=== PATIENT | male | born 1955 | race Caucasian/White ===

== ENCOUNTER 2021-02-27 12:42 | Outpatient (CLI) | payer BC, SELFPAY | END 2021-02-27 12:43 | disposition home or self-care (01) | LOC: ONCMED 12:47 | PROVIDERS: PCP Family Medicine; Visit Provider Internal Medicine Hematology & Oncology | DX: C34.32 Malignant neoplasm of lower lobe, left bronchus or lung (principal); C79.51 Secondary malignant neoplasm of bone; F17.210 Nicotine dependence, cigarettes, uncomplicated; Z79.899 Other long term (current) drug therapy | CPT/HCPCS: 99205 ==

== ENCOUNTER 2021-02-27 15:09 | Emergency (ER) | payer BC, SELFPAY ==
[2021-02-27 15:22] VITALS: BP 157/74; PULSE 71; RESP 22; TEMP 36.4; O2SAT 95; BMI 27.6
--- NOTE | 2021-02-27 16:36 | CTR_ITS ---
PROCEDURE INFORMATION: Exam: CT Cervical Spine Without Contrast Exam date and time: 02/27/2021 4:47 PM Age: 65 years old Clinical indication: Numbness; Neck pain; Patient HX: Left arm numbness; Additional info: Neck pain with R arm radiculopathy TECHNIQUE: Imaging protocol: Computed tomography images of the cervical spine without contrast. Radiation optimization: All CT scans at this facility use at least one of these dose optimization techniques: automated exposure control; mA and/or kV adjustment per patient size (includes targeted exams where dose is matched to clinical indication); or iterative reconstruction. COMPARISON: No relevant prior studies available. RADIATION DOSE METRICS: Total DLP (mGy-cm): 563.63 FINDINGS: Vertebrae: Moderate to severe multilevel spine degenerative changes including degenerative disc disease, spondylosis and facet degenerative changes. Mild cervicothoracic dextroscoliosis. C2-C3: No significant disc protrusion. No severe spinal canal stenosis. No significant neural foraminal narrowing. C3-C4: Mild degenerative disc disease and spondylosis. Mild posterior central disc protrusion. Mild left foraminal stenosis. C4-C5: Mild to moderate degenerative disc disease and spondylosis. C5-C6: Severe degenerative disc disease and spondylosis. Severe left foraminal stenosis with moderate right foraminal stenosis. C6-C7: Severe degenerative disc disease and spondylosis. Severe left foraminal stenosis with moderate right foraminal stenosis. C7-T1: Mild degenerative disc disease and spondylosis. Moderate to severe left facet degenerative changes. Soft tissues: Unremarkable. Lungs: Lung apices are normal. CT/CT cervical spin wo con* [id number] IMPRESSION: 1. Severe left C5-C6 and C6-C7 foraminal stenosis. 2. Moderate right C5-C6 and C6-C7 foraminal stenosis. 3. Multilevel degenerative changes including degenerative disc disease, spondylosis and facet degenerative changes with associated multilevel foraminal stenosis as discussed above. Radiation Dose CTDIVOL = (mGy): DLP = 563.63 (mGy-cm)
--- NOTE | 2021-02-27 16:46 | ED_ITS ---
Documented by User: Dustin Wilson DO 03/03/21 16:28 HPI - Neck Pain/Injury General: Chief Complaint: Neck Pain/Injury Stated Complaint: pain in neck/dr called over for MRI Time Seen by Provider: 02/27/21 16:27 History of Present Illness: HPI Narrative: 65-year-old male presents to the emergency room from his oncologist office. He was recently diagnosed with nonsmall cell lung CA. He has severe pain in the left side of the neck radiating to his left arm that is been ongoing for the last couple of weeks he has weakness in that arm as well. MD complaint: neck pain Onset (ago): week(s) Place: home Radiation: right upper extremity Severity: mild Quality: aching Duration: constant Relieving factors: none Exacerbating factors: none Context: other (Recent diagnosis of non-small cell lung CA) Associated symptoms: Reports tingling and weakness; Denies dysphagia, difficulty walking, dizziness, fevers/chills, headache(s), nausea or swollen glands Treatments prior to arrival: none Review of Systems Const: Denies: fever(s), chills, body aches, change in appetite, fatigue or malaise ENMT: Denies: throat pain, ear or mastoid pain, nasal discharge or nasal congestion Card: Denies: chest pain, edema, dyspnea on exertion or orthopnea Resp: Denies: dyspnea, productive cough or non-productive cough GI: Denies: nausea or dysphagia : Denies: flank pain, dysuria, urinary frequency or urinary urgency Skin/Breast: Denies: rash or pruritus Neuro: Denies: headache(s), difficulty walking or dizziness PFS ED PFSH: Medical History Cervical radiculopathy Small cell lung cancer Physical Exam Const: COMMON NORMALS: no acute distress GENERAL APPEARANCE: cooperative and comfortable ORIENTATION/CONSCIOUSNESS: Yes awake, Yes oriented to person, Yes oriented to place and Yes oriented to time HENMT: COMMON NORMALS: normocephalic, atraumatic, hearing grossly normal bilaterally, external ears normal, EAC's normal, TM's normal bilaterally, Normal nasal mucous membranes and turbinates present, moist oral mucous membranes and oropharynx normal HEAD & SCALP: normocephalic and atraumatic NOSE: Normal nasal mucous membranes and turbinates present EXTERNAL EAR: Yes external ears normal EXTERNAL AUDITORY CANAL: EAC's normal TYMPANIC MEMBRANE: TM's normal bilaterally Eye: COMMON NORMALS: Equal, round and reactive pupils present, EOMs intact bilaterally, conjunctivae normal and no scleral icterus CONJUNCTIVA: Yes conjunctivae normal PUPIL: Yes Equal, round and reactive pupils present Neck/C-Spine: COMMON NORMALS: full ROM, no lymphadenopathy, supple and no JVD Lymph: LYMPHATIC: no lymphadenopathy noted and no lymphedema noted Resp: COMMON NORMALS: normal respiratory effort, No retractions, No use of accessory muscles and clear to auscultation bilaterally AUSCULTATION: clear to auscultation bilaterally Cardio: COMMON NORMALS: no JVD, regular rate, regular rhythm and No murmurs present (Cardio) RATE: regular rate RHYTHM: regular rhythm GI: COMMON NORMALS: Soft to palpation and No hepatosplenomegaly present AUSCULTATION: Yes normoactive bowel sounds PALPATION: Yes Soft to palpation, No Tenderness to palpation present (GI), No Guarding due to palpation present (GI) and Yes No hepatosplenomegaly present Extremity: COMMON NORMALS: normal to inspection, capillary refill normal, no clubbing, cyanosis or edema, no calf tenderness and no pedal edema Neuro: SENSORIUM/ORIENTATION: Yes oriented to person, Yes oriented to place and Yes oriented to time Skin: COMMON NORMALS: no rashes or lesions noted GENERAL SKIN EXAM: no rashes or lesions noted Course Vital Signs: Vital signs: Vital Signs Temperature 97.6 F 02/27/21 15:22 Pulse Rate 78 02/27/21 19:20 Respiratory Rate 16 02/27/21 19:20 Blood Pressure 157/99 02/27/21 19:20 Pulse Oximetry 95 02/27/21 19:20 MDM - Neck Pain/Injury MDM Narrative: Medical decision making narrative: CT head and neck. Patient does seem to have some right arm radicular symptoms may require more advanced imaging at a later date. CT of the head is pending care turned to Dr. De Los Santos at change of shift Discharge Plan Discharge Patient Disposition: Home Clinical Impression: Cervical radiculopathy Condition: Stable Prescriptions: No Action losartan 50 mg tablet 50 mg PO QAM RF: 0 DILT-XR 240 mg capsule,ext.rel 24h degradable 480 mg PO QAM RF: 0 hydrocodone-acetaminophen 5-325 mg tablet 1 tab PO BID PRN (Reason: Pain) RF: 0 alendronate 70 mg tablet 70 mg PO Q7D RF: 0 gabapentin 400 mg capsule 800 mg PO TID RF: 0 Tylenol Extra Strength 500 mg Tablet 1,000 mg PO PRN RF: 0 diclofenac sodium 75 mg tablet,delayed release (DR/EC) 75 mg PO QAM RF: 0 finasteride 5 mg tablet 5 mg PO QPM RF: 0 Discharge Orders: Discharge ED (Routine); Ordered 02/27/21 Ordered By: Tiki De Los Santos Referrals: Arabella Montero MD [Primary Care Provider] - 1-3 days Discharge Diet: Advance as tolerated Discharge Activity: Resume usual activity Patient Instructions: Cervical Radiculopathy (ED) Coding Level of Care Code ED Contracts Law Professor for Chg Fwd Documented by User: Tiki De Los Santos MD 02/27/21 19:29 HPI - Neck Pain/Injury General: Chief Complaint: Neck Pain/Injury Stated Complaint: pain in neck/dr called over for MRI Time Seen by Provider: 02/27/21 16:27 [facility] ED PFSH: Medical History Cervical radiculopathy Small cell lung cancer Course Vital Signs: Vital signs: Vital Signs Temperature 97.6 F 02/27/21 15:22 Pulse Rate 78 02/27/21 19:20 Respiratory Rate 16 02/27/21 19:20 Blood Pressure 157/99 02/27/21 19:20 Pulse Oximetry 95 02/27/21 19:20 MDM - Neck Pain/Injury MDM Narrative: Medical decision making narrative: Patient presents here with some neck pain with cervical radiculopathy. He has no signs of cord compression. CT scan shows spinal stenosis no signs of fracture. Patient is neuro exam here is normal. Head CT was normal as well. Patient's stable for discharge is to follow-up his PCP in 2 to 4 days return to ER if worsening. He understands agrees to plan. Imaging Data^: CT Head: Radiologist's impression: [employer] [address] [place] [address]. [place] [address] CT Scan Report Signed Patient: Tramaine Galaviz Unit #: [id number] : 1955 Age/Sex: 65 / M ADM Date: 02/27/21 Loc: ER Room/Bed: Attending Dr: Ordering Provider/Ordering MD: Dustin Wilson DO Date of Service: 02/27/21 Procedure(s): CT head wo con* [id number] Accession Number(s): [id number] Report Number: [id number] PROCEDURE INFORMATION: Exam: CT Head Without Contrast Exam date and time: 02/27/2021 6:07 PM Age: 65 years old Clinical indication: Numbness / parasthesia; Left; Additional info: Arm weakness, HX isabella CA TECHNIQUE: Imaging protocol: Computed tomography of the head without contrast. Total images: 207 Radiation optimization: All CT scans at this facility use at least one of these dose optimization techniques: automated exposure control; mA and/or kV adjustment per patient size (includes targeted exams where dose is matched to clinical indication); or iterative reconstruction. COMPARISON: No relevant prior studies available. RADIATION DOSE METRICS: Total DLP (mGy-cm): 870.75 FINDINGS: Brain: No evidence of active or acute intracranial pathologic process, hemorrhage, or trauma. No visible evidence of diffuse cerebral edema or generalized demyelination. No visible hyperdense MCA or insular ribbon sign. No mass effect. No midline shift. Cerebral ventricles: No ventriculomegaly. Bones/joints: Unremarkable. No acute fracture. Paranasal sinuses: Visualized sinuses are unremarkable. No fluid levels. Mastoid air cells: Visualized mastoid air cells are well aerated. Soft tissues: Unremarkable. CT/CT head wo con* [id number] IMPRESSION: No evidence of active or acute intracranial pathologic process, hemorrhage, or trauma. Other CT: Radiologist's impression: [employer] [address] [place] [address]. [place] [address] CT Scan Report Signed Patient: Tramaine Galaviz Unit #: [id number] : 1955 000 Age/Sex: 65 / M ADM Date: 02/27/21 Loc: ER Room/Bed: Attending Dr: Ordering Provider/Ordering MD: Dustin Wilson DO Date of Service: 02/27/21 Procedure(s): CT cervical spin wo con* [id number] Accession Number(s): [id number] Report Number: [id number] PROCEDURE INFORMATION: Exam: CT Cervical Spine Without Contrast Exam date and time: 02/27/2021 4:47 PM Age: 65 years old Clinical indication: Numbness; Neck pain; Patient HX: Left arm numbness; Additional info: Neck pain with R arm radiculopathy TECHNIQUE: Imaging protocol: Computed tomography images of the cervical spine without contrast. Radiation optimization: All CT scans at this facility use at least one of these dose optimization techniques: automated exposure control; mA and/or kV adjustment per patient size (includes targeted exams where dose is matched to clinical indication); or iterative reconstruction. COMPARISON: No relevant prior studies available. RADIATION DOSE METRICS: Total DLP (mGy-cm): 563.63 FINDINGS: Vertebrae: Moderate to severe multilevel spine degenerative changes including degenerative disc disease, spondylosis and facet degenerative changes. Mild cervicothoracic dextroscoliosis. C2-C3: No significant disc protrusion. No severe spinal canal stenosis. No significant neural foraminal narrowing. C3-C4: Mild degenerative disc disease and spondylosis. Mild posterior central disc protrusion. Mild left foraminal stenosis. C4-C5: Mild to moderate degenerative disc disease and spondylosis. C5-C6: Severe degenerative disc disease and spondylosis. Severe left foraminal stenosis with moderate right foraminal stenosis. C6-C7: Severe degenerative disc disease and spondylosis. Severe left foraminal stenosis with moderate right foraminal stenosis. C7-T1: Mild degenerative disc disease and spondylosis. Moderate to severe left facet degenerative changes. Soft tissues: Unremarkable. Lungs: Lung apices are normal. CT/CT cervical spin wo con* [id number] IMPRESSION: 1. Severe left C5-C6 and C6-C7 foraminal stenosis. 2. Moderate right C5-C6 and C6-C7 foraminal stenosis. 3. Multilevel degenerative changes including degenerative disc disease, spondylosis and facet degenerative changes with associated multilevel foraminal stenosis as discussed above. Discharge Plan Discharge Patient Disposition: Home Clinical Impression: Cervical radiculopathy Condition: Stable Prescriptions: No Action losartan 50 mg tablet 50 mg PO QAM RF: 0 DILT-XR 240 mg capsule,ext.rel 24h degradable 480 mg PO QAM RF: 0 hydrocodone-acetaminophen 5-325 mg tablet 1 tab PO BID PRN (Reason: Pain) RF: 0 alendronate 70 mg tablet 70 mg PO Q7D RF: 0 gabapentin 400 mg capsule 800 mg PO TID RF: 0 Tylenol Extra Strength 500 mg Tablet 1,000 mg PO PRN RF: 0 diclofenac sodium 75 mg tablet,delayed release (DR/EC) 75 mg PO QAM RF: 0 finasteride 5 mg tablet 5 mg PO QPM RF: 0 Discharge Orders: Discharge ED (Routine); Ordered 02/27/21 Ordered By: Tiki De Los Santos Referrals: Arabella Montero MD [Primary Care Provider] - 1-3 days Discharge Diet: Advance as tolerated Discharge Activity: Resume usual activity Patient Instructions: Cervical Radiculopathy (ED) Coding Level of Care Code ED Contracts Law Professor for Desmond Aldridge
[2021-02-27 17:25] VITALS: RESP 18
[2021-02-27] MEDS: morphine 4 mg/mL SDV 1 mL 6 MG IVP (17:25)
[2021-02-27] MEDS: dexamethasone 10 mg/mL INJ IVP (17:26)
[2021-02-27 17:33] VITALS: BP 163/99; PULSE 72; RESP 18; O2SAT 96
[2021-02-27 18:00] VITALS: BP 151/95
--- NOTE | 2021-02-27 18:02 | CTR_ITS ---
PROCEDURE INFORMATION: Exam: CT Head Without Contrast Exam date and time: 02/27/2021 6:07 PM Age: 65 years old Clinical indication: Numbness / parasthesia; Left; Additional info: Arm weakness, HX isabella CA TECHNIQUE: Imaging protocol: Computed tomography of the head without contrast. Total images: 207 Radiation optimization: All CT scans at this facility use at least one of these dose optimization techniques: automated exposure control; mA and/or kV adjustment per patient size (includes targeted exams where dose is matched to clinical indication); or iterative reconstruction. COMPARISON: No relevant prior studies available. RADIATION DOSE METRICS: Total DLP (mGy-cm): 870.75 FINDINGS: Brain: No evidence of active or acute intracranial pathologic process, hemorrhage, or trauma. No visible evidence of diffuse cerebral edema or generalized demyelination. No visible hyperdense MCA or insular ribbon sign. No mass effect. No midline shift. Cerebral ventricles: No ventriculomegaly. Bones/joints: Unremarkable. No acute fracture. Paranasal sinuses: Visualized sinuses are unremarkable. No fluid levels. Mastoid air cells: Visualized mastoid air cells are well aerated. Soft tissues: Unremarkable. CT/CT head wo con* [id number] IMPRESSION: No evidence of active or acute intracranial pathologic process, hemorrhage, or trauma. Radiation Dose CTDIVOL = (mGy): DLP = 870.75 (mGy-cm)
[2021-02-27 19:00] VITALS: BP 157/99; PULSE 69; RESP 18; O2SAT 97
[2021-02-27 19:20] VITALS: BP 157/99; PULSE 78; RESP 16; O2SAT 95
== END 2021-02-27 19:21 | disposition home or self-care (01) ==
PROVIDERS: Emergency Provider Emergency Medicine; PCP Family Medicine
DX: M54.12 Radiculopathy, cervical region (principal); C34.90 Malignant neoplasm of unspecified part of unspecified bronchus or lung
CPT/HCPCS: 70450; 72125; 96374; 96375; 99283; J1100; J2270

== ENCOUNTER → 2021-03-06 10:09 | Outpatient (BNVA) | payer BC, SELFPAY | PROVIDERS: PCP Family Medicine; Referring Provider Internal Medicine Hematology & Oncology; Visit Provider Orthopaedic Surgery | DX: M47.22 Other spondylosis with radiculopathy, cervical region (principal); M54.9 Dorsalgia, unspecified | CPT/HCPCS: 72040 ==

== ENCOUNTER 2021-03-20 07:53 | Outpatient (CLI) | payer BC, SELFPAY | END 2021-03-20 07:54 | disposition home or self-care (01) | PROVIDERS: PCP Family Medicine; Visit Provider Internal Medicine Hematology & Oncology | DX: C34.32 Malignant neoplasm of lower lobe, left bronchus or lung (principal); C79.51 Secondary malignant neoplasm of bone; R20.2 Paresthesia of skin; R53.1 Weakness; Z87.891 Personal history of nicotine dependence; Z79.899 Other long term (current) drug therapy | CPT/HCPCS: 99214 ==

== ENCOUNTER 2021-03-24 10:46 | Outpatient (CLI) | payer BC, SELFPAY ==
--- NOTE | 2021-03-24 11:07 | MR_ITS ---
WS: [id number] MRI CERVICAL SPINE NONCONTRAST HISTORY: RADICULOPATHY, CERVICAL REGION COMPARISON: Cervical spine CT 02/27/2021 Technique: Multiplanar, multisequence noncontrast imaging of the cervical spine. Very slight straightening of the normal cervical lordosis. Mild anterior wedging of T1 is stable. Abn ormal signal involving the posterior T2 vertebral body with extension into the LEFT lamina, pedicle a nd superior/inferior articular processes. There is edema within the bone and adjacent soft tissue. Signal within the cervical cord is normal. Visualized posterior fossa is unremarkable. Craniocervical junction, C1 and C2 relationship, odontoid process and soft tissues are normal. C2-C3: Normal. C3-C4: Mild annular disc bulging with a shallow central disc protrusion. No significant stenosis. C4-C5: Mild annular disc bulging with a central small disc protrusion and mild facet arthritis. Very mild narrowing of the central canal. C5-C6: Mild annular disc bulging and osteophytic ridging. Effacement of ventral CSF resulting in mild central and bilateral foraminal stenosis. C6-C7: Mild annular disc bulging and osteophytic ridging. Effacement of ventral CSF resulting in mild central and RIGHT foraminal stenosis. Moderate stenosis on the LEFT due to disc osteophyte disease. C7-T1: Normal. Paraspinal soft tissue are normal. MR/MR cervical spin wo con* [id number] IMPRESSION: 1. No high-grade central or foraminal stenosis. 2. Moderate LEFT foraminal stenosis at C6-7 with mild central and RIGHT forami nal stenosis due to disc osteophyte disease. 3. Mild central and bilateral foraminal stenosis at C5-6. 4. Small central disc protrusions at C3-4 and C4-5. 5. Abnormal signal within the posterior T2 vertebral body with extension into the LEFT posterior elements. Highly suspicious for metastatic involvement with no cord compression at this time. Mild bony expansion of the superior articular process on the LEFT at T2 is causing mild encroachment into the LEFT T1-2 fora men.
== END 2021-03-24 10:47 | disposition home or self-care (01) ==
LOC: RADWPI 11:31 → ONCMED 11:59 → RADWPI 12:01
PROVIDERS: PCP Family Medicine; Visit Provider Orthopaedic Surgery
DX: M54.12 Radiculopathy, cervical region (principal); M50.21 Other cervical disc displacement, high cervical region; M48.02 Spinal stenosis, cervical region
CPT/HCPCS: 72141

== ENCOUNTER 2021-03-27 05:56 | Outpatient (RCR) | payer BC, SELFPAY ==
--- NOTE | 2021-03-27 | CT_ITS ---
Radiation Therapy Planning CT images; total exam DLP: 518.65 mGy-cm MTDD
== END 2021-03-28 23:59 | disposition home or self-care (01) ==
LOC: ONCMED 05:56
PROVIDERS: PCP Family Medicine; Visit Provider Radiology Radiation Oncology
DX: Z51.0 Encounter for antineoplastic radiation therapy (principal); C34.32 Malignant neoplasm of lower lobe, left bronchus or lung; C79.51 Secondary malignant neoplasm of bone
CPT/HCPCS: 77290; 77334; 99205

== ENCOUNTER 2021-03-31 05:16 | Inpatient (IN) | payer BC, MEDICARE, SELFPAY ==
[2021-03-31] VITALS (14 sets, daily range): BP systolic 134–167; BP diastolic 86–102; PULSE 54–77; RESP 16–20; TEMP 36.6–37.1; O2SAT 95–99; BMI 28.3
--- NOTE | 2021-03-31 05:28 | CTR_ITS ---
PROCEDURE INFORMATION: Exam: CT Head Without Contrast Exam date and time: 03/31/2021 5:29 AM Age: 65 years old Clinical indication: Numbness / parasthesia and weakness, facial; Left; Patient HX: L sided facial droop w L sided paralysis; Additional info: Left side facial droop/left sided paralysis new onset TECHNIQUE: Imaging protocol: Computed tomography of the head without contrast. Radiation optimization: All CT scans at this facility use at least one of these dose optimization techniques: automated exposure control; mA and/or kV adjustment per patient size (includes targeted exams where dose is matched to clinical indication); or iterative reconstruction. Other technique: STROKE PROTOCOL was implemented. COMPARISON: CT head wo con* [id number] 02/27/2021 6:32 PM RADIATION DOSE METRICS: Total DLP (mGy-cm): 908.44 FINDINGS: Brain: Normal. No hemorrhage. Unremarkable white matter. No mass effect. Cerebral ventricles: No ventriculomegaly. Bones/joints: Unremarkable. No acute fracture. Paranasal sinuses: Visualized sinuses are unremarkable. No fluid levels. Mastoid air cells: Visualized mastoid air cells are well aerated. Soft tissues: Unremarkable. CT/CT head wo con* [id number] IMPRESSION: No acute intracranial abnormality. ASSESSMENT: ASPECTS ([place] Stroke Program Early CT Score) is 10. Radiation Dose CTDIVOL = (mGy): DLP = 908.44 (mGy-cm)
--- NOTE | 2021-03-31 05:34 | CTR_ITS ---
PROCEDURE INFORMATION: Exam: CT Angiography Head Without And With Contrast, Arteriography Exam date and time: 03/31/2021 5:47 AM Age: 65 years old Clinical indication: Speech disturbance and paralysis, transient of limb; Patient HX: L sided facial droop and slurred speech - resolving; Additional info: Weakness TECHNIQUE: Imaging protocol: Computed tomographic angiography of the head without and with contrast. Exam focused on the arteries. 3D rendering (Not supervised by radiologist): MIP and/or 3D reconstructed images were created by the technologist. Radiation optimization: All CT scans at this facility use at least one of these dose optimization techniques: automated exposure control; mA and/or kV adjustment per patient size (includes targeted exams where dose is matched to clinical indication); or iterative reconstruction. Contrast material: VISI 320; Contrast volume: 95 ml; Contrast route: INTRAVENOUS (IV); Other technique: STROKE PROTOCOL was implemented. COMPARISON: CT head wo con* [id number] 03/31/2021 5:31 AM RADIATION DOSE METRICS: Total DLP (mGy-cm): 2071.44 FINDINGS: ANTERIOR CIRCULATION: Right internal carotid artery: Intracranial segment is patent with no significant stenosis or occlusion. No aneurysm. Right middle cerebral artery: No occlusion or significant stenosis. No aneurysm. Right anterior cerebral artery: No occlusion or significant stenosis. No aneurysm. Left internal carotid artery: Intracranial segment is patent with no significant stenosis. No aneurysm. Left middle cerebral artery: No occlusion or significant stenosis. No aneurysm. Left anterior cerebral artery: No occlusion or significant stenosis. No aneurysm. POSTERIOR CIRCULATION: Right vertebral artery: No occlusion or significant stenosis. No aneurysm. Left vertebral artery: No occlusion or significant stenosis. No aneurysm. Basilar artery: No occlusion or significant stenosis. No aneurysm. Right posterior cerebral artery: No occlusion or significant stenosis. No aneurysm. Left posterior cerebral artery: No occlusion or significant stenosis. No aneurysm. HEAD: Brain: Unremarkable. No acute intracranial hemorrhage. No significant white matter disease. No edema. Cerebral ventricles: Normal. No ventriculomegaly. Bones/joints: Unremarkable. No acute fracture. Paranasal sinuses: Visualized sinuses are normal. No fluid levels. Mastoid air cells: Visualized mastoids are normal. No mastoid effusion. Soft tissues: Unremarkable. IMPRESSION: No large vessel occlusion. Unremarkable CT head. ASSESSMENT: ASPECTS ([place] Stroke Program Early CT Score) is 10. PROCEDURE INFORMATION: Exam: CT Angiography Neck Without And With Contrast Exam date and time: 03/31/2021 5:47 AM Age: 65 years old Clinical indication: Speech disturbance and paralysis, transient of limb; Patient HX: L sided facial droop and slurred speech - resolving; Additional info: Weakness TECHNIQUE: Imaging protocol: Computed tomographic angiography of the neck without and with contrast. 3D rendering (Not supervised by radiologist): MIP and/or 3D reconstructed images were created by the technologist. Radiation optimization: All CT scans at this facility use at least one of these dose optimization techniques: automated exposure control; mA and/or kV adjustment per patient size (includes targeted exams where dose is matched to clinical indication); or iterative reconstruction. Contrast material: VISI 320; Contrast volume: 95 ml; Contrast route: INTRAVENOUS (IV); COMPARISON: CT head wo con* [id number] 03/31/2021 5:31 AM RADIATION DOSE METRICS: Total DLP (mGy-cm): 2071.44 FINDINGS: Right common carotid artery: No stenosis. No dissection or occlusion. Right internal carotid artery: Mild calcific plaque formation seen at the origin. No significant stenosis of the extracranial segment. No dissection or occlusion. Right external carotid artery: No occlusion or stenosis of the origin. Right vertebral artery: No stenosis. No dissection or occlusion. Left common carotid artery: No stenosis. No dissection or occlusion. Left internal carotid artery: Mild calcific plaque formation is seen at the origin. No significant stenosis of the extracranial segment. No dissection or occlusion. Left external carotid artery: No occlusion or stenosis of the origin. Left vertebral artery: No stenosis. No dissection or occlusion. Bones/joints: No acute fracture. Soft tissues: Normal. No significant soft tissue swelling. CT/CT angio headneck* [id number] IMPRESSION: No stenosis or occlusion. REFERENCES: NASCET CRITERIA. The degree of internal carotid artery stenosis is based on NASCET criteria. Normal is no stenosis. Mild is less than 50% stenosis. Moderate is 50-69% stenosis. Severe is 70% to 99% stenosis. Total occlusion is no detectable patent lumen. Radiation Dose CTDIVOL = (mGy): DLP = 2.44~2.44 (mGy-cm)
--- NOTE | 2021-03-31 05:34 | ECG_ITS ---
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 Measurements Intervals [place] Rate: 62 P: -14 [place]: 151 QRS: 61 QRSD: 110 T: 40 QT: 396 QTc: 404 Interpretive Statements SINUS RHYTHM INTERPRETATION BASED ON A DEFAULT AGE OF 40 YEARS No previous ECG available for comparison Electronically Signed On 04-02-2021 7:58:24 CDT by Mario Watts M.D. [id number]
--- NOTE | 2021-03-31 05:37 | ED_ITS ---
HPI - Neuro Symptoms/Deficit General: Chief Complaint: Neuro Symptoms/Deficit Stated Complaint: Left facial droop/Left paralysis Time Seen by Provider: 03/31/21 05:41 History of Present Illness: HPI Narrative: 65-year-old gentleman with recent diagnosis of cancer. He went to bed around 1015 last night. He awoke at 3:45 in the morning to use the restroom. In trying to get out of bed, he fell. He had significant left-sided weakness of the upper and lower extremity. He was also having trouble speaking and that his speech was slurred. He could not lift his arm. He made another attempt to get up, and made it to the bathroom before falling again. EMS was called. They noted improvement in his exam and the 45- minute ride in here. He presents here with some continued dysarthria and weakness, although he is much improved. Onset (ago): unknown Timing confirmed by: spouse Location: speech, left face, dysarthria, left arm and left leg History of same: No Severity: moderate Quality: weak Associated symptoms: Reports weakness; Deny chest pain, cough, fevers/chills, headache(s), short of breath, syncope, tingling or vomiting Treatments Prior to Arrival: none Review of Systems Const: Denies: fever(s) or chills Eyes: Reports: change in vision (resolved now) Card: Denies: chest pain or syncope Resp: Denies: dyspnea, productive cough or non-productive cough GI: Denies: vomiting : Denies: difficulty urinating Neuro: Reports: weakness in extremities; Denies: headache(s), numbness in extremities or sensory changes [facility] ED PFSH: Medical History (Updated 03/31/21 @ 07:40 by Jordy Hernandez DO) Cervical radiculopathy Small cell lung cancer NIH stroke score NIHSS: Level Of Consciousness - 1a: 0 Level Of Consciousness Questions - 1b: Both Correct Level Of Consciousness Commands - 1c: Both Correct Best Gaze - 2: Normal Visual Lawrence - 3: No Visual Loss Facial Palsy - 4: Minor Paralysis Motor Arm Right - 5: No Drift Motor Arm Left - 5: No Drift Motor Leg Right - 6: No Drift Motor Leg Left - 6: No Drift Limb Ataxia - 7: Present In One Limb Sensory - 8: Normal Best Language - 9: No Aphasia Dysarthia - 10: Mild/Moderate Dysarthia Extinction And Inattention - 11: 0 Score: Total Score: 3 Physical Exam Const: COMMON NORMALS: no acute distress, patient oriented x3 and alert GENERAL APPEARANCE: cooperative HENMT: COMMON NORMALS: normocephalic and Normal external nose present HEAD & SCALP: normocephalic FACE & SINUS: no Flattened naso-labial fold present NOSE: Normal external nose present TEETH & GINGIVA: Yes edentulous Eye: COMMON NORMALS: Equal, round and reactive pupils present, EOMs intact bilaterally and conjunctivae normal VISUAL LA[place]: No peripheral vision loss ALIGNMENT: Yes alignment normal EYELID: eyelids normal CONJUNCTIVA: Yes conjunctivae normal PUPIL: Yes Equal, round and reactive pupils present Chest: COMMONS NORMALS: normal inspection of the chest Resp: COMMON NORMALS: normal respiratory effort, No use of accessory muscles and clear to auscultation bilaterally AUSCULTATION: clear to auscultation bilaterally Cardio: COMMON NORMALS: regular rate and regular rhythm RATE: regular rate RHYTHM: regular rhythm GI: COMMON NORMALS: Normal to inspection, nondistended, normoactive bowel sounds present and Soft to palpation PALPATION: Yes Soft to palpation Neuro: COMMON NORMALS: patient oriented x3 SENSORIUM/ORIENTATION: Yes alert COORDINATION/BALANCE: [id number] test normal and No ozsv-dp-milv test normal SPEECH: abnormal speech Details: slurred, no expressive aphasia and no receptive aphasia SENSORY EXAM: Yes extremities (intact) and Trunk sensory exam abnormal (intact) MOTOR EXAM: Pronator motor function not present COORDINATION: owngwd-ib-gsor test normal and xkdn-vf-kknf test abnormal Course Consultations: Consultation #1: momo Time: 05:27 Consultation #2: geo Time: 07:20 Vital Signs: Vital signs: Vital Signs Temperature 98.7 F 03/31/21 05:17 Pulse Rate 77 03/31/21 07:00 Respiratory Rate 19 H 03/31/21 07:00 Blood Pressure 134/89 03/31/21 07:00 Pulse Oximetry 97 03/31/21 07:00 MDM - Neuro Symptoms/Deficit MDM Narrative: Medical decision making narrative: Significant improvement in symptoms since awaking. He is left with some slurred speech, and lower limb ataxia. As it is true last known well was around 1015 last p.m., he is not a TPA candidate. CTA is clear, so no candidate for thrombectomy. Spoke with neurology shortly after the patient arrived, and again after CTA results were in. Spoke with hospitalist for observation admission Lab Data: Labs: Lab Results 03/31/21 03/31/21 03/31/21 Range/Units 04:28 04:28 04:28 WBC 20.2 H (4.0-10.0) 10^3/ uL RBC 4.38 (4.1-5.3) 10^6/u L Hgb 12.9 (11.7-16.6) g/dL Hct 39.3 L (42.0-52.0) % MCV 89.7 (80-94) fL MCH 29.5 (28.0-34.0) pg MCHC 32.8 (30.0-36.0) g/dL RDW 16.1 H (12.1-15.1) % Plt Count 415 H (130-400) 10^3/c mm MPV 10.2 (7.4-10.4) fL Neut % (Auto) 79.0 % Lymph % (Auto) 4.8 % Shelby % (Auto) 9.7 % Eos % (Auto) 0.0 % Baso % (Auto) 0.4 % Neut # (Auto) 15.98 H (1.8-7.7) 10^3/u L Lymph # (Auto) 1.0 (0.8-4.8) 10^3/u L Shelby # (Auto) 2.0 H (0.2-0.9) 10^3/u L Eos # (Auto) 0.0 (0.0-0.8) 10^3/u L Baso # (Auto) 0.1 (0.0-0.1) 10^3/u L Nucleated RBC % (a uto) 0 % Nucleated RBCs # 0.0 /100WBC PT 13.00 (12.1-14.9) SECO NDS INR 0.96 (0.8-1.2) APTT 24.6 (23.9-36.7) SECO NDS Sodium 139 (136-145) mmol/L Potassium 4.5 (3.5-5.1) mmol/L Chloride 106 (98-107) mmol/L Carbon Dioxide 26 (22-29) mmol/L Anion Gap 11.5 (5-19) BUN 39 H (8-23) mg/dL Creatinine 1.0 (0.7-1.2) mg/dL GFR Calculation 75.2 L (90-130) mL/min Glucose 112 (65-115) mg/dL POC Glucose (70-110) mg/dL Calculated Osmolal ity 298 H (285-295) mOsm/k g Calcium 8.2 L (8.5-10.5) mg/dL Total Bilirubin 0.3 (0.15-1.2) mg/dL AST 11 (0-40) U/L ALT 23 (0-41) U/L Alkaline Phosphata se 100 (40-130) IU/L Total Protein 5.7 L (6.6-8.7) g/dL Albumin 3.6 (3.5-5.2) g/dL Globulin 2.1 (1.3-4.6) g/dL 03/31/21 Range/Units 05:41 WBC (4.0-10.0) 10^3/ uL RBC (4.1-5.3) 10^6/u L Hgb (11.7-16.6) g/dL Hct (42.0-52.0) % MCV (80-94) fL MCH (28.0-34.0) pg MCHC (30.0-36.0) g/dL RDW (12.1-15.1) % Plt Count (130-400) 10^3/c mm MPV (7.4-10.4) fL Neut % (Auto) % Lymph % (Auto) % Shelby % (Auto) % Eos % (Auto) % Baso % (Auto) % Neut # (Auto) (1.8-7.7) 10^3/u L Lymph # (Auto) (0.8-4.8) 10^3/u L Shelby # (Auto) (0.2-0.9) 10^3/u L Eos # (Auto) (0.0-0.8) 10^3/u L Baso # (Auto) (0.0-0.1) 10^3/u L Nucleated RBC % (a uto) % Nucleated RBCs # /100WBC PT (12.1-14.9) SECO NDS INR (0.8-1.2) APTT (23.9-36.7) SECO NDS Sodium (136-145) mmol/L Potassium (3.5-5.1) mmol/L Chloride (98-107) mmol/L Carbon Dioxide (22-29) mmol/L Anion Gap (5-19) BUN (8-23) mg/dL Creatinine (0.7-1.2) mg/dL GFR Calculation (90-130) mL/min Glucose (65-115) mg/dL POC Glucose 107 (70-110) mg/dL Calculated Osmolal ity (285-295) mOsm/k g Calcium (8.5-10.5) mg/dL Total Bilirubin (0.15-1.2) mg/dL AST (0-40) U/L ALT (0-41) U/L Alkaline Phosphata se (40-130) IU/L Total Protein (6.6-8.7) g/dL Albumin (3.5-5.2) g/dL Globulin (1.3-4.6) g/dL Discharge Plan Discharge Patient Disposition: Placed in Observation Clinical Impression: Cerebrovascular accident Condition: Stable Prescriptions: No Action prednisone 20 mg tablet 20 mg PO DAILY Qty: 15 RF: 0 losartan 50 mg tablet 50 mg PO QAM RF: 0 DILT-XR 240 mg capsule,ext.rel 24h degradable 480 mg PO QAM RF: 0 hydrocodone-acetaminophen 5-325 mg tablet 1 tab PO BID PRN (Reason: Pain) RF: 0 alendronate 70 mg tablet 70 mg PO Q7D RF: 0 gabapentin 400 mg capsule 800 mg PO TID RF: 0 Tylenol Extra Strength 500 mg Tablet 1,000 mg PO PRN RF: 0 diclofenac sodium 75 mg tablet,delayed release (DR/EC) 75 mg PO QAM RF: 0 finasteride 5 mg tablet 5 mg PO QPM RF: 0 Referrals: Arabella Montero MD [Primary Care Provider] - Coding Level of Care Code ED Certified Peer Specialist for [facility]
[2021-03-31 05:45] LABS: Basophils # 0.1 10^3/uL (0.0-0.1); Basophils % 0.4 %; Hematocrit 39.3 % (42.0-52.0); Hemoglobin 12.9 g/dL (11.7-16.6); Lymphocytes % 4.8 %; Mean Corpuscular HGB Conc 32.8 g/dL (30.0-36.0); Mean Corpuscular Hemoglobin 29.5 pg (28.0-34.0); Mean Corpuscular Volume 89.7 fL (80-94); Mean Platelet Volume 10.2 fL (7.4-10.4); Monocytes % 9.7 %; Neutrophils # 15.98 10^3/uL (1.8-7.7); Nucleated Red Blood Cells % 0 %; Platelet Count 415 10^3/cmm (130-400); Red Blood Count 4.38 10^6/uL (4.1-5.3); Red Cell Distribution Width 16.1 % (12.1-15.1); White Blood Count 20.2 10^3/uL (4.0-10.0)
[2021-03-31 05:50] LABS: Glucose Point of Care 107 mg/dL (70-110)
[2021-03-31 06:00] LABS: Alanine Aminotransferase 23 U/L (0-41); Albumin Level 3.6 g/dL (3.5-5.2); Alkaline Phosphatase 100 IU/L (40-130); Anion Gap 11.5 (5-19); Aspartate Amino Transferase 11 U/L (0-40); Blood Urea Nitrogen 39 mg/dL (8-23); Calcium 8.2 mg/dL (8.5-10.5); Carbon Dioxide 26 mmol/L (22-29); Chloride 106 mmol/L (98-107); Globulin 2.1 g/dL (1.3-4.6); Glomerular Filtration Rate 75.2 mL/min (90-130); Glucose 112 mg/dL (65-115); Osmolality Calculated 298 mOsm/kg (285-295); Potassium 4.5 mmol/L (3.5-5.1); Sodium 139 mmol/L (136-145); Total Bilirubin 0.3 mg/dL (0.15-1.2); Total Protein 5.7 g/dL (6.6-8.7)
[2021-03-31 06:05] LABS: Slide Review Slide Review Perform
[2021-03-31] MEDS: iodixanol 320 mg/mL 100mL Btl IV (06:05)
[2021-03-31 06:32] LABS: INR 0.96 (0.8-1.2)
[2021-03-31 06:41] LABS: Partial Thromboplastin Time 24.6 SECONDS (23.9-36.7)
[2021-03-31] MEDS: sodium chloride 0.9% 500 ML 999 ML IV (06:58)
[2021-03-31] MEDS: aspirin 325 mg Tablet PO (06:59)
[2021-03-31] MEDS: clopidogrel 75 mg Tablet PO (06:59)
--- NOTE | 2021-03-31 07:04 | PC.NURSE ---
Received report assumed care. No changes noted from report. at bedside. Notable weakness on left side. Gave po meds and fluids per written order. Slow to swallow with small amount of drooling on left side.
[2021-03-31] MEDS: atorvastatin 40 mg Tablet 80 MG PO (07:16)
--- NOTE | 2021-03-31 07:56 | PM.HP ---
Providers/Chief Complaint Admitting Physician: Henrique Ren MD Primary Care Provider: Arabella Montero MD Chief Complaint: Left facial droop/Left paralysis History of Present Illness Tramaine Galaviz is a 65 year old male who woke up with a neurologic deficit around 3:45 AM. He reports he could not move his left arm and left leg very well, had trouble and difficulty getting words out and had slurred speech. He has had some throat clearing with trying to take his pills this morning. He reports he is currently undergoing investigation and is to start treatment for lung cancer soon. First thing to initiate was radiation treatment as he has a lesion at T2 causing neuropathic pain. He was diagnosed with non-small cell carcinoma in mid January. He denies any previous history of CVA. While in the emergency department the ER physician contacted neurology and they did not believe TPA was an option as he woke up with his deficits. CTA demonstrated no thrombus. He has not had any cough, fever, exposure to Covid. Review of Systems General: Reports: 10 or more systems reviewed and unremarkable except in HPI and below Const: Denies: fever(s) Eyes: Denies: change in vision ENMT: Denies: throat pain Card: Denies: chest pain Resp: Denies: dyspnea GI: Reports: heartburn; Denies: abdominal pain, nausea or vomiting : Denies: flank pain Musc: Denies: neck pain Skin/Breast: Denies: rash Neuro: Reports: weakness in extremities, lack of coordination and Slurred speech present; Denies: seizure-like activity Psych: Denies: anxiety Endo: Denies: polyuria Gregorio/Lymph: Denies: easy bruising All/Imm: Denies: urticaria Medications/Allergies Home Medications Medication Instructions Recorded Confirmed Last Taken Type acetaminophen [Tylenol Extra 1,000 mg PO Q6H PRN 02/27/21 03/31/21 Unknown History Strength] alendronate 70 mg PO Q7D 02/27/21 03/31/21 03/29/21 History diclofenac sodium 75 mg PO DAILY@0500 02/27/21 03/31/21 03/30/21 History diltiazem HCl [DILT-XR] 480 mg PO DAILY@0500 02/27/21 03/31/21 03/30/21 History finasteride 5 mg PO DAILY 0403/31/21 02/26/21 History gabapentin 800 mg PO TID 02/27/21 03/31/21 03/30/21 History losartan 50 mg PO DAILY@0500 02/27/21 03/31/21 03/30/21 History dexamethasone 4 mg PO BID 03/31/21 03/31/21 03/30/21 History oxycodone-acetaminophen 1 tab PO Q6H PRN 03/31/21 03/31/21 03/30/21 History Allergies Allergy/AdvReac Type Severity Reaction Status Date / Time No Known Allergies Allergy Verified 03/06/21 09:43 PFSH Acute PFSH: Medical History (Updated 03/31/21 @ 09:36 by Henrique Ren MD) Cervical radiculopathy Hypertension 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 Peripheral neuropathy Surgical History (Updated 03/31/21 @ 09:31 by Henrique Ren MD) History of ankle surgery History of bronchoscopy History of lumbar laminectomy for spinal cord decompression History of shoulder surgery S/P right rotator cuff repair Family History (Updated 03/31/21 @ 09:32 by Henrique Ren MD) Other Cancer Dementia Social History (Updated 03/31/21 @ 09:32 by Henrique Ren MD) Smoking and tobacco status: former smoker Alcohol intake: former Substance/Drug Use: never Vitals/I&O/Wt Last Vital Signs Temp 98.7 F 03/31/21 05:17 Pulse 77 03/31/21 07:00 Resp 19 H 03/31/21 07:00 BP 134/89 03/31/21 07:00 Pulse Ox 97 03/31/21 07:00 Weight last 48 hrs Weight 89.403 kg Physical Exam Narrative: EXAM NARRATIVE: General exam is a white male with some difficulty in communicating Neurologic: Left hemiparesis, slurred speech, left facial droop. Strength reduction is moderate, 3/4/5 upper and lower extremity. HEENT: Pupils equally round. Oropharynx clear. Neck is supple no lymphadenopathy or thyromegaly Cardiovascular regular rate and rhythm without murmur, no S3 or S4 Lungs clear no wheezing or crackles Abdomen is soft positive bowel sounds. No obvious organomegaly was deferred Extremities no cyanosis clubbing or edema, cap refill brisk. Note strength reduction in neurologic exam Skin no rash Data : 03/31/21 04:28 05 04:28 Other data: EKG demonstrates a sinus rhythm, normal axis, no acute changes INR is normal Calcium 8.2 LFTs normal TSH ordered and normal Head and neck CTA demonstrated no large vessel occlusion, no flow-limiting stenosis, no visible thrombus Head CT negative Chest x-ray no infiltrate A&P Assessment and plan (1) Cerebrovascular accident: Full admission needed. Significant impairment with inability to ambulate currently With resultant left hemiparesis, some swallowing difficulty, some aphasia Plavix, aspirin High-dose statin PT/OT/ST Diet after evaluated by speech therapy Check echocardiogram No flow-limiting stenosis or thrombus on CTA head neck Telemetry TSH checked and normal Permissive hypertension Fluids for hydration Status: Acute Qualifiers: CVA mechanism: thrombosis Laterality of affected vessel: right Precerebral and cerebral artery: middle cerebral artery Qualified Code(s): I63.311 - Cerebral infarction due to thrombosis of right middle cerebral artery (2) Non-small cell cancer of left lung: Currently undergoing evaluation for treatment. To have radiation treatment start soon on metastatic lesion at T2 causing some neuropathy I called oncology clinic to notify them regarding the patient's admission Continue dexamethasone he is on currently secondary to his neuropathy. Note that his white blood cell count is elevated which I suspect is secondary to steroids. Will check urinalysis. No evidence of sepsis. 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
--- NOTE | 2021-03-31 07:57 | XRR_ITS ---
PROCEDURE INFORMATION: Exam: XR Chest Exam date and time: 03/31/2021 7:59 AM Age: 65 years old Clinical indication: Other: Stroke like sypmtoms; Patient HX: Stroke like symptoms, cannot move left arm; Additional info: History of lung CA TECHNIQUE: Imaging protocol: XR of the chest. Views: 1 view. COMPARISON: CR XR chest 1V [id number] 02/19/2021 12:56 PM FINDINGS: Lungs: Unremarkable. No consolidation. Pleural spaces: Unremarkable. No pleural effusion. No pneumothorax. Heart/Mediastinum: Unremarkable. No cardiomegaly. Bones/joints: Unremarkable. XR/XR chest 1V portable [id number] IMPRESSION: No acute findings.
[2021-03-31 08:26] LABS: Thyroid Stimulating Hormone 0.79 uIU/mL (0.27-4.20)
[2021-03-31] MEDS: enoxaparin 40 mg/0.4 mL Syringe SUBCUT (11:04)
[2021-03-31] MEDS: sodium chloride 0.9% 1,000 ML 75 ML IV ×2 (11:05→23:27)
--- NOTE | 2021-03-31 11:29 | PC.NUTR ---
Nutritional consult received for stroke dx. Education completed on nutrition therapy for stroke as well as heart-healthy cooking tips. Pt verbalized understanding. RD contact info provided for follow-up.
[2021-03-31 15:17] LABS: Amphetamines Screen Urine Negative (Negative); Barbiturates Screen Urine Negative (Negative); Benzodiazepines Screen Urine Negative (Negative); Cocaine Screen Urine Negative (Negative); Opiate Screen Urine Negative (Negative); PCP Screen Urine Negative (Negative); THC Screen Urine Negative (Negative)
[2021-03-31 15:18] LABS: Add Urine Microscopic? YES; Bilirubin Urine Neg (Negative); Blood Urine Neg (Negative); Glucose Urine UA Norm (Normal); Ketones Urine Negative (Negative); Leukocyte Esterase Urine 2+ (Negative); Nitrate Urine Positive (Negative); Protein Urine Neg (Negative); Specific Gravity, Urine 1.005 (1.005-1.030); Urine Appearance Hazy (CLEAR); Urine Color Yellow (Yellow); Urobilinogen Urine Norm (Negative); pH Urine 7 (5-7)
[2021-03-31 15:29] LABS: Add Urine Culture? Yes; Bacteria Urine 4+ /hpf; RBC Urine 0-4 /hpf (0-2); Squamous Epithelial Cell Urine 0-4 /hpf (0-5); WBC Urine 25-40 /hpf (0-5)
[2021-03-31] MEDS: oxyCODONE-APAP 5-325 mg Tablet 1 TAB PO (15:46)
[2021-03-31] MEDS: gabapentin 400 mg Capsule 800 MG PO ×2 (15:47→22:07)
--- NOTE | 2021-03-31 16:33 | PC.NURSE ---
verbal ok from Dr. Ren to give medication with applesauce.
[2021-03-31] MEDS: dexamethasone 4 mg Tablet PO (18:14)
[2021-03-31] MEDS: atorvastatin 40 mg Tablet PO (22:07)
[2021-04-01] VITALS (15 sets, daily range): BP systolic 130–160; BP diastolic 77–103; PULSE 58–94; RESP 16–20; TEMP 36.7–37.1; O2SAT 94–96
[2021-04-01 04:50] LABS: Basophils % 0.2 %; Hematocrit 36.6 % (42.0-52.0); Hemoglobin 12.1 g/dL (11.7-16.6); Lymphocytes # 0.7 10^3/uL (0.8-4.8); Mean Corpuscular HGB Conc 33.1 g/dL (30.0-36.0); Mean Corpuscular Hemoglobin 29.5 pg (28.0-34.0); Mean Corpuscular Volume 89.3 fL (80-94); Monocytes # 1.1 10^3/uL (0.2-0.9); Monocytes % 6.8 %; Neutrophils # 13.99 10^3/uL (1.8-7.7); Neutrophils % 86.3 %; Nucleated Red Blood Cells % 0 %; Platelet Count 355 10^3/cmm (130-400); Red Cell Distribution Width 16.4 % (12.1-15.1); White Blood Count 16.2 10^3/uL (4.0-10.0)
[2021-04-01 05:02] LABS: Anion Gap 10.5 (5-19); Blood Urea Nitrogen 24 mg/dL (8-23); Calcium 7.5 mg/dL (8.5-10.5); Carbon Dioxide 26 mmol/L (22-29); Chloride 105 mmol/L (98-107); Glucose 115 mg/dL (65-115); Osmolality Calculated 289 mOsm/kg (285-295); Potassium 4.5 mmol/L (3.5-5.1); Sodium 137 mmol/L (136-145)
[2021-04-01 05:03] LABS: Chol HDL Ratio 3.25 mg/dL (1.0-5.00); Cholesterol 156 mg/dL (0-200); HDL Cholesterol 48 mg/dL (60-100); LDL Cholesterol Calculated 69 mg/dL (50-129); LDL HDL Ratio 1.44 RATIO (0.00-3.22); Triglycerides 195 mg/dL (0-150)
--- NOTE | 2021-04-01 06:00 | USCV_ITS ---
Tramaine Galaviz Age: 65 Gender: M : 1955 Exam Date: 04/01/2021 12:01 Ordering Phys: Jordy Hernandez DO Technologist: Tania Trujillo [place] [facility] [place]: [place] BP: / HR: 62 Rhythm: Sinus Technical Quality: Adequate MEASUREMENTS (Male / Female) Normal Values 2D ECHO LV Diastolic Diameter PLAX 4.9 cm 4.2 - 5.9 / 3.9 - 5.3 cm LV Systolic Diameter PLAX 2.8 cm IVS Diastolic Thickness 1.0 cm 0.6 - 1.0 / 0.6 - 0.9 cm IVS Systolic Thickness 1.3 cm LVPW Diastolic Thickness 1.1 cm 0.6 - 1.0 / 0.6 - 0.9 cm LVPW Systolic Thickness 1.7 cm LVOT Diameter 2.0 cm LV Ejection Fraction 2D Teich 72.8 % LV Ejection Fraction MOD 2C 66.1 % LV Ejection Fraction 2C AL 64.5 % LA Diameter 3.0 cm LA Width 3.0 cm LA Height 4.1 cm RA Width 2.8 cm RA Height 4.2 cm Aorta at Sinotubular Diameter 3.4 cm M-MODE LV Diastolic Diameter MM 5.7 cm 4.2 - 5.9 / 3.9 - 5.3 cm LV Systolic Diameter MM 3.7 cm LV Ejection Fraction MM Teich 62.5 % IVS Diastolic Thickness MM 0.9 cm 0.6 - 1.0 / 0.6 - 0.9 cm IVS Systolic Thickness MM 1.5 cm LVPW Diastolic Thickness MM 1.1 cm 0.6 - 1.0 / 0.6 - 0.9 cm LVPW Systolic Thickness MM 1.3 cm Aortic Annulus Diameter 3.2 cm LA Ao Ratio MM 0.9 MV E Point Septal Separation 0.4 cm DOPPLER AV Peak Velocity 183.0 cm/s LVOT Peak Velocity 128.0 cm/s AV Area Cont Eq vti 2.2 cm squared AV Area Cont Eq pk 2.3 cm squared MV Peak Velocity 106.0 cm/s MV Area PHT 4.4 cm squared Mitral E to A Ratio 0.8 MV E' Velocity 54.5 cm/s Mitral E to MV E' Ratio 12.7 Mitral E to LV E' Lateral Ratio 10.5 Mitral E to LV E' Septal Ratio 16.3 TR Peak Velocity 123.3 cm/s TR Peak Gradient 6.1 mmHg Right Atrial Pressure 3.0 mmHg Pulmonary Artery Systolic Pressu 9.1 mmHg PV Peak Velocity 106.0 cm/s RV Acceleration Time 0.1 s RV Ejection Time 0.3 s RV AcT/ET 0.4 FINDINGS Left Ventricle Normal left ventricular size. LV systolic function is normal with EF of 60-65%. No regional wall motion abnormalities. Grade 1 diastolic dysfunction Right Ventricle The right ventricle is normal in size and function. Right Atrium The right atrium is normal in size. Left Atrium The left atrium is normal in size. Mitral Valve Structurally normal mitral valve without significant stenosis or prolapse. There is mild mitral regurgitation. Aortic Valve Aortic valve is thickened without significant sclerosis. There is trace aortic regurgitation. Tricuspid Valve Structurally normal tricuspid valve without significant stenosis or regurgitation. Insufficient TR jet to calculate RVSP Pulmonic Valve Structurally normal pulmonic valve without significant stenosis. There is no pulmonic regurgitation. Pericardium Normal pericardium without effusion. Aorta Normal ascending aorta dimension. CONCLUSIONS LV systolic function is normal with EF of 60-65% Grade 1 diastolic dysfunction Mild mitral regurgitation Trace aortic regurgitation No comparison studies are available Mario Watts MD (Electronically Signed) Final Date: 01 Apr 2021 19:33 S
[2021-04-01 07:02] LABS: Estmated Average Glucose 134; Hemoglobin A1C 6.3 % (4.0-6.0)
--- NOTE | 2021-04-01 08:22 | PM.PN ---
Subjective Subjective: Interval history: Tramaine reports he is doing better this morning. Speech is improved. He can move his left upper extremity much better. Left lower extremity was moving better yesterday. No significant headache. He is not sure about his swallowing yet. Medications: Reviewed: Yes Vitals/I&O/Wt Last Vital Signs Temp 98.4 F 04/01/21 08:15 Pulse 64 04/01/21 08:15 Resp 16 04/01/21 08:15 BP 160/103 04/01/21 08:15 Pulse Ox 95 04/01/21 08:15 03/31/21 04/01/21 04/01/21 22:59 06:59 14:59 Intake Total 927.5 / 1547.5 Output Total 800 / 1600 800 / 2400 Balance -800 / -980 127.5 / -852.5 Weight last 48 hrs Weight 89.403 kg Physical Exam Narrative: EXAM NARRATIVE: General exam is a white male with significant improvement in his aphasia, as well as left facial droop Neurologic: Left hemiparesis noted now only 4/5 upper and lower extremity. HEENT: Pupils equally round. Oropharynx clear. Neck is supple no lymphadenopathy or thyromegaly Cardiovascular regular rate and rhythm without murmur, no S3 or S4 Lungs clear no wheezing or crackles Abdomen is soft positive bowel sounds. No obvious organomegaly Extremities no cyanosis clubbing or edema, cap refill brisk. Note strength reduction in neurologic exam Data : 04/01/21 04:26 04/01/21 04:26 A&P Assessment and plan (1) Cerebrovascular accident: Continue Plavix, aspirin Continue high-dose statin Continue PT/OT/ST. Hopefully will be able to start a diet today. Await echocardiogram No flow-limiting stenosis or thrombus on CTA head neck Telemetry currently in place has not showed any atrial fibrillation TSH checked and normal Continue permissive hypertension through today, consider adding back antihypertensives tomorrow Continue fluids Status: Acute Qualifiers: CVA mechanism: thrombosis Laterality of affected vessel: right Precerebral and cerebral artery: middle cerebral artery Qualified Code(s): I63.311 - Cerebral infarction due to thrombosis of right middle cerebral artery (2) Non-small cell cancer of left lung: Currently undergoing evaluation for treatment. To have radiation treatment start soon on metastatic lesion at T2 causing some neuropathy I called oncology clinic to notify them regarding the patient's admission Continue dexamethasone he is on currently secondary to his neuropathy. Note that his white blood cell count is elevated which I suspect is secondary to steroids although UTI could have played a role. White blood cell count slightly better today. Status: Acute (3) Hypertension: Hold diltiazem for permissive hypertension Status: Acute (4) Peripheral neuropathy: Continue gabapentin Status: Acute Additional A&P Information Probable UTI. Rocephin initiated. Await culture. Had some difficulty with urinating as well so Flomax was added. Full code Lovenox for DVT prophylaxis May need rehabilitation for his CVA, however his stroke symptoms have improved significantly overnight. Attestations Medical Necessity Statement*: Needs continued hospitalization for close monitoring secondary to CVA causing left hemiparesis. 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
[2021-04-01] MEDS: enoxaparin 40 mg/0.4 mL Syringe SUBCUT (09:37)
[2021-04-01] MEDS: clopidogrel 75 mg Tablet PO (09:37)
[2021-04-01] MEDS: cefTRIAXone 1,000 MG in sodium chloride 0.9% (plus) 50 ML 100 MG IV (09:37)
[2021-04-01] MEDS: tamsulosin 0.4 mg Capsule PO (09:37)
[2021-04-01] MEDS: aspirin 81 mg EC Tablet 162 MG PO (09:37)
[2021-04-01] MEDS: gabapentin 400 mg Capsule 800 MG PO ×3 (09:37→21:22)
[2021-04-01] MEDS: dexamethasone 4 mg Tablet PO ×2 (09:37→17:49)
[2021-04-01] MEDS: pantoprazole DR 40 mg Tablet PO (09:38)
[2021-04-01] MEDS: oxyCODONE-APAP 5-325 mg Tablet 1 TAB PO ×2 (10:50→23:25)
[2021-04-01] MEDS: sodium chloride 0.9% 1,000 ML 75 ML IV (12:35)
[2021-04-01] MEDS: atorvastatin 40 mg Tablet PO (21:22)
[2021-04-02] MEDS: sodium chloride 0.9% 1,000 ML 75 ML IV (02:32)
[2021-04-02 03:46] VITALS: BP 135/83; PULSE 62; RESP 17; TEMP 36.7; O2SAT 96
[2021-04-02 06:00] VITALS: PULSE 62
[2021-04-02 06:13] LABS: Basophils % 0.1 %; Hematocrit 35.3 % (42.0-52.0); Hemoglobin 11.6 g/dL (11.7-16.6); Lymphocytes # 0.6 10^3/uL (0.8-4.8); Lymphocytes % 4.3 %; Mean Corpuscular HGB Conc 32.9 g/dL (30.0-36.0); Mean Corpuscular Hemoglobin 29.6 pg (28.0-34.0); Mean Corpuscular Volume 90.1 fL (80-94); Mean Platelet Volume 10.1 fL (7.4-10.4); Monocytes # 1.2 10^3/uL (0.2-0.9); Monocytes % 8.1 %; Neutrophils # 12.18 10^3/uL (1.8-7.7); Neutrophils % 85.5 %; Nucleated Red Blood Cells % 0 %; Platelet Count 309 10^3/cmm (130-400); Red Blood Count 3.92 10^6/uL (4.1-5.3); Red Cell Distribution Width 16.3 % (12.1-15.1); White Blood Count 14.3 10^3/uL (4.0-10.0)
[2021-04-02 06:37] LABS: Anion Gap 9.3 (5-19); Blood Urea Nitrogen 26 mg/dL (8-23); Calcium 7.2 mg/dL (8.5-10.5); Carbon Dioxide 24 mmol/L (22-29); Chloride 107 mmol/L (98-107); Glomerular Filtration Rate 75.2 mL/min (90-130); Glucose 125 mg/dL (65-115); Osmolality Calculated 288 mOsm/kg (285-295); Potassium 4.3 mmol/L (3.5-5.1); Sodium 136 mmol/L (136-145)
[2021-04-02 08:00] VITALS: BP 136/82; PULSE 69; RESP 18; TEMP 36.4; O2SAT 95
[2021-04-02] MEDS: aspirin 81 mg EC Tablet 162 MG PO (09:15)
[2021-04-02] MEDS: clopidogrel 75 mg Tablet PO (09:15)
[2021-04-02] MEDS: dexamethasone 4 mg Tablet PO (09:15)
[2021-04-02] MEDS: gabapentin 400 mg Capsule 800 MG PO (09:15)
[2021-04-02] MEDS: tamsulosin 0.4 mg Capsule PO (09:15)
[2021-04-02] MEDS: enoxaparin 40 mg/0.4 mL Syringe SUBCUT (09:15)
[2021-04-02] MEDS: pantoprazole DR 40 mg Tablet PO (09:15)
[2021-04-02] MEDS: cefTRIAXone 1,000 MG in sodium chloride 0.9% (plus) 50 ML 100 MG IV (09:15)
[2021-04-02 10:00] VITALS: BP 136/82; PULSE 63; RESP 16
--- NOTE | 2021-04-02 10:20 | P.DS_ITS ---
Discharge Providers Date of Admission: 03/31/21 09:08 Date of Discharge: April 02, 2021 Attending Provider at Admission: Henrique Ren MD Attending Provider at Discharge: eHnrique Ren MD Primary Care Provider: Arabella Montero MD Diagnoses at Discharge Discharge Diagnosis (1) Cerebrovascular accident: Status: Acute Qualifiers: CVA mechanism: thrombosis Laterality of affected vessel: right Precerebral and cerebral artery: middle cerebral artery Qualified Code(s): I63.311 - Cerebral infarction due to thrombosis of right middle cerebral artery (2) Non-small cell cancer of left lung: Status: Acute Permanent problem details: involving glands (3) Hypertension: Status: Acute (4) Peripheral neuropathy: Status: Acute Reason for Visit Reason for Visit: Left facial droop/Left paralysis Hospital Course Hospital Course Tramaine is a 65-year-old white male with history of lung cancer undergoing evaluation who presented to the hospital with left upper and lower extremity paresis, and aphasia. He woke up with symptoms and was not a candidate for TPA. CTA demonstrated no thrombus. CT head noncontrast was negative. He was placed in the hospital on aspirin, Plavix, statin and monitored closely. He had some urinary symptoms and a urine was checked consistent with infection. With the following day he was neurologically improving, but still was somewhat unsteady on his feet. IV antibiotics were continued for UTI. By April 02 he was doing much better and able to ambulate some without a walker. At that time it was thought appropriate for discharge. Urine had grown E. coli, and he will be sent home on cefuroxime. He will have follow-up with oncology and radiation oncology per his usual arrangement. He will see neurology in 2 weeks for follow-up stroke, an MRI could be considered at that time. He will continue Plavix and aspirin for the time being as well as statin. He will follow-up with his primary care provider in 3 to 5 days. For any blood in stool, black or tarry stool he is to notify his primary immediately. EKG and telemetry did not delineate any atrial fibrillation. Physical Exam Narrative: EXAM NARRATIVE: General exam no apparent distress Cardiovascular regular rate and rhythm without murmur Lungs clear Abdomen is soft with positive bowel sounds Extremities no cyanosis clubbing or edema Neuro left upper extremity and left lower extremity weakness, minor is noted. Discharge Data Data Completed and Pending: Completed Studies During Hospitalization Category Date Time Status CT angio headneck * 13796/98235 Urge nt Cat Scan 03/31/21 05:[address] head wo con* 7 0450 Urgent Cat Scan 03/31/21 05:28 Completed XR chest 1V yvon ble [id number] Routine Exams 03/31/21 07:57 Completed CV echo complete* [id number] Routine Ultrasound 04/01/21 06:00 Completed Labs from last 24 hours 04/02/21 04/02/21 04:50 04:50 WBC 14.3 H RBC 3.92 L Hgb 11.6 L Hct 35.3 L MCV 90.1 MCH 29.6 MCHC 32.9 RDW 16.3 H Plt Count 309 MPV 10.1 Neut % (Auto) 85.5 Lymph % (Auto) 4.3 [place] % (Auto) 8.1 Eos % (Auto) 0.0 Baso % (Auto) 0.1 Neut # (Auto) 12.18 H Lymph # (Auto) 0.6 L [place] # (Auto) 1.2 H Eos # (Auto) 0.0 Baso # (Auto) 0.0 Nucleated RBC % (a uto) 0 Nucleated RBCs # 0.0 Sodium 136 Potassium 4.3 Chloride 107 Carbon Dioxide 24 Anion Gap 9.3 BUN 26 H Creatinine 1.0 GFR Calculation 75.2 L Glucose 125 H Calculated Osmolal ity 288 Calcium 7.2 L Vitals: Last Vital Signs Temp 97.5 F L 04/02/21 08:00 Pulse 69 04/02/21 08:00 Resp 18 04/02/21 08:00 BP 136/82 04/02/21 08:00 Pulse Ox 95 04/02/21 08:00 Discharge Plan Discharge Patient Disposition: Home Condition: Stable Prescriptions: New aspirin 81 mg Tablet,Delayed Release (Dr/Ec) 162 mg PO DAILY Qty: 60 RF: 0 clopidogrel 75 mg Tablet 75 mg PO DAILY Qty: 30 RF: 0 tamsulosin 0.4 mg Capsule 0.4 mg PO DAILY Qty: 30 RF: 0 cefuroxime axetil 500 mg tablet 500 mg PO BID 7 Days Qty: 14 RF: 0 atorvastatin 40 mg Tablet 40 mg PO BEDTIME Qty: 30 RF: 0 pantoprazole 40 mg Tablet,Delayed Release (Dr/Ec) 40 mg PO DAILY Qty: 30 RF: 0 Continued oxycodone-acetaminophen 10-325 mg tablet 1 tab PO Q6H PRN (Reason: Pain) RF: 0 dexamethasone 4 mg Tablet 4 mg PO BID RF: 0 losartan 50 mg tablet 50 mg PO DAILY@0500 RF: 0 diltiazem HCl [DILT-XR] 240 mg capsule,ext.rel 24h degradable 480 mg PO DAILY@0500 RF: 0 alendronate 70 mg tablet 70 mg PO Q7D RF: 0 gabapentin 400 mg capsule 800 mg PO TID RF: 0 acetaminophen [Tylenol Extra Strength] 500 mg Tablet 1,000 mg PO Q6H PRN (Reason: Pain) RF: 0 diclofenac sodium 75 mg tablet,delayed release (DR/EC) 75 mg PO DAILY@0500 RF: 0 finasteride 5 mg tablet 5 mg PO DAILY RF: 0 Discharge Orders: Discharge Order (Routine); Ordered 04/02/21 Ordered By: Henrique eRn Other Ambulatory Orders: Physical Therapy Eval and Treat Outpatient (Order) Timeframe: 4 Weeks Facility: [facility] - Location: Physical Therapy Ordered By: Henrique Ren Physical Therapy Eval and Treat Outpatient (Order) Timeframe: [id number] Facility: [facility] - Location: Physical Therapy Ordered By: Henrique Ren Referrals: Candi Gautam MD [Physician] - 2 weeks (follow up CVA) Arabella Montero MD [Primary Care Provider] - 4-7 days Discharge Diet: Cardiac Discharge Activity: Increase activity as tolerated Patient Instructions: Self Care Measures After a Stroke (DC), Opioid Safety Activity Restrictions/Additional Instructions: Follow-up as directed Monitor stool for any blood, if this occurs notify your primary care provider Follow-up with radiation oncology Discharge Attestations Time Spent in Discharge Care*: greater than 30 min Quality Metrics Clinical Quality Measures During this hospital stay, did patient experience: Stroke Contraindication to Antithrombotic: Antithrombotic prescribed Contraindication to Anticoagulation: Overlap treatment not indicated Contraindication to Statin: Statin prescribed Coding Level of Care Code Acute Chg FW DC note Diagnoses Cerebrovascular accident I63.311 CVA mechanism: thrombosis Laterality of affected vessel: right Precerebral and cerebral artery: middle cerebral artery Non-small cell cancer of left lung C34.92 Hypertension I10 Peripheral neuropathy G62.9
[2021-04-02 11:10] VITALS: BP 136/82; PULSE 63; RESP 16; O2SAT 98
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
--- NOTE | 2021-04-02 13:12 | PC.NURSE ---
PT HAS DONE WELL FOR ME THIS MORNING. PT HAS BEEN UP AMBULATING IN THE KIRK WITH THE WALKER AND TO THE BATHROOM. PT IS DOING WELL AMBULATING. PT HAS SOME VERY MILD WEAKNESS TO THE LEFT SIDE BUT HAS GREAT IMPROVEMENT FROM MY SHIFT YESTERDAY. PT WILL D/C TODAY PER MD. DISCHARGE PAPERWORK DISCUSSED WITH PT. ALL QUESTIONS ANSWERED. MEDICATIONS SENT TO PHARMACY PER PT REQUEST. IV WAS REMOVED. CATHETER TIP INTACT. PT TOLERATED WELL. PT WAS WHEELED OUT MY THIS NURSE. PT SAFELY DISCHARGED FROM HOSPITAL AT 12:53.
[2021-04-02 13:16] VITALS: BP 136/82; PULSE 63; RESP 16; O2SAT 98
== END 2021-04-02 13:20 | disposition home or self-care (01) | DRG 65 ==
LOC: ER 07:40 → MEDSURG 08:31
PROVIDERS: Admitting Provider Internal Medicine; Emergency Provider Emergency Medicine; PCP Family Medicine; Visit Provider Internal Medicine
DX: I63.311 Cerebral infarction due to thrombosis of right middle cerebral artery (principal); G81.94 Hemiplegia, unspecified affecting left nondominant side; C34.92 Malignant neoplasm of unspecified part of left bronchus or lung; C79.51 Secondary malignant neoplasm of bone; N39.0 Urinary tract infection, site not specified; R47.81 Slurred speech; R13.10 Dysphagia, unspecified; R29.703 NIHSS score 3; G89.3 Neoplasm related pain (acute) (chronic); M54.12 Radiculopathy, cervical region; I10 Essential (primary) hypertension; Z87.891 Personal history of nicotine dependence; Z98.1 Arthrodesis status; Z79.52 Long term (current) use of systemic steroids; B96.20 Unspecified Escherichia coli [E. coli] as the cause of diseases classified elsewhere; Z79.891 Long term (current) use of opiate analgesic
CPT/HCPCS: 36415; 36416; 70450; 70496; 70498; 71045; 80048; 80053; 80061; 80306; 81001; 82962; 83036; 84443; 85025; 85610; 85730; 87077; 87086; 87186; 92507; 92523; 92526; 92610; 93005; 93306; 96372; 97110; 97116; 97162; 97167; 99285; J0696; J1650; J7030; J7040; J8540; Q9967

== ENCOUNTER 2021-04-03 07:07 | Outpatient (RCR) | payer BC, MEDICARE, SELFPAY | END 2021-04-28 23:59 | disposition home or self-care (01) | LOC: SPT 07:07 | PROVIDERS: PCP Family Medicine; Referring Provider Internal Medicine; Visit Provider Internal Medicine | DX: I69.90 Unspecified sequelae of unspecified cerebrovascular disease (principal) | CPT/HCPCS: 97110; 97161 ==

== ENCOUNTER 2021-04-18 05:32 | Outpatient (RCR) | payer BC, SELFPAY | END 2021-04-28 23:59 | disposition home or self-care (01) | LOC: ONCMED 05:32 | PROVIDERS: PCP Family Medicine; Visit Provider Internal Medicine Hematology & Oncology | DX: Z51.0 Encounter for antineoplastic radiation therapy (principal); C34.32 Malignant neoplasm of lower lobe, left bronchus or lung; C79.51 Secondary malignant neoplasm of bone; Z79.899 Other long term (current) drug therapy | CPT/HCPCS: 77014; 77295; 77300; 77334; 77336; 77387; 77412; 77427; 99204; 99214; G6002 ==

== ENCOUNTER 2021-04-26 04:19 | Inpatient (IN) | payer BC, MEDICARE, SELFPAY ==
[2021-04-26] VITALS (16 sets, daily range): BP systolic 121–163; BP diastolic 76–97; PULSE 77–121; RESP 15–27; TEMP 36.6–38.4; O2SAT 93–98; BMI 29.4
--- NOTE | 2021-04-26 04:24 | XRR_ITS ---
PROCEDURE INFORMATION: Exam: XR Chest Exam date and time: 04/26/2021 4:26 AM Age: 66 years old Clinical indication: Shortness of breath; Patient HX: SOB. History of lung cancer. ; Additional info: Dyspnea/cough TECHNIQUE: Imaging protocol: XR of the chest. Views: 1 view. COMPARISON: CR XR chest 1V portable [id number] 03/31/2021 7:58 AM FINDINGS: Lungs: In there are increased interstitial markings present within the lower hemithoraces bilaterally, findings that may represent pulmonary fibrosis. However, a bilateral basilar interstitial pneumonitis cannot be entirely excluded. Pleural spaces: Unremarkable. No pleural effusion. No pneumothorax. Heart/Mediastinum: Unremarkable. No cardiomegaly. Bones/joints: Unremarkable. XR/XR chest 1V portable [id number] IMPRESSION: Increased interstitial markings in the lower hemithoraces may represent pulmonary fibrosis although interstitial pneumonitis cannot be entirely excluded.
--- NOTE | 2021-04-26 04:24 | ECG_ITS ---
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 Measurements Intervals [place] Rate: 112 P: 67 MT: 148 QRS: 29 QRSD: 96 T: 32 QT: 297 QTc: 406 Interpretive Statements SINUS TACHYCARDIA POSSIBLE LEFT ATRIAL ENLARGEMENT [-0.1mV P WAVE IN V1/V2] Compared to ECG 03/31/2021 05:25:16 Sinus rhythm no longer present Electronically Signed On 04-27-2021 16:03:19 CDT by Mario Watts M.D. [id number]
[2021-04-26 04:41] LABS: Basophils % 0.4 %; Eosinophils % 0.4 %; Hematocrit 38.5 % (42.0-52.0); Hemoglobin 12.4 g/dL (11.7-16.6); Lymphocytes # 0.6 10^3/uL (0.8-4.8); Lymphocytes % 8.9 %; Mean Corpuscular HGB Conc 32.2 g/dL (30.0-36.0); Mean Corpuscular Hemoglobin 29.4 pg (28.0-34.0); Mean Corpuscular Volume 91.2 fL (80-94); Mean Platelet Volume 9.5 fL (7.4-10.4); Monocytes # 0.3 10^3/uL (0.2-0.9); Monocytes % 4.3 %; Neutrophils # 5.83 10^3/uL (1.8-7.7); Neutrophils % 84.3 %; Nucleated Red Blood Cells % 0.3 %; Platelet Count 152 10^3/cmm (130-400); Red Blood Count 4.22 10^6/uL (4.1-5.3); Red Cell Distribution Width 18.6 % (12.1-15.1); White Blood Count 6.9 10^3/uL (4.0-10.0)
[2021-04-26 05:01] LABS: Troponin(5th) Baseline 26 ng/L (0-15)
--- NOTE | 2021-04-26 05:07 | W.ED.SOB ---
HPI - SOB/Dyspnea General: Chief Complaint: Shortness of Breath/Dyspnea Stated Complaint: sob Time Seen by Provider: 04/26/21 04:23 History of Present Illness: HPI Narrative: 66-year-old male presents emergency room complaining of shortness of breath. Began overnight. Patient has a history of lung cancer he also recently had a CVA with left-sided deficits of the course of the work-up he has Holter monitor several reports in the chart are showing intermittent episodes of atrial fibrillation some with RVR. He is denying any chest pain he does have significant edema of his lower extremities. Minimally productive cough no hemoptysis he was diagnosed with non-small cell lung CA in January of this year he has undergone radiation but has not yet begun chemotherapy due to actually the process of being scheduled to have a port placed. Had an echocardiogram done earlier this month that showed an ejection fraction of 60 to 65% with some grade 1 diastolic dysfunction he does relate that swelling in his legs is relatively now extends into his mid thighs. MD elicited complaint: shortness of breath and cough Pertinent past history: COPD Onset (ago): hour(s) Context: recent illness Timing: constant Severity: moderate Known history of: COPD and other (Lung CA) Associated symptoms: Reports chest congestion and cough; Deny abdominal pain, chest pain, diaphoresis, dizziness, extremity pain, fever(s), hemoptysis, lightheadedness, myalgias, nausea, orthopnea, palpitations, paresthesias, polydipsia, polyuria, rash, sense of impending doom, syncope or vomiting Treatment prior to arrival: oxygen Review of Systems Const: Denies: fever(s) or diaphoresis ENMT: Denies: throat pain, ear or mastoid pain, nasal discharge or nasal congestion Card: Denies: chest pain, palpitations, lightheadedness, syncope or orthopnea Resp: Reports: chest congestion; Denies: hemoptysis GI: Denies: abdominal pain, nausea or vomiting : Denies: flank pain, dysuria, urinary frequency or urinary urgency Musc: Denies: extremity pain Skin/Breast: Denies: rash or pruritus Neuro: Denies: dizziness Endo: Denies: polyuria or polydipsia PFSH ED PFSH: Medical History Cervical radiculopathy Hypertension 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 Peripheral neuropathy Surgical History History of ankle surgery History of bronchoscopy History of lumbar laminectomy for spinal cord decompression History of shoulder surgery S/P right rotator cuff repair Family History Other Cancer Dementia Social History Smoking and tobacco status: former smoker Alcohol intake: former Physical Exam Const: COMMON NORMALS: no acute distress GENERAL APPEARANCE: cooperative and comfortable ORIENTATION/CONSCIOUSNESS: Yes awake, Yes oriented to person, Yes oriented to place and Yes oriented to time HENMT: COMMON NORMALS: normocephalic, atraumatic and hearing grossly normal bilaterally HEAD & SCALP: normocephalic and atraumatic Neck/C-Spine: COMMON NORMALS: no JVD Resp: AUSCULTATION: rhonchi, wheezes and diminished lung sounds Cardio: COMMON NORMALS: no JVD, regular rhythm and No murmurs present (Cardio) RATE: tachycardic RHYTHM: regular rhythm GI: COMMON NORMALS: Soft to palpation and No hepatosplenomegaly present AUSCULTATION: Yes normoactive bowel sounds PALPATION: Yes Soft to palpation, No Tenderness to palpation present (GI), No Guarding due to palpation present (GI) and Yes No hepatosplenomegaly present Extremity: COMMON NORMALS: normal to inspection, capillary refill normal and no calf tenderness Neuro: SENSORIUM/ORIENTATION: Yes oriented to person, Yes oriented to place and Yes oriented to time Skin: COMMON NORMALS: no rashes or lesions noted GENERAL SKIN EXAM: no rashes or lesions noted Course Vital Signs: Vital signs: Vital Signs Temperature 98.3 F 04/26/21 08:00 Pulse Rate 115 H 04/26/21 08:00 Respiratory Rate 18 04/26/21 08:00 Blood Pressure 149/81 04/26/21 08:00 Pulse Oximetry 94 04/26/21 08:00 MDM - SOB/Dyspnea MDM Narrative: Medical decision making narrative: Tachycardic and developed a fever while here. Appears to have a pneumonia on imaging. We will go ahead and admit him started on Levaquin and Zosyn. discussed with hospitalist orders written. Lab Data: Labs: Lab Results 04/26/21 04/26/21 04/26/21 Range/Units 04:35 04:35 04:35 WBC 6.9 (4.0-10.0) 10^3/ uL RBC 4.22 (4.1-5.3) 10^6/u L Hgb 12.4 (11.7-16.6) g/dL Hct 38.5 L (42.0-52.0) % MCV 91.2 (80-94) fL MCH 29.4 (28.0-34.0) pg MCHC 32.2 (30.0-36.0) g/dL RDW 18.6 H (12.1-15.1) % Plt Count 152 (130-400) 10^3/c mm MPV 9.5 (7.4-10.4) fL Neut % (Auto) 84.3 % Lymph % (Auto) 8.9 % [place] % (Auto) 4.3 % Eos % (Auto) 0.4 % Baso % (Auto) 0.4 % Neut # (Auto) 5.83 (1.8-7.7) 10^3/u L Lymph # (Auto) 0.6 L (0.8-4.8) 10^3/u L [place] # (Auto) 0.3 (0.2-0.9) 10^3/u L Eos # (Auto) 0.0 (0.0-0.8) 10^3/u L Baso # (Auto) 0.0 (0.0-0.1) 10^3/u L Nucleated RBC % (a uto) 0.3 % Nucleated RBCs # 0.0 /100WBC Specimen Type Sample Site ABG pH (7.35-7.45) ABG pCO2 (35-45) mmHg ABG pO2 (80.0-100.0) mmH g ABG HCO3 (22-26) mmol/L ABG O2 Saturation ABG Base Excess (-2.0-2.0) mmol/ L Melo Test A-a O2 Gradient (5-10) mmHg Hematocrit (42-52) % Hgb O2 Saturation (95-100) % Carboxyhemoglobin (0.4-20.1) %THgb Methemoglobin (0.4-1.5) % Total Hemoglobin (14-18) g/dL Ionized Calcium (1.1-1.4) mmol/L O2 Delivery Device O2 Liters/Min % Eyeglass Fitter ID Sodium 141 (136-145) mmol/L Potassium 4.0 (3.5-5.1) mmol/L Chloride 101 (98-107) mmol/L Carbon Dioxide 28 (22-29) mmol/L Anion Gap 16.0 (5-19) BUN 26 H (8-23) mg/dL Creatinine 1.1 (0.7-1.2) mg/dL GFR Calculation 67.2 L (90-130) mL/min Glucose 113 (65-115) mg/dL Calculated Osmolal ity 298 H (285-295) mOsm/k g Lactic Acid (0.5-2.2) mmol/L Calcium 8.2 L (8.5-10.5) mg/dL Total Bilirubin 0.5 (0.15-1.2) mg/dL AST 13 (0-40) U/L ALT 28 (0-41) U/L Alkaline Phosphata se 96 (40-130) IU/L Troponin T Baselin e 26 H (0-15) ng/L NT-Pro-B Natriuret Pep 304 H (0-125) pg/mL Total Protein 5.6 L (6.6-8.7) g/dL Albumin 3.6 (3.5-5.2) g/dL Globulin 2.0 (1.3-4.6) g/dL 04/26/21 04/26/21 Range/Units 04:39 05:07 WBC (4.0-10.0) 10^3/ uL RBC (4.1-5.3) 10^6/u L Hgb (11.7-16.6) g/dL Hct (42.0-52.0) % MCV (80-94) fL MCH (28.0-34.0) pg MCHC (30.0-36.0) g/dL RDW (12.1-15.1) % Plt Count (130-400) 10^3/c mm MPV (7.4-10.4) fL Neut % (Auto) % Lymph % (Auto) % [place] % (Auto) % Eos % (Auto) % Baso % (Auto) % Neut # (Auto) (1.8-7.7) 10^3/u L Lymph # (Auto) (0.8-4.8) 10^3/u L [place] # (Auto) (0.2-0.9) 10^3/u L Eos # (Auto) (0.0-0.8) 10^3/u L Baso # (Auto) (0.0-0.1) 10^3/u L Nucleated RBC % (a uto) % Nucleated RBCs # /100WBC Specimen Type Arterial Sample Site Brachial, right ABG pH 7.49 H (7.35-7.45) ABG pCO2 41.0 (35-45) mmHg ABG pO2 75.1 L (80.0-100.0) mmH g ABG HCO3 31.1 H (22-26) mmol/L ABG O2 Saturation 95.1 ABG Base Excess 7.1 H (-2.0-2.0) mmol/ L Melo Test N/a A-a O2 Gradient 3.1 L (5-10) mmHg Hematocrit 36.2 L (42-52) % Hgb O2 Saturation 93.9 L (95-100) % Carboxyhemoglobin 0.5 (0.4-20.1) %THgb Methemoglobin 0.7 (0.4-1.5) % Total Hemoglobin 11.8 L (14-18) g/dL Ionized Calcium 1.1 (1.1-1.4) mmol/L O2 Delivery Device Nc O2 Liters/Min 2.0 % Eyeglass Fitter ID Harkr Sodium 137.0 (136-145) mmol/L Potassium 3.7 (3.5-5.1) mmol/L Chloride (98-107) mmol/L Carbon Dioxide (22-29) mmol/L Anion Gap (5-19) BUN (8-23) mg/dL Creatinine (0.7-1.2) mg/dL GFR Calculation (90-130) mL/min Glucose 114.0 (65-115) mg/dL Calculated Osmolal ity (285-295) mOsm/k g Lactic Acid 1.2 (0.5-2.2) mmol/L Calcium (8.5-10.5) mg/dL Total Bilirubin (0.15-1.2) mg/dL AST (0-40) U/L ALT (0-41) U/L Alkaline Phosphata se (40-130) IU/L Troponin T Baselin e (0-15) ng/L NT-Pro-B Natriuret Pep (0-125) pg/mL Total Protein (6.6-8.7) g/dL Albumin (3.5-5.2) g/dL Globulin (1.3-4.6) g/dL Discharge Plan Discharge Patient Disposition: Admitted As Inpatient Admit Provider: Yany Sales Clinical Impression: Community acquired pneumonia, Non-small cell cancer of left lung, Intermittent atrial fibrillation Condition: Stable Coding Level of Care Code ED Weigher And Crusher for Chg Fwd Exam Comprehensive
[2021-04-26 05:08] LABS: Alanine Aminotransferase 28 U/L (0-41); Albumin Level 3.6 g/dL (3.5-5.2); Alkaline Phosphatase 96 IU/L (40-130); Aspartate Amino Transferase 13 U/L (0-40); Blood Urea Nitrogen 26 mg/dL (8-23); Calcium 8.2 mg/dL (8.5-10.5); Carbon Dioxide 28 mmol/L (22-29); Chloride 101 mmol/L (98-107); Glomerular Filtration Rate 67.2 mL/min (90-130); Glucose 113 mg/dL (65-115); NT Pro B Type Natriuretic Pept 304 pg/mL (0-125); Osmolality Calculated 298 mOsm/kg (285-295); Sodium 141 mmol/L (136-145); Total Bilirubin 0.5 mg/dL (0.15-1.2); Total Protein 5.6 g/dL (6.6-8.7)
--- NOTE | 2021-04-26 05:16 | CTR_ITS ---
PROCEDURE INFORMATION: Exam: CTA Chest With Contrast Exam date and time: 04/26/2021 5:18 AM Age: 66 years old Clinical indication: Shortness of breath; Patient HX: SOB. History of lung cancer. 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 ; Additional info: Dyspnea/ lung CA TECHNIQUE: Imaging protocol: Computed tomographic angiography of the chest with contrast. 3D rendering (Not supervised by radiologist): MIP and/or 3D reconstructed images were created by the technologist. Radiation optimization: All CT scans at this facility use at least one of these dose optimization techniques: automated exposure control; mA and/or kV adjustment per patient size (includes targeted exams where dose is matched to clinical indication); or iterative reconstruction. Contrast material: OMNI 350; Contrast volume: 60 ml; Contrast route: INTRAVENOUS (IV); COMPARISON: CT chest w con* [id number] 02/11/2021 9:50 AM RADIATION DOSE METRICS: Total DLP (mGy-cm): 532.68 FINDINGS: Pulmonary arteries: Normal. No pulmonary emboli. Aorta: Unremarkable. No aortic aneurysm. No aortic dissection. Lungs: There is a background of centrilobular emphysema and mild pulmonary fibrosis. An irregular mildly spiculated pulmonary nodularity is again seen in the infrahilar region in the left lower lobe previously measuring approximately 1.3 cm in diameter, today measuring approximately 1.3 x 1.8 cm. There are strandy opacities that are seen in the left lower lobe extending from the infrahilar region to the periphery likely representing atelectasis. A postobstructive atelectasis or pneumonia is a consideration. Some hazy opacities are seen in the right upper lobe adjacent to the major fissure and within the right posterior costophrenic recess likely representing atelectasis. There is soft tissue attenuation present in the left pulmonary that surrounds and attenuates the left lower lobe bronchi. This finding is similar to that present on 02/11/2021. Prominent subcarinal lymph node is again seen today measuring approximately 14.3 mm transverse dimension. Pleural spaces: Unremarkable. No pneumothorax. No pleural effusion. Heart: Unremarkable. No cardiomegaly. No pericardial effusion. Lymph nodes: Scattered mildly prominent mediastinal lymph nodes are again seen, today appearing similar in size compared to 02/11/2021. Bones/joints: Unremarkable. No acute fracture. Soft tissues: Unremarkable. CT/CT angio chest PE protcl [id number] IMPRESSION: 1. There is a left hilar soft tissue attenuation mass with extension into the infrahilar region of the left lower lobe worrisome for a pulmonary malignancy. There may be a slight increase in size in the lower lobe pulmonary nodularity. The left hilar soft tissue attenuation mass is similar in size compared to 02/11/2021. 2. There is probable developing left lower lobe postobstructive atelectasis versus pneumonia. 3. The mediastinal and left hilar lymphadenopathy is similar compared to 02/11/2021. Radiation Dose CTDIVOL = (mGy): DLP = 532.68 (mGy-cm)
[2021-04-26 05:17] LABS: ABG PH Result 7.49 (7.35-7.45); Alveolar-Arterial Oxygen Gradi 3.1 mmHg (5-10); Arterial Blood Gas Hematocrit 36.2 % (42-52); Base Excess ABG 7.1 mmol/L (-2.0-2.0); Blood Gas Operator Identificat HARKR; Blood Gas Sample Site Brachial, right; Blood Gas Sample Type Arterial; Carboxyhemoglobin 0.5 %THgb (0.4-20.1); HCO3 ABG 31.1 mmol/L (22-26); HGB O2 Sat 93.9 % (95-100); Ionized Calcium Level - ABG 1.1 mmol/L (1.1-1.4); Methemoglobin 0.7 % (0.4-1.5); Oxygen Device NC; Oxygen Saturation ABG 95.1; PO2 ABG 75.1 mmHg (80.0-100.0); Potassium Level - ABG 3.7 mmol/L (3.5-5.0); Total Hemoglobin 11.8 g/dL (14-18)
[2021-04-26 05:20] LABS: Lactic Sepsis W/Reflex 1.2 mmol/L (0.5-2.2)
[2021-04-26] MEDS: iohexol 350 mg/mL 100 mL Btl IV (05:32)
[2021-04-26] MEDS: piperacillin-tazobactam 3.375 GM in sodium chloride 0.9% (plus) 50 ML IV ×3 (06:04→23:33)
--- NOTE | 2021-04-26 06:24 | ECG_ITS ---
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 Measurements Intervals [place] Rate: 105 P: 58 MI: 154 QRS: 39 QRSD: 106 T: 29 QT: 324 QTc: 428 Interpretive Statements SINUS TACHYCARDIA Compared to ECG 04/26/2021 08:29:03 No significant changes Electronically Signed On 05-07-2021 16:36:39 CDT by Bryanna Schafer M.D. [id number]
[2021-04-26] MEDS: levofloxacin-dextrose 5 % 750 MG/150 ML PREMIX 100 MG IV (06:36)
--- NOTE | 2021-04-26 10:24 | ECG_ITS ---
[facility] ED Test Date: 2021-04-26 Pat Name: Tramaine Galaviz Department: Room: 272 Gender: Male Hall Coordinator: : 1955 Requested By: Dustin Jalloh Order Number: [id number] Dixon MD: Bryanna Schafer M.D. Measurements Intervals [place] Rate: 111 P: 51 IN: 156 QRS: 53 QRSD: 101 T: 29 QT: 311 QTc: 424 Interpretive Statements SINUS TACHYCARDIA Compared to ECG 04/26/2021 04:26:37 No significant changes Electronically Signed On 05-07-2021 16:36:49 CDT by Bryanna Schafer M.D. [email or web address] [email or web address] [email or web address].[employer]/[id number]
[2021-04-26 11:08] LABS: Troponin 5 6HR 22.27 ng/L (0-15)
[2021-04-26 11:23] LABS: Troponin 5 6HR Delta -3.73 ng/L (0-12)
[2021-04-26 11:41] LABS: C Reactive Protein 159.5 mg/L (0.0-4.9)
[2021-04-26 11:47] LABS: Procalcitonin 0.26 ng/mL (0-0.5)
[2021-04-26 12:25] LABS: Erythrocyte Sedimentation Rate 17 mm/hr (0-10)
--- NOTE | 2021-04-26 12:51 | PM.HP ---
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 Who presents to [facility] due to complaints of shortness of breath, cough, fatigue, malaise. Patient tells me that since his hospital discharge his weakness on the left side has significantly improved, quite minimal, his aphasia is significantly better, no slurring of his speech, no visual deficits, his unsteadiness has significantly improved, he is actually undergoing port evaluation for chemotherapy. He tells me that this morning he he woke up early and started to develop cough, fatigue, malaise, shortness of breath, no fevers, no known exposure to COVID-19 so he decided to come to the emergency room. He does not use oxygen at home, quit smoking more than 10 years ago. He denies chest pain denies palpitations, but does report bilateral extremity edema. Review of Systems Const: Reports: fatigue and malaise; Denies: fever(s) or chills Eyes: Denies: change in vision or blurry vision ENMT: Denies: nasal congestion Card: Denies: chest pain Resp: Reports: dyspnea and non-productive cough; Denies: productive cough or wheezing GI: Denies: abdominal pain, nausea, vomiting, hematemesis, diarrhea, constipation, hematochezia or melena : Denies: flank pain, difficulty urinating, dysuria or urinary frequency Musc: Denies: neck pain or back pain Skin/Breast: Denies: rash Neuro: Denies: headache(s), dizziness or vertigo Psych: Denies: anxiety or depression Endo: Denies: polyuria or polydipsia Medications/Allergies Home Medications Medication Instructions Recorded Confirmed Last Taken Type acetaminophen [Tylenol Extra 1,000 mg PO Q6H PRN 02/27/21 04/26/21 Unknown History Strength] alendronate 70 mg PO Q7D 02/27/21 04/26/21 04/19/21 History diclofenac sodium 75 mg PO DAILY@0500 02/27/21 04/26/21 03/30/21 History diltiazem HCl [DILT-XR] 480 mg PO DAILY@0500 02/27/21 04/26/21 03/30/21 History finasteride 5 mg PO DAILY 02/27/21 04/26/21 02/26/21 History gabapentin 800 mg PO TID 02/27/21 04/26/21 03/30/21 History losartan 50 mg PO DAILY@0500 02/27/21 04/26/21 03/30/21 History dexamethasone 4 mg PO DAILY 03/31/21 04/26/21 03/30/21 History oxycodone-acetaminophen 1 tab PO Q6H PRN 03/31/21 04/26/21 03/30/21 History atorvastatin 40 mg PO BEDTIME #30 tab 04/02/21 04/26/21 Unknown Rx clopidogrel 75 mg PO DAILY #30 tab 04/02/21 04/26/21 Unknown Rx pantoprazole 40 mg PO DAILY #30 tab 04/02/21 04/26/21 Unknown Rx tamsulosin 0.4 mg PO DAILY #30 cap 04/02/21 04/26/21 Unknown Rx furosemide 20 mg PO QAM 04/25/21 04/26/21 Unknown History aspirin 162 mg PO DAILY@04/26/21 04/26/21 Unknown History Allergies Allergy/AdvReac Type Severity Reaction Status Date / Time No Known Allergies Allergy Verified 04/26/21 10:24 PFSH Acute PFSH: Medical History Cervical radiculopathy Hypertension 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 Peripheral neuropathy Surgical History History of ankle surgery History of bronchoscopy History of lumbar laminectomy for spinal cord decompression History of shoulder surgery S/P right rotator cuff repair Family History Other Cancer Dementia Social History Smoking and tobacco status: former smoker Alcohol intake: former Vitals/I&O/Wt Last Vital Signs Temp 98.1 F 04/26/21 12:00 Pulse 115 H 04/26/21 12:00 Resp 19 H 04/26/21 12:00 BP 138/80 04/26/21 12:00 Pulse Ox 93 04/26/21 12:00 04/25/21 04/26/21 04/26/21 22:59 06:59 14:59 Intake Total 50 / 50 270 / 270 Balance 50 / 50 270 / 270 Weight last 48 hrs Weight 92.986 kg Physical Exam Const: COMMON NORMALS: no acute distress and patient oriented x3 Eye: COMMON NORMALS: Equal, round and reactive pupils present and no papilledema Neck/C-Spine: COMMON NORMALS: full ROM and no lymphadenopathy THYROID: Thyroid normal Resp: COMMON NORMALS: normal respiratory effort, No retractions and No use of accessory muscles AUSCULTATION: wheezes Cardio: COMMON NORMALS: regular rate, regular rhythm, S1 normal heart sound present, S2 normal heart sound present, No gallops present (Cardio), No clicks present (Cardio) and No murmurs present (Cardio) RATE: regular rate RHYTHM: regular rhythm HEART SOUNDS: S1 normal heart sound present and S2 normal heart sound present GI: COMMON NORMALS: Normal to inspection, nondistended, normoactive bowel sounds present, Soft to palpation, non-tender and No hepatosplenomegaly present PALPATION: Yes Soft to palpation and Yes No hepatosplenomegaly present Extremity: COMMON NORMALS: no pedal edema Neuro: COMMON NORMALS: patient oriented x3, CN's II-XII intact bilaterally and moves all extremities Psych: COMMON NORMALS: mental status grossly normal, Normal thought process present and cooperative THOUGHT PROCESS: Normal thought process present Data : 04/26/21 04:35 04/26/21 04:35 Micro: Microbiology 04/26/21 06:05 Blood Culture - Preliminary Blood SPECIMEN COLLECTED 04/26/21 05:45 Blood Culture - Preliminary Blood SPECIMEN COLLECTED A&P Assessment and plan (1) Acute respiratory failure with hypoxia: -Postobstructive pneumonia, diastolic CHF exacerbation, paroxysmal atrial fibrillation -ct angio: 1. There is a left hilar soft tissue attenuation mass with extension into the infrahilar region of the left lower lobe worrisome for a pulmonary malignancy. There may be a slight increase in size in the lower lobe pulmonary nodularity. The left hilar soft tissue attenuation mass is similar in size compared to 02/11/2021. 2. There is probable developing left lower lobe postobstructive atelectasis versus pneumonia. 3. The mediastinal and left hilar lymphadenopathy is similar compared to 02/11/2021. -cardiac echo: LV systolic function is normal with EF of 60-65% Grade 1 diastolic dysfunction Mild mitral regurgitation Trace aortic regurgitation -procal 0.26, crp 159.5 Plan: -Admit to general medical floors -Start on broad-spectrum antibiotic therapy vancomycin and Zosyn -Follow blood cultures, sputum cultures -Aggressive pulmonary toilet, incentive spirometer, flutter valve -Based on clinical progress will discuss with pulmonary team when available -Telemetry monitoring -Lasix 40 IV milligrams daily, monitor for fluid overload -Telemetry monitoring, Lovenox 1 mg per kilogram twice daily -Full code -Lovenox for DVT prophylaxis Status: Acute (2) Postobstructive pneumonia: Status: Acute (3) Non-small cell cancer of left lung: Status: Acute (4) Cerebrovascular accident: -Reviewed patient's Holter monitor, had episodes of A. fib, a flutter, heart rates as high as 180 -Likely left-sided CVA from a embolic stroke -Start metoprolol 25 mg twice daily, with Lovenox 1 mg/kg twice daily -Monitor for symptomatology -For now stop aspirin, continue Plavix, statin, therapeutic Lovenox as above, due to concerns for bleed risk Status: Acute Qualifiers: CVA mechanism: thrombosis Laterality of affected vessel: right Precerebral and cerebral artery: middle cerebral artery Qualified Code(s): I63.311 - Cerebral infarction due to thrombosis of right middle cerebral artery (5) Small cell lung cancer: Status: Acute (6) Paroxysmal atrial fibrillation: Currently not in afib but holter does show afib Status: Acute (7) Diastolic CHF: Status: Acute (8) Peripheral neuropathy: Status: Acute (9) Hypertension: Status: Acute (10) NSTEMI (non-ST elevated myocardial infarction): -Continue to monitor troponin, monitor for chest pain, continue telemetry monitoring, stop aspirin, on Plavix, statin, Lovenox as above due to concerns for bleed risk Status: Acute Attestations Medical Necessity Statement*: Patient requires hospitalization, inpatient, greater than 2 midnights secondary to postobstructive pneumonia, diastolic CHF, paroxysmal A. fib Coding Level of Care Code Acute Microbiology Instructor for [facility] Fwd Diagnoses Acute respiratory failure with hypoxia J96.01 Postobstructive pneumonia J18.9 Non-small cell cancer of left lung C34.92 Cerebrovascular accident I63.311 CVA mechanism: thrombosis Laterality of affected vessel: right Precerebral and cerebral artery: middle cerebral artery Small cell lung cancer C34.90 Paroxysmal atrial fibrillation I48.0 Diastolic CHF I50.30 Peripheral neuropathy G62.9 Hypertension I10 NSTEMI (non-ST elevated myocardial infarction) I21.4
--- NOTE | 2021-04-26 13:03 | USR_ITS ---
PROCEDURE INFORMATION: Exam: US Duplex Lower Extremity Veins, Bilateral Exam date and time: 04/26/2021 3:08 PM Age: 66 years old Clinical indication: Bilateral lower extremity edema. Rule out DVT. TECHNIQUE: Imaging protocol: Real-time duplex ultrasound of the extremities with 2-D rodrigues scale, color Doppler flow and spectral waveform analysis with image documentation. Complete exam focused on the bilateral lower extremity veins. COMPARISON: No relevant prior studies available. FINDINGS: The common femoral, femoral, popliteal and posterior tibial veins are patent. There is appropriate compression and augmentation. Doppler interogation reveals venous blood flow. There is subcutaneous edema involving the calf, bilaterally. US/[place] [id number] IMPRESSION: 1. No evidence of deep venous thrombosis. 2. There is subcutaneous edema involving the calf, bilaterally.
[2021-04-26] MEDS: oxyCODONE-APAP 10-325 mg Tablet 1 TAB PO (14:46)
[2021-04-26] MEDS: pantoprazole 40 mg SDV IVP (15:29)
[2021-04-26] MEDS: enoxaparin 100 mg/mL Syringe 90 MG SUBCUT ×2 (15:29→23:33)
[2021-04-26] MEDS: gabapentin 400 mg Capsule 800 MG PO ×2 (15:30→21:09)
[2021-04-26] MEDS: metoprolol tartrate 25 mg Tablet PO ×2 (15:30→23:33)
[2021-04-26] MEDS: FUROsemide 10 mg/mL SDV 4mL 40 MG IVP (15:30)
[2021-04-26] MEDS: guaiFENesin 600 mg Tablet PO ×2 (15:31→19:14)
[2021-04-26] MEDS: vancomycin 1,500 MG/300 ML PIGGYBACK 200 MG IV (15:34)
[2021-04-26] MEDS: lidocaine 5% Patch 1 PATCH TOPICAL (19:14)
[2021-04-26] MEDS: atorvastatin 40 mg Tablet PO (21:09)
[2021-04-26] MEDS: acetaminophen 325 mg Tablet 650 MG PO (23:33)
[2021-04-27] VITALS (19 sets, daily range): BP systolic 111–135; BP diastolic 72–90; PULSE 72–124; RESP 16–18; TEMP 37–39.1; O2SAT 90–98
[2021-04-27] MEDS: pantoprazole 40 mg SDV IVP ×2 (00:33→13:58)
[2021-04-27] MEDS: vancomycin 1,500 MG/300 ML PIGGYBACK 200 MG IV ×3 (00:46→23:48)
[2021-04-27] MEDS: losartan 50 mg Tablet PO (05:05)
[2021-04-27] MEDS: piperacillin-tazobactam 3.375 GM in sodium chloride 0.9% (plus) 50 ML IV ×3 (07:00→23:06)
[2021-04-27 07:17] LABS: Basophils % 0.6 %; Eosinophils % 0.6 %; Hematocrit 35.8 % (42.0-52.0); Hemoglobin 11.2 g/dL (11.7-16.6); Lymphocytes # 0.8 10^3/uL (0.8-4.8); Lymphocytes % 15.1 %; Mean Corpuscular HGB Conc 31.3 g/dL (30.0-36.0); Mean Corpuscular Hemoglobin 29.4 pg (28.0-34.0); Mean Platelet Volume 9.9 fL (7.4-10.4); Monocytes # 0.3 10^3/uL (0.2-0.9); Neutrophils # 3.79 10^3/uL (1.8-7.7); Neutrophils % 76.5 %; Nucleated Red Blood Cells % 0 %; Platelet Count 143 10^3/cmm (130-400); Red Blood Count 3.81 10^6/uL (4.1-5.3); Red Cell Distribution Width 18.7 % (12.1-15.1)
[2021-04-27 07:47] LABS: Alanine Aminotransferase 21 U/L (0-41); Albumin Level 2.7 g/dL (3.5-5.2); Alkaline Phosphatase 83 IU/L (40-130); Anion Gap 16.1 (5-19); Aspartate Amino Transferase 13 U/L (0-40); Blood Urea Nitrogen 17 mg/dL (8-23); Calcium 7.9 mg/dL (8.5-10.5); Carbon Dioxide 26 mmol/L (22-29); Chloride 102 mmol/L (98-107); Globulin 2.7 g/dL (1.3-4.6); Glomerular Filtration Rate 67.2 mL/min (90-130); Glucose 154 mg/dL (65-115); NT Pro B Type Natriuretic Pept 321 pg/mL (0-125); Osmolality Calculated 297 mOsm/kg (285-295); Phosphorus 2.8 mg/dL (2.5-4.5); Potassium 3.1 mmol/L (3.5-5.1); Sodium 141 mmol/L (136-145); Total Bilirubin 0.4 mg/dL (0.15-1.2); Total Protein 5.4 g/dL (6.6-8.7)
[2021-04-27] MEDS: oxyCODONE-APAP 10-325 mg Tablet 1 TAB PO (09:32)
[2021-04-27] MEDS: guaiFENesin 600 mg Tablet PO (09:34)
[2021-04-27] MEDS: clopidogrel 75 mg Tablet PO (09:35)
[2021-04-27] MEDS: gabapentin 400 mg Capsule 800 MG PO ×3 (09:35→20:17)
[2021-04-27] MEDS: potassium chloride ER 20 mEq Tablet 40 MEQ PO (09:36)
[2021-04-27] MEDS: tamsulosin 0.4 mg Capsule PO (09:36)
[2021-04-27] MEDS: lidocaine 5% Patch 1 PATCH TOPICAL (10:59)
--- NOTE | 2021-04-27 13:02 | P.PN_ITS ---
Subjective Subjective: Interval history: Patient was seen this morning, currently down to 1 L, he does ambulate to the bathroom, some shortness of breath, no fevers, no chills, no nausea, no vomiting Vitals/I&O/Wt Last Vital Signs Temp 99.7 F H 04/27/21 11:06 Pulse 81 04/27/21 11:43 Resp 18 04/27/21 11:43 BP 111/72 04/27/21 11:06 Pulse Ox 93 04/27/21 11:43 04/26/21 04/27/21 04/27/21 22:59 06:59 14:59 Intake Total 470 / 980 350 / 1330 120 / 120 Output Total 0 / 0 0 / 0 300 / 300 Balance 470 / 980 350 / 1330 -180 / -180 Weight last 48 hrs Weight 92.986 kg Physical Exam Const: COMMON NORMALS: no acute distress and patient oriented x3 Neck/C-Spine: COMMON NORMALS: no JVD Resp: COMMON NORMALS: normal respiratory effort, No retractions, No use of accessory muscles and clear to auscultation bilaterally AUSCULTATION: clear to auscultation bilaterally Cardio: COMMON NORMALS: no JVD, regular rate, regular rhythm, S1 normal heart sound present and S2 normal heart sound present RATE: regular rate RHYTHM: regular rhythm HEART SOUNDS: S1 normal heart sound present and S2 normal heart sound present GI: COMMON NORMALS: Normal to inspection, nondistended, normoactive bowel sounds present, Soft to palpation, non-tender, No hepatosplenomegaly present, no masses and no bruits PALPATION: Yes Soft to palpation and Yes No hepatosplenomegaly present Extremity: COMMON NORMALS: capillary refill normal, no clubbing, cyanosis or edema, no calf tenderness and no pedal edema Neuro: COMMON NORMALS: patient oriented x3 Psych: COMMON NORMALS: mental status grossly normal Data : 04/27/21 06:07 04/27/21 06:07 Micro: Microbiology 04/27/21 00:38 Bacterial Antigens - Final Urine,Voided 04/26/21 06:05 Blood Culture - Preliminary Blood NEGATIVE TO DATE 04/26/21 05:45 Blood Culture - Preliminary Blood NEGATIVE TO DATE 04/26/21 14:50 Gram Stain - Final Sputum - Expectorated Sputum A&P Assessment and plan (1) Acute respiratory failure with hypoxia: -Postobstructive pneumonia, diastolic CHF exacerbation, paroxysmal atrial fibrillation -ct angio: 1. There is a left hilar soft tissue attenuation mass with extension into the infrahilar region of the left lower lobe worrisome for a pulmonary malignancy. There may be a slight increase in size in the lower lobe pulmonary nodularity. The left hilar soft tissue attenuation mass is similar in size compared to 02/11/2021. 2. There is probable developing left lower lobe postobstructive atelectasis versus pneumonia. 3. The mediastinal and left hilar lymphadenopathy is similar compared to 02/11/2021. -cardiac echo: LV systolic function is normal with EF of 60-65% Grade 1 diastolic dysfunction Mild mitral regurgitation Trace aortic regurgitation -procal 0.26, crp 159.5 -Sputum cultures is showing mixed janet, gram-negative, gram-positive's Plan: -Admit to general medical floors -Start on broad-spectrum antibiotic therapy vancomycin and Zosyn -Follow blood cultures, sputum cultures -Aggressive pulmonary toilet, incentive spirometer, flutter valve -Based on clinical progress will discuss with pulmonary team when available -Telemetry monitoring -Lasix 40 IV milligrams daily, monitor for fluid overload -Telemetry monitoring, Lovenox 1 mg per kilogram twice daily -Full code -Lovenox for DVT prophylaxis Plan for today, continue monitoring, monitor sputum cultures, monitor for fevers Status: Acute (2) Postobstructive pneumonia: Status: Acute (3) Non-small cell cancer of left lung: Status: Acute (4) Cerebrovascular accident: -Reviewed patient's Holter monitor, had episodes of A. fib, a flutter, hea rt rates as high as 180 -Likely left-sided CVA from a embolic stroke -Start metoprolol 25 mg twice daily, with Lovenox 1 mg/kg twice daily -Monitor for symptomatology -For now stop aspirin, continue Plavix, statin, therapeutic Lovenox as above, due to concerns for bleed risk Status: Acute Qualifiers: CVA mechanism: thrombosis Laterality of affected vessel: right Precerebral and cerebral artery: middle cerebral artery Qualified Code(s): I63.311 - Cerebral infarction due to thrombosis of right middle cerebral artery (5) Small cell lung cancer: Status: Acute (6) Paroxysmal atrial fibrillation: Currently not in afib but holter does show afib Status: Acute (7) Diastolic CHF: Status: Acute (8) Peripheral neuropathy: Status: Acute (9) Hypertension: Status: Acute (10) NSTEMI (non-ST elevated myocardial infarction): -Continue to monitor troponin, monitor for chest pain, continue telemetry monitoring, stop aspirin, on Plavix, statin, Lovenox as above due to concerns for bleed risk Status: Acute Attestations Medical Necessity Statement*: Patient requires hospitalization for acute respiratory failure secondary to postobstructive pneumonia, diastolic CHF Coding Level of Care Code Acute Timers Inspector for [facility] Fwd Diagnoses Acute respiratory failure with hypoxia J96.01 Postobstructive pneumonia J18.9 Non-small cell cancer of left lung C34.92 Cerebrovascular accident I63.311 CVA mechanism: thrombosis Laterality of affected vessel: right Precerebral and cerebral artery: middle cerebral artery Small cell lung cancer C34.90 Paroxysmal atrial fibrillation I48.0 Diastolic CHF I50.30 Peripheral neuropathy G62.9 Hypertension I10 NSTEMI (non-ST elevated myocardial infarction) I21.4
[2021-04-27] MEDS: enoxaparin 100 mg/mL Syringe 90 MG SUBCUT ×2 (13:50→23:48)
[2021-04-27] MEDS: metoprolol tartrate 25 mg Tablet PO ×2 (13:51→23:48)
[2021-04-27] MEDS: FUROsemide 10 mg/mL SDV 4mL 40 MG IVP (13:59)
--- NOTE | 2021-04-27 14:00 | PC.NURSE ---
Pt was given Zosyn previous shift at 7 by Abhishek.
--- NOTE | 2021-04-27 15:23 | PC.NURSE ---
nurse notified on pts temp.
[2021-04-27] MEDS: acetaminophen 325 mg Tablet 650 MG PO (15:25)
[2021-04-27] MEDS: morphine 4 mg/mL SDV 1 mL 1 MG IVP (16:03)
[2021-04-27] MEDS: atorvastatin 40 mg Tablet PO (20:17)
[2021-04-28] VITALS (21 sets, daily range): BP systolic 100–156; BP diastolic 66–89; PULSE 88–129; RESP 16–18; TEMP 36.5–39.6; O2SAT 90–97
[2021-04-28] MEDS: pantoprazole 40 mg SDV IVP ×2 (00:30→10:52)
[2021-04-28] MEDS: acetaminophen 325 mg Tablet 650 MG PO ×2 (04:54→15:28)
[2021-04-28] MEDS: losartan 50 mg Tablet PO (04:54)
[2021-04-28] MEDS: piperacillin-tazobactam 3.375 GM in sodium chloride 0.9% (plus) 50 ML IV ×3 (06:10→22:44)
--- NOTE | 2021-04-28 07:00 | XRR_ITS ---
PROCEDURE INFORMATION: Exam: XR Chest Exam date and time: 04/28/2021 7:00 AM Age: 66 years old Clinical indication: Shortness of breath; Patient HX: SOB. History of lung cancer. TECHNIQUE: Imaging protocol: XR of the chest. Views: 1 view. COMPARISON: CR (CHEST, ) 04/26/2021 4:24 AM FINDINGS: Lungs: Mild fibrotic changes are present in the lungs. There is no pneumonia or other acute infiltrate. Pleural spaces: Unremarkable. No pleural effusion. No pneumothorax. Heart/Mediastinum: Unremarkable. No cardiomegaly. Bones/joints: Unremarkable. XR/XR chest 1V portable [id number] IMPRESSION: No acute findings.
[2021-04-28 07:19] LABS: Basophils % 0.6 %; Eosinophils # 0.1 10^3/uL (0.0-0.8); Eosinophils % 1.2 %; Hematocrit 32.4 % (42.0-52.0); Hemoglobin 10.5 g/dL (11.7-16.6); Lymphocytes # 0.8 10^3/uL (0.8-4.8); Lymphocytes % 14.8 %; Mean Corpuscular HGB Conc 32.4 g/dL (30.0-36.0); Mean Corpuscular Hemoglobin 29.7 pg (28.0-34.0); Mean Corpuscular Volume 91.5 fL (80-94); Mean Platelet Volume 9.9 fL (7.4-10.4); Monocytes # 0.4 10^3/uL (0.2-0.9); Monocytes % 7.9 %; Neutrophils # 3.75 10^3/uL (1.8-7.7); Neutrophils % 73.7 %; Nucleated Red Blood Cells % 0 %; Platelet Count 154 10^3/cmm (130-400); Red Blood Count 3.54 10^6/uL (4.1-5.3); Red Cell Distribution Width 18.4 % (12.1-15.1); White Blood Count 5.1 10^3/uL (4.0-10.0)
[2021-04-28 07:43] LABS: Alanine Aminotransferase 20 U/L (0-41); Albumin Level 2.8 g/dL (3.5-5.2); Alkaline Phosphatase 71 IU/L (40-130); Anion Gap 13.9 (5-19); Aspartate Amino Transferase 14 U/L (0-40); Blood Urea Nitrogen 15 mg/dL (8-23); Carbon Dioxide 27 mmol/L (22-29); Chloride 101 mmol/L (98-107); Globulin 2.8 g/dL (1.3-4.6); Glomerular Filtration Rate 67.2 mL/min (90-130); Glucose 105 mg/dL (65-115); Osmolality Calculated 287 mOsm/kg (285-295); Phosphorus 2.7 mg/dL (2.5-4.5); Potassium 3.9 mmol/L (3.5-5.1); Sodium 138 mmol/L (136-145); Total Bilirubin 0.5 mg/dL (0.15-1.2); Total Protein 5.6 g/dL (6.6-8.7)
[2021-04-28 07:51] LABS: NT Pro B Type Natriuretic Pept 297 pg/mL (0-125)
[2021-04-28] MEDS: guaiFENesin 600 mg Tablet PO ×2 (08:11→17:37)
[2021-04-28] MEDS: lidocaine 5% Patch 1 PATCH TOPICAL (08:11)
[2021-04-28] MEDS: clopidogrel 75 mg Tablet PO (08:11)
[2021-04-28] MEDS: tamsulosin 0.4 mg Capsule PO (08:11)
[2021-04-28] MEDS: gabapentin 400 mg Capsule 800 MG PO ×3 (08:11→21:26)
[2021-04-28] MEDS: azithromycin 250 mg Tablet PO (09:57)
[2021-04-28] MEDS: metoprolol tartrate 25 mg Tablet PO (10:52)
[2021-04-28] MEDS: FUROsemide 10 mg/mL SDV 4mL 40 MG IVP (10:52)
[2021-04-28] MEDS: enoxaparin 100 mg/mL Syringe 90 MG SUBCUT (10:53)
--- NOTE | 2021-04-28 11:59 | P.PN_ITS ---
Subjective Subjective: Interval history: This morning patient was examined, sitting up to the side of the bed, he is on 1 to 2 L, he tells me that overall he is feeling better, he continues to have febrile episodes overnight, cough, no shortness of breath with exertion, Vitals/I&O/Wt Last Vital Signs Temp 97.7 F 04/28/21 11:34 Pulse 101 H 04/28/21 11:47 Resp 18 04/28/21 11:47 BP 116/77 04/28/21 11:34 Pulse Ox 95 04/28/21 11:47 04/27/21 04/28/21 04/28/21 22:59 06:59 14:59 Intake Total 590 / 760 590 / 1350 Output Total 600 / 900 200 / 200 Balance 590 / 460 -10 / 450 -200 / -200 Physical Exam Const: COMMON NORMALS: no acute distress and patient oriented x3 HENMT: COMMON NORMALS: normocephalic HEAD & SCALP: normocephalic Resp: COMMON NORMALS: normal respiratory effort, No retractions, No use of accessory muscles and clear to auscultation bilaterally AUSCULTATION: clear to auscultation bilaterally Cardio: COMMON NORMALS: regular rate, regular rhythm, S1 normal heart sound present and S2 normal heart sound present RATE: regular rate RHYTHM: regular rhythm HEART SOUNDS: S1 normal heart sound present and S2 normal heart sound present GI: COMMON NORMALS: Normal to inspection, nondistended, normoactive bowel sounds present, Soft to palpation, non-tender, No hepatosplenomegaly present, no masses and no bruits PALPATION: Yes Soft to palpation and Yes No hepatosplenomegaly present Extremity: COMMON NORMALS: no pedal edema Neuro: COMMON NORMALS: patient oriented x3 Psych: COMMON NORMALS: mental status grossly normal Data : 04/28/21 06:32 04/28/21 06:32 Micro: Microbiology 04/26/21 14:50 Gram Stain - Final Sputum - Expectorated Sputum Sputum Culture - Preliminary 04/27/21 00:38 Bacterial Antigens - Final Urine,Voided A&P Assessment and plan (1) Acute respiratory failure with hypoxia: -Postobstructive pneumonia, diastolic CHF exacerbation, paroxysmal atrial fibrillation -ct angio: 1. There is a left hilar soft tissue attenuation mass with extension into the infrahilar region of the left lower lobe worrisome for a pulmonary malignancy. There may be a slight increase in size in the lower lobe pulmonary nodularity. The left hilar soft tissue attenuation mass is similar in size compared to 02/11/2021. 2. There is probable developing left lower lobe postobstructive atelectasis versus pneumonia. 3. The mediastinal and left hilar lymphadenopathy is similar compared to 02/11/2021. -cardiac echo: LV systolic function is normal with EF of 60-65% Grade 1 diastolic dysfunction Mild mitral regurgitation Trace aortic regurgitation -procal 0.26, crp 159.5 -Sputum cultures is showing mixed janet, gram-negative, gram-positive's -Continues to have febrile episode, T-max 101.3 Plan: -Admit to general medical floors -Start on broad-spectrum antibiotic therapy vancomycin and Zosyn, will add azithromycin -Follow blood cultures, sputum cultures for possible bronchoscopy -Aggressive pulmonary toilet, incentive spirometer, flutter valve -Based on clinical progress will discuss with pulmonary team when available -Telemetry monitoring -Lasix 40 IV milligrams daily, monitor for fluid overload -Telemetry monitoring, Lovenox 1 mg per kilogram twice daily -Full code -Lovenox for DVT prophylaxis Plan for today, broaden antibiotic coverage, monitor sputum cultures, return for fevers Status: Acute (2) Postobstructive pneumonia: Status: Acute (3) Non-small cell cancer of left lung: Status: Acute (4) Cerebrovascular accident: -Reviewed patient's Holter monitor, had episodes of A. fib, a flutter, heart rates as high as 180 -Likely left-sided CVA from a embolic stroke -Start metoprolol 25 mg twice daily, with Lovenox 1 mg/kg twice daily -Monitor for symptomatology -For now stop aspirin, continue Plavix, statin, therapeutic Lovenox as above, due to concerns for bleed risk Status: Acute Qualifiers: CVA mechanism: thrombosis Laterality of affected vessel: right Precerebral and cerebral artery: middle cerebral artery Qualified Code(s): I63.311 - Cerebral infarction due to thrombosis of right middle cerebral artery (5) Small cell lung cancer: Status: Acute (6) Paroxysmal atrial fibrillation: Currently not in afib but holter does show afib Status: Acute (7) Diastolic CHF: Status: Acute (8) Peripheral neuropathy: Status: Acute (9) Hypertension: Status: Acute (10) NSTEMI (non-ST elevated myocardial infarction): -Continue to monitor troponin, monitor for chest pain, continue telemetry monitoring, stop aspirin, on Plavix, statin, Lovenox as above due to concerns for bleed risk Status: Acute Attestations Medical Necessity Statement*: Patient requires hospitalization for acute respiratory failure with hypoxia secondary to postobstructive pneumonia, d iastolic CHF, paroxysmal A. fib Coding Level of Care Code Acute New Vehicle Sales Consultant for [facility] Fw Diagnoses Acute respiratory failure with hypoxia J96.01 Postobstructive pneumonia J18.9 Non-small cell cancer of left lung C34.92 Cerebrovascular accident I63.311 CVA mechanism: thrombosis Laterality of affected vessel: right Precerebral and cerebral artery: middle cerebral artery Small cell lung cancer C34.90 Paroxysmal atrial fibrillation I48.0 Diastolic CHF I50.30 Peripheral neuropathy G62.9 Hypertension I10 NSTEMI (non-ST elevated myocardial infarction) I21.4
[2021-04-28] MEDS: vancomycin 1,500 MG/300 ML PIGGYBACK 200 MG IV (12:09)
--- NOTE | 2021-04-28 12:32 | PC.NURSE ---
PATIENT STATED HE HAS FAMILY THAT IS IN FOR A VERY SHORT AMOUNT OF TIME AND THEY DON'T SEE EACH OTHER OFTEN. I CONTACTED DR. RANGEL AND HE STATED FAMILY COULD COME VISIT TODAY BEFORE THEY GO HOME.
--- NOTE | 2021-04-28 15:34 | PC.NURSE ---
nurse notified of temp and heart rate
[2021-04-28] MEDS: oxyCODONE-APAP 10-325 mg Tablet 1 TAB PO (16:13)
[2021-04-28] MEDS: nystatin 100,000 unit/mL UDC 5 mL 500000 UNIT PO ×2 (17:37→21:26)
--- NOTE | 2021-04-28 17:54 | ECG_ITS ---
[facility] ED Test Date: 2021-04-28 Pat Name: Tramaine Galaviz Department: Room: 272 Gender: Male Curriculum And Assessment Director: : [id number] Requested By: Edwin Montoya Order Number: [id number] Dixon MD: Bryanna Schafer M.D. Measurements Intervals [place] Rate: 117 P: LA: QRS: 20 QRSD: 102 T: 10 QT: 321 QTc: 448 Interpretive Statements ATRIAL FIBRILLATION WITH RAPID VENTRICULAR RESPONSE ABNORMAL RHYTHM ECG Compared to ECG 04/26/2021 10:13:30 Sinus tachycardia no longer present Electronically Signed On 05-07-2021 22:06:09 CDT by Bryanna Schafer M.D. [id number]
[2021-04-28] MEDS: metoprolol tartrate 1 mg/1 mL SDV 5 mL 5 MG IV (17:57)
--- NOTE | 2021-04-28 18:22 | P.CONIM_ITS ---
Providers/Reason For Consult Consulting Physician/Specialty*: Mario Watts MD/Cardiology Reason for Consult*: Afib with RVR Requesting Physician: Dr Montoya Attending Physician: Edwin Montoya MD Primary Care Provider: Arabella Montero MD History of Present Illness History of Present Illness Tramaine Galaviz is a 66 year old male with a past medical history of non-small cell lung left lung, status post radiation therapy, currently undergoing evaluation for chemotherapy recently discharged from 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 Cardiology has been consulted as patient has afib with RVR and needs the port placement. Anesthesia wanted cardiology recommendation prior to the procedure. Patient has postobstructive pneumonia at this time. He is on event monitor which has shown episodes of atrial fibrillation and atrial flutter with heart rates going into 180s. Right now he is in normal sinus rhythm. Review of Systems Const: Reports: fatigue and malaise; Denies: fever(s) or chills Eyes: Denies: change in vision or blurry vision ENMT: Denies: nasal congestion Card: Denies: chest pain Resp: Reports: dyspnea and non-productive cough; Denies: productive cough or wheezing GI: Denies: abdominal pain, nausea, vomiting, hematemesis, diarrhea, constipation, hematochezia or melena : Denies: flank pain, difficulty urinating, dysuria or urinary frequency Musc: Denies: neck pain or back pain Skin/Breast: Denies: rash Neuro: Denies: headache(s), dizziness or vertigo Psych: Denies: anxiety or depression Endo: Denies: polyuria or polydipsia Meds/Allergies Home Medications and Allergies Home Medications Medication Instructions Recorded Confirmed Last Taken Type acetaminophen [Tylenol Extra 1,000 mg PO Q6H PRN 02/27/21 04/26/21 Unknown History Strength] alendronate 70 mg PO Q7D 02/27/21 04/26/21 04/19/21 History diclofenac sodium 75 mg PO DAILY@0500 02/27/21 04/26/21 03/30/21 History diltiazem HCl [DILT-XR] 480 mg PO DAILY@0500 02/27/21 04/26/21 03/30/21 History finasteride 5 mg PO DAILY 02/27/21 04/26/21 02/26/21 History gabapentin 800 mg PO TID 02/27/21 04/26/21 03/30/21 History losartan 50 mg PO DAILY@0500 02/27/21 04/26/21 03/30/21 History dexamethasone 4 mg PO DAILY 03/31/21 04/26/21 03/30/21 History oxycodone-acetaminophen 1 tab PO Q6H PRN 03/31/21 04/26/21 03/30/21 History atorvastatin 40 mg PO BEDTIME #30 tab 04/02/21 04/26/21 Unknown Rx clopidogrel 75 mg PO DAILY #30 tab 04/02/21 04/26/21 Unknown Rx pantoprazole 40 mg PO DAILY #30 tab 04/02/21 04/26/21 Unknown Rx tamsulosin 0.4 mg PO DAILY #30 cap 04/02/21 04/26/21 Unknown Rx furosemide 20 mg PO QAM 04/25/21 04/26/21 Unknown History aspirin 162 mg PO DAILY@04/26/21 04/26/21 Unknown History Allergies Allergy/AdvReac Type Severity Reaction Status Date / Time No Known Allergies Allergy Verified 04/26/21 10:24 Current Medications Current Medications Generic Name Dose Route Start Last Admin Trade Name Freq PRN Reason Stop Dose Admin Acetaminophen 650 mg 04/26/21 07:39 04/28/21 15:28 Acetaminophen 325 Mg Tablet PO 650 mg Q6H PRN Administration Mild/Mod Pain Or Temp >/= 101 Albuterol/Ipratropium 1 puff 04/26/21 16:00 04/28/21 15:54 Ipratropium-Albuterol 4 Gm Mdi INHALATION 1 puff QID.RESPIRATORY MAX Administration Atorvastatin Calcium 40 mg 04/26/21 21:00 04/27/21 20:17 Atorvastatin 40 Mg Tablet PO 40 mg BEDTIME MAX Administration Azithromycin 250 mg 04/28/21 10:00 04/28/21 09:57 Azithromycin 250 Mg Tablet PO 250 mg DAILY MAX Administration Protocol Clopidogrel Bisulfate 75 mg 04/27/21 09:00 04/28/21 08:11 Clopidogrel 75 Mg Tablet PO 75 mg DAILY MAX Administration Enoxaparin Sodium 90 mg 04/26/21 12:00 04/28/21 10:53 Enoxaparin 100 Mg/Ml Syringe 1 mg/kg (90 mg) 90 mg SUBCUT Administration Q12H MAX Furosemide 40 mg 04/26/21 12:00 04/28/21 10:52 Furosemide 10 Mg/Ml Sdv 4ml IVP 40 mg Q24H MAX Administration Gabapentin 800 mg 04/26/21 15:00 04/28/21 14:41 Gabapentin 400 Mg Capsule PO 800 mg TID MAX Administration Guaifenesin 600 mg 04/26/21 12:15 04/28/21 17:37 Guaifenesin 600 Mg Tablet PO 600 mg BID MAX Administration Vancomycin/PEG/NADA/Lysine/Water 1,500 mg in 300 mls @ 200 mls/hr 04/26/21 13:00 04/28/21 12:09 Vancocin IV 200 mls/hr Q12H MAX Administration Piperacillin Sod/Tazobactam 50 mls @ 12.5 mls/hr 04/26/21 15:00 04/28/21 14:41 Sod 3.375 gm/ Sodium Chloride IV 12.5 mls/hr Q8H MAX Administration Lidocaine 1 patch 04/27/21 09:00 04/28/21 08:11 Lidocaine 5% Patch TOPICAL 1 patch [id number] MAX Administration Losartan Potassium 50 mg 04/27/21 05:00 04/28/21 04:54 Losartan 50 Mg Tablet PO 50 mg DAILY@0500 MAX Administration Metoprolol Tartrate 25 mg 04/26/21 12:00 04/28/21 10:52 Metoprolol Tartrate 25 Mg Tablet PO 25 mg Q12H MXA Administration Nystatin 500,000 unit 04/28/21 17:00 04/28/21 17:37 Nystatin 100,000 Unit/Ml Udc 5 Ml PO 500,000 unit QID MAX Administration Oxycodone/Acetaminophen 1 tab 04/26/21 11:03 04/28/21 16:13 Oxycodone-Apap 10-325 Mg Tablet PO 1 tab Q6H PRN Administration Moderate Pain. 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 Peripheral neuropathy Surgical History History of ankle surgery History of bronchoscopy History of lumbar laminectomy for spinal cord decompression History of shoulder surgery S/P right rotator cuff repair Family History Other Cancer Dementia Social History Smoking and tobacco status: former smoker Alcohol intake: former Vitals/I&O/Wt Last Vital Signs Temp 99.2 F 04/28/21 16:11 Pulse 129 H 04/28/21 16:00 Resp 16 04/28/21 16:13 BP 156/83 04/28/21 15:32 Pulse Ox 90 04/28/21 16:00 04/28/21 04/28/21 04/28/21 06:59 14:59 22:59 Intake Total 590 / 1350 50 / 50 Output Total 600 / 900 800 / 800 400 / 1200 Balance -10 / 450 -750 / -750 -400 / -1150 Physical Exam Narrative: EXAM NARRATIVE: GENERAL: Patient is alert, awake and oriented x3. [] NECK: No jugular vein distension. [] HEENT: No cyanosis. No icterus. No pallor. [] HEART: Regular S1 and S2. No murmur, rub or gallop. [] LUNGS: Clear to auscultate bilaterally. [] ABDOMEN: Soft, nontender and nondistended. Positive bowel sounds. No guarding, rebound or tenderness. [] CENTRAL NERVOUS SYSTEM: Grossly nonfocal. [] EXTREMITIES: Lower extremities with 1+ edema bilaterally. Pulses palpable in the lower extremities, both dorsalis pedis and posterior tibial. [] Data Micro: Micro: Microbiology 04/26/21 14:50 Gram Stain - Final Sputum - Expector ated Sputum Sputum Culture - P reliminary A&P Assessment and plan (1) Acute respiratory failure with hypoxia: Status: Acute (2) Diastolic CHF: Status: Acute (3) Paroxysmal atrial fibrillation: Status: Acute (4) Postobstructive pneumonia: Status: Acute (5) Hypertension: Status: Acute Patient has recent onset atrial fibrillation/atrial flutter and had a recent stroke. We will recommend anticoagulation. Right now he is in normal sinus rhythm. Rate controlling strategy would be appropriate at this time. Continue metoprolol and Cardizem. If heart rate stay uncontrolled, can consider initiating digoxin. Telemetry monitoring. Patient is at acceptable cardiac risk to undergo anesthesia for the port jose cement. Thank you for involving us with care of this patient. We will continue to follow. Please call with questions. Coding Level of Care Code Acute Feather Trimmer for Desmond Aldridge Diagnoses Acute respiratory failure with hypoxia J96.01 Diastolic CHF I50.30 Paroxysmal atrial fibrillation I48.0 Postobstructive pneumonia J18.9 Hypertension I10
--- NOTE | 2021-04-28 18:42 | PC.NURSE ---
SHIFT SUMMARY PATIENT HAS BEEN SOMEWHAT WEAK TODAY. PATIENT WAS ON ROOM AIR THE MAJORITY OF THE MORNING, BUT REQUIRED 2L NC THIS AFTERNOON. PATIENT SPIKED A FEVER OF 103. THIS NURSE ADMINISTERED TYLENOL AND FEVER CAME DOWN TO 99.2. THIS NURSE ENCOURAGED PATIENT TO DEEP BREATHE, COUGH, USE INCENTIVE SPIROMETER AND FLUTTER VALVE. PATIENT HEART RATE HAS BEEN ELEVATED TWICE TODAY. FIRST WAS THIS MORNING AFTER HIS SHOWER, BUT IT CAME DOWN ON ITS OWN QUICKLY. THIS EVENING, PATIENT HEART RATE INCREASED TO A RATE OF 180'S AND SUSTAINED. THIS NURSE CONTACTED DR. RANGEL AND RECEIVED AN ORDER FOR 5MG IV METOPROLOL, 30MG OF PO CARDIZEM Q6H, AND A STAT EKG. THE EKG SHOWED PATIENT TO BE IN A-FIB. THIS NURSE PUSHED THE METOPROLOL AND PATIENT HEART RATE CAME DOWN TO 108-115. THIS NURSE CONTACTED DR. RANGEL TO ASK IF I SHOULD ADMINISTER CARDIZEM OR HOLD. DR. RANGEL ASKED TO PLACE CARDIZEM ON HOLD FOR NOW. PATIENT STATED HE FEELS BETTER NOW. HE SAID HE CAN TELL WHEN HIS HEART RATE BECOMES ELEVATED. PATIENT HAS CARDIOLOGY CONSULT. PATIENT ON TELEMETRY WELL EVENT MONITOR FROM HEART CARE. CURRENTLY SITTING ON THE EDGE OF THE BED VISITING WITH .
[2021-04-28] MEDS: atorvastatin 40 mg Tablet PO (21:26)
[2021-04-29] VITALS (19 sets, daily range): BP systolic 110–139; BP diastolic 74–89; PULSE 90–113; RESP 16–18; TEMP 36.8–37.7; O2SAT 84–97
[2021-04-29] MEDS: metoprolol tartrate 25 mg Tablet PO ×2 (00:27→11:41)
[2021-04-29] MEDS: pantoprazole 40 mg SDV IVP ×3 (00:27→23:31)
[2021-04-29] MEDS: enoxaparin 100 mg/mL Syringe 90 MG SUBCUT ×3 (00:27→23:22)
[2021-04-29] MEDS: vancomycin 1,500 MG/300 ML PIGGYBACK 200 MG IV (00:47)
[2021-04-29] MEDS: oxyCODONE-APAP 10-325 mg Tablet 1 TAB PO ×2 (03:10→09:29)
[2021-04-29] MEDS: losartan 50 mg Tablet PO (04:51)
[2021-04-29 05:47] LABS: Basophils % 0.5 %; Eosinophils # 0.1 10^3/uL (0.0-0.8); Eosinophils % 1.5 %; Hematocrit 32.3 % (42.0-52.0); Hemoglobin 10.5 g/dL (11.7-16.6); Lymphocytes # 0.7 10^3/uL (0.8-4.8); Lymphocytes % 12.4 %; Mean Corpuscular HGB Conc 32.5 g/dL (30.0-36.0); Mean Corpuscular Hemoglobin 29.6 pg (28.0-34.0); Mean Platelet Volume 9.9 fL (7.4-10.4); Monocytes # 0.4 10^3/uL (0.2-0.9); Monocytes % 7.7 %; Neutrophils # 4.16 10^3/uL (1.8-7.7); Neutrophils % 76.1 %; Nucleated Red Blood Cells % 0 %; Platelet Count 165 10^3/cmm (130-400); Red Blood Count 3.55 10^6/uL (4.1-5.3); Red Cell Distribution Width 17.8 % (12.1-15.1); White Blood Count 5.5 10^3/uL (4.0-10.0)
[2021-04-29] MEDS: piperacillin-tazobactam 3.375 GM in sodium chloride 0.9% (plus) 50 ML IV ×3 (06:20→23:22)
[2021-04-29 06:25] LABS: NT Pro B Type Natriuretic Pept 149 pg/mL (0-125)
[2021-04-29 06:36] LABS: Alanine Aminotransferase 18 U/L (0-41); Alkaline Phosphatase 66 IU/L (40-130); Anion Gap 15.3 (5-19); Aspartate Amino Transferase 12 U/L (0-40); Blood Urea Nitrogen 13 mg/dL (8-23); C Reactive Protein 126.8 mg/L (0.0-4.9); Carbon Dioxide 26 mmol/L (22-29); Chloride 101 mmol/L (98-107); Creatinine Clr Calc Pharmacy 84.3692; Globulin 2.4 g/dL (1.3-4.6); Glucose 109 mg/dL (65-115); Osmolality Calculated 289 mOsm/kg (285-295); Phosphorus 2.9 mg/dL (2.5-4.5); Potassium 3.3 mmol/L (3.5-5.1); Sodium 139 mmol/L (136-145); Total Bilirubin 0.5 mg/dL (0.15-1.2); Total Protein 5.4 g/dL (6.6-8.7)
--- NOTE | 2021-04-29 06:40 | PC.NURSE ---
shift summary Patient has had a good night, rested well with only complaining of pain one time and oxycodone was given. did have a fever of 100.0 at 4:00. Heart rate has stayed in the 90's during this shift.
--- NOTE | 2021-04-29 07:00 | XRR_ITS ---
PROCEDURE INFORMATION: Exam: XR Chest Exam date and time: 04/29/2021 6:39 AM Age: 66 years old Clinical indication: Cough and shortness of breath; Additional info: SOB TECHNIQUE: Imaging protocol: XR of the chest. Views: 1 view. COMPARISON: CR (CHEST, ) 04/28/2021 7:22 AM FINDINGS: Lungs: Mild fibrosis is present in the lungs. No acute infiltrates or pneumonia are seen. Pleural spaces: Unremarkable. No pleural effusion. No pneumothorax. Heart/Mediastinum: Unremarkable. No cardiomegaly. Bones/joints: Unremarkable. XR/XR chest 1V portable [id number] IMPRESSION: No acute abnormality is seen in the chest.
[2021-04-29] MEDS: clopidogrel 75 mg Tablet PO (08:12)
[2021-04-29] MEDS: nystatin 100,000 unit/mL UDC 5 mL 500000 UNIT PO ×4 (08:12→20:48)
[2021-04-29] MEDS: guaiFENesin 600 mg Tablet PO ×2 (08:12→17:34)
[2021-04-29] MEDS: azithromycin 250 mg Tablet PO (08:12)
[2021-04-29] MEDS: gabapentin 400 mg Capsule 800 MG PO ×3 (08:12→20:48)
[2021-04-29] MEDS: tamsulosin 0.4 mg Capsule PO (08:12)
[2021-04-29] MEDS: lidocaine 5% Patch 1 PATCH TOPICAL (08:13)
[2021-04-29 10:11] LABS: SARS Covid-2 Antigen Negative (Negative)
--- NOTE | 2021-04-29 10:28 | P.PN_ITS ---
Subjective Subjective: Interval history: Patient is overall doing well. No complaints of chest pain. Still is short of breath. Has paroyxsmal afib. Is in sinus tachycardia at this time. Vitals/I&O/Wt Last Vital Signs Temp 99.9 F H 04/29/21 07:33 Pulse 101 H 04/29/21 08:29 Resp 18 04/29/21 09:29 BP 118/78 04/29/21 07:33 Pulse Ox 97 04/29/21 08:26 04/28/21 04/29/21 04/29/21 22:59 06:59 14:59 Intake Total 350 / 400 350 / 750 120 / 120 Output Total 400 / 1200 675 / 1875 Balance -50 / -800 -325 / -1125 120 / 120 Physical Exam Narrative: EXAM NARRATIVE: GENERAL: Patient is alert, awake and oriented x3. [] NECK: No jugular vein distension. [] HEENT: No cyanosis. No icterus. No pallor. [] HEART: Regular S1 and S2. No murmur, rub or gallop. [] LUNGS: Clear to auscultate bilaterally. [] ABDOMEN: Soft, nontender and nondistended. Positive bowel sounds. No guarding, rebound or tenderness. [] CENTRAL NERVOUS SYSTEM: Grossly nonfocal. [] EXTREMITIES: Lower extremities with 1+ edema bilaterally. Pulses palpable in the lower extremities, both dorsalis pedis and posterior tibial. [] Data : 04/30/21 05:20 04/30/21 05:20 Micro: Microbiology 04/26/21 14:50 Gram Stain - Final Sputum - Expectorated Sputum Sputum Culture - Final A&P Assessment and plan (1) Acute respiratory failure with hypoxia: Status: Acute (2) Diastolic CHF: Status: Acute (3) Paroxysmal atrial fibrillation: Status: Acute (4) Postobstructive pneumonia: Status: Acute (5) Hypertension: Status: Acute Patient has recent onset atrial fibrillation/atrial flutter and had a recent stroke. Continue anticoagulation. Patient has paroxysmal afib with RVR. Today at time of my evaluation patient was in sinus tachycardia. Continue metoprolol and cardizem Telemetry monitoring. Patient is at acceptable cardiac risk to undergo anesthesia for the port placement. Thank you for involving us with care of this patient. We will continue to follow. Please call with questions. Attestations Medical Necessity Statement*: Care expected to cross 2 midnights. Coding Level of Care Code Acute Material Control Specialist for [facility] Fwd Diagnoses Acute respiratory failure with hypoxia J96.01 Diastolic CHF I50.30 Paroxysmal atrial fibrillation I48.0 Postobstructive pneumonia J18.9 Hypertension I10
[2021-04-29 10:37] LABS: Influenza A by IFA Negative (Negative); Influenza B by IFA Negative (Negative)
--- NOTE | 2021-04-29 10:46 | PC.SOCIAL ---
Pg 2 IMM Explained to pt Pg 2 IMM. No questions voiced. Provided pt a copy. Signed, dated, & timed a copy & placed in chart.
--- NOTE | 2021-04-29 10:51 | PC.CHAP ---
Pastoral Care Encounter/Spiritual Assessment Type of Contact [] Declined window and door installer visit [] Patient/Family/Request visit [] Outpatient visit [] Follow-up visit [] Physician referral [] Code/Alert [x] Routine visit [] Staff referral [] Actively dying [] Patient sleeping [] Family support [] [] Out of room [] Palliative care [] [] Receiving care in room [] Pre-surgical visit [] Trauma [] Long length of stay [] ICU visit [] Other: Relational/Emotional Strength [] Patient feels connected with others/family/visitors/staff [] Distress [] Loneliness/isolation [] Abandonment Spirituality of Patient [x] Person of Ammy [x] Attends Alevism of their Ammy [x] Believes in Prayer []x Reads Bible or Voodoo materials [] There are Spiritual issues to be addressed Assembler Interventions [x] Prayer [x] Active listening [x] Non-anxious presence [x] Spiritual/emotional support [] Crisis/trauma care [] Spiritual counseling [] Bereavement support [] Provided bereavement packet [] Provided Bible/devotional materials [] Provided toy/stuffed animal, coloring book to patient or family member [] Provided Communion [] Anointing/[place] [] Salvation [] Completed spiritual assessment [] Other: Impact on Illness or Injury [] Angry [] Fearful [] Anxious [] Often cries [] Exhaustion [] Unable to work [] Unable to attend jehovah's witness [] Unable to walk/stand [] Unable to read [] Unable to drive [] Unable to eat/drink [] Unable to sleep [] Unable to be with family [] Patient intubated [] Other: Summary Time spent with patient 15 min
[2021-04-29] MEDS: FUROsemide 10 mg/mL SDV 4mL 40 MG IVP (11:40)
[2021-04-29 12:48] LABS: Vancomycin Trough 21.3 ug/mL (10-15)
[2021-04-29] MEDS: potassium chloride ER 20 mEq Tablet 40 MEQ PO (13:14)
--- NOTE | 2021-04-29 15:15 | PM.PN ---
Subjective Subjective: Interval history: Yesterday evening patient had episodes of A. fib with RVR, heart rates as high as 170s, improved with metoprolol 5 mg IV, currently his heart rates are between 100 still 112, overall patient has no code plaints this morning, currently on 2 L, overnight he was febrile up to 100, and T-max yesterday afternoon was 103.3, mild cough, no lightheadedness, dizziness, no diarrhea no headache, no blurry vision, neck pain, neck stiffness, no known exposure to COVID-19, did not receive Covid vaccines Vitals/I&O/Wt Last Vital Signs Temp 98.3 F 04/29/21 11:05 Pulse 107 H 04/29/21 14:00 Resp 18 04/29/21 12:06 BP 110/74 04/29/21 11:05 Pulse Ox 96 04/29/21 12:06 04/29/21 04/29/21 04/29/21 06:59 14:59 22:59 Intake Total 350 / 750 170 / 170 Output Total 675 / 1875 500 / 500 Balance -325 / -1125 -330 / -330 Physical Exam Const: COMMON NORMALS: no acute distress and patient oriented x3 Resp: COMMON NORMALS: normal respiratory effort, No retractions, No use of accessory muscles and clear to auscultation bilaterally AUSCULTATION: clear to auscultation bilaterally Cardio: COMMON NORMALS: regular rate, regular rhythm, S1 normal heart sound present and S2 normal heart sound present RATE: regular rate RHYTHM: regular rhythm HEART SOUNDS: S1 normal heart sound present and S2 normal heart sound present GI: COMMON NORMALS: Normal to inspection, nondistended, normoactive bowel sounds present, Soft to palpation and non-tender PALPATION: Yes Soft to palpation Extremity: COMMON NORMALS: no pedal edema Neuro: COMMON NORMALS: patient oriented x3 Psych: COMMON NORMALS: mental status grossly normal Data : 04/29/21 05:20 04/29/21 05:20 Micro: Microbiology 04/29/21 09:47 Gram Stain - Final Sputum - Expectorated Sputum 04/29/21 11:50 Blood Culture - Preliminary Blood SPECIMEN COLLECTED 04/29/21 11:45 Blood Culture - Preliminary Blood SPECIMEN COLLECTED 04/26/21 14:50 Gram Stain - Final Sputum - Expectorated Sputum Sputum Culture - Final A&P Assessment and plan (1) Acute respiratory failure with hypoxia: -Postobstructive pneumonia, diastolic CHF exacerbation, paroxysmal atrial fibrillation -ct angio: 1. There is a left hilar soft tissue attenuation mass with extension into the infrahilar region of the left lower lobe worrisome for a pulmonary malignancy. There may be a slight increase in size in the lower lobe pulmonary nodularity. The left hilar soft tissue attenuation mass is similar in size compared to 02/11/2021. 2. There is probable developing left lower lobe postobstructive atelectasis versus pneumonia. 3. The mediastinal and left hilar lymphadenopathy is similar compared to 02/11/2021. -cardiac echo: LV systolic function is normal with EF of 60-65% Grade 1 diastolic dysfunction Mild mitral regurgitation Trace aortic regurgitation -Sputum cultures is showing mixed janet, gram-negative, gram-positive's -Continues to have febrile episodes, 103.3 Plan: -Admit to general medical floors -Start on broad-spectrum antibiotic therapy vancomycin and Zosyn, azithromycin -Follow blood cultures, sputum cultures -Redraw blood cultures, sputum cultures, Covid PCR, Covid antigen, influenza, viral panel - -Aggressive pulmonary toilet, incentive spirometer, flutter valve -Discussed with pulmonary team, possible bronchoscopy in 24-48 hrs. based on Covid testing -Telemetry monitoring -Decrease Lasix to 20 mg daily -Telemetry monitoring, Lovenox 1 mg per kilogram twice daily -Full code -Lovenox for DVT prophylaxis Plan for today, speak to pulmonary, monitor cultures, monitor for fevers, had viral studies, and fungal studies Status: Acute (2) Postobstructive pneumonia: Status: Acute (3) Non-small cell cancer of left lung: Status: Acute (4) Cerebrovascular accident: -Reviewed patient's Holter monitor, had episodes of A. fib, a flutter, heart rates as high as 180 -Likely left-sided CVA from a embolic stroke -Start metoprolol 25 mg twice daily, with Lovenox 1 mg/kg twice daily -Monitor for symptomatology -For now stop aspirin, continue Plavix, statin, therapeutic Lovenox as above, due to concerns for bleed risk Status: Acute Qualifiers: CVA mechanism: thrombosis Laterality of affected vessel: right Precerebral and cerebral artery: middle cerebral artery Qualified Code(s): I63.311 - Cerebral infarction due to thrombosis of right middle cerebral artery (5) Small cell lung cancer: Status: Acute (6) Paroxysmal atrial fibrillation: Currently not in afib but holter does show afib Status: Acute (7) Diastolic CHF: Status: Acute (8) Peripheral neuropathy: Status: Acute (9) Hypertension: Status: Acute (10) NSTEMI (non-ST elevated myocardial infarction): -Continue to monitor troponin, monitor for chest pain, continue telemetry monitoring, stop aspirin, on Plavix, statin, Lovenox as above due to concerns for bleed risk Status: Acute Attestations Medical Necessity Statement*: Patient requires hospitalization for acute respiratory failure, persistent fevers, pneumonia, fluid overload, A. fib Coding Level of Care Code Acute Balance And Hairspring Assembler for viviana Aldridge Diagnoses Acute respiratory failure with hypoxia J96.01 Postobstructive pneumonia J18.9 Non-small cell cancer of left lung C34.92 Cerebrovascular accident I63.311 CVA mechanism: thrombosis Laterality of affected vessel: right Precerebral and cerebral artery: middle cerebral artery Small cell lung cancer C34.90 Paroxysmal atrial fibrillation I48.0 Diastolic CHF I50.30 Peripheral neuropathy G62.9 Hypertension I10 NSTEMI (non-ST elevated myocardial infarction) I21.4
[2021-04-29 16:35] LABS: Hepatitis A Antibody IgM Non-Reactive (Nonreactive); Hepatitis B Core IgM Non-Reactive (Nonreactive); Hepatitis B Surface Antigen Non-Reactive (Nonreactive); Hepatitis C Virus Antibody Non-Reactive (Nonreactive)
[2021-04-29 16:36] LABS: HIV 1 & 2 Antibody Non-Reactive (Non-Reactiv); HIV 1 & 2 Antigen Non-Reactive (Non-Reactiv)
[2021-04-29] MEDS: vancomycin 1,250 MG/250 ML PIGGYBACK 200 MG IV (17:35)
[2021-04-29] MEDS: atorvastatin 40 mg Tablet PO (20:48)
[2021-04-29] MEDS: metoprolol tartrate 25 mg Tablet 37.5 MG PO (20:49)
[2021-04-30] VITALS (24 sets, daily range): BP systolic 105–143; BP diastolic 71–96; PULSE 71–149; RESP 14–18; TEMP 36.6–37.8; O2SAT 90–96
[2021-04-30] MEDS: oxyCODONE-APAP 10-325 mg Tablet 1 TAB PO ×2 (03:31→23:55)
[2021-04-30] MEDS: losartan 50 mg Tablet PO (05:18)
[2021-04-30] MEDS: vancomycin 1,250 MG/250 ML PIGGYBACK 200 MG IV ×2 (05:19→18:47)
[2021-04-30 06:01] LABS: Basophils % 0.6 %; Eosinophils # 0.1 10^3/uL (0.0-0.8); Eosinophils % 1.3 %; Hematocrit 32.5 % (42.0-52.0); Hemoglobin 10.6 g/dL (11.7-16.6); Lymphocytes # 0.9 10^3/uL (0.8-4.8); Lymphocytes % 13.7 %; Mean Corpuscular HGB Conc 32.6 g/dL (30.0-36.0); Mean Corpuscular Hemoglobin 29.3 pg (28.0-34.0); Mean Corpuscular Volume 89.8 fL (80-94); Monocytes # 0.5 10^3/uL (0.2-0.9); Monocytes % 8.5 %; Nucleated Red Blood Cells % 0 %; Platelet Count 189 10^3/cmm (130-400); Red Blood Count 3.62 10^6/uL (4.1-5.3); Red Cell Distribution Width 17.6 % (12.1-15.1); White Blood Count 6.4 10^3/uL (4.0-10.0)
[2021-04-30] MEDS: metoprolol tartrate 25 mg Tablet 37.5 MG PO ×2 (06:02→21:58)
[2021-04-30] MEDS: piperacillin-tazobactam 3.375 GM in sodium chloride 0.9% (plus) 50 ML IV ×3 (06:03→23:51)
[2021-04-30 06:31] LABS: Alanine Aminotransferase 21 U/L (0-41); Alkaline Phosphatase 70 IU/L (40-130); Anion Gap 13.4 (5-19); Aspartate Amino Transferase 15 U/L (0-40); Blood Urea Nitrogen 13 mg/dL (8-23); C Reactive Protein 128.8 mg/L (0.0-4.9); Calcium 8.1 mg/dL (8.5-10.5); Carbon Dioxide 26 mmol/L (22-29); Chloride 99 mmol/L (98-107); Creatinine Clr Calc Pharmacy 70.3076; Globulin 3.1 g/dL (1.3-4.6); Glomerular Filtration Rate 60.8 mL/min (90-130); Glucose 107 mg/dL (65-115); Magnesium 2.1 mg/dL (1.7-2.3); Osmolality Calculated 281 mOsm/kg (285-295); Phosphorus 2.9 mg/dL (2.5-4.5); Potassium 3.4 mmol/L (3.5-5.1); Sodium 135 mmol/L (136-145); Total Bilirubin 0.5 mg/dL (0.15-1.2); Total Protein 6.1 g/dL (6.6-8.7)
[2021-04-30] MEDS: labetalol 5 mg/mL SDV 20mL 10 MG IVP (06:48)
[2021-04-30 06:52] LABS: NT Pro B Type Natriuretic Pept 105 pg/mL (0-125); Procalcitonin 0.17 ng/mL (0-0.5)
[2021-04-30] MEDS: tamsulosin 0.4 mg Capsule PO (08:33)
[2021-04-30] MEDS: FUROsemide 20 mg Tablet PO (08:33)
[2021-04-30] MEDS: gabapentin 400 mg Capsule 800 MG PO ×3 (08:33→22:00)
[2021-04-30] MEDS: lidocaine 5% Patch 1 PATCH TOPICAL (08:33)
[2021-04-30] MEDS: clopidogrel 75 mg Tablet PO (08:33)
[2021-04-30] MEDS: guaiFENesin 600 mg Tablet PO ×2 (08:33→18:47)
[2021-04-30] MEDS: nystatin 100,000 unit/mL UDC 5 mL 500000 UNIT PO ×4 (08:33→22:00)
[2021-04-30] MEDS: azithromycin 250 mg Tablet PO (08:38)
[2021-04-30] MEDS: dilTIAZem 60 mg Tablet PO ×3 (08:49→22:00)
[2021-04-30] MEDS: metoprolol tartrate 1 mg/1 mL SDV 5 mL 5 MG IV (08:59)
--- NOTE | 2021-04-30 09:03 | PC.NURSE ---
patients heart rate noted to be 150s-180s on telemetry monitoring, Dr. Montoya notified telephone orders received for 5mg IV metoprolol IV x1 dose, check heart rate and call Dr. Montoya in 5 minutes. Blood pressure before administration at 0858 was 105/76, during administration blood pressure was as follows: 0902- 96/68, 0907 91/65, heart rate remained 120's-150's throughout administration. After administration at 0913 bp 89/61 heart rate 115. Will notify Dr. Montoya at 0915.
--- NOTE | 2021-04-30 09:33 | P.PN_ITS ---
Subjective Subjective: Interval history: Patient is doing well. No complaints of chest pain. He is in sinus rhythm and doing well. Vitals/I&O/Wt Last Vital Signs Temp 98.7 F 04/30/21 06:10 Pulse 80 04/30/21 08:09 Resp 18 04/30/21 08:03 BP 105/71 04/30/21 07:33 Pulse Ox 96 04/30/21 08:03 04/29/21 04/30/21 04/30/21 22:59 06:59 14:59 Intake Total 300 / 470 570 / 1040 250 / 250 Output Total 475 / 975 0 / 975 Balance -175 / -505 570 / 65 250 / 250 Physical Exam Narrative: EXAM NARRATIVE: GENERAL: Patient is alert, awake and oriented x3. [] NECK: No jugular vein distension. [] HEENT: No cyanosis. No icterus. No pallor. [] HEART: Regular S1 and S2. No murmur, rub or gallop. [] LUNGS: Clear to auscultate bilaterally. [] ABDOMEN: Soft, nontender and nondistended. Positive bowel sounds. No guarding, rebound or tenderness. [] CENTRAL NERVOUS SYSTEM: Grossly nonfocal. [] EXTREMITIES: Lower extremities with 1+ edema bilaterally. Pulses palpable in the lower extremities, both dorsalis pedis and posterior tibial. [] Data : 05/01/21 04:58 05/01/21 04:58 Micro: Microbiology 04/29/21 09:47 Gram Stain - Final Sputum - Expectorated Sputum 04/29/21 11:50 Blood Culture - Preliminary Blood SPECIMEN COLLECTED 04/29/21 11:45 Blood Culture - Preliminary Blood SPECIMEN COLLECTED 04/26/21 14:50 Gram Stain - Final Sputum - Expectorated Sputum Sputum Culture - Final A&P Assessment and plan (1) Acute respiratory failure with hypoxia: Status: Acute (2) Diastolic CHF: Status: Acute (3) Paroxysmal atrial fibrillation: Status: Acute (4) Postobstructive pneumonia: Status: Acute (5) Hypertension: Status: Acute Patient has recent onset atrial fibrillation/atrial flutter and had a recent stroke. Continue anticoagulation. Patient has paroxysmal afib with RVR. Patient is in normal sinus rhythm. Continue metoprolol and cardizem Telemetry monitoring. Patient is at acceptable cardiac risk to undergo anesthesia for the port placement. Thank you for involving us with care of this patient. We will continue to follow. Please call with questions. Attestations Medical Necessity Statement*: Care expected to cross 2 midnights. Coding Level of Care Code Acute Carpet Jack for Desmond Aldridge Diagnoses Acute respiratory failure with hypoxia J96.01 Diastolic CHF I50.30 Paroxysmal atrial fibrillation I48.0 Postobstructive pneumonia J18.9 Hypertension I10
[2021-04-30 10:09] LABS: Troponin(5th) Baseline 25 ng/L (0-15)
--- NOTE | 2021-04-30 10:52 | ECG_ITS ---
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 Measurements Intervals [place] Rate: 98 P: 58 FL: 149 QRS: 13 QRSD: 106 T: 48 QT: 318 QTc: 406 Interpretive Statements SINUS RHYTHM LEFT ATRIAL ENLARGEMENT [-0.15mV P WAVE IN V1/V2] Compared to ECG 04/28/2021 18:05:20 Atrial abnormality now present Atrial fibrillation no longer present Electronically Signed On 05-07-2021 16:35:43 CDT by Bryanna Schafer M.D. [email or web address]
[2021-04-30 11:59] LABS: Troponin 5 2HR 28.82 ng/L (0-15); Troponin 5 2HR Delta 3.82 ABS# (0-10)
[2021-04-30] MEDS: pantoprazole 40 mg SDV IVP (12:31)
[2021-04-30] MEDS: enoxaparin 100 mg/mL Syringe 90 MG SUBCUT (12:31)
[2021-04-30 14:39] LABS: Coronavirus Test Green County Not Detected
--- NOTE | 2021-04-30 14:52 | ECG_ITS ---
[facility] ED Test Date: 2021-04-30 Pat Name: Tramaine Galaviz Department: Room: 272 Gender: Male Facility Specialist: : [id number] Requested By: Edwin Montoya Order Number: [id number] Dixon MD: Bryanna Schafer M.D. Measurements Intervals [place] Rate: 102 P: 61 OK: 141 QRS: 26 QRSD: 109 T: 45 QT: 331 QTc: 431 Interpretive Statements SINUS TACHYCARDIA LEFT ATRIAL ENLARGEMENT [-0.15mV P WAVE IN V1/V2] INCOMPLETE RIGHT BUNDLE BRANCH BLOCK Compared to ECG 04/30/2021 10:44:12 Incomplete right bundle-branch block now present Sinus rhythm no longer present Electronically Signed On 05-07-2021 16:35:08 CDT by Bryanna Schafer M.D. [id number]
[2021-04-30] MEDS: acetaminophen 325 mg Tablet 650 MG PO (15:43)
[2021-04-30 16:24] LABS: Troponin 5 6HR 26.98 ng/L (0-15); Troponin 5 6HR Delta 1.98 ng/L (0-12)
--- NOTE | 2021-04-30 17:04 | PM.PN ---
Vitals/I&O/Wt Last Vital Signs Temp 98.9 F 04/30/21 15:51 Pulse 98 04/30/21 15:57 Resp 16 04/30/21 15:51 BP 112/73 04/30/21 15:51 Pulse Ox 93 04/30/21 15:51 04/30/21 04/30/21 04/30/21 06:59 14:59 22:59 Intake Total 570 / 1040 300 / 300 Output Total 0 / 975 Balance 570 / 65 300 / 300 Physical Exam Const: COMMON NORMALS: no acute distress and patient oriented x3 Resp: COMMON NORMALS: normal respiratory effort, No use of accessory muscles and clear to auscultation bilaterally AUSCULTATION: clear to auscultation bilaterally Cardio: COMMON NORMALS: regular rate, regular rhythm, S1 normal heart sound present, S2 normal heart sound present and No murmurs present (Cardio) RATE: regular rate RHYTHM: regular rhythm HEART SOUNDS: S1 normal heart sound present and S2 normal heart sound present GI: COMMON NORMALS: Normal to inspection, nondistended, normoactive bowel sounds present, Soft to palpation, non-tender, No hepatosplenomegaly present, no masses and no bruits PALPATION: Yes Soft to palpation and Yes No hepatosplenomegaly present Extremity: COMMON NORMALS: no pedal edema Neuro: COMMON NORMALS: patient oriented x3, CN's II-XII intact bilaterally and moves all extremities Psych: COMMON NORMALS: mental status grossly normal, Normal thought process present and cooperative THOUGHT PROCESS: Normal thought process present Data : 04/30/21 05:20 04/30/21 05:20 Micro: Microbiology 04/29/21 11:45 Blood Culture - Preliminary Blood NEGATIVE TO DATE 04/29/21 11:50 Blood Culture - Preliminary Blood NEGATIVE TO DATE 04/29/21 09:47 Gram Stain - Final Sputum - Expectorated Sputum Sputum Culture - Preliminary A&P Assessment and plan (1) Acute respiratory failure with hypoxia: -Postobstructive pneumonia, diastolic CHF exacerbation, paroxysmal atrial fibrillation -ct angio: 1. There is a left hilar soft tissue attenuation mass with extension into the infrahilar region of the left lower lobe worrisome for a pulmonary malignancy. There may be a slight increase in size in the lower lobe pulmonary nodularity. The left hilar soft tissue attenuation mass is similar in size compared to 02/11/2021. 2. There is probable developing left lower lobe postobstructive atelectasis versus pneumonia. 3. The mediastinal and left hilar lymphadenopathy is similar compared to 02/11/2021. -cardiac echo: LV systolic function is normal with EF of 60-65% Grade 1 diastolic dysfunction Mild mitral regurgitation Trace aortic regurgitation -Sputum cultures is showing mixed janet, gram-negative, gram-positive's -Continues to have febrile episodes 100 Plan: -Admit to general medical floors -coutinue on broad-spectrum antibiotic therapy vancomycin and Zosyn, azithromycin -Follow blood cultures, sputum cultures so far negative, repeat cultures negative - Covid PCR, Covid antigen, influenza, viral panel negative -Aggressive pulmonary toilet, incentive spirometer, flutter valve -Discussed with pulmonary team, possible bronchoscopy in 24-48 hrs. -Telemetry monitoring -Decrease Lasix to 20 mg daily -Telemetry monitoring, Lovenox 1 mg per kilogram twice daily -Full code -Lovenox for DVT prophylaxis Plan for today, monitor for fevers, fungal studies, viral studies, plan on bronchoscopy in the next 24 to 48 hours Status: Acute (2) Postobstructive pneumonia: Status: Acute (3) Non-small cell cancer of left lung: Status: Acute (4) Cerebrovascular accident: -Reviewed patient's Holter monitor, had episodes of A. fib, a flutter, heart rates as high as 180 -Likely left-sided CVA from a embolic stroke -with Lovenox 1 mg/kg twice daily -Monitor for symptomatology -For now stop aspirin, continue Plavix, statin, therapeutic Lovenox as above, due to concerns for bleed risk Status: Acute Qualifiers: CVA mechanism: thrombosis Laterality of affected vessel: right Precerebral and cerebral artery: middle cerebral artery Qualified Code(s): I63.311 - Cerebral infarction due to thrombosis of right middle cerebral artery (5) Small cell lung cancer: Status: Acute (6) Paroxysmal atrial fibrillation: -Has episodes of A. fib with RVR, heart rates in the high 170s, treated with metoprolol 5 mg IV push -Increase metoprolol 50 twice daily, continue Cardizem -consult cardiology Status: Acute (7) Diastolic CHF: Status: Acute (8) Peripheral neuropathy: Status: Acute (9) Hypertension: Status: Acute (10) NSTEMI (non-ST elevated myocardial infarction): -Continue to monitor troponin, monitor for chest pain, continue telemetry monitoring, stop aspirin, on Plavix, statin, Lovenox as above due to concerns for bleed risk Status: Acute Attestations Medical Necessity Statement*: Patient requires hospitalization for pneumonia, recurrent fevers, requirement of bronchoscopy, lung cancer 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
[2021-04-30 17:38] LABS: Glucose Point of Care 120 mg/dL (70-110)
[2021-04-30 18:37] LABS: Vancomycin Trough 18.5 ug/mL (10-15)
[2021-04-30] MEDS: atorvastatin 40 mg Tablet PO (22:00)
[2021-05-01] VITALS (19 sets, daily range): BP systolic 99–122; BP diastolic 67–80; PULSE 80–108; RESP 16–20; TEMP 36.8–37.5; O2SAT 88–93
[2021-05-01] MEDS: enoxaparin 100 mg/mL Syringe 90 MG SUBCUT ×2 (01:39→13:16)
[2021-05-01] MEDS: dilTIAZem 60 mg Tablet PO ×4 (02:08→21:04)
[2021-05-01] MEDS: pantoprazole 40 mg SDV IVP ×2 (02:09→13:16)
[2021-05-01] MEDS: losartan 50 mg Tablet PO (04:33)
[2021-05-01] MEDS: vancomycin 1,250 MG/250 ML PIGGYBACK 200 MG IV (05:17)
[2021-05-01 05:47] LABS: Basophils % 0.5 %; Eosinophils # 0.1 10^3/uL (0.0-0.8); Eosinophils % 2.2 %; Hematocrit 34.9 % (42.0-52.0); Hemoglobin 11.4 g/dL (11.7-16.6); Lymphocytes # 0.9 10^3/uL (0.8-4.8); Lymphocytes % 15.7 %; Mean Corpuscular HGB Conc 32.7 g/dL (30.0-36.0); Mean Corpuscular Hemoglobin 29.8 pg (28.0-34.0); Mean Corpuscular Volume 91.1 fL (80-94); Monocytes # 0.3 10^3/uL (0.2-0.9); Monocytes % 5.5 %; Neutrophils # 4.42 10^3/uL (1.8-7.7); Neutrophils % 73.6 %; Nucleated Red Blood Cells % 0 %; Platelet Count 227 10^3/cmm (130-400); Red Blood Count 3.83 10^6/uL (4.1-5.3); Red Cell Distribution Width 17.5 % (12.1-15.1)
[2021-05-01 06:08] LABS: Alanine Aminotransferase 23 U/L (0-41); Alkaline Phosphatase 66 IU/L (40-130); Anion Gap 15.6 (5-19); Aspartate Amino Transferase 19 U/L (0-40); Blood Urea Nitrogen 13 mg/dL (8-23); Calcium 8.3 mg/dL (8.5-10.5); Carbon Dioxide 26 mmol/L (22-29); Chloride 100 mmol/L (98-107); Creatinine Clr Calc Pharmacy 84.3692; Globulin 3.2 g/dL (1.3-4.6); Glucose 105 mg/dL (65-115); Magnesium 2.1 mg/dL (1.7-2.3); Osmolality Calculated 286 mOsm/kg (285-295); Potassium 3.6 mmol/L (3.5-5.1); Sodium 138 mmol/L (136-145); Total Bilirubin 0.5 mg/dL (0.15-1.2); Total Protein 6.2 g/dL (6.6-8.7)
[2021-05-01] MEDS: piperacillin-tazobactam 3.375 GM in sodium chloride 0.9% (plus) 50 ML IV ×2 (06:41→16:20)
[2021-05-01] MEDS: guaiFENesin 600 mg Tablet PO ×2 (10:16→18:22)
[2021-05-01] MEDS: gabapentin 400 mg Capsule 800 MG PO ×3 (10:16→21:04)
[2021-05-01] MEDS: nystatin 100,000 unit/mL UDC 5 mL 500000 UNIT PO ×4 (10:16→21:04)
[2021-05-01] MEDS: tamsulosin 0.4 mg Capsule PO (10:17)
[2021-05-01] MEDS: azithromycin 250 mg Tablet PO (10:17)
[2021-05-01] MEDS: clopidogrel 75 mg Tablet PO (10:17)
[2021-05-01] MEDS: FUROsemide 20 mg Tablet PO (10:17)
[2021-05-01] MEDS: metoprolol tartrate 25 mg Tablet 37.5 MG PO ×2 (10:17→21:04)
[2021-05-01] MEDS: lidocaine 5% Patch 1 PATCH TOPICAL (10:18)
--- NOTE | 2021-05-01 10:56 | PC.SOCIAL ---
*IMM UPDATE* Gave patient IMM update, provided copy of page 2. 05/01/21 @ 9084 Initialed, dated, timed and placed in chart.
--- NOTE | 2021-05-01 10:59 | PC.CHAP ---
Pastoral Care Encounter/Spiritual Assessment Type of Contact [x] Declined assistant grocery visit [] Patient/Family/Request visit [] Outpatient visit [] Follow-up visit [] Physician referral [] Code/Alert [] Routine visit [] Staff referral [] Actively dying [] Patient sleeping [] Family support [] [] Out of room [] Palliative care [] [] Receiving care in room [] Pre-surgical visit [] Trauma [] Long length of stay [] ICU visit [] Other: Relational/Emotional Strength [] Patient feels connected with others/family/visitors/staff [] Distress [] Loneliness/isolation [] Abandonment Spirituality of Patient [] Person of Ammy [] Attends Advent of their Ammy [] Believes in Prayer [] Reads Bible or Restorationism materials [] There are Spiritual issues to be addressed Shop Teacher Interventions [] Prayer [] Active listening [] Non-anxious presence [] Spiritual/emotional support [] Crisis/trauma care [] Spiritual counseling [] Bereavement support [] Provided bereavement packet [] Provided Bible/devotional materials [] Provided toy/stuffed animal, coloring book to patient or family member [] Provided Communion [] Anointing/[place] [] Salvation [] Completed spiritual assessment [] Other: Impact on Illness or Injury [] Angry [] Fearful [] Anxious [] Often cries [] Exhaustion [] Unable to work [] Unable to attend judaism [] Unable to walk/stand [] Unable to read [] Unable to drive [] Unable to eat/drink [] Unable to sleep [] Unable to be with family [] Patient intubated [] Other: Summary +1 Time spent with patient 5 mins
--- NOTE | 2021-05-01 12:20 | PC.OT ---
Patient discharging from occupational therapy. He has met goals and is able to complete HEP independently.
[2021-05-01] MEDS: doxycycline 100 MG in sodium chloride 0.9% (plus) 100 ML IV (13:14)
[2021-05-01] MEDS: diphenhydrAMINE 50 mg/mL SDV 1mL 25 MG IVP (16:20)
[2021-05-01] MEDS: ondansetron 2 mg/ML SDV 2 mL 4 MG IVP (16:30)
--- NOTE | 2021-05-01 17:38 | P.PN_ITS ---
Subjective Subjective: Interval history: Patient was seen this morning he is feeling well, low-grade temperatures overnight, no fevers, on 2 L, no shortness of breath, he tells me that he has a rash on his back, on his bilateral lower extremity, hip that he thinks is from the sweating, but he has had it even before he came in on his lower extremities, Vitals/I&O/Wt Last Vital Signs Temp 98.5 F 05/01/21 16:00 Pulse 108 H 05/01/21 16:00 Resp 16 05/01/21 16:00 BP 106/74 05/01/21 16:00 Pulse Ox 93 05/01/21 16:00 05/01/21 05/01/21 05/01/21 06:59 14:59 22:59 Intake Total 800 / 1640 270 / 270 Balance 800 / 1640 270 / 270 Physical Exam Const: COMMON NORMALS: no acute distress ORIENTATION/CONSCIOUSNESS: Yes awake, Yes oriented to person, Yes oriented to place and Yes oriented to time Chest: COMMONS NORMALS: normal inspection of the chest Resp: COMMON NORMALS: normal respiratory effort, No retractions, No use of accessory muscles and clear to auscultation bilaterally AUSCULTATION: clear to auscultation bilaterally Cardio: COMMON NORMALS: regular rate, regular rhythm, S1 normal heart sound present and S2 normal heart sound present RATE: regular rate RHYTHM: regular rhythm HEART SOUNDS: S1 normal heart sound present and S2 normal heart sound present GI: COMMON NORMALS: Normal to inspection, nondistended, normoactive bowel sounds present, Soft to palpation and non-tender PALPATION: Yes Soft to palpation Extremity: COMMON NORMALS: no pedal edema Neuro: SENSORIUM/ORIENTATION: Yes oriented to person, Yes oriented to place and Yes oriented to time Skin: NARRATIVE SKIN EXAM: Confluent macular rash, nonpitting, nonblanching, quite dense bilateral lower extremities, starting at the level of the ankles, up to the mid calf. Been stopped, and it starts again at the mid thigh less confluent, more macular papular, spares the groin, some episodes on his abdomen, spares the chest, throughout the back, Data : 05/01/21 04:58 05/01/21 04:58 Micro: Microbiology 04/29/21 09:47 Gram Stain - Final Sputum - Expectorated Sputum Sputum Culture - Final 04/26/21 06:05 Blood Culture - Final Blood NO GROWTH AFTER 5 DAYS 04/26/21 05:45 Blood Culture - Final Blood NO GROWTH AFTER 5 DAYS 04/30/21 16:59 Cryptococcal Antigen - Final Blood A&P Assessment and plan (1) Acute respiratory failure with hypoxia: -Postobstructive pneumonia, diastolic CHF exacerbation, paroxysmal atrial fibrillation -ct angio: 1. There is a left hilar soft tissue attenuation mass with extension into the infrahilar region of the left lower lobe worrisome for a pulmonary malignancy. There may be a slight increase in size in the lower lobe pulmonary nodularity. The left hilar soft tissue attenuation mass is similar in size compared to 02/11/2021. 2. There is probable developing left lower lobe postobstructive atelectasis versus pneumonia. 3. The mediastinal and left hilar lymphadenopathy is similar compared to 02/11/2021. -cardiac echo: LV systolic function is normal with EF of 60-65% Grade 1 diastolic dysfunction Mild mitral regurgitation Trace aortic regurgitation -Sputum cultures is showing mixed janet, gram-negative, gram-positive's -Continues to have febrile episodes 100 Plan: -Admit to general medical floors -Given his rash stop antibiotic therapy switch to Levaquin -Stop doxycycline given attached tick, and concerns for [place] spotted fever -Follow blood cultures, sputum cultures so far negative, repeat cultures negative - Covid PCR, Covid antigen, influenza, negative -Aggressive pulmonary toilet, incentive spirometer, flutter valve -Discussed with pulmonary team, there were plans on bronchoscopy, however patient has already had a bronchoscopy, and has had radiation therapy, there is concern for significant bleeding given his anticoagulant therapy, and as he is clinically getting better remains afebrile, chest x-rays look better, pulmonary team does not feel that postobstructive pneumonia is playing a significant role at this point, and the procedure the risks outweigh the benefit, I have been advised to continue antibiotics for at least 7 days, have patient follow-up as outpatient -Telemetry monitoring -Decrease Lasix to 20 mg daily -Telemetry monitoring, Lovenox 1 mg per kilogram twice daily -Full code -Lovenox for DVT prophylaxis Status: Acute (2) Postobstructive pneumonia: Status: Acute (3) Non-small cell cancer of left lung: Status: Acute (4) Cerebrovascular accident: -Reviewed patient's Holter monitor, had episodes of A. fib, a flutter, heart rates as high as 180 -Likely left-sided CVA from a embolic stroke -with Lovenox 1 mg/kg twice daily -Monitor for symptomatology -For now stop aspirin, continue Plavix, statin, therapeutic Lovenox as above, due to concerns for bleed risk Status: Acute Qualifiers: CVA mechanism: thrombosis Laterality of affected vessel: right Precerebral and cerebral artery: middle cerebral artery Qualified Code(s): I63.311 - Cerebral infarction due to thrombosis of right middle cerebral artery (5) Small cell lung cancer: Status: Acute (6) Paroxysmal atrial fibrillation: -Has episodes of A. fib with RVR, heart rates in the high 170s, treated with metoprolol 5 mg IV push -Increase metoprolol 50 twice daily, continue Cardizem -consult cardiology Status: Acute (7) Diastolic CHF: Status: Acute (8) Peripheral neuropathy: Status: Acute (9) Hypertension: Status: Acute (10) NSTEMI (non-ST elevated myocardial infarction): -Continue to monitor troponin, monitor for chest pain, continue telemetry monitoring, stop aspirin, on Plavix, statin, Lovenox as above due to concerns for bleed risk Status: Acute (11) Rash: -Rash is certainly interesting, bilateral ankles, then skips to the thighs, some on the abdomen, all over the back -With fevers -It could be a penicillin allergy, as it is pruritic, no lip or tongue swelling, I will stop Primaxin -I do not think it is red man syndrome but will stop vancomycin -It certainly could be a heat rash because it is in areas that are typically covered, and areas such as where the SCDs are in place -However as we were doing a physical exam his found a tick attached to where the rash was found -Certainly could be [place] spotted fever, I started him on doxycycline, ordered tick panel, [place] spotted fever panel, tick analysis -Nurses did a full skin exam no other ticks attached -I will think his dress syndrome as there is no systemic symptoms, no eosinophilia -No evidence of pemphigus vulgaris or diffuse antibiotic associated rashes -We will continue to monitor -Hopefully can discharge the next 4 hours Status: Acute Attestations Medical Necessity Statement*: Patient requires hospitalization for pneumonia, rash, concerning for [place] spotted fever 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
--- NOTE | 2021-05-01 20:08 | PM.PN ---
Subjective Subjective: Interval history: Patient is doing well. Heart rate is controlled. Vitals/I&O/Wt Last Vital Signs Temp 98.8 F 05/01/21 19:31 Pulse 84 05/01/21 19:50 Resp 18 05/01/21 19:45 BP 104/69 05/01/21 19:31 Pulse Ox 93 05/01/21 19:45 05/01/21 05/01/21 05/01/21 06:59 14:59 22:59 Intake Total 800 / 1640 270 / 270 0 / 270 Balance 800 / 1640 270 / 270 0 / 270 Physical Exam Narrative: EXAM NARRATIVE: GENERAL: Patient is alert, awake and oriented x3. [] NECK: No jugular vein distension. [] HEENT: No cyanosis. No icterus. No pallor. [] HEART: Regular S1 and S2. No murmur, rub or gallop. [] LUNGS: Clear to auscultate bilaterally. [] ABDOMEN: Soft, nontender and nondistended. Positive bowel sounds. No guarding, rebound or tenderness. [] CENTRAL NERVOUS SYSTEM: Grossly nonfocal. [] EXTREMITIES: Lower extremities with 1+ edema bilaterally. Pulses palpable in the lower extremities, both dorsalis pedis and posterior tibial. [] Data : 05/02/21 06:22 05/02/21 06:22 Micro: Microbiology 04/29/21 09:47 Gram Stain - Final Sputum - Expectorated Sputum Sputum Culture - Final 04/26/21 06:05 Blood Culture - Final Blood NO GROWTH AFTER 5 DAYS 04/26/21 05:45 Blood Culture - Final Blood NO GROWTH AFTER 5 DAYS 04/30/21 16:59 Cryptococcal Antigen - Final Blood A&P Assessment and plan (1) Acute respiratory failure with hypoxia: Status: Acute (2) Diastolic CHF: Status: Acute (3) Paroxysmal atrial fibrillation: Status: Acute (4) Postobstructive pneumonia: Status: Resolved (5) Hypertension: Status: Acute Patient has recent onset atrial fibrillation/atrial flutter and had a recent stroke. Continue anticoagulation. Patient has paroxysmal afib with RVR. Patient is in normal sinus rhythm. Continue metoprolol and cardizem at current doses Port placement will be as outpatient. Patient is stable to be discharged from cardiology standpoint with outpatient follow up. Thank you for involving us with care of this patient. Please call with questions. Attestations Medical Necessity Statement*: Care expected to cross 2 midnights. 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
[2021-05-01] MEDS: atorvastatin 40 mg Tablet PO (21:04)
[2021-05-02] VITALS (13 sets, daily range): BP systolic 96–114; BP diastolic 57–74; PULSE 76–98; RESP 15–18; TEMP 36.6–36.8; O2SAT 88–96
[2021-05-02] MEDS: pantoprazole 40 mg SDV IVP ×2 (00:03→13:17)
[2021-05-02] MEDS: enoxaparin 100 mg/mL Syringe 90 MG SUBCUT ×2 (00:08→13:17)
[2021-05-02] MEDS: doxycycline 100 MG in sodium chloride 0.9% (plus) 100 ML IV ×2 (00:09→13:17)
[2021-05-02] MEDS: dilTIAZem 60 mg Tablet PO ×2 (04:30→15:07)
[2021-05-02] MEDS: levoFLOXacin 750 mg Tablet PO (04:30)
[2021-05-02] MEDS: losartan 50 mg Tablet PO (04:30)
[2021-05-02] MEDS: acetaminophen 325 mg Tablet 650 MG PO (06:15)
[2021-05-02 06:35] LABS: Basophils % 0.4 %; Eosinophils % 0.2 %; Hematocrit 35.6 % (42.0-52.0); Hemoglobin 11.8 g/dL (11.7-16.6); Lymphocytes # 0.7 10^3/uL (0.8-4.8); Lymphocytes % 13.2 %; Mean Corpuscular HGB Conc 33.1 g/dL (30.0-36.0); Mean Corpuscular Hemoglobin 29.5 pg (28.0-34.0); Mean Platelet Volume 10.3 fL (7.4-10.4); Monocytes # 0.1 10^3/uL (0.2-0.9); Neutrophils # 4.34 10^3/uL (1.8-7.7); Neutrophils % 80.7 %; Nucleated Red Blood Cells % 0 %; Platelet Count 351 10^3/cmm (130-400); Red Cell Distribution Width 16.5 % (12.1-15.1); White Blood Count 5.4 10^3/uL (4.0-10.0)
[2021-05-02 06:54] LABS: Alanine Aminotransferase 26 U/L (0-41); Albumin Level 3.3 g/dL (3.5-5.2); Alkaline Phosphatase 73 IU/L (40-130); Anion Gap 17.5 (5-19); Aspartate Amino Transferase 18 U/L (0-40); Blood Urea Nitrogen 17 mg/dL (8-23); Calcium 8.5 mg/dL (8.5-10.5); Carbon Dioxide 23 mmol/L (22-29); Chloride 103 mmol/L (98-107); Globulin 3.4 g/dL (1.3-4.6); Glomerular Filtration Rate 67.2 mL/min (90-130); Glucose 177 mg/dL (65-115); Magnesium 2.2 mg/dL (1.7-2.3); Osmolality Calculated 296 mOsm/kg (285-295); Phosphorus 2.7 mg/dL (2.5-4.5); Potassium 3.5 mmol/L (3.5-5.1); Sodium 140 mmol/L (136-145); Total Bilirubin 0.2 mg/dL (0.15-1.2); Total Protein 6.7 g/dL (6.6-8.7)
[2021-05-02 13:03] LABS: Lyme AB Screen <0.90 index
[2021-05-02] MEDS: clopidogrel 75 mg Tablet PO (13:16)
[2021-05-02] MEDS: metoprolol tartrate 25 mg Tablet 37.5 MG PO (13:16)
[2021-05-02] MEDS: FUROsemide 20 mg Tablet PO (13:16)
[2021-05-02] MEDS: nystatin 100,000 unit/mL UDC 5 mL 500000 UNIT PO (13:17)
[2021-05-02] MEDS: tamsulosin 0.4 mg Capsule PO (13:17)
[2021-05-02] MEDS: guaiFENesin 600 mg Tablet PO (13:17)
[2021-05-02] MEDS: lidocaine 5% Patch 1 PATCH TOPICAL (13:17)
--- NOTE | 2021-05-02 14:30 | P.DS_ITS ---
Discharge Providers Date of Admission: 04/26/21 06:33 Date of Discharge: May 02, 2021 Attending Provider at Admission: aYny Sales MD Attending Provider at Discharge: Edwin Montoya MD Primary Care Provider: Arabella Montero MD Diagnoses at Discharge Discharge Diagnosis (1) Acute respiratory failure with hypoxia: Status: Acute (2) Postobstructive pneumonia: Status: Acute (3) Non-small cell cancer of left lung: Status: Acute Permanent problem details: involving glands (4) Cerebrovascular accident: Status: Acute Qualifiers: CVA mechanism: thrombosis Laterality of affected vessel: right Precerebral and cerebral artery: middle cerebral artery Qualified Code(s): I63.311 - Cerebral infarction due to thrombosis of right middle cerebral artery (5) Small cell lung cancer: Status: Acute Permanent problem details: ? Non-small cell lung cancer. Records currently not available. (6) Paroxysmal atrial fibrillation: Status: Acute (7) Diastolic CHF: Status: Acute (8) Peripheral neuropathy: Status: Acute (9) Hypertension: Status: Acute (10) NSTEMI (non-ST elevated myocardial infarction): Status: Acute (11) Rash: Status: Acute Reason for Visit Reason for Visit: sob Hospital Course Hospital Course Tramaine Galaviz is a 66 year old male with a past medical history of non-small cell lung left lung, status post radiation therapy, currently undergoing dom luation for chemotherapy, will have port placed next week, recently discharged from [facility] for left-sided CVA with some residual left sided weakness, no aphasia remaining, is on aspirin and Plavix. Who presents to [facility] due to complaints of shortness of breath, cough, fatigue, malaise. Patient was admitted to [facility] for acute respiratory failure with hypoxia secondary to postobstructive pneumonia, diastolic CHF, fluid overload, paroxysmal atrial fibrillation Acute respiratory failure with hypoxia: -Postobstructive pneumonia, diastolic CHF exacerbation, paroxysmal atrial fibrillation -ct angio: 1. There is a left hilar soft tissue attenuation mass with extension into the infrahilar region of the left lower lobe worrisome for a pulmonary malignancy. There may be a slight increase in size in the lower lobe pulmonary nodularity. The left hilar soft tissue attenuation mass is similar in size compared to 02/11/2021. 2. There is probable developing left lower lobe postobstructive atelectasis versus pneumonia. 3. The mediastinal and left hilar lymphadenopathy is similar compared to 02/11/2021. -cardiac echo: LV systolic function is normal with EF of 60-65% Grade 1 diastolic dysfunction Mild mitral regurgitation Trace aortic regurgitation -Sputum cultures is showing mixed janet, gram-negative, gram-positive's -Patient was managed inpatient with broad-spectrum metabolic therapy, diuretic therapy, his A. fib was managed with Cardizem metoprolol, therapeutic Lovenox, cardiology was consulted. Patient was clinically monitored, patient clinically improved, respiratory status improved, down to 2 L, but he continued to have episodic high-grade fevers as high as 103. Repeat blood cultures, urine cultures, sputum cultures have been unremarkable. Covid antigen and PCR and flu are negative. Discussed with pulmonary team, there were plans on bronchoscopy, however patient has already had a bronchoscopy, and has had radiation therapy, there is concern for significant bleeding given his anticoagulant therapy, and as he is clinically getting better, chest x-rays look better, pulmonary team does not feel that postobstructive pneumonia is playing a significant role at this point, and the procedure the risks outweigh the benefit, I have been advised to continue antibiotics for at least 7 days, have patient follow-up as outpatient. On 05/01/2021, patient was found to have a tick attached on his left leg, in the area of his rash, thus I feel the patient likely had Navarre spotted fever in addition to postobstructive pneumonia as above. He was started on doxycycline, he remained afebrile, rash improved, he clinically improved. Discharged on Levaquin for 7 remaining days, doxycycline for 12 remaining days, with close follow-up with primary care provider as outpatient. His tick panel and fungal titers are still pending on discharge which should be followed up. For his A. fib, diagnosed on Holter monitoring, discharged on metoprolol and Cardizem and Eliquis therapy. Follow-up with cardiology as outpatient. For his recent history of CVA, likely embolic from atrial fibrillation, patient was advised he can stop the Holter monitor, stop Plavix, continue aspirin 81 mg along with Eliquis therapy. Monitor for bloody or black stools or lightheadedness or dizziness, recheck CBC in 1 week Patient will follow up with Dr. Calderon in 1 week for port placement for consideration of chemotherapy for his non-small left lung lung cancer I have also ordered an MRI of his brain for his recent history of CVA as he was inpatient and could not be performed given his Covid suspicion Rash: - bilateral ankles, then skips to the thighs, some on the abdomen, all over the back -With fevers -It could be a penicillin allergy, as it is pruritic, no lip or tongue swelling, Primaxin was stopped, but I do not believe that this is a true penicillin allergy -I do not think it is red man syndrome, vancomycin was stopped -It certainly could be a heat rash because it is in areas that are typically covered, and areas such as where the SCDs are in place -However as we were doing a physical exam his found a tick attached to where the rash was found -Certainly could be Navarre spotted fever, I started him on doxycycline, ordered tick panel, Navarre spotted fever panel, tick analysis. Rash improved, remained afebrile, continue doxycycline -I did not think it was dress syndrome as there is no systemic symptoms, no eosinophilia -Unlikely to be Tierney-Jh syndrome, as there was no lip or tongue involvement -No evidence of pemphigus vulgaris or diffuse antibiotic associated rashes -Received a steroid burst -If rash persists can follow-up with dermatology as outpatient Physical Exam Const: COMMON NORMALS: no acute distress and patient oriented x3 Resp: COMMON NORMALS: normal respiratory effort, No retractions, No use of accessory muscles and clear to auscultation bilaterally AUSCULTATION: clear to auscultation bilaterally Cardio: COMMON NORMALS: regular rate, regular rhythm, S1 normal heart sound present, S2 normal heart sound present, No gallops present (Cardio), No clicks present (Cardio) and No murmurs present (Cardio) RATE: regular rate RHYTHM: regular rhythm HEART SOUNDS: S1 normal heart sound present and S2 normal heart sound present GI: COMMON NORMALS: Normal to inspection, nondistended, normoactive bowel s ounds present, Soft to palpation, non-tender and No hepatosplenomegaly present PALPATION: Yes Soft to palpation and Yes No hepatosplenomegaly present Extremity: COMMON NORMALS: no pedal edema Neuro: COMMON NORMALS: patient oriented x3 Skin: NARRATIVE SKIN EXAM: Confluent macular rash, nonpitting, nonblanching, quite dense bilateral lower extremities, starting at the level of the ankles, up to the mid calf. Been stopped, and it starts again at the mid thigh less confluent, more macular papular, spares the groin, some episodes on his abdomen, spares the chest, throughout the back, Discharge Data Data Completed and Pending: Completed Studies During Hospitalization Category Date Time Status CT angio chest PE protcl [id number] Stat Cat Scan 04/26/21 05:16 Completed XR chest 1V yvon ble [id number] Routine Exams 04/28/21 07:00 Completed XR chest 1V yvon ble [id number] Routine Exams 04/29/21 07:00 Completed XR chest 1V yvon ble [id number] Stat Exams 04/26/21 04:24 [place] [id number] Routin e Ultrasound 04/26/21 13:03 Completed Pending at discharge Category Date Time Status Aspergillus AG,EI A,Serum Stat Lab 04/29/21 05:20 Received Blood Culture Sta t Lab 04/29/21 11:50 Results Complete Blood Co unt w/Auto AM LABS Lab 05/03/21 04:00 Ordered Comprehensive Met abolic Panel AM LA BS Lab 05/03/21 04:00 Ordered Magnesium AM LABS Lab 05/03/21 04:00 Ordered Miscellaneous Svitlana t Routine Lab 05/01/21 12:55 Received Phosphorus AM LAB S Lab 05/03/21 04:00 Ordered Respiratory Viral Panel PCR Stat Lab 04/29/21 15:17 Ordered Tick Panel Stat Lab 05/01/21 04:58 Results Labs from last 24 hours 05/02/21 05/02/21 05/01/21 06:22 06:22 04:58 WBC 5.4 RBC 4.00 L Hgb 11.8 Hct 35.6 L MCV 89.0 MCH 29.5 MCHC 33.1 RDW 16.5 H Plt Count 351 MPV 10.3 Neut % (Auto) 80.7 Lymph % (Auto) 13.2 Taney % (Auto) 2.0 Eos % (Auto) 0.2 Baso % (Auto) 0.4 Neut # (Auto) 4.34 Lymph # (Auto) 0.7 L Taney # (Auto) 0.1 L Eos # (Auto) 0.0 Baso # (Auto) 0.0 Nucleated RBC % (a uto) 0 Nucleated RBCs # 0.0 Sodium 140 Potassium 3.5 Chloride 103 Carbon Dioxide 23 Anion Gap 17.5 BUN 17 Creatinine 1.1 GFR Calculation 67.2 L Glucose 177 H Calculated Osmolal ity 296 H Calcium 8.5 Phosphorus 2.7 Magnesium 2.2 Total Bilirubin 0.2 AST 18 ALT 26 Alkaline Phosphata se 73 Total Protein 6.7 Albumin 3.3 L Globulin 3.4 Lyme Ab (Western B lot) <0.90 Vitals: Last Vital Signs Temp 98.2 F 05/02/21 12:00 Pulse 91 05/02/21 12:00 Resp 18 05/02/21 12:00 BP 112/69 05/02/21 12:00 Pulse Ox 92 05/02/21 12:00 Discharge Plan Discharge Patient Disposition: Home Condition: Stable Prescriptions: New metoprolol tartrate 25 mg Tablet 37.5 mg PO Q12H 30 Days Qty: 90 RF: 0 Eliquis 5 mg tablet 5 mg PO BID 30 Days Qty: 60 RF: 0 doxycycline hyclate 100 mg tablet 100 mg PO Q12H 12 Days Qty: 24 RF: 0 guaifenesin [Mucinex] 600 mg Tablet Extended Release 12hr 600 mg PO BID 30 Days Qty: 60 RF: 0 levofloxacin 750 mg Tablet 750 mg PO DAILY@0600 7 Days Qty: 7 RF: 0 Cardizem LA 120 mg tablet extended release 24 hr 120 mg PO Q12H 30 Days Qty: 60 RF: 0 nystatin 100,000 unit/mL suspension 1 ml buccal QID 7 Days Qty: 28 RF: 0 prednisone 20 mg tablet 20 mg PO BID 4 Days Qty: 8 RF: 0 Continued oxycodone-acetaminophen 10-325 mg tablet 1 tab PO Q6H PRN (Reason: Pain) RF: 0 atorvastatin 40 mg Tablet 40 mg PO BEDTIME Qty: 30 RF: 0 tamsulosin 0.4 mg Capsule 0.4 mg PO DAILY Qty: 30 RF: 0 pantoprazole 40 mg Tablet,Delayed Release (Dr/Ec) 40 mg PO DAILY Qty: 30 RF: 0 losartan 50 mg tablet 50 mg PO DAILY@0500 RF: 0 alendronate 70 mg tablet 70 mg PO Q7D RF: 0 gabapentin 400 mg capsule 800 mg PO TID RF: 0 acetaminophen [Tylenol Extra Strength] 500 mg Tablet 1,000 mg PO Q6H PRN (Reason: Pain) RF: 0 diclofenac sodium 75 mg tablet,delayed release (DR/EC) 75 mg PO DAILY@0500 RF: 0 finasteride 5 mg tablet 5 mg PO DAILY RF: 0 furosemide 20 mg tablet 20 mg PO QAM 30 Days Qty: 30 RF: 0 Changed aspirin 81 mg tablet,delayed release (DR/EC) 81 mg PO DAILY@05 Qty: 0 RF: 0 Discontinued dexamethasone 4 mg Tablet 4 mg PO DAILY RF: 0 clopidogrel 75 mg Tablet 75 mg PO DAILY Qty: 30 RF: 0 diltiazem HCl [DILT-XR] 240 mg capsule,ext.rel 24h degradable 480 mg PO DAILY@0500 RF: 0 Discharge Orders: Discharge Order (Routine); Ordered 05/02/21 Ordered By: Edwin Montoya Other Ambulatory Orders: DME: Oxygen (Order) Location: None Selected Ordered By: Edwin Montoya Referrals: Nehemias Calderon MD [Physician] - 4-7 days (port placement) Mario Watts M.D [Physician] - 1 month (new onset afib) Yoli Murray DO [Physician] - 2 weeks (rash) Janeth Harrison MD [Physician] - 7-10 days (postobstructive pna) Martin Schroeder MD [Staff Physician] - 1 week Discharge Diet: Cardiac Discharge Activity: Resume usual activity Patient Instructions: Opioid Safety Activity Restrictions/Additional Instructions: If you have worsening shortness of breath, fevers please go to the emergency room You have been discharged on 2 L oxygen for pneumonia, on Levaquin for 7 re maining days For your Navarre spotted fever, continue doxycycline Follow-up with Dr. Harrison in 7 to 10 days Continue aspirin 81 mg Stop Plavix I have discharged on Eliquis, monitor for bloody or black stools, have primary care provider recheck CBC in 1 week, if bloody black stools or lightheadedness dizziness go to the emergency room Follow-up with primary care provider for tick panel Discharge Attestations Time Spent in Discharge Care*: greater than 30 min Quality Metrics Clinical Quality Measures During this hospital stay, did patient experience: None Coding Level of Care Code Acute Chg FW DC note Diagnoses Acute respiratory failure with hypoxia J96.01 Postobstructive pneumonia J18.9 Non-small cell cancer of left lung C34.92 Cerebrovascular accident I63.311 CVA mechanism: thrombosis Laterality of affected vessel: right Precerebral and cerebral artery: middle cerebral artery Small cell lung cancer C34.90 Paroxysmal atrial fibrillation I48.0 Diastolic CHF I50.30 Peripheral neuropathy G62.9 Hypertension I10 NSTEMI (non-ST elevated myocardial infarction) I21.4 Rash R21
--- NOTE | 2021-05-02 14:58 | PC.SOCIAL ---
clarified dose on Nystatin suspension should be 5ml QID for [address] Montoya. Updated pharmacy.
[2021-05-02] MEDS: gabapentin 400 mg Capsule 800 MG PO (15:07)
[2021-05-02] MEDS: predniSONE 20 mg Tablet 40 MG PO (15:07)
[2021-05-06 17:38] LABS: E. Chaffeensis AB IGG <1:64; E. Chaffeensis AB IGM <1:20
[2021-05-07 17:28] LABS: RMSF IGG NOT DETECTED; RMSF IGM NOT DETECTED
[2021-05-08 18:33] LABS: Aspergillus AG,EIA,Serum NOT DETECTED; Aspergillus Galactomannan Inde <0.50
== END 2021-05-02 16:40 | disposition home or self-care (01) | DRG 280 ==
LOC: ER 04:29 → MEDSURG 07:50
PROVIDERS: Admitting Provider Internal Medicine; Emergency Provider Family Medicine; PCP Family Medicine; Visit Provider Family Medicine
DX: I11.0 Hypertensive heart disease with heart failure (principal); J96.01 Acute respiratory failure with hypoxia; I21.4 Non-ST elevation (NSTEMI) myocardial infarction; J18.9 Pneumonia, unspecified organism; C34.92 Malignant neoplasm of unspecified part of left bronchus or lung; I69.954 Hemiplegia and hemiparesis following unspecified cerebrovascular disease affecting left non-dominant side; I48.92 Unspecified atrial flutter; A77.0 Spotted fever due to Rickettsia rickettsii; I50.33 Acute on chronic diastolic (congestive) heart failure; Z92.3 Personal history of irradiation; Z87.891 Personal history of nicotine dependence; M54.12 Radiculopathy, cervical region; G62.9 Polyneuropathy, unspecified; I48.0 Paroxysmal atrial fibrillation; I34.0 Nonrheumatic mitral (valve) insufficiency; Z79.891 Long term (current) use of opiate analgesic
CPT/HCPCS: 36415; 36416; 36600; 71045; 71275; 80051; 80053; 80074; 80202; 82330; 82805; 82962; 83605; 83735; 83880; 84100; 84145; 84443; 84484; 85025; 85651; 86140; 86403; 86618; 86666; 86757; 87040; 87070; 87205; 87305; 87327; 87426; 87635; 87804; 87806; 93005; 93970; 94640; 94664; 96365; 96367; 96372; 97110; 97161; 97165; 97530; 99291; C9113; J1200; J1650; J1940; J1956; J2270; J2405; J2543; J2930; J3370; J3490; J3535; J7512; Q0144; Q9967

== ENCOUNTER 2021-04-29 06:00 | Outpatient (RCR) | payer BC, MEDICARE, SELFPAY | END 2021-05-28 23:59 | disposition home or self-care (01) | LOC: SPT 06:00 | PROVIDERS: PCP Family Medicine; Referring Provider Internal Medicine; Visit Provider Internal Medicine | DX: I69.90 Unspecified sequelae of unspecified cerebrovascular disease (principal) | CPT/HCPCS: 97110 ==

== ENCOUNTER 2021-05-05 11:43 | Outpatient (CLI) | payer BC, MEDICARE, SELFPAY ==
--- NOTE | 2021-05-05 11:55 | MR_ITS ---
WS: [id number] MRI HEAD WITHOUT CONTRAST TECHNIQUE: Sagittal T1, T2 axial, T2 axial FLAIR, axial and coronal T1 images, axial susceptibility w eighted imaging, axial diffusion weighted images, and coronal T2 images were obtained. CLINICAL INFORMATION: I63.311 - Cerebral infarction due to thrombosis of right ... COMPARISON: CT March 31, 2021 FINDINGS: Partially restricted diffusion within the right frontal parietal white matter and periventricular whi te matter consistent with subacute ischemia extending into the right inferior frontal lobe and insula . Additional tiny smaller foci of restricted diffusion involving the right parietal lobe consistent w ith tiny acute to subacute foci of ischemia. Associated T2 signal abnormality in the right periventri cular, inferior frontal and insula, and frontoparietal white matter. No significant mass effect or mi dline shift. Tiny focus of hemosiderin in the right frontal lobe. Mild small vessel changes. Mild to moderate pare nchymal volume loss. Small vessel changes in the tigre. Normal posterior fossa. Normal vascular flow v oids at the skull base. Paranasal sinuses are well aerated. Partial opacification left mastoid air ce lls. Right mastoid air cells are well aerated. Normal optic chiasm and pituitary infundibulum. Normal cavernous sinuses and Meckel's cave. Mild symm etric atrophy temporal lobes and hippocampal formations. MR/MR head wo con* [id number] IMPRESSION: 1. Evidence of subacute ischemia involving the right periventricular white mat ter extending into the right inferior frontal lobe and insula. 2. Associated T2 signal abnormality. No significant mass effect or midline yuliana ft. 3. A few additional tiny acute/subacute foci of acute ischemia in the right fr ontoparietal white matter. 4. Mild small vessel changes. Mild to moderate parenchymal volume loss. Mild s mall vessel changes in the tigre. 5. Tiny focus of hemosiderin in the right inferior frontal lobe.
== END 2021-05-05 11:44 | disposition home or self-care (01) ==
PROVIDERS: PCP Family Medicine; Visit Provider Nurse Practitioner
DX: I63.311 Cerebral infarction due to thrombosis of right middle cerebral artery (principal); I67.82 Cerebral ischemia
CPT/HCPCS: 70551

== ENCOUNTER 2021-05-08 15:39 | Outpatient (CLI) | payer BC, MEDICARE, SELFPAY ==
--- NOTE | 2021-05-08 15:56 | USCV_ITS ---
Tramaine Galaviz Age: 66 Gender: M : 1955 Exam Date: 05/08/2021 16:15 Ordering Phys: Martin Schroeder MD Technologist: Marquita Frost Exam Location: [facility] [place] Indication: LOWER EXTREMITY EDEMA HISTORY: Lower extremity edema. PROCEDURES: Venous duplex imaging was performed in bilateral lower extremities. The following venous structures were evaluated: common femoral vein, profunda vein, proximal portion of the greater saphenous vein, superficial femoral vein, and the popliteal vein. In addition, the posterior tibial and peroneal trunk were evaluated. FINDINGS: Normal 2-D Doppler and augmentation and compressibility throughout the lower extremity venous structures. Additional imaging through the proximal calf veins also reveals no thrombus. Limited evaluation of the greater saphenous vein is patent with no thrombus. CONCLUSIONS No DVT bilateral lower extremities. Dr. Layne Dawn DO (Electronically Signed) Final Date: 09 May 2021 14:19 S
== END 2021-05-08 15:40 | disposition home or self-care (01) ==
LOC: RAD 15:45
PROVIDERS: PCP Family Medicine; Visit Provider Internal Medicine Hematology & Oncology
DX: R60.0 Localized edema (principal)
CPT/HCPCS: 93970

== ENCOUNTER → 2021-05-12 12:12 | Outpatient (BNVA) | payer BC, MEDICARE, SELFPAY | PROVIDERS: PCP Family Medicine; Visit Provider Surgery | DX: C34.90 Malignant neoplasm of unspecified part of unspecified bronchus or lung (principal); Z20.822 Contact with and (suspected) exposure to COVID-19 | CPT/HCPCS: 87635 ==

== ENCOUNTER 2021-05-15 10:05 | Day surgery (SDC) | payer BC, MEDICARE, SELFPAY ==
[2021-05-09 14:29] VITALS: BMI 27.2
--- NOTE | 2021-05-09 15:01 | PM.MISC ---
Miscellaneous Note Purpose of Documentation: Telephone conversation Note: Per phone conversation on 05/[address] Watts patient is safe to hold his plavix for a port placement. He should stop eliquis 48 hrs before procedure and do therapeutic lovenox bridge 1 mg/kg BID due to high CHADS2 score and risk of subsequent stroke.
--- NOTE | 2021-05-09 15:10 | PC.NURSE ---
SURGERY CANCELED FOR WEDNESDAY AND RESCHEDLED FOR WEDNESDAY BECAUSE PT STILL ON PLAVIX. NURSE FROM DR ZURITA'S OFFICE NOTIFIED PT OF THIS.
[2021-05-15] VITALS (7 sets, daily range): BP systolic 115–133; BP diastolic 77–86; PULSE 70–93; RESP 11–18; TEMP 36.3–36.5; O2SAT 95–98
--- NOTE | 2021-05-15 | SCC_ITS ---
Procedure Done: 1. Placement of right subclavian vein PowerPort 15.2 seconds of fluoroscopic guidance, for a cumulative dose of 4.49 mGy, was provided to Dr. Calderon by the radiology department. C-arm images of the chest were saved for the patient's permanent record. [facility]
--- NOTE | 2021-05-15 05:57 | SC_ITS ---
WS: [id number] Exam: C-arm FL for CVA [id number] Date/Time of Exam: 05/15/2021 5:57 AM Reason For Exam: Powerport Placement A single limited AP C-arm image of the upper right chest is submitted for evaluation. A right subclavian port has been placed and appears to end in the lower one third of the SVC. No obvi ous pneumothorax. No other significant finding on this limited study.
--- NOTE | 2021-05-15 07:10 | SUR.PREOP ---
Contacted patient by telephone after he was not here at scheduled check in time. Patient advised that he never received a call telling him when to show up. pt advised that he couldn't be here now until well after 0900. After checking with Dr Calderon it was determined that schedule tai the patient would need to be rescheduled for a later date. Dr Calderon's office will be contacted after it opens for business today 05/15/21.
[2021-05-15] MEDS: sodium chloride 0.9% 1,000 ML 30 ML IV (11:14)
--- NOTE | 2021-05-15 12:36 | W.PM.OPSUD ---
Surgery/Procedure H&P Update DATE OF PROCEDURE: May 15, 2021 DATE H&P PERFORMED: 04/23/21 H&P UPDATE INFORMATION: I have reviewed H&P completed within last 30 days, I have examined patient prior to procedure and No changes to prior documentation PREOP DIAGNOSIS: LUNG CANCER PRIMARY INDICATION FOR PROCEDURE: The same PLANNED PROCEDURE: Operation Date: 05/15/21 08:20 Proposed Procedures p Portacath Placement 20807 c34.92(Not Applicable) - Nehemias Calderon MD
[2021-05-15] MEDS: lidocaine 2% INJ 20 mL INJECTION (13:08)
[2021-05-15] MEDS: heparin, porcine 1,000 unit/mL INJ 10 mL 10000 UNIT IRRIGATION (13:09)
--- NOTE | 2021-05-15 13:20 | P.OP_ITS ---
Operative Report Date of procedure: May 15, 2021 Pre-op Diagnosis: LUNG CANCER Post-op diagnosis: same Procedure Done: 1. Placement of right subclavian vein PowerPort 2. Fluoroscopic guidance and interpretation for placement of catheter Implants: Right internal jugular vein PowerPort placement Surgeon: Nheemias Calderon Microfilming Document Preparer: premises technicianclemente Machado Anesthesia: MAC (Erika Flores) and General Estimated blood loss (mL): 5 Condition: stable Disposition: same day Brief History: History of lung cancer requiring PowerPort placement. Full H&P informed consent per chart. Procedure: Patient was identified in the holding area and taken to the operative room and placed in supine position IV propofol was given by the anesthesia provider ,both arms were tucked,Time-out was done verifying the patient's name/date of /planned procedure and destination after the procedure, all were in agreement. SCDs confirmed to be functioning, preoperative antibiotics administered per protocol, and beta mathew protocol was confirmed, appropriate positioning of the patient was done by me. Medications were reviewed to assess for anticoagulant usage. Risks and benefits and prevention of central line associated blood stream infection (CLABSI) were discussed with the patient/CPOA, and a consent was obtained. Monitors were in place and monitored throughout the procedure. All necessary supplies were available prior to start. Hand hygiene was completed prior to starting. Maximum barrier technique was utilized including a sterile gown, sterile gloves with a hat and mask. Site was was prepped with [chlorhexidine] and a full body drape was placed. 5 mL of 2% lidocaine was injected into the skin with a 25 gau ge needle. Prep& drape was done under the usual sterile technique, lidocaine 2% was injected at the site of the stick, started by right subclavian stick that retrieved venous blood was obtained from the second stick, a guidewire was then threaded and under the guidance of fluoroscopy position was confirmed to be in the IVC and my interpretation, there was no PVC changes, at that point the guidewire was secured to the drapes with a hemostat and the needle was taken out, attention was then deviated towards creation of a pocket for the port were lidocaine 2% was injected using an 15 blade knife skin incision was created dissection using the Bovie to create a pocket for the Port-A-Cath to be accommodated, hemostasis was secured, after the port being appropriately flushed it was inserted into the pocket and a tunneler was used to accommodate the catheter of the port cath to be delivered through the incision first created at the site of the stick, at that point under fluoroscopy an estimated length was measured for the catheter and was cut at the designed level, followed by that a dilator with the sheath introduced onto the guidewire the dilator and the wire were retrieved and the catheter of the port was introduced via the sheath where it was peeled off and the catheter maintained to be in the SVC that was confirmed with fluoroscopy, and the fluoroscopy interpretation was done by me throughout the entire procedure. The port was kept in its part,3-0 Vicryl deep subdermal interrupted sutures, skin was then closed by 4-0 Monocryl as subcuticular closure. The stick site was closed by 4-0 Monocryl and Dermabond was used followed by dressing. Patient tolerated the procedure well was taken to the recovery area. Count was correct at the end of the procedure I was present for the whole entire procedure Position of the catheter was checked with a postoperative chest x-ray and it was in good position without evidence of pneumothorax
--- NOTE | 2021-05-15 13:24 | XR_ITS ---
WS: [id number] Exam: XR chest 1V portable [id number] Date/Time of Exam: 05/15/2021 1:24 PM Reason For Exam: Status post right subclavian vein PowerPort placement Comparison 04/29/2021. Right subclavian port has been placed and ends in the lower one third of the SVC. The lungs remain cl ear and fully expanded. Cardiomediastinal structures are unremarkable for technique. No pleural effus ions. XR/XR chest 1V portable [id number] IMPRESSION: 1. Right subclavian port in satisfactory position. 2. No acute cardiopulmonary finding.
--- NOTE | 2021-05-15 13:29 | ANES.PREANE2 ---
Pre-Anesthetic Assessment Pre-Anesthetic Assessment: Height/Weight: Height 1.78 m Weight 86.183 kg Temp Pulse Resp BP Pulse Ox 97.4 F L 70 18 128/81 98 05/15/21 10:52 05/15/21 10:52 05/15/21 10:52 05/15/21 10:52 05/15/21 10:52 Preop Diagnosis: LUNG CANCER Proposed Procedure: Operation Date: 05/15/21 08:20 Proposed Procedures p Portacath Placement 58201 c34.92(Not Applicable) - Nehemias Calderon MD Was Beta Son taken within 24 hours: Yes Was Clonidine taken within 24 hours: N/A Last intake: Intake Last Liquid Date 05/15/21 Last Liquid Time 06:00 Last Solid Date 05/14/21 Last Solid Time 22:00 Social: Social History: Tobacco and No alcohol Exam: Pre-Anes Outpt Exam: alert, oriented x 3 and regular rate & rhythm Airway: Submandibular: WNL Cervical ROM: WNL MP: 2 Dentition: False Pulmonary: Pulmonary: COPD Comments: lung CA CV/HEM: CV/HEM: CHF and HTN GI: GI: GERD Musc/skel: Musc/skel: OA/DJD Neuropsych: Neuropsych: CVA Anesthetic Plan: ASA status: 3 Anesthesia: MAC Risk of > 500 ml blood loss (7ml/kg in children): No Meds/Allergies Current Medications: Current Medications Generic Name Dose Route Start Last Admin Trade Name Freq PRN Reason Stop Dose Admin Sodium Chloride 1,000 mls @ 30 ml s/hr 05/15/21 06:00 05/15/21 11:14 Sodium Chloride 0.9% IV 05/16/21 05:59 30 mls/hr .Q24H MAX Administration PFSH Anesthesia PFSH: Medical History Cervical radiculopathy Hypertension 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
== END 2021-05-15 14:35 | disposition home or self-care (01) ==
PROVIDERS: Surgery; PCP Family Medicine; Visit Provider Surgery
DX: C34.92 Malignant neoplasm of unspecified part of left bronchus or lung (principal); J44.9 Chronic obstructive pulmonary disease, unspecified; I11.0 Hypertensive heart disease with heart failure; I50.9 Heart failure, unspecified; M19.90 Unspecified osteoarthritis, unspecified site; Z86.73 Personal history of transient ischemic attack (TIA), and cerebral infarction without residual deficits; Z87.891 Personal history of nicotine dependence
CPT/HCPCS: 36561; 71045; 76000; 77001; C1788; J0690; J1644; J2250; J2405; J2704; J3010; J3490; J7030

== ENCOUNTER 2021-05-26 05:34 | Outpatient (RCR) | payer BC, MEDICARE, SELFPAY ==
[2021-05-19 08:57] LABS: Basophils % 0.2 %; Hemoglobin 10.6 g/dL (11.7-16.6); Lymphocytes # 1.2 10^3/uL (0.8-4.8); Lymphocytes % 13.7 %; Mean Corpuscular HGB Conc 32.1 g/dL (30.0-36.0); Mean Corpuscular Hemoglobin 29.2 pg (28.0-34.0); Mean Corpuscular Volume 90.9 fL (80-94); Mean Platelet Volume 10.1 fL (7.4-10.4); Monocytes # 0.1 10^3/uL (0.2-0.9); Neutrophils # 7.08 10^3/uL (1.8-7.7); Neutrophils % 82.1 %; Nucleated Red Blood Cells % 0.2 %; Platelet Count 249 10^3/cmm (130-400); Red Blood Count 3.63 10^6/uL (4.1-5.3); Red Cell Distribution Width 17.2 % (12.1-15.1); White Blood Count 8.6 10^3/uL (4.0-10.0)
[2021-05-19 09:15] LABS: Alanine Aminotransferase 29 U/L (0-41); Albumin Level 3.4 g/dL (3.5-5.2); Alkaline Phosphatase 92 IU/L (40-130); Anion Gap 16.7 (5-19); Aspartate Amino Transferase 15 U/L (0-40); Blood Urea Nitrogen 20 mg/dL (8-23); Calcium 8.7 mg/dL (8.5-10.5); Carbon Dioxide 25 mmol/L (22-29); Chloride 102 mmol/L (98-107); Globulin 2.9 g/dL (1.3-4.6); Glucose 178 mg/dL (65-115); Osmolality Calculated 295 mOsm/kg (285-295); Potassium 4.7 mmol/L (3.5-5.1); Sodium 139 mmol/L (136-145); Total Bilirubin 0.3 mg/dL (0.15-1.2); Total Protein 6.3 g/dL (6.6-8.7)
[2021-05-19] MEDS: ondansetron 2 mg/ML SDV 2 mL 8 MG IV (11:00)
[2021-05-19] MEDS: famotidine 20 mg/2 mL INJ IVP (11:03)
[2021-05-19] MEDS: sodium chloride 0.9% 250 ML 75 ML IV (11:03)
[2021-05-19] MEDS: diphenhydrAMINE 50 mg/mL SDV 1mL 25 MG IVP (11:05)
[2021-05-26 09:06] LABS: Basophils % 0.2 %; Hematocrit 29.8 % (42.0-52.0); Hemoglobin 9.5 g/dL (11.7-16.6); Lymphocytes # 0.7 10^3/uL (0.8-4.8); Lymphocytes % 13.7 %; Mean Corpuscular HGB Conc 31.9 g/dL (30.0-36.0); Mean Corpuscular Hemoglobin 29.3 pg (28.0-34.0); Mean Platelet Volume 10.4 fL (7.4-10.4); Monocytes # 0.1 10^3/uL (0.2-0.9); Monocytes % 1.3 %; Neutrophils # 4.45 10^3/uL (1.8-7.7); Neutrophils % 83.3 %; Nucleated Red Blood Cells % 0 %; Platelet Count 353 10^3/cmm (130-400); Red Blood Count 3.24 10^6/uL (4.1-5.3); Red Cell Distribution Width 17.2 % (12.1-15.1); White Blood Count 5.3 10^3/uL (4.0-10.0)
[2021-05-26 09:32] LABS: Alanine Aminotransferase 14 U/L (0-41); Albumin Level 3.3 g/dL (3.5-5.2); Alkaline Phosphatase 75 IU/L (40-130); Anion Gap 14.9 (5-19); Aspartate Amino Transferase 9 U/L (0-40); Blood Urea Nitrogen 36 mg/dL (8-23); Carbon Dioxide 24 mmol/L (22-29); Chloride 102 mmol/L (98-107); Globulin 2.8 g/dL (1.3-4.6); Glomerular Filtration Rate 55.4 mL/min (90-130); Glucose 161 mg/dL (65-115); Osmolality Calculated 294 mOsm/kg (285-295); Potassium 4.9 mmol/L (3.5-5.1); Sodium 136 mmol/L (136-145); Total Bilirubin 0.2 mg/dL (0.15-1.2); Total Protein 6.1 g/dL (6.6-8.7)
[2021-05-26] MEDS: famotidine 20 mg/2 mL INJ IVP (11:02)
[2021-05-26] MEDS: sodium chloride 0.9% 250 ML 75 ML IV (11:02)
[2021-05-26] MEDS: diphenhydrAMINE 50 mg/mL SDV 1mL 25 MG IVP (11:04)
[2021-05-26] MEDS: palonosetron 0.25 mg/5 mL SDV IVP (11:07)
[2021-05-26] MEDS: pegfilgrastim 6 mg/0.6 mL Kit (onpro) SUBCUT (14:00)
--- NOTE | 2021-06-04 02:13 | ONC FU_ITS ---
[facility] Patient Note Patient: Tramaine Galaviz Unit #: [id number]: 1955 Dictated By: Jazmyne GayDate of Visit: May 26, 2021 Onc MED Follow-Up/Prog Note Chief Complaint: Non-small cell lung cancer History of Present Illness: Mr. Galaviz is a 65-year-old gentleman with a history of hematuria. it was which confirmed to be due to an enlarged prostate. As a part of hematuria evaluation, he underwent CT urography on February 06, 2021, which showed an incidental finding of 11 mm lung nodule along with the left hilar lymphadenopathy. Mr Galaviz then underwent CT scan of chest on February 11, 2021 which showed enlarged lymph nodes within both sides of middle mediastinum and within subcarinal space. He also had a lymph node within the right paratracheal space measuring up to 15 mm; low-grade left hilar lymphadenopathy and A small masslike lesion grossly measuring 2.6 x 2.1 cm, centrally of left infrahilar region contiguous with peribronchovascular soft tissue thickening within the posterior basal segment of left lung and a small localized region of complex soft tissue thickening centrally within the left lower lobe and limited images of upper abdomen without apparent significant pathology. Subsequently Mr Galaviz was referred to pulmonology and underwent bronchoscopy on February 19, 2021. EBUS FNA biopsy was obtained from lymph node station 4R, 4L, station 7, station 11 L, and left lower lobe of lung mass #1 endobronchial biopsy, all of them confirmed involvement with squamous cell carcinoma whereas left lower lobe mass #2 posterior basal segment showed benign alveolated lung tissue, no tumor was seen. Patient quit smoking in 2009 but prior to that about 40-year history of smoking with 3 to 4 packs a day, Mr Galaviz had been complaining of left neck pain radiating to left shoulder and elbow, progressive for the last couple of weeks, A plain x-ray of C-spine done on February 10, 2021 shows no evidence of fracture or dislocation; mild disc space narrowing at C5-6 and C6-7 with mild degenerative retrolisthesis at these levels. Hydrocodone is not helping his pain much and not getting enough sleep because of it. Denies any history of trauma to neck or left shoulder. Denies any history of hemoptysis or hematemesis denies any history of jaundice denies any history of bony pains, off and on headaches but no blurred vision or double vision. No weight loss, no night sweats but some cough and dyspnea on exertion for the last few weeks. Mr Galaviz was diagnosed with osteoporosis based on a DEXA scan from October 30, 2020. The bone density from 10/30/2020 at [facility] reported the bone mineral density T-score for L1-L4 @ -2.5; the left femoral neck at -1.2; and left total hip T score -0.7. He was started on alendronate therapy by PMD. CT PET scan done on March 13, 2021 showed hypermetabolic spiculated nodule left lower lobe with SUV of 4.1, extensive hypermetabolic bilateral mediastinal and left hilar asya metastasis. No hypermetabolic right hilar lymph node. Hypermetabolic gastrohepatic ligament lymph node suspicious for asya metastasis. Solitary hypermetabolic expansile lytic lesion of left T2 transverse process and pedicle extensive hypermetabolic tumor into the left T2-3 neuroforamen and left lateral aspect of central canal. Mr. 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 He had radio therapy from April 03, 2021 through April 16, 2021 to total prescribed dose of 30 cGy delivered in 10 fractions. Mr. Galaviz has had followup with Dr Schroeder and has been offered treatment with carboplatin Taxol with plan Neulasta support. His current treatment plan will be day 1 and 8 every 21-day cycle. Mr. Galaviz had placement of a right subclavian PowerPort per Dr. Calderon on May 15, 2021. Mr. Galaviz is here today for follow-up. He is due for cycle 1 day 8 carboplatin Taxol. He does report that he did take the prescribed steroid premedication. He states he did have a wshed out feeling and :jitters sarting day after his chemo that lasted about 2-3 days. That has resolved completely now. He has no new concerns today. He denies any new shortness of breath or orthopnea. He states he has occasional cough which is clear sputum but has had no hemoptysis. He denies any nausea or vomiting. He has had no headaches or vision changes. He states his appetite kind of comes and goes. For the most part it is good he reports. He denies any new pain. He states his pain is well controlled. He does feel better after radiation. He denies any diarrhea or constipation. He denies any questions regarding treatment plan. His ECOG is 1. Mr. Galaviz did have an MRI of the head without contrast on 05/05/2021 ordered by Myron Frias NP. It reported evidence of subacute ischemia involving the right periventricular white matter extending to the right inferior frontal lobe and insula. Associated T2 signal abnormality. No significant mass-effect or midline shift. A few additional tiny acute/subacute foci of acute ischemia in the right frontoparietal white matter. Mild small vessel changes. Mild to moderate parenchymal volume loss. Mild small vessel changes in the tigre. Tiny focus of hemosiderin in the right inferior frontal lobe. This is being followed by neurology. Past Medical History: BPH Chronic joint pain Degenerative disease of the spine Hypertension Inflammatory arthritis Lumbar spinal stenosis Osteoporosis Past Surgical History: Bronchoscopy Shoulder arthroscopy Right subclavian PowerPort placement???Dr. Calderon???[facility] in 2020 Allergies: No Known Allergies. Medications: Adult Aspirin EC Low Strength 2 Tablet (of 81 mg) Tablet, enteric coated Oral daily Alendronate Sodium 1 Tablet (of 70 mg) Oral q 7 days Atorvastatin Calcium 1 Tablet (of 40 mg) Oral at bedtime Cardizem CD 1 Caplet (of 240 mg) Capsule SR 24 HR Oral daily Clopidogrel Bisulfate 1 Tablet (of 75 mg) Oral daily Cozaar 1 Tablet (of 50 mg) Oral daily Dexamethasone 1 Tablet (of 4 mg) Oral t.i.d. Diclofenac Sodium 1 Tablet (of 75 mg) Tablet, enteric coated Oral daily Finasteride 1 Tablet (of 5 mg) Oral daily Gabapentin 1 Caplet (of 400 mg) Capsule Oral t.i.d. oxyCODONE-Acetaminophen 1 (10-325 mg) Tablet Oral q 6 hours Pantoprazole Sodium 1 (40 mg) Pack Oral daily Tamsulosin HCl 1 (0.4 mg) Capsule Oral daily Family History: Mr. Galaviz's mother at age 91: Rectal Cancer. Mr. Galaviz's father at age 70. Mr. Galaviz has 1 brother who is : throat cancer. Social History: Mr. Galaviz is and he is an unknown. Mr. Galaviz quit smoking 10 years ago but had smoked 4.0 packs/day for 30 years. He quit drinking 10 years ago. 6-12 beers per day. Review Of Symptoms: <See Above> Vital Signs: Performed on May 26, 2021 14:00 Height - 70.00 in Temperature - 97.6 F (LOW) Pulse - 59 /min (LOW) Respiration - 18 /min BP - 96/60 mm(hg) O2 Sat - 95 % (LOW) Performed on May 26, 2021 10:21 Height - 70.00 in Weight - 183.8 lbs (LOW) BSA - 2.01 sq.m BMI - 26.37 Temperature - 97.4 F (LOW) Pulse - 75 /min Respiration - 18 /min BP - 90/60 mm(hg) O2 Sat - 93 % (LOW) Pain - 5 Fatigue - 0,1 - No physically strenuous activity, but ambulatory and able to carry out light or sedentary work (e.g. office work, light house work). (ECOG) Physical Examination: Constitutional Alert, oriented, no acute distress. Skin pink, warm and dry. Head Normocephalic; atraumatic. Eyes Conjunctivae and sclerae are clear and without icterus. Pupils are reactive and equal. Respiratory Lungs are clear to auscultation without rhonchi or wheezing. Cardiovascular Regular rate and rhythm of heart without murmurs,clicks, gallops or rubs. Chest Right chest wall PowerPort placement site is unremarkable. It has healed well. Back/Spine Non-tender to palpation. Extremities No visible deformities, no cyanosis, clubbing or edema. Musculoskeletal No tenderness or swelling, normal range of motion without obvious weakness. Integumentary No rashes or lesions. Neurologic No sensory or motor deficits, normal cerebellar function, normal gait. Psychiatric Alert and oriented times three. Coherent speech. Verbalizes understanding of our discussions today. Laboratory:Test performed on May 26, 2021 09:36 Glucose 161 mg/dL BUN 36 mg/dL Creatinine 1.3 mg/dL Cr Clearance (Est) 66.95 mL/min Sodium 136 mmol/L Potassium 4.9 mmol/L Chloride 102 mmol/L CO2 24 mmol/L Calcium 9.0 mg/dL Protein, Total 6.1 g/dL Albumin 3.3 g/dL Globulin 2.8 g/dL Bilirubin, Total 0.2 mg/dL Alkaline Phosphatase 75 IU/L AST (SGOT) 9 IU/L ALT (SGPT) 14 IU/L WBC 5.3 10^9/L RBC 3.24 10^12/L HGB 9.5 g/dL HCT 29.8 % MCV 92 fl MCH 29.3 pg MCHC 31.9 g/dL RDW 17.2 % Platelet Count 353 10^9/L Neutrophils (Gran) 4.45 10^9/L Lymphocytes 0.7 10^9/L Monocytes 0.1 10^9/L Eosinophils 0 10^9/L Basophils 0 10^9/L Test performed on May 19, 2021 08:25 MPV 10.1 fL Manual Lymphocytes 13.7 % Manual Monocytes 1.0 % Manual Eosinophils 0.0 % Manual Basophils 0.2 % Impression: Metastatic Squamous cell carcinoma involving bilateral mediastinal lymph nodes and left lower lobe of lung per bronchoscopy/EBUS FNA obtained from lymph node station 4R, station 4L, station 7, station 11 L and left lower lobe mass endobronchial biopsy all confirmed squamous cell carcinoma involvement, CT PET scan done on March 13, 2021 showed hypermetabolic spiculated nodule left lower lobe with maximal SUV of 4.1, extensive hypermetabolic bilateral mediastinal and left hilar lymph nodes, no hypermetabolic right hilar lymph node. Hypermetabolic gastrohepatic ligament lymph node suspicious for asya metastasis. Solitary hypermetabolic expansile lytic lesion of the left T2 transverse process and pedicle extensive hypermetabolic tumor into the left T2-3 neural foramen and left lateral aspect of central canal CT scan of the chest done on February 11, 2021 showed suspected neoplasm within left lower lobe and accompanying left hilar and mediastinal lymphadenopathy and limited image of upper abdomen without apparent significant pathology. Left neck pain radiating to left shoulder and arm, etiology unclear, metastatic disease versus osteoarthritis versus disc protrusion, Status post radiation therapy to T2 vertebral body completed on April 16, 2021, patient received 30 Gy in 10 fractions Longstanding history of heavy smoking quit in 2009 Plan/Problems Addressed at this Visit: 1. Metastatic squamous cell carcinoma involving T2 vertebra. He also has involvement in bilateral mediastinal lymph nodes and left lower lobe lung. Bronchoscopy/EBUS FNA obtained from lymph node station 4R, station 4L, station 7, station 11 L and left lower lobe mass. The biopsy confirmed squamous cell carcinoma involvement. His PET/CT on March 13, 2021 reported hypermetabolic spiculated nodule in the left inferior hilar region consistent with primary pulmonary neoplasm measuring 1.4 x 1.4 cm with a max SUV of 4.1. There was hypermetabolic right upper paratracheal, right lower paratracheal, subcarinal, AP window, periaortic and left hilar adenopathy. The field representative left hilar node measured 2.1 x 2.7 cm with a max SUV of 10. The field representative right lower paratracheal lymph node measured 1.9 x 3.0 cm with a max SUV of 11. There was no hypermetabolic axillary lymph nodes or contralateral right hilar adenopathy. There was a trace of pleural fluid collection with low-level FDG uptake. No overt pleural hypermetabolism. Soft tissue chest wall unremarkable. There was no hypermetabolic hepatic lesions. There was a prominent gastrohepatic ligament lymph node measuring 1.2 x 1.6 cm with a max SUV of 4.4, asya metastasis not excluded. No additional hypermetabolic lymph nodes of the abdomen or pelvis and no ascites. There was hypermetabolic expansile lytic metastasis involving the left T2 transverse process and pedicle with a max SUV of 7.3. Hypermetabolic tumor likely extends into the left T2-3 neuroforamina and left lateral aspect of the central canal. No additional hypermetabolic osseous lesions were identified. Mr. Galaviz completed palliative radiation therapy for metastatic non-small cell lung cancer (squamous cell) with thoracic spine metastasis (T2). He had radiation therapy from April 03, 2021 through April 16, 2021 to total prescribed dose of 30 Gy delivered in 10 fractions. His Guardiant 360 and PD-L1 status is pending. The current plan of care is to give him 3 cycles of systemic chemotherapy followed by follow-up PET CT. If it does show excellent response we may consider surgical evaluation or combined chemo radiation to the primary tumor. Mr. Galaviz had placement of a right subclavian PowerPort per Dr. Calderon on May 15, 2021. 2. NGS testing: His [employer] report from April 25, 2021 (collected April 18, 2021) reported no actionable mutations. TP53 P278A (0.8%) was detected but no associated FDA approved therapies. The tumor mutational burden was reported at 11.16 mut/MB. MSI high it was not detected. EGFR, ALK, ROS1, BRAF, MET, ERBB2(HER2), red and NTRK were reported as NOT DETECTED . PD-L1 status has not been reported. It was not reported on the [employer] 360 results and the addended pathology report from his initial biopsy on 02/19/2021 is not available in our chart. These results have been requested. With the current information available regarding his staging and next gene sequencing, Mr. Galaviz has been offered treatment with carboplatin AUC 2 and Taxol 50 mg per metered squared days 1 and 8 on a 21-day cycle. He may also require growth factor support with Neulasta depending on his counts. He is also been encouraged to pursue monthly denosumab for skeletal involvement to prevent further skeletal related complications. He began his first cycle of carboplatin paclitaxel on May 19, 2021. A. Proceed with cycle 1 day 8 carboplatin AUC of 2 Taxol 50 mg/m2. I have offered him a short steroid taper after chemotherapy to avoid his washed out/jittery feeling he will do dexamethasone 4 mg tablets 1 twice daily for 2 days then one tablet for 2 days then stop. B. Steroid compliance confirmed. C. Prochlorperazine and lorazepam as needed for antiemesis at home. D. Today's labs reviewed in detail discussed with Mr. Galaviz and a copy was given to him. WBC 5.0, delete that WBC 5.3, hemoglobin 9.5, platelets 353,000, ANC is 4450. Potassium 4.9 random glucose 161. Creatinine 1.3 LFTs are normal. His weight today is 183.4 pounds which is stable. E. Mr. Galaviz had echocardiogram obtained on April 01, 2021 and [facility] which reported normal left ventricular size his LV EF was reported at 60 to 65%. There were no regional wall motion abnormalities. Grade 1 diastolic dysfunction. He did have thickened aortic valve without significant sclerosis and only a trace aortic regurgitation. He did have mild mitral regurgitation. 3. Bone metastasis (T2) A. Mr. Galaviz completed palliative radiation therapy for metastatic non-small cell lung cancer (squamous cell) with thoracic spine metastasis (T2). He had radiation therapy from April 03, 2021 through April 16, 2021 to total prescribed dose of 30 Gy delivered in 10 fractions. B. He will need monthly Xgeva for his bone metastasis to prevent further skeletal related complications. I plan to implement this day 1. He may end up being treated with denosumab every 6 weeks due to his current treatment cycle. C. Other bone history-not metastatic disease: He does have moderate left foraminal stenosis at C6-7 with mild central and right foraminal stenosis due to disc osteophyte disease; mild central and bilateral foraminal stenosis at C5-6; small central disc protrusions at C3-4 and C4-5 per MRI without contrast obtained on March 24, 2021 at [facility]. D. His pain is currently being controlled with Percocet 08/31/2025. Last noted prescription per Dr. Schroeder's written prescriptions was dated on April 18, 2021 416 tablets of the 08/31/2025 oxycodone/APAP. 4. Follow-up plan A. Mr. Galaviz will return in 2 weeks with CBC CMP for consideration of cycle 2 day 1 carboplatin Taxol. B. He was reminded to take his steroid premed 6 and 12 hours prior to his chemotherapy. C. His current treatment plan is to do 3 cycles of systemic chemotherapy with the carboplatin and Taxol as indicated above and follow-up with PET CT imaging. If he has excellent response we may consider surgical evaluation or consider combined chemo radiation to the primary tumor. D. Mr. Galaviz does have a right subclavian PowerPort per Dr. Calderon and will require maintenance with port access for labs, treatment/hydration, etc. E. He may have EMLA cream for port numbing/comfort prior to access. Signed By: Jazmyne Gay-, [facility] Martin Schroeder MD <<Signature on File>>
== END 2021-05-28 23:59 | disposition home or self-care (01) ==
LOC: ONCMED 05:34
PROVIDERS: PCP Family Medicine; Visit Provider Nurse Practitioner
DX: Z51.11 Encounter for antineoplastic chemotherapy (principal); C34.32 Malignant neoplasm of lower lobe, left bronchus or lung; C79.51 Secondary malignant neoplasm of bone; C77.8 Secondary and unspecified malignant neoplasm of lymph nodes of multiple regions; N40.0 Benign prostatic hyperplasia without lower urinary tract symptoms; I10 Essential (primary) hypertension; M81.0 Age-related osteoporosis without current pathological fracture; M19.012 Primary osteoarthritis, left shoulder; Z87.891 Personal history of nicotine dependence; Z79.899 Other long term (current) drug therapy
CPT/HCPCS: 36415; 80053; 85025; 96367; 96372; 96375; 96377; 96413; 96417; 99215; J1100; J1200; J2405; J2469; J2505; J3490; J7030; J7040; J7050; J9045; J9267

== ENCOUNTER 2021-05-29 06:00 | Outpatient (RCR) | payer BC, MEDICARE, SELFPAY | END 2021-06-28 23:59 | disposition home or self-care (01) | LOC: SPT 06:00 | PROVIDERS: PCP Family Medicine; Referring Provider Internal Medicine; Visit Provider Internal Medicine | DX: I63.9 Cerebral infarction, unspecified (principal) | CPT/HCPCS: 97110 ==

== ENCOUNTER → 2021-06-10 14:53 | Outpatient (BNVA) | payer BC, MEDICARE, SELFPAY | PROVIDERS: PCP Family Medicine; Visit Provider Internal Medicine Hematology & Oncology | DX: C34.90 Malignant neoplasm of unspecified part of unspecified bronchus or lung (principal) | CPT/HCPCS: 36415; 80053; 85025 ==

== ENCOUNTER → 2021-06-16 08:47 | Outpatient (BNVA) | payer BC, MEDICARE, SELFPAY | PROVIDERS: PCP Family Medicine; Visit Provider Internal Medicine Hematology & Oncology | DX: C34.32 Malignant neoplasm of lower lobe, left bronchus or lung (principal); C79.51 Secondary malignant neoplasm of bone | CPT/HCPCS: 80053; 85025 ==

== ENCOUNTER 2021-06-17 05:40 | Outpatient (RCR) | payer BC, MEDICARE, SELFPAY ==
[2021-06-05 15:24] LABS: Alanine Aminotransferase 15 U/L (0-41); Albumin Level 3.1 g/dL (3.5-5.2); Alkaline Phosphatase 117 IU/L (40-130); Anion Gap 13.9 (5-19); Aspartate Amino Transferase 9 U/L (0-40); Basophils # 0.1 10^3/uL (0.0-0.1); Basophils % 0.5 %; Blood Urea Nitrogen 15 mg/dL (8-23); Calcium 8.9 mg/dL (8.5-10.5); Carbon Dioxide 29 mmol/L (22-29); Chloride 103 mmol/L (98-107); Eosinophils % 0.1 %; Globulin 2.7 g/dL (1.3-4.6); Glomerular Filtration Rate 67.2 mL/min (90-130); Glucose 125 mg/dL (65-115); Hematocrit 28.6 % (42.0-52.0); Hemoglobin 9.1 g/dL (11.7-16.6); Lymphocytes # 1.3 10^3/uL (0.8-4.8); Lymphocytes % 9.2 %; Mean Corpuscular HGB Conc 31.8 g/dL (30.0-36.0); Mean Corpuscular Hemoglobin 29.5 pg (28.0-34.0); Mean Corpuscular Volume 92.9 fL (80-94); Monocytes # 0.6 10^3/uL (0.2-0.9); Monocytes % 4.5 %; Neutrophils % 81.7 %; Nucleated Red Blood Cells % 0.1 %; Osmolality Calculated 296 mOsm/kg (285-295); Platelet Count 202 10^3/cmm (130-400); Positive M 1; Potassium 3.9 mmol/L (3.5-5.1); Red Blood Count 3.08 10^6/uL (4.1-5.3); Red Cell Distribution Width 18.5 % (12.1-15.1); Sodium 142 mmol/L (136-145); Total Bilirubin 0.3 mg/dL (0.15-1.2); Total Protein 5.8 g/dL (6.6-8.7); White Blood Count 14.1 10^3/uL (4.0-10.0)
[2021-06-05 15:52] LABS: Slide Review Slide Review Perform
[2021-06-09] MEDS: ondansetron 2 mg/ML SDV 2 mL 8 MG IVP (10:08)
[2021-06-09] MEDS: sodium chloride 0.9% 250 ML 75 ML IV (10:08)
[2021-06-09] MEDS: famotidine 20 mg/2 mL INJ IVP (10:10)
[2021-06-09] MEDS: diphenhydrAMINE 50 mg/mL SDV 1mL 25 MG IVP (10:12)
[2021-06-17] MEDS: sodium chloride 0.9% 250 ML 75 ML IV (10:04)
[2021-06-17] MEDS: famotidine 20 mg/2 mL INJ IVP (10:04)
[2021-06-17] MEDS: diphenhydrAMINE 50 mg/mL SDV 1mL 25 MG IVP (10:05)
[2021-06-17] MEDS: palonosetron 0.25 mg/5 mL SDV IVP (10:06)
[2021-06-17 11:08] LABS: Ferritin 757 ng/mL (30-400); Iron 40 ug/dL (59-158); Percent Saturation 18.8 % (20-50); Total Iron Binding Capacity 212 mcg/dl; Unsaturated Iron Binding 172 ug/dL (112-347)
[2021-06-17 12:32] LABS: Vitamin B12 2000 pg/mL (232-1245)
[2021-06-17] MEDS: pegfilgrastim 6 mg/0.6 mL Kit (onpro) SUBCUT (13:00)
[2021-06-17] MEDS: denosumab 120 mg SDV SUBCUT (13:05)
--- NOTE | 2021-06-17 13:19 | ONC FU_ITS ---
Dr. Schroeder follow up note Patient: Tramaine Galaviz Unit #: [id number]: 1955 Dicatated By: Martin Schroeder M.D.Date of Visit:Jun 17, 2021 Onc Med Follow-up/Prog Note History of Present Illness: Mr. Galaviz is a 65-year-old gentleman with a history of hematuria. it was which confirmed to be due to an enlarged prostate. As a part of hematuria evaluation, he underwent CT urography on February 06, 2021, which showed an incidental finding of 11 mm lung nodule along with the left hilar lymphadenopathy. Mr Galaviz then underwent CT scan of chest on February 11, 2021 which showed enlarged lymph nodes within both sides of middle mediastinum and within subcarinal space. He also had a lymph node within the right paratracheal space measuring up to 15 mm; low-grade left hilar lymphadenopathy and A small masslike lesion grossly measuring 2.6 x 2.1 cm, centrally of left infrahilar region contiguous with peribronchovascular soft tissue thickening within the posterior basal segment of left lung and a small localized region of complex soft tissue thickening centrally within the left lower lobe and limited images of upper abdomen without apparent significant pathology. Subsequently Mr Galaviz was referred to pulmonology and underwent bronchoscopy on February 19, 2021. EBUS FNA biopsy was obtained from lymph node station 4R, 4L, station 7, station 11 L, and left lower lobe of lung mass #1 endobronchial biopsy, all of them confirmed involvement with squamous cell carcinoma whereas left lower lobe mass #2 posterior basal segment showed benign alveolated lung tissue, no tumor was seen. Guardant 360 showed no targetable mutation but TMB was more than 10 e.g. 11.16 mutation thus candidate for pembrolizumab Patient quit smoking in 2009 but prior to that about 40-year history of smoking with 3 to 4 packs a day, Mr Galaviz had been complaining of left neck pain radiating to left shoulder and elbow, progressive for the last couple of weeks, A plain x-ray of C-spine done on February 10, 2021 shows no evidence of fracture or dislocation; mild disc space narrowing at C5-6 and C6-7 with mild degenerative retrolisthesis at these levels. Hydrocodone is not helping his pain much and not getting enough sleep because of it. Denies any history of trauma to neck or left shoulder. Denies any history of hemoptysis or hematemesis denies any history of jaundice denies any history of bony pains, off and on headaches but no blurred vision or double vision. No weight loss, no night sweats but some cough and dyspnea on exertion for the last few weeks. Mr Galaviz was diagnosed with osteoporosis based on a DEXA scan from October 30, 2020. The bone density from 10/30/2020 at [facility] reported the bone mineral density T-score for L1-L4 @ -2.5; the left femoral neck at -1.2; and left total hip T score -0.7. He was started on alendronate therapy by PMD. CT PET scan done on March 13, 2021 showed hypermetabolic spiculated nodule left lower lobe with SUV of 4.1, extensive hypermetabolic bilateral mediastinal and left hilar asya metastasis. No hypermetabolic right hilar lymph node. Hypermetabolic gastrohepatic ligament lymph node suspicious for asya metastasis. Solitary hypermetabolic expansile lytic lesion of left T2 transverse process and pedicle extensive hypermetabolic tumor into the left T2-3 neuroforamen and left lateral aspect of central canal. Mr. 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 He had radio therapy from April 03, 2021 through April 16, 2021 to total prescribed dose of 30 cGy delivered in 10 fractions. Mr. Galaviz has been offered treatment with carboplatin Taxol with plan Neulasta support. His current treatment plan will be day 1 and 8 every 21-day cycle. Started on May 19, 2021 Mr. Galaviz had placement of a right subclavian PowerPort per Dr. Calderon on May 15, 2021. Mr. Galaviz did have an MRI of the head without contrast on 05/05/2021 ordered by Myron Frias NP. It reported evidence of subacute ischemia involving the right periventricular white matter extending to the right inferior frontal lobe and insula. Associated T2 signal abnormality. No significant mass-effect or midline shift. A few additional tiny acute/subacute foci of acute ischemia in the right frontoparietal white matter. Mild small vessel changes. Mild to moderate parenchymal volume loss. Mild small vessel changes in the tigre. Tiny focus of hemosiderin in the right inferior frontal lobe. This is being followed by neurology. Came for follow-up, denies any specific complaint except generalized weakness and fatigue, no nausea or vomiting, no diarrhea constipation, no melena hematochezia, no chest pain or palpitation but off and on tingling sensation in the inner side of right arm especially when he got up in the morning, not sure about any changing neck position or shoulder aggravate or cause this discomfort but he has history of right shoulder surgery in the past denies any headaches blurry and double vision, denies any right hand weakness denies any paresthesia denies any peripheral numbness, no fever chills, tolerating systemic therapy with weekly carboplatin/Taxol well Medications: Adult Aspirin EC Low Strength 2 Tablet (of 81 mg) Tablet, enteric coated Oral daily, Alendronate Sodium 1 Tablet (of 70 mg) Oral q 7 days, Atorvastatin Calcium 1 Tablet (of 40 mg) Oral at bedtime, Cardizem CD 1 Caplet (of 240 mg) Capsule SR 24 HR Oral daily, Clopidogrel Bisulfate 1 Tablet (of 75 mg) Oral daily, Cozaar 1 Tablet (of 50 mg) Oral daily, Dexamethasone 1 Tablet (of 4 mg) Oral t.i.d., Diclofenac Sodium 1 Tablet (of 75 mg) Tablet, enteric coated Oral daily, Finasteride 1 Tablet (of 5 mg) Oral daily, Gabapentin 1 Caplet (of 400 mg) Capsule Oral t.i.d., oxyCODONE-Acetaminophen 1 (10-325 mg) Tablet Oral q 6 hours, Pantoprazole Sodium 1 (40 mg) Pack Oral daily, Tamsulosin HCl 1 (0.4 mg) Capsule Oral daily Allergies: No Known Allergies. Review of Systems: Review of Systems is not available for this patient. Vital Signs: Performed on Jun 17, 2021 08:45 Height - 70.00 in Weight - 186 lbs (HIGH) BSA - 2.02 sq.m BMI - 26.69 Temperature - 97.7 F (LOW) Pulse - 80 /min Respiration - 18 /min BP - 121/71 mm(hg) O2 Sat - 97 % Pain - 4 Fatigue - 0 Performance Status: 0 - Fully active, able to carry on all predisease activities without restrictions. (ECOG) Physical Examination: ENMT - No mouth sores, no thrush, no jaundice, Respiratory - Lungs are clear to auscultation, Cardiovascular - Regular rate and rhythm of heart, Abdomen - Soft, bowel sounds present, Extremities - No visible edema or rash. Lab/Imaging: Test performed on Jun 16, 2021 08:47 Sodium 141 mmol/L Potassium 4.2 mmol/L Chloride 102 mmol/L CO2 26 mmol/L Anion Gap 17.2 BUN 20 mg/dL Creatinine 0.9 mg/dL Cr Clearance (Est) 96.71 mL/min eGFR 84.7 mL/min Glucose 99 mg/dL Osmolality - Calculated 295 mOsm/kg Calcium 8.6 mg/dL Protein, Total 5.6 g/dL Albumin 3.6 g/dL Globulin 2.0 g/dL Bilirubin, Total 0.3 mg/dL ALT (SGPT) 11 Units/L AST (SGOT) 9 Units/L Alkaline Phosphatase 100 IU/L WBC 6.7 10^3/uL RBC 3.07 10^6/uL HGB 9.1 g/dL HCT 29.8 % MCV 97.1 fl MCH 29.6 pg MCHC 30.5 g/dL RDW 18.3 % Platelet Count 410 10^3/uL MPV 10.2 fl Neutrophils 4.77 10^3/uL Lymphocytes 1.2 10^3/uL Monocytes 0.5 10^3/uL Eosinophils 0.1 10^3/uL Basophils 0.0 10^3/uL Neutrophil % 71.1 % Lymphocyte % 18.0 % Monocyte % 7.3 % Eosinophil % 1.5 % Basophils % 0.3 % NRBC 0.0 /100 WBC NRBC % 0 % Test performed on May 19, 2021 08:25 Manual Lymphocytes 13.7 % Manual Monocytes 1.0 % Manual Eosinophils 0.0 % Manual Basophils 0.2 % Impression: Metastatic Squamous cell carcinoma involving bilateral mediastinal lymph nodes and left lower lobe of lung per bronchoscopy/EBUS FNA obtained from lymph node station 4R, station 4L, station 7, station 11 L and left lower lobe mass endobronchial biopsy all confirmed squamous cell carcinoma involvement, Guardant 360 showed no targetable mutation but TMB was more than 10. E.g. candidate for pembrolizumab CT PET scan done on March 13, 2021 showed hypermetabolic spiculated nodule left lower lobe with maximal SUV of 4.1, extensive hypermetabolic bilateral mediastinal and left hilar lymph nodes, no hypermetabolic right hilar lymph node. Hypermetabolic gastrohepatic ligament lymph node suspicious for asya metastasis. Solitary hypermetabolic expansile lytic lesion of the left T2 transverse process and pedicle extensive hypermetabolic tumor into the left T2-3 neural foramen and left lateral aspect of central canal CT scan of the chest done on February 11, 2021 showed suspected neoplasm within left lower lobe and accompanying left hilar and mediastinal lymphadenopathy and limited image of upper abdomen without apparent significant pathology. Left neck pain radiating to left shoulder and arm, etiology unclear, metastatic disease versus osteoarthritis versus disc protrusion, Status post radiation therapy to T2 vertebral body completed on April 16, 2021, patient received 30 Gy in 10 fractions Longstanding history of heavy smoking quit in 2009 Plan: Discussed with patient regarding his labs white blood count 6.7 hemoglobin 9.1 hematocrit 29.8 platelets 410,000 CMP within normal limits Clinically, patient is doing well with no new signs symptoms of active disease progression, tolerating weekly carboplatin/Taxol well, as his TMB score is more than 10, will consider adding pembrolizumab every 3 weeks along with a day 1 and 8 carboplatin/Taxol and will proceed with next weekly dose of carboplatin/Taxol today, starting next cycle in 2 weeks we will add pembrolizumab 200 mg every 3 weeks and patient will also receive his monthly Xgeva today. As for generalized weakness and fatigue is concerned probably multifactorial including persistent moderate anemia, will consider iron studies B12 folic acid if it is normal, may consider bone marrow to rule out underlying myelodysplasia. As far as right inner upper arm tingling sensation is concerned etiology is unclear could be due to neuropathy, as per patient it is not constant and most of them he feels in the morning, if there is a worsening, may consider further evaluation but will continue to monitor Signed By: Martin Schroeder M.D. <<Signature on File>>
== END 2021-06-28 23:59 | disposition home or self-care (01) ==
LOC: ONCMED 05:40
PROVIDERS: PCP Family Medicine; Visit Provider Internal Medicine Hematology & Oncology
DX: Z51.11 Encounter for antineoplastic chemotherapy (principal); C34.32 Malignant neoplasm of lower lobe, left bronchus or lung; C79.51 Secondary malignant neoplasm of bone; C77.8 Secondary and unspecified malignant neoplasm of lymph nodes of multiple regions; F17.211 Nicotine dependence, cigarettes, in remission; D50.9 Iron deficiency anemia, unspecified; D51.9 Vitamin B12 deficiency anemia, unspecified; R53.1 Weakness; R53.82 Chronic fatigue, unspecified; Z79.899 Other long term (current) drug therapy
CPT/HCPCS: 36415; 36591; 80053; 82607; 82728; 83540; 83550; 85025; 96367; 96372; 96375; 96377; 96413; 96417; 99215; J0897; J1100; J1200; J2405; J2469; J2505; J3490; J7030; J7040; J7050; J9045; J9267

== ENCOUNTER → 2021-06-30 08:58 | Outpatient (BNVA) | payer BC, MEDICARE, SELFPAY | PROVIDERS: PCP Family Medicine; Visit Provider Internal Medicine Hematology & Oncology | DX: C34.90 Malignant neoplasm of unspecified part of unspecified bronchus or lung (principal) | CPT/HCPCS: 80053; 85025 ==

== ENCOUNTER → 2021-07-07 11:53 | Outpatient (BNVA) | payer BC, MEDICARE, SELFPAY | PROVIDERS: PCP Family Medicine; Visit Provider Internal Medicine Hematology & Oncology | DX: C34.90 Malignant neoplasm of unspecified part of unspecified bronchus or lung (principal) | CPT/HCPCS: 80053; 85025 ==

== ENCOUNTER → 2021-07-21 10:22 | Outpatient (BNVA) | payer BC, MEDICARE, SELFPAY | PROVIDERS: PCP Family Medicine; Visit Provider Internal Medicine Hematology & Oncology | DX: D50.9 Iron deficiency anemia, unspecified (principal); C34.92 Malignant neoplasm of unspecified part of left bronchus or lung | CPT/HCPCS: 80053; 82728; 83550; 85025 ==

== ENCOUNTER → 2021-07-28 10:00 | Outpatient (BNVA) | payer BC, MEDICARE, SELFPAY | PROVIDERS: PCP Family Medicine; Visit Provider Internal Medicine Hematology & Oncology | DX: C34.90 Malignant neoplasm of unspecified part of unspecified bronchus or lung (principal) | CPT/HCPCS: 80053; 85025 ==

== ENCOUNTER 2021-07-29 05:42 | Outpatient (RCR) | payer BC, MEDICARE, SELFPAY ==
[2021-07-01] MEDS: sodium chloride 0.9% 250 ML 125 ML IV (10:25)
[2021-07-01] MEDS: diphenhydrAMINE 50 mg/mL SDV 1mL 25 MG IVP (10:25)
[2021-07-01] MEDS: famotidine 20 mg/2 mL INJ IVP (10:28)
[2021-07-01] MEDS: palonosetron 0.25 mg/5 mL SDV IVP (10:34)
[2021-07-01] MEDS: fosaprepitant 150 MG in sodium chloride 0.9% 150 ML 300 MG IV (11:30)
--- NOTE | 2021-07-01 14:55 | ONC FU_ITS ---
Dr. Schroeder follow up note Patient: Tramaine Galaviz Unit #: [id number]: 1955 Dicatated By: Martin Schroeder M.D.Date of Visit:Jul 01, 2021 Onc Med Follow-up/Prog Note History of Present Illness: Mr. Galaviz is a 66-year-old gentleman with a history of hematuria. it was which confirmed to be due to an enlarged prostate. As a part of hematuria evaluation, he underwent CT urography on February 06, 2021, which showed an incidental finding of 11 mm lung nodule along with the left hilar lymphadenopathy. Mr Galaviz then underwent CT scan of chest on February 11, 2021 which showed enlarged lymph nodes within both sides of middle mediastinum and within subcarinal space. He also had a lymph node within the right paratracheal space measuring up to 15 mm; low-grade left hilar lymphadenopathy and A small masslike lesion grossly measuring 2.6 x 2.1 cm, centrally of left infrahilar region contiguous with peribronchovascular soft tissue thickening within the posterior basal segment of left lung and a small localized region of complex soft tissue thickening centrally within the left lower lobe and limited images of upper abdomen without apparent significant pathology. Subsequently Mr Galaviz was referred to pulmonology and underwent bronchoscopy on February 19, 2021. EBUS FNA biopsy was obtained from lymph node station 4R, 4L, station 7, station 11 L, and left lower lobe of lung mass #1 endobronchial biopsy, all of them confirmed involvement with squamous cell carcinoma whereas left lower lobe mass #2 posterior basal segment showed benign alveolated lung tissue, no tumor was seen. Guardant 360 showed no targetable mutation but TMB was more than 10 e.g. 11.16 mutation thus candidate for pembrolizumab Patient quit smoking in 2009 but prior to that about 40-year history of smoking with 3 to 4 packs a day, Mr Galaviz had been complaining of left neck pain radiating to left shoulder and elbow, progressive for the last couple of weeks, A plain x-ray of C-spine done on February 10, 2021 shows no evidence of fracture or dislocation; mild disc space narrowing at C5-6 and C6-7 with mild degenerative retrolisthesis at these levels. Hydrocodone is not helping his pain much and not getting enough sleep because of it. Denies any history of trauma to neck or left shoulder. Denies any history of hemoptysis or hematemesis denies any history of jaundice denies any history of bony pains, off and on headaches but no blurred vision or double vision. No weight loss, no night sweats but some cough and dyspnea on exertion for the last few weeks. Mr Galaviz was diagnosed with osteoporosis based on a DEXA scan from October 30, 2020. The bone density from 10/30/2020 at [facility] reported the bone mineral density T-score for L1-L4 @ -2.5; the left femoral neck at -1.2; and left total hip T score -0.7. He was started on alendronate therapy by PMD. CT PET scan done on March 13, 2021 showed hypermetabolic spiculated nodule left lower lobe with SUV of 4.1, extensive hypermetabolic bilateral mediastinal and left hilar asya metastasis. No hypermetabolic right hilar lymph node. Hypermetabolic gastrohepatic ligament lymph node suspicious for asya metastasis. Solitary hypermetabolic expansile lytic lesion of left T2 transverse process and pedicle extensive hypermetabolic tumor into the left T2-3 neuroforamen and left lateral aspect of central canal. Mr. 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 He had radio therapy from April 03, 2021 through April 16, 2021 to total prescribed dose of 30 cGy delivered in 10 fractions. Mr. Galaviz has been offered treatment with carboplatin Taxol with plan Neulasta support. His current treatment plan will be day 1 and 8 every 21-day cycle., After obtaining approval from insurance, Keytruda was added on June 30, 2021 Started on May 19, 2021 Mr. Galaviz had placement of a right subclavian PowerPort per Dr. Calderon on May 15, 2021. Mr. Galaviz did have an MRI of the head without contrast on 05/05/2021 ordered by Myron Frias NP. It reported evidence of subacute ischemia involving the right periventricular white matter extending to the right inferior frontal lobe and insula. Associated T2 signal abnormality. No significant mass-effect or midline shift. A few additional tiny acute/subacute foci of acute ischemia in the right frontoparietal white matter. Mild small vessel changes. Mild to moderate parenchymal volume loss. Mild small vessel changes in the tigre. Tiny focus of hemosiderin in the right inferior frontal lobe. This is being followed by neurology. Came for follow-up, denies any specific complaint except transient tingling sensation in the right arm especially with turning head to the right, no weakness in the hand or arm, no numbness, no fever chills, no headaches no blurred vision double vision, no trauma to his neck, no nausea or vomiting no diarrhea constipation, tolerating carboplatin/Taxol well otherwise Medications: Adult Aspirin EC Low Strength 2 Tablet (of 81 mg) Tablet, enteric coated Oral daily, Alendronate Sodium 1 Tablet (of 70 mg) Oral q 7 days, Atorvastatin Calcium 1 Tablet (of 40 mg) Oral at bedtime, Cardizem CD 1 Caplet (of 240 mg) Capsule SR 24 HR Oral daily, Clopidogrel Bisulfate 1 Tablet (of 75 mg) Oral daily, Cozaar 1 Tablet (of 50 mg) Oral daily, Dexamethasone 1 Tablet (of 4 mg) Oral t.i.d., Diclofenac Sodium 1 Tablet (of 75 mg) Tablet, enteric coated Oral daily, Eliquis 1 Tablet (of 5 mg) Oral b.i.d., Finasteride 1 Tablet (of 5 mg) Oral daily, Gabapentin 1 Caplet (of 400 mg) Capsule Oral t.i.d., oxyCODONE-Acetaminophen 1 (10-325 mg) Tablet Oral q 6 hours, Pantoprazole Sodium 1 (40 mg) Pack Oral daily, Tamsulosin HCl 1 (0.4 mg) Capsule Oral daily Allergies: No Known Allergies. Review of Systems: Review of Systems is not available for this patient. Vital Signs: Vitals are not available for this patient. Performance Status: 0 - Fully active, able to carry on all predisease activities without restrictions. (ECOG) Physical Examination: ENMT - No mouth sores, no thrush, no jaundice, Respiratory - Lungs are clear to auscultation, Cardiovascular - Regular rate and rhythm of heart, Abdomen - Soft, bowel sounds present, Extremities - No visible edema. Lab/Imaging: Test performed on Jun 30, 2021 08:58 Sodium 140 mmol/L Potassium 3.7 mmol/L Chloride 103 mmol/L CO2 25 mmol/L Anion Gap 15.7 BUN 13 mg/dL Creatinine 1.0 mg/dL Cr Clearance (Est) 87.89 mL/min eGFR 75.0 mL/min Glucose 103 mg/dL Osmolality - Calculated 290 mOsm/kg Calcium 7.9 mg/dL Protein, Total 5.8 g/dL Albumin 3.8 g/dL Globulin 2.0 g/dL Bilirubin, Total 0.4 mg/dL ALT (SGPT) 8 Units/L AST (SGOT) 8 Units/L Alkaline Phosphatase 119 IU/L WBC 9.7 10^3/uL RBC 3.21 10^6/uL HGB 9.4 g/dL HCT 31.2 % MCV 97.2 fl MCH 29.3 pg MCHC 30.1 g/dL RDW 19.5 % Platelet Count 190 10^3/uL MPV 10.8 fl Neutrophils 8.09 10^3/uL Lymphocytes 0.7 10^3/uL Monocytes 0.7 10^3/uL Eosinophils 0.0 10^3/uL Basophils 0.1 10^3/uL Neutrophil % 83.2 % Lymphocyte % 7.6 % Monocyte % 7.1 % Eosinophil % 0.1 % Basophils % 0.6 % NRBC 0 /100 WBC NRBC % 0.0 % Test performed on May 19, 2021 08:25 Manual Lymphocytes 13.7 % Manual Monocytes 1.0 % Manual Eosinophils 0.0 % Manual Basophils 0.2 % Impression: Metastatic Squamous cell carcinoma involving bilateral mediastinal lymph nodes and left lower lobe of lung per bronchoscopy/EBUS FNA obtained from lymph node station 4R, station 4L, station 7, station 11 L and left lower lobe mass endobronchial biopsy all confirmed squamous cell carcinoma involvement, Guardant 360 showed no targetable mutation but TMB was more than 10. E.g. candidate for pembrolizumab CT PET scan done on March 13, 2021 showed hypermetabolic spiculated nodule left lower lobe with maximal SUV of 4.1, extensive hypermetabolic bilateral mediastinal and left hilar lymph nodes, no hypermetabolic right hilar lymph node. Hypermetabolic gastrohepatic ligament lymph node suspicious for asya metastasis. Solitary hypermetabolic expansile lytic lesion of the left T2 transverse process and pedicle extensive hypermetabolic tumor into the left T2-3 neural foramen and left lateral aspect of central canal CT scan of the chest done on February 11, 2021 showed suspected neoplasm within left lower lobe and accompanying left hilar and mediastinal lymphadenopathy and limited image of upper abdomen without apparent significant pathology. Left neck pain radiating to left shoulder and arm, etiology unclear, metastatic disease versus osteoarthritis versus disc protrusion, Status post radiation therapy to T2 vertebral body completed on April 16, 2021, patient received 30 Gy in 10 fractions Longstanding history of heavy smoking quit in 2009 Plan: Discussed with patient regarding his labs white blood count 9.7 hemoglobin 9.4 g medical 31.2 platelets 190,000 CMP within normal limits, his anemia work-up showed iron saturation 18.8% iron 40, ferritin 757 B12 2000 Clinically, patient is doing reasonably well with no new signs symptoms suggestive of disease progression, tolerating weekly carboplatin/Taxol well, at this point we will add 3 weekly Keytruda. As far as right arm tingling sensation concerned probably due to right cervical radiculopathy could be due to disc herniation or osteoarthritis or vertebral pathology, at this point will consider MRI scan of C-spine, patient was also advised to use cervical collar and not to turn head suddenly to the right and if there is a worsening of symptom he need to go to hospital for evaluation. As far as anemia is concerned his anemia work-up consistent with iron deficiency as his iron saturation and iron levels are low but ferritin is elevated which could be due to acute phase reactant. Patient was advised to take oral iron supplement 2 tablets daily and will follow his hemoglobin. Patient return to clinic in 1 week with CBC CMP and MRI scan of C-spine Signed By: Martin Schroeder M.D. <<Signature on File>>
[2021-07-08] MEDS: palonosetron 0.25 mg/5 mL SDV IVP (09:20)
[2021-07-08] MEDS: sodium chloride 0.9% 250 ML 75 ML IV (09:20)
[2021-07-08] MEDS: famotidine 20 mg/2 mL INJ IVP (09:22)
[2021-07-08] MEDS: diphenhydrAMINE 50 mg/mL SDV 1mL 25 MG IVP (09:25)
[2021-07-08] MEDS: fosaprepitant 150 MG in sodium chloride 0.9% 150 ML 300 MG IV (09:45)
[2021-07-08] MEDS: pegfilgrastim 6 mg/0.6 mL Kit (onpro) SUBCUT (12:30)
--- NOTE | 2021-07-08 17:54 | ONC FU_ITS ---
Dr. Schroeder follow up note Patient: Tramaine Galaivz Unit #: [id number]: 1955 Dicatated By: Martin Schroeder M.D.Date of Visit:Jul 08, 2021 Onc Med Follow-up/Prog Note History of Present Illness: Mr. Galaviz is a 66-year-old gentleman with a history of hematuria. it was which confirmed to be due to an enlarged prostate. As a part of hematuria evaluation, he underwent CT urography on February 06, 2021, which showed an incidental finding of 11 mm lung nodule along with the left hilar lymphadenopathy. Mr Galaviz then underwent CT scan of chest on February 11, 2021 which showed enlarged lymph nodes within both sides of middle mediastinum and within subcarinal space. He also had a lymph node within the right paratracheal space measuring up to 15 mm; low-grade left hilar lymphadenopathy and A small masslike lesion grossly measuring 2.6 x 2.1 cm, centrally of left infrahilar region contiguous with peribronchovascular soft tissue thickening within the posterior basal segment of left lung and a small localized region of complex soft tissue thickening centrally within the left lower lobe and limited images of upper abdomen without apparent significant pathology. Subsequently Mr Galaviz was referred to pulmonology and underwent bronchoscopy on February 19, 2021. EBUS FNA biopsy was obtained from lymph node station 4R, 4L, station 7, station 11 L, and left lower lobe of lung mass #1 endobronchial biopsy, all of them confirmed involvement with squamous cell carcinoma whereas left lower lobe mass #2 posterior basal segment showed benign alveolated lung tissue, no tumor was seen. Guardant 360 showed no targetable mutation but TMB was more than 10 e.g. 11.16 mutation thus candidate for pembrolizumab Patient quit smoking in 2009 but prior to that about 40-year history of smoking with 3 to 4 packs a day, Mr Galaviz had been complaining of left neck pain radiating to left shoulder and elbow, progressive for the last couple of weeks, A plain x-ray of C-spine done on February 10, 2021 shows no evidence of fracture or dislocation; mild disc space narrowing at C5-6 and C6-7 with mild degenerative retrolisthesis at these levels. Hydrocodone is not helping his pain much and not getting enough sleep because of it. Denies any history of trauma to neck or left shoulder. Denies any history of hemoptysis or hematemesis denies any history of jaundice denies any history of bony pains, off and on headaches but no blurred vision or double vision. No weight loss, no night sweats but some cough and dyspnea on exertion for the last few weeks. Mr Galaviz was diagnosed with osteoporosis based on a DEXA scan from October 30, 2020. The bone density from 10/30/2020 at [facility] reported the bone mineral density T-score for L1-L4 @ -2.5; the left femoral neck at -1.2; and left total hip T score -0.7. He was started on alendronate therapy by PMD. CT PET scan done on March 13, 2021 showed hypermetabolic spiculated nodule left lower lobe with SUV of 4.1, extensive hypermetabolic bilateral mediastinal and left hilar asya metastasis. No hypermetabolic right hilar lymph node. Hypermetabolic gastrohepatic ligament lymph node suspicious for asya metastasis. Solitary hypermetabolic expansile lytic lesion of left T2 transverse process and pedicle extensive hypermetabolic tumor into the left T2-3 neuroforamen and left lateral aspect of central canal. Mr. 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 He had radio therapy from April 03, 2021 through April 16, 2021 to total prescribed dose of 30 cGy delivered in 10 fractions. Mr. Galaviz has been offered treatment with carboplatin Taxol with plan Neulasta support. His current treatment plan will be day 1 and 8 every 21-day cycle. Started on May 19, 2021 Mr. Galaviz had placement of a right subclavian PowerPort per Dr. Calderon on May 15, 2021. Mr. Galaviz did have an MRI of the head without contrast on 05/05/2021 ordered by Myron Frias NP. It reported evidence of subacute ischemia involving the right periventricular white matter extending to the right inferior frontal lobe and insula. Associated T2 signal abnormality. No significant mass-effect or midline shift. A few additional tiny acute/subacute foci of acute ischemia in the right frontoparietal white matter. Mild small vessel changes. Mild to moderate parenchymal volume loss. Mild small vessel changes in the tigre. Tiny focus of hemosiderin in the right inferior frontal lobe. This is being followed by neurology. Came for follow-up, denies any specific complaint except off and on numbness in the right arm/shoulder, patient still awaiting MRI scan of C-spine but denies any weakness in the right hand, denies any fever chills denies any nausea or vomiting denies any diarrhea or constipation denies any hemoptysis or hematemesis, tolerating oral iron well, also tolerating systemic therapy with carboplatin/Keytruda/Taxol well Medications: Adult Aspirin EC Low Strength 2 Tablet (of 81 mg) Tablet, enteric coated Oral daily, Alendronate Sodium 1 Tablet (of 70 mg) Oral q 7 days, Atorvastatin Calcium 1 Tablet (of 40 mg) Oral at bedtime, Cardizem CD 1 Caplet (of 240 mg) Capsule SR 24 HR Oral daily, Clopidogrel Bisulfate 1 Tablet (of 75 mg) Oral daily, Cozaar 1 Tablet (of 50 mg) Oral daily, Dexamethasone 1 Tablet (of 4 mg) Oral t.i.d., Diclofenac Sodium 1 Tablet (of 75 mg) Tablet, enteric coated Oral daily, Eliquis 1 Tablet (of 5 mg) Oral b.i.d., Finasteride 1 Tablet (of 5 mg) Oral daily, Gabapentin 1 Caplet (of 400 mg) Capsule Oral t.i.d., oxyCODONE-Acetaminophen 1 (10-325 mg) Tablet Oral q 6 hours, Pantoprazole Sodium 1 (40 mg) Pack Oral daily, Tamsulosin HCl 1 (0.4 mg) Capsule Oral daily Allergies: No Known Allergies. Review of Systems: Review of Systems is not available for this patient. Vital Signs: Performed on Jul 08, 2021 09:37 Height - 70.00 in Weight - 183 lbs (LOW) BSA - 2.01 sq.m BMI - 26.26 Temperature - 97.4 F (LOW) Pulse - 75 /min Respiration - 18 /min BP - 122/72 mm(hg) O2 Sat - 99 % Pain - 0 Fatigue - 6 Performance Status: 0 - Fully active, able to carry on all predisease activities without restrictions. (ECOG) Physical Examination: ENMT - No mouth sores, no thrush, no jaundice, Respiratory - Lungs are clear to auscultation, Cardiovascular - Regular rate and rhythm of heart, Abdomen - Soft, bowel sounds present, Extremities - No visible edema. Lab/Imaging: Test performed on Jul 08, 2021 07:44 Creatinine 0.7 mg/dL Cr Clearance (Est) 125.55 mL/min Test performed on Jun 30, 2021 08:58 Sodium 140 mmol/L Potassium 3.7 mmol/L Chloride 103 mmol/L CO2 25 mmol/L Anion Gap 15.7 BUN 13 mg/dL eGFR 75.0 mL/min Glucose 103 mg/dL Osmolality - Calculated 290 mOsm/kg Calcium 7.9 mg/dL Protein, Total 5.8 g/dL Albumin 3.8 g/dL Globulin 2.0 g/dL Bilirubin, Total 0.4 mg/dL ALT (SGPT) 8 Units/L AST (SGOT) 8 Units/L Alkaline Phosphatase 119 IU/L WBC 9.7 10^3/uL RBC 3.21 10^6/uL HGB 9.4 g/dL HCT 31.2 % MCV 97.2 fl MCH 29.3 pg MCHC 30.1 g/dL RDW 19.5 % Platelet Count 190 10^3/uL MPV 10.8 fl Neutrophils 8.09 10^3/uL Lymphocytes 0.7 10^3/uL Monocytes 0.7 10^3/uL Eosinophils 0.0 10^3/uL Basophils 0.1 10^3/uL Neutrophil % 83.2 % Lymphocyte % 7.6 % Monocyte % 7.1 % Eosinophil % 0.1 % Basophils % 0.6 % NRBC 0 /100 WBC NRBC % 0.0 % Test performed on May 19, 2021 08:25 Manual Lymphocytes 13.7 % Manual Monocytes 1.0 % Manual Eosinophils 0.0 % Manual Basophils 0.2 % Impression: Metastatic Squamous cell carcinoma involving bilateral mediastinal lymph nodes and left lower lobe of lung per bronchoscopy/EBUS FNA obtained from lymph node station 4R, station 4L, station 7, station 11 L and left lower lobe mass endobronchial biopsy all confirmed squamous cell carcinoma involvement, Guardant 360 showed no targetable mutation but TMB was more than 10. E.g. candidate for pembrolizumab CT PET scan done on March 13, 2021 showed hypermetabolic spiculated nodule left lower lobe with maximal SUV of 4.1, extensive hypermetabolic bilateral mediastinal and left hilar lymph nodes, no hypermetabolic right hilar lymph node. Hypermetabolic gastrohepatic ligament lymph node suspicious for asya metastasis. Solitary hypermetabolic expansile lytic lesion of the left T2 transverse process and pedicle extensive hypermetabolic tumor into the left T2-3 neural foramen and left lateral aspect of central canal CT scan of the chest done on February 11, 2021 showed suspected neoplasm within left lower lobe and accompanying left hilar and mediastinal lymphadenopathy and limited image of upper abdomen without apparent significant pathology. Left neck pain radiating to left shoulder and arm, etiology unclear, metastatic disease versus osteoarthritis versus disc protrusion, Status post radiation therapy to T2 vertebral body completed on April 16, 2021, patient received 30 Gy in 10 fractions Longstanding history of heavy smoking quit in 2009 Plan: Discussed with patient regarding his labs white blood count 5.7 hemoglobin 9.5 g hematocrit 31 platelets 230,000 CMP within normal limits Clinically, patient is doing reasonably well, tolerating systemic therapy with Keytruda/carboplatin/Taxol well, will proceed with day 8 chemo with carboplatin/Taxol today and then he will return to clinic in 2 weeks with CBC CMP and iron studies and with follow-up CT PET scan to assess disease status. And also MRI scan of C-spine, patient was advised to use cervical collar and avoid sudden neck movements, if there is a worsening of symptom, he need to go to hospital for evaluation Signed By: Martin Schroeder M.D. <<Signature on File>>
--- NOTE | 2021-07-15 09:26 | MR_ITS ---
WS: [id number] MRI CERVICAL SPINE with and without contrast. HISTORY: LUNG Cancer; tingling NUMBNESS COMPARISON: 03/24/2021 Technique: Multiplanar, multisequence noncontrast imaging of the cervical spine. Sagittal and axial T 1 fat sat sequences post-MultiHance 17 cc IV. Normal cervical alignment. Osteophytes and disc space narrowing throughout. Abnormal signal within the T2 vertebral body with mild progression since 03/24/2021. There is extensio n into the LEFT posterior elements and superior and inferior articular facets, LEFT lamina with enhan cement involving greater than 50% of the LEFT vertebral body. There is soft tissue enhancement of the LEFT articular facet with encasement of the LEFT lateral thecal sac secondary to epidural extension. Tumor extends into the paraspinal soft tissue muscles on the LEFT posteriorly. There has been progre ssion since the prior study. Soft tissue enhancement extends into the LEFT T1-2 and T2-3 foramina. Craniocervical junction, C1 and C2 relationship, odontoid process and soft tissues are normal. C2-C3: Normal. C3-C4: Central and LEFT foraminal protrusions. C4-C5: Central disc protrusion and mild disc bulging. C5-C6: Diffuse annular disc bulging and facet arthritis. Mild central and foraminal narrowing. Larger osteophyte on the LEFT. C6-C7: Diffuse osteophytic ridging and annular disc bulging. Mild central and foraminal narrowing. C7-T1: Mild LEFT foraminal narrowing. Paraspinal soft tissue are normal. MR/MR cervical spine wo/w [id number] IMPRESSION: 1. Mild progression of the metastatic lesion within the T2 vertebral body with extension into the LEFT articular facets, LEFT lamina and adjacent paraspinal soft tissues. Enhancement along the posterior epidural region but at this time there is no cord compression. 2. Enhancement consistent with tumor extension into the foramina on the LEFT o f T1-2 and T2-3.
[2021-07-15 09:42] LABS: Basophils % 0.4 %; Eosinophils % 0.4 %; Lymphocytes % 11.4 %; Mean Corpuscular Hemoglobin 30.7 pg (28.0-34.0); Mean Platelet Volume 10.1 fL (7.4-10.4); Monocytes # 0.8 10^3/uL (0.2-0.9); Monocytes % 9.1 %; Neutrophils # 6.49 10^3/uL (1.8-7.7); Neutrophils % 76.3 %; Nucleated Red Blood Cells % 0 %; Platelet Count 203 10^3/cmm (130-400); Red Blood Count 2.93 10^6/uL (4.1-5.3); Red Cell Distribution Width 19.8 % (12.1-15.1); White Blood Count 8.5 10^3/uL (4.0-10.0)
[2021-07-15 10:12] LABS: Alanine Aminotransferase 7 U/L (0-41); Albumin Level 3.6 g/dL (3.5-5.2); Alkaline Phosphatase 125 IU/L (40-130); Aspartate Amino Transferase 8 U/L (0-40); Blood Urea Nitrogen 10 mg/dL (8-23); Calcium 8.5 mg/dL (8.5-10.5); Carbon Dioxide 27 mmol/L (22-29); Chloride 105 mmol/L (98-107); Ferritin 856 ng/mL (30-400); Globulin 2.2 g/dL (1.3-4.6); Glomerular Filtration Rate 113.2 mL/min (90-130); Glucose 102 mg/dL (65-115); Iron 68 ug/dL (59-158); Osmolality Calculated 289 mOsm/kg (285-295); Percent Saturation 34.6 % (20-50); Sodium 140 mmol/L (136-145); Total Bilirubin 0.3 mg/dL (0.15-1.2); Total Iron Binding Capacity 196 mcg/dl; Total Protein 5.8 g/dL (6.6-8.7); Unsaturated Iron Binding 128 ug/dL (112-347)
[2021-07-15] MEDS: gadobenate dimeglumine 20 mL vial IV (11:49)
[2021-07-15 12:07] LABS: Slide Review Slide Review Perform
[2021-07-22] MEDS: sodium chloride 0.9% 250 ML 75 ML IV (09:58)
[2021-07-22] MEDS: famotidine 20 mg/2 mL INJ IVP (09:58)
[2021-07-22] MEDS: diphenhydrAMINE 50 mg/mL SDV 1mL 25 MG IV (09:59)
[2021-07-22] MEDS: palonosetron 0.25 mg/5 mL SDV IV (10:00)
[2021-07-22] MEDS: fosaprepitant 150 MG in sodium chloride 0.9% 150 ML 300 MG IV (10:16)
--- NOTE | 2021-07-22 12:00 | ONC FU_ITS ---
Dr. Schroeder follow up note Patient: Tramaine Galaviz Unit #: [id number]: 1955 Dicatated By: Martin Schroeder M.D.Date of Visit:Jul 22, 2021 Onc Med Follow-up/Prog Note History of Present Illness: Mr. Galaviz is a 66-year-old gentleman with a history of hematuria. it was which confirmed to be due to an enlarged prostate. As a part of hematuria evaluation, he underwent CT urography on February 06, 2021, which showed an incidental finding of 11 mm lung nodule along with the left hilar lymphadenopathy. Mr Galaviz then underwent CT scan of chest on February 11, 2021 which showed enlarged lymph nodes within both sides of middle mediastinum and within subcarinal space. He also had a lymph node within the right paratracheal space measuring up to 15 mm; low-grade left hilar lymphadenopathy and A small masslike lesion grossly measuring 2.6 x 2.1 cm, centrally of left infrahilar region contiguous with peribronchovascular soft tissue thickening within the posterior basal segment of left lung and a small localized region of complex soft tissue thickening centrally within the left lower lobe and limited images of upper abdomen without apparent significant pathology. Subsequently Mr Galaviz was referred to pulmonology and underwent bronchoscopy on February 19, 2021. EBUS FNA biopsy was obtained from lymph node station 4R, 4L, station 7, station 11 L, and left lower lobe of lung mass #1 endobronchial biopsy, all of them confirmed involvement with squamous cell carcinoma whereas left lower lobe mass #2 posterior basal segment showed benign alveolated lung tissue, no tumor was seen. Guardant 360 showed no targetable mutation but TMB was more than 10 e.g. 11.16 mutation thus candidate for pembrolizumab Patient quit smoking in 2009 but prior to that about 40-year history of smoking with 3 to 4 packs a day, Mr Galaviz had been complaining of left neck pain radiating to left shoulder and elbow, progressive for the last couple of weeks, A plain x-ray of C-spine done on February 10, 2021 shows no evidence of fracture or dislocation; mild disc space narrowing at C5-6 and C6-7 with mild degenerative retrolisthesis at these levels. Hydrocodone is not helping his pain much and not getting enough sleep because of it. Denies any history of trauma to neck or left shoulder. Denies any history of hemoptysis or hematemesis denies any history of jaundice denies any history of bony pains, off and on headaches but no blurred vision or double vision. No weight loss, no night sweats but some cough and dyspnea on exertion for the last few weeks. Mr Galaviz was diagnosed with osteoporosis based on a DEXA scan from October 30, 2020. The bone density from 10/30/2020 at [facility] reported the bone mineral density T-score for L1-L4 @ -2.5; the left femoral neck at -1.2; and left total hip T score -0.7. He was started on alendronate therapy by PMD. CT PET scan done on March 13, 2021 showed hypermetabolic spiculated nodule left lower lobe with SUV of 4.1, extensive hypermetabolic bilateral mediastinal and left hilar asya metastasis. No hypermetabolic right hilar lymph node. Hypermetabolic gastrohepatic ligament lymph node suspicious for asya metastasis. Solitary hypermetabolic expansile lytic lesion of left T2 transverse process and pedicle extensive hypermetabolic tumor into the left T2-3 neuroforamen and left lateral aspect of central canal. Mr. 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 He had radio therapy from April 03, 2021 through April 16, 2021 to total prescribed dose of 30 cGy delivered in 10 fractions. Mr. Galaviz has been offered treatment with Keytruda/carboplatin Taxol with plan Neulasta support. His current treatment plan will be day 1 and 8 every 21-day cycle. Started on May 19, 2021 Mr. Galaviz had placement of a right subclavian PowerPort per Dr. Calderon on May 15, 2021. Mr. Galaviz did have an MRI of the head without contrast on 05/05/2021 ordered by Myron Frias NP. It reported evidence of subacute ischemia involving the right periventricular white matter extending to the right inferior frontal lobe and insula. Associated T2 signal abnormality. No significant mass-effect or midline shift. A few additional tiny acute/subacute foci of acute ischemia in the right frontoparietal white matter. Mild small vessel changes. Mild to moderate parenchymal volume loss. Mild small vessel changes in the tigre. Tiny focus of hemosiderin in the right inferior frontal lobe. This is being followed by neurology. Follow-up CT PET scan done on July 12, 2021 shows lytic osseous lesion at T2 demonstrates minimal, inflammatory FDG uptake consistent with treated malignancy. A 3 cm lesion in the inferior left hilum has SUV of 7.6, consistent with known lung cancer. Left lower lobe atelectasis is FDG negative. Mild FDG activity in the right paratracheal 4R and subcarinal lymph node is consistent with local metastatic disease with SUV of 4.5. Came for follow-up, denies any specific complaints, no fever chills, no nausea or vomiting, no diarrhea or constipation, no new bony pains, no hemoptysis or hematemesis, no skin rash, no jaundice, no diarrhea or mucus in the stool, no wheezing or shortness of breath, denies any peripheral neuropathy. Tolerating combined chemoradiation with Keytruda/carboplatin/Taxol well otherwise Medications: Adult Aspirin EC Low Strength 2 Tablet (of 81 mg) Tablet, enteric coated Oral daily, Alendronate Sodium 1 Tablet (of 70 mg) Oral q 7 days, Atorvastatin Calcium 1 Tablet (of 40 mg) Oral at bedtime, Cardizem CD 1 Caplet (of 240 mg) Capsule SR 24 HR Oral daily, Clopidogrel Bisulfate 1 Tablet (of 75 mg) Oral daily, Cozaar 1 Tablet (of 50 mg) Oral daily, Dexamethasone 1 Tablet (of 4 mg) Oral t.i.d., Diclofenac Sodium 1 Tablet (of 75 mg) Tablet, enteric coated Oral daily, Eliquis 1 Tablet (of 5 mg) Oral b.i.d., Finasteride 1 Tablet (of 5 mg) Oral daily, Gabapentin 1 Caplet (of 400 mg) Capsule Oral t.i.d., oxyCODONE-Acetaminophen 1 (10-325 mg) Tablet Oral q 6 hours, Pantoprazole Sodium 1 (40 mg) Pack Oral daily, Tamsulosin HCl 1 (0.4 mg) Capsule Oral daily Allergies: No Known Allergies. Review of Systems: Review of Systems is not available for this patient. Vital Signs: Performed on Jul 22, 2021 08:15 Height - 70.00 in Weight - 183.0 lbs BSA - 2.01 sq.m BMI - 26.26 Temperature - 97.7 F (LOW) Pulse - 77 /min Respiration - 18 /min BP - 110/69 mm(hg) O2 Sat - 99 % Pain - 0 Performance Status: 0 - Fully active, able to carry on all predisease activities without restrictions. (ECOG) Physical Examination: ENMT - No mouth sores, no thrush, no jaundice, Respiratory - Lungs are clear to auscultation, Cardiovascular - Regular rate and rhythm of heart, Abdomen - Soft, bowel sounds present, Extremities - No visible edema. Lab/Imaging: Test performed on Jul 22, 2021 08:34 Creatinine 0.7 mg/dL Cr Clearance (Est) 125.55 mL/min Test performed on Jun 30, 2021 08:58 Sodium 140 mmol/L Potassium 3.7 mmol/L Chloride 103 mmol/L CO2 25 mmol/L Anion Gap 15.7 BUN 13 mg/dL eGFR 75.0 mL/min Glucose 103 mg/dL Osmolality - Calculated 290 mOsm/kg Calcium 7.9 mg/dL Protein, Total 5.8 g/dL Albumin 3.8 g/dL Globulin 2.0 g/dL Bilirubin, Total 0.4 mg/dL ALT (SGPT) 8 Units/L AST (SGOT) 8 Units/L Alkaline Phosphatase 119 IU/L WBC 9.7 10^3/uL RBC 3.21 10^6/uL HGB 9.4 g/dL HCT 31.2 % MCV 97.2 fl MCH 29.3 pg MCHC 30.1 g/dL RDW 19.5 % Platelet Count 190 10^3/uL MPV 10.8 fl Neutrophils 8.09 10^3/uL Lymphocytes 0.7 10^3/uL Monocytes 0.7 10^3/uL Eosinophils 0.0 10^3/uL Basophils 0.1 10^3/uL Neutrophil % 83.2 % Lymphocyte % 7.6 % Monocyte % 7.1 % Eosinophil % 0.1 % Basophils % 0.6 % NRBC 0 /100 WBC NRBC % 0.0 % Test performed on May 19, 2021 08:25 Manual Lymphocytes 13.7 % Manual Monocytes 1.0 % Manual Eosinophils 0.0 % Manual Basophils 0.2 % Impression: Metastatic Squamous cell carcinoma involving bilateral mediastinal lymph nodes and left lower lobe of lung per bronchoscopy/EBUS FNA obtained from lymph node station 4R, station 4L, station 7, station 11 L and left lower lobe mass endobronchial biopsy all confirmed squamous cell carcinoma involvement, Guardant 360 showed no targetable mutation but TMB was more than 10. E.g. candidate for pembrolizumab CT PET scan done on March 13, 2021 showed hypermetabolic spiculated nodule left lower lobe with maximal SUV of 4.1, extensive hypermetabolic bilateral mediastinal and left hilar lymph nodes, no hypermetabolic right hilar lymph node. Hypermetabolic gastrohepatic ligament lymph node suspicious for asya metastasis. Solitary hypermetabolic expansile lytic lesion of the left T2 transverse process and pedicle extensive hypermetabolic tumor into the left T2-3 neural foramen and left lateral aspect of central canal CT scan of the chest done on February 11, 2021 showed suspected neoplasm within left lower lobe and accompanying left hilar and mediastinal lymphadenopathy and limited image of upper abdomen without apparent significant pathology. Left neck pain radiating to left shoulder and arm, etiology unclear, metastatic disease versus osteoarthritis versus disc protrusion, Status post radiation therapy to T2 vertebral body completed on April 16, 2021, patient received 30 Gy in 10 fractions Longstanding history of heavy smoking quit in 2009 Plan: Discussed with patient regarding his labs white blood count 6.3 hemoglobin 9.2 hematocrit 30.3 platelets 302,000 iron saturation 19.4, iron 39, ferritin 640, follow-up CT PET scan done after 3 cycles of chemotherapy with carboplatin/Taxol and with the last cycle Keytruda was added showed inflammatory FDG uptake at T2, consistent with treated osseous metastatic disease. Left lower lobe hilar mass representing residual malignancy. Malignant mediastinal lymph nodes in the right paratracheal and subcarinal nodes is consistent with local metastatic disease, when compared with PET scan done in February 2021, it shows excellent response, MRI scan of the neck done on July 15, 2021 showed mild progression of metastatic lesion within T2 vertebral body with extension into left articular facets, left lamina and adjacent paraspinal soft tissues. But there is no cord compression. Clinically, patient doing well with no new signs symptom suggestive of disease progression his follow-up CT PET scan shows excellent response, no new lesions, and now with mainly intrathoracic disease, combined chemoradiation therapy with weekly carboplatin/Taxol is under consideration but concern is right paratracheal 4R lymph node as radiation field will overlap with the previous radiation field used to treat T2 vertebral mets so at this point , will consider transbronchial biopsy of right paratracheal lymph node if it confirmed malignancy then will continue with same chemo regimen e.g. Keytruda/carboplatin/Taxol for another 2-[address] PET scan if it shows resolution of right paratracheal lymph node then may consider adding radiation therapy to left lung primary while holding immunotherapy during combined chemoradiation treatment plan and followed by maintenance immunotherapy on the other hand if transbronchial biopsy of right paratracheal lymph node shows no evidence of metastatic disease then consider combined chemoradiation targeting left lung lesion., for now ,we will proceed with next cycle with Keytruda/carboplatin/Taxol and then he will return to clinic in 1 week with CBC CMP and for day 8 therapy in the meantime we will refer him to pulmonology for evaluation regarding transbronchial paratracheal lymph node biopsy. As far as anemia is concerned, patient was advised to take oral iron supplement and will monitor his hemoglobin and transfuse if less than 8 g Signed By: Martin Schroeder M.D. <<Signature on File>>
[2021-07-29] MEDS: palonosetron 0.25 mg/5 mL SDV IV (11:30)
[2021-07-29] MEDS: sodium chloride 0.9% 250 ML 75 ML IV (11:30)
[2021-07-29] MEDS: famotidine 20 mg/2 mL INJ IVP (11:31)
[2021-07-29] MEDS: diphenhydrAMINE 50 mg/mL SDV 1mL 25 MG IV (11:33)
[2021-07-29] MEDS: fosaprepitant 150 MG in sodium chloride 0.9% 150 ML 300 MG IV (11:51)
[2021-07-29] MEDS: pegfilgrastim 6 mg/0.6 mL Kit (onpro) SUBCUT (14:15)
--- NOTE | 2021-07-29 17:41 | ONC FU_ITS ---
Dr. Schroeder follow up note Patient: Tramaine Galaviz Unit #: [id number]: 1955 Dicatated By: Martin Schroeder M.D.Date of Visit:Jul 29, 2021 Onc Med Follow-up/Prog Note History of Present Illness: Mr. Galaviz is a 66-year-old gentleman with a history of hematuria. it was which confirmed to be due to an enlarged prostate. As a part of hematuria evaluation, he underwent CT urography on February 06, 2021, which showed an incidental finding of 11 mm lung nodule along with the left hilar lymphadenopathy. Mr Galaviz then underwent CT scan of chest on February 11, 2021 which showed enlarged lymph nodes within both sides of middle mediastinum and within subcarinal space. He also had a lymph node within the right paratracheal space measuring up to 15 mm; low-grade left hilar lymphadenopathy and A small masslike lesion grossly measuring 2.6 x 2.1 cm, centrally of left infrahilar region contiguous with peribronchovascular soft tissue thickening within the posterior basal segment of left lung and a small localized region of complex soft tissue thickening centrally within the left lower lobe and limited images of upper abdomen without apparent significant pathology. Subsequently Mr Galaviz was referred to pulmonology and underwent bronchoscopy on February 19, 2021. EBUS FNA biopsy was obtained from lymph node station 4R, 4L, station 7, station 11 L, and left lower lobe of lung mass #1 endobronchial biopsy, all of them confirmed involvement with squamous cell carcinoma whereas left lower lobe mass #2 posterior basal segment showed benign alveolated lung tissue, no tumor was seen. Guardant 360 showed no targetable mutation but TMB was more than 10 e.g. 11.16 mutation thus candidate for pembrolizumab Patient quit smoking in 2009 but prior to that about 40-year history of smoking with 3 to 4 packs a day, Mr Galaviz had been complaining of left neck pain radiating to left shoulder and elbow, progressive for the last couple of weeks, A plain x-ray of C-spine done on February 10, 2021 shows no evidence of fracture or dislocation; mild disc space narrowing at C5-6 and C6-7 with mild degenerative retrolisthesis at these levels. Hydrocodone is not helping his pain much and not getting enough sleep because of it. Denies any history of trauma to neck or left shoulder. Denies any history of hemoptysis or hematemesis denies any history of jaundice denies any history of bony pains, off and on headaches but no blurred vision or double vision. No weight loss, no night sweats but some cough and dyspnea on exertion for the last few weeks. Mr Galaviz was diagnosed with osteoporosis based on a DEXA scan from October 30, 2020. The bone density from 10/30/2020 at [facility] reported the bone mineral density T-score for L1-L4 @ -2.5; the left femoral neck at -1.2; and left total hip T score -0.7. He was started on alendronate therapy by PMD. CT PET scan done on March 13, 2021 showed hypermetabolic spiculated nodule left lower lobe with SUV of 4.1, extensive hypermetabolic bilateral mediastinal and left hilar asya metastasis. No hypermetabolic right hilar lymph node. Hypermetabolic gastrohepatic ligament lymph node suspicious for asya metastasis. Solitary hypermetabolic expansile lytic lesion of left T2 transverse process and pedicle extensive hypermetabolic tumor into the left T2-3 neuroforamen and left lateral aspect of central canal. Mr. 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 He had radio therapy from April 03, 2021 through April 16, 2021 to total prescribed dose of 30 cGy delivered in 10 fractions. Mr. Galaviz has been offered treatment with Keytruda/carboplatin Taxol with plan Neulasta support. His current treatment plan will be day 1 and 8 every 21-day cycle. Started on May 19, 2021 Mr. Galaviz had placement of a right subclavian PowerPort per Dr. Calderon on May 15, 2021. Mr. Galaviz did have an MRI of the head without contrast on 05/05/2021 ordered by Myron Frias NP. It reported evidence of subacute ischemia involving the right periventricular white matter extending to the right inferior frontal lobe and insula. Associated T2 signal abnormality. No significant mass-effect or midline shift. A few additional tiny acute/subacute foci of acute ischemia in the right frontoparietal white matter. Mild small vessel changes. Mild to moderate parenchymal volume loss. Mild small vessel changes in the tigre. Tiny focus of hemosiderin in the right inferior frontal lobe. This is being followed by neurology. Follow-up CT PET scan done on July 12, 2021 shows lytic osseous lesion at T2 demonstrates minimal, inflammatory FDG uptake consistent with treated malignancy. A 3 cm lesion in the inferior left hilum has SUV of 7.6, consistent with known lung cancer. Left lower lobe atelectasis is FDG negative. Mild FDG activity in the right paratracheal 4R and subcarinal lymph node is consistent with local metastatic disease with SUV of 4.5. Came for follow-up, denies any specific complaints except generalized weakness and fatigue, no fever chills, no nausea or vomiting, no diarrhea constipation, tolerating oral iron 2 tablets p.o. daily well, patient is awaiting pulmonology evaluation regarding right paratracheal lymph node evaluation. Otherwise tolerating systemic therapy with Keytruda/carboplatin/Taxol well Medications: Adult Aspirin EC Low Strength 2 Tablet (of 81 mg) Tablet, enteric coated Oral daily, Alendronate Sodium 1 Tablet (of 70 mg) Oral q 7 days, Atorvastatin Calcium 1 Tablet (of 40 mg) Oral at bedtime, Cardizem CD 1 Caplet (of 240 mg) Capsule SR 24 HR Oral daily, Clopidogrel Bisulfate 1 Tablet (of 75 mg) Oral daily, Cozaar 1 Tablet (of 50 mg) Oral daily, Dexamethasone 1 Tablet (of 4 mg) Oral t.i.d., Diclofenac Sodium 1 Tablet (of 75 mg) Tablet, enteric coated Oral daily, Eliquis 1 Tablet (of 5 mg) Oral b.i.d., Finasteride 1 Tablet (of 5 mg) Oral daily, Gabapentin 1 Caplet (of 400 mg) Capsule Oral t.i.d., oxyCODONE-Acetaminophen 1 (10-325 mg) Tablet Oral q 6 hours, Pantoprazole Sodium 1 (40 mg) Pack Oral daily, Tamsulosin HCl 1 (0.4 mg) Capsule Oral daily Allergies: No Known Allergies. Review of Systems: Review of Systems is not available for this patient. Vital Signs: Performed on Jul 29, 2021 10:40 Height - 70.00 in Weight - 185 lbs (HIGH) BSA - 2.02 sq.m BMI - 26.54 Temperature - 97.4 F (LOW) Pulse - 72 /min Respiration - 18 /min BP - 118/77 mm(hg) O2 Sat - 96 % Pain - 0 Fatigue - 4 Performance Status: 0 - Fully active, able to carry on all predisease activities without restrictions. (ECOG) Physical Examination: ENMT - No mouth sores, no thrush, no jaundice, Respiratory - Lungs are clear to auscultation, Cardiovascular - Regular rate and rhythm of heart, Abdomen - Soft, bowel sounds present, Extremities - No visible edema. Lab/Imaging: Test performed on Jul 29, 2021 10:00 Sodium 141 mmol/L Potassium 4.3 mmol/L Chloride 104 mmol/L CO2 28 mmol/L Anion Gap 13.3 BUN 16 mg/dL Creatinine 0.7 mg/dL Cr Clearance (Est) 125.55 mL/min eGFR 113.2 mL/min Glucose 97 mg/dL Osmolality - Calculated 293 mOsm/kg Calcium 8.4 mg/dL Protein, Total 5.6 g/dL Albumin 3.7 g/dL Globulin 1.9 g/dL Bilirubin, Total 0.3 mg/dL ALT (SGPT) 10 Units/L AST (SGOT) 9 Units/L Alkaline Phosphatase 102 International Units/L WBC 6.1 10^3/uL RBC 3.04 10^6/uL HGB 9.5 g/dL HCT 30.7 % MCV 101.0 fl MCH 31.3 pg MCHC 30.9 g/dL RDW 18.8 % Platelet Count 401 10^3/uL MPV 10.2 fl Neutrophils 4.56 10^3/uL Lymphocytes 0.8 10^3/uL Monocytes 0.5 10^3/uL Eosinophils 0.0 10^3/uL Basophils 0.0 10^3/uL Neutrophil % 75.3 % Lymphocyte % 13.1 % Monocyte % 8.9 % Eosinophil % 0.7 % Basophils % 0.3 % NRBC 0 /100 WBC NRBC % 0.0 % Test performed on May 19, 2021 08:25 Manual Lymphocytes 13.7 % Manual Monocytes 1.0 % Manual Eosinophils 0.0 % Manual Basophils 0.2 % Impression: Metastatic Squamous cell carcinoma involving bilateral mediastinal lymph nodes and left lower lobe of lung per bronchoscopy/EBUS FNA obtained from lymph node station 4R, station 4L, station 7, station 11 L and left lower lobe mass endobronchial biopsy all confirmed squamous cell carcinoma involvement, Guardant 360 showed no targetable mutation but TMB was more than 10. E.g. candidate for pembrolizumab CT PET scan done on March 13, 2021 showed hypermetabolic spiculated nodule left lower lobe with maximal SUV of 4.1, extensive hypermetabolic bilateral mediastinal and left hilar lymph nodes, no hypermetabolic right hilar lymph node. Hypermetabolic gastrohepatic ligament lymph node suspicious for asya metastasis. Solitary hypermetabolic expansile lytic lesion of the left T2 transverse process and pedicle extensive hypermetabolic tumor into the left T2-3 neural foramen and left lateral aspect of central canal CT scan of the chest done on February 11, 2021 showed suspected neoplasm within left lower lobe and accompanying left hilar and mediastinal lymphadenopathy and limited image of upper abdomen without apparent significant pathology. Left neck pain radiating to left shoulder and arm, etiology unclear, metastatic disease versus osteoarthritis versus disc protrusion, Status post radiation therapy to T2 vertebral body completed on April 16, 2021, patient received 30 Gy in 10 fractions Longstanding history of heavy smoking quit in 2009 Plan: Discussed with patient regarding his labs white blood count 6.1 hemoglobin 9.5 g compared to 9 g previously hematocrit 30.7 platelets 401,000 CMP within normal limits Clinically, patient doing well with no new signs symptom suggestive of disease progression, tolerating systemic therapy well, will proceed with next day 8 chemotherapy with carboplatin/Taxol today and he will return to clinic in 2 weeks with CBC CMP and iron studies, patient is on oral iron for iron deficiency anemia, if there is no improvement in his iron stores or hemoglobin,, patient may have iron malabsorption so may consider parenteral iron. We will also remind pulmonology regarding evaluation for right paratracheal lymph node, case was discussed with Dr. Muro earlier. Signed By: Martin Schroeder M.D. <<Signature on File>>
== END 2021-07-29 23:59 | disposition home or self-care (01) ==
LOC: ONCMED 05:42
PROVIDERS: PCP Family Medicine; Visit Provider Internal Medicine Hematology & Oncology
DX: Z51.12 Encounter for antineoplastic immunotherapy (principal); Z51.11 Encounter for antineoplastic chemotherapy; C34.32 Malignant neoplasm of lower lobe, left bronchus or lung; C79.51 Secondary malignant neoplasm of bone; C77.8 Secondary and unspecified malignant neoplasm of lymph nodes of multiple regions; Z87.891 Personal history of nicotine dependence; Z79.899 Other long term (current) drug therapy
CPT/HCPCS: 36415; 36591; 72156; 80053; 82728; 83540; 83550; 85025; 96367; 96375; 96377; 96413; 96415; 96417; 99215; A9577; J1100; J1200; J1453; J2469; J2505; J3490; J7030; J7040; J7050; J9045; J9267; J9271

== ENCOUNTER 2021-08-05 08:58 | Day surgery (SDC) | payer BC, MEDICARE, SELFPAY ==
[2021-07-31 07:13] VITALS: BMI 26.5
[2021-07-31 09:46] VITALS: BMI 26.5
[2021-08-05] VITALS (7 sets, daily range): BP systolic 111–130; BP diastolic 60–79; PULSE 61–79; RESP 16–18; TEMP 36.1–36.9; O2SAT 92–99
--- NOTE | 2021-08-05 08:21 | W.PM.OPSUD ---
Surgery/Procedure H&P Update DATE OF PROCEDURE: August 05, 2021 DATE H&P PERFORMED: 07/30/21 H&P UPDATE INFORMATION: I have reviewed H&P completed within last 30 days, I have examined patient prior to procedure and No changes to prior documentation PREOP DIAGNOSIS: LUNG CANCER PLANNED PROCEDURE: Bronchoscopy with inspection of the airway, possible endobronchial biopsy, bronchoalveolar lavage, Cytobrush, endobronchial sound guided transbronchial needle aspiration of lymph nodes and control of bleeding. Operation Date: 08/05/21 10:00 Proposed Procedures p Ebus(Not Applicable) - Janeth Harrison MD
--- NOTE | 2021-08-05 09:23 | ANES.PREANE2 ---
Pre-Anesthetic Assessment Pre-Anesthetic Assessment: Height/Weight: Height 1.78 m Weight 83.915 kg Preop Diagnosis: LUNG CANCER Proposed Procedure: Operation Date: 08/05/21 10:00 Proposed Procedures p Ebus(Not Applicable) - Janeth Harrison MD Familial anesthetic complications: None Was Beta Son taken within 24 hours: N/A Was Clonidine taken within 24 hours: N/A Last intake: > 8 hrs Social: Social History: No alcohol and No tobacco Comment: former smoker Airway: MP: 3 Dentition: Other (no teeth) Pulmonary: Pulmonary: COPD Comments: Lung cancer CV/HEM: CV/HEM: Afib, CHF and HTN Neuropsych: Neuropsych: 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, blurry vision) Anesthetic Plan: ASA status: 4 Anesthesia: General Risk of > 500 ml blood loss (7ml/kg in children): No PFSH Anesthesia PFSH: Medical History Cervical radiculopathy Hypertension 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 Peripheral neuropathy Surgical History History of ankle surgery History of bronchoscopy History of lumbar laminectomy for spinal cord decompression History of shoulder surgery S/P right rotator cuff repair Family History Other Cancer Dementia Social History Quit status (tobacco): has quit using tobacco Year quit tobacco: 2010 Former quit date comment: 5 PPD x 40 Years Second hand smoke exposure: No Smoking risk assessment/counseling performed?: No Alcohol intake: former Counseling given: No Counseling given: No Lives independently: Yes Household members: spouse Marital status: Current occupational status: unemployed History of recent travel: No Current gender identity: Male Data Anesthesia Cardiac Studies: Cardiac Event Monitor 04/17/21
[2021-08-05] MEDS: sodium chloride 0.9% 1,000 ML 30 ML IV (10:16)
[2021-08-05] MEDS: lidocaine 1% INJ 20 mL XX (10:56)
--- NOTE | 2021-08-05 11:54 | PM.OP ---
Operative Report Date of procedure: August 05, 2021 Pre-op Diagnosis: LUNG CANCER Post-op diagnosis: same Brief History: This is a 66-year-old gentleman with known lung cancer coming in for bronchoscopic evaluation for persistent PET positive right paratracheal lymph node. Procedure: Name of the procedure: Bronchoscopy with inspection of the airway, possible bronchoalveolar lavage, endobronchial biopsies, transbronchial biopsies, endobronchial ultrasound-guided transbronchial needle aspiration of lymph nodes and control of bleeding. Indication: Persistent PET positive right paratracheal lymph node Anesthesia: General anesthesia. Local anesthesia: The arcelia in the right and left mainstem bronchi were anesthetized with 1% lidocaine, 3 mL. Description of the procedure: The procedure was explained to the patient and the consent was obtained. The patient was brought to the OR. The patient underwent endotracheal intubation for general anesthesia. Following induction of general anesthesia, the bronchoscope was advanced through the ET tube. The lower trachea appeared to be normal. The arcelia was sharp. The arcelia, the right and left mainstem bronchi are anesthetized with 1% lidocaine. In a systematic manner bilateral bronchial tree was then examined. The bronchoscope was advanced into the left mainstem bronchus. The left upper lobe, lingula and left lower lobe bronchi were examined up to the third subsegmental level and no abnormalities were identified. There is no endobronchial lesion, active bleeding or mucous plug. The opening of the left lower lobe bronchus was somewhat narrowed likely secondary to previous radiation exposure. Was able to pass the bronchoscope. The bronchoscope was then introduced into the right mainstem bronchus. The right upper lobe, right middle lobe and right lower lobe bronchi were examined up to the third subsegmental level and no abnormalities were identified. The endobronchial ultrasound was introduced through the ET tube. Significant right paratracheal lymphadenopathy was identified. Transbronchial needle aspiration of the 4R lymph node station was performed. Samples: 1. The transbronchial needle aspiration of station 4R lymph node was sent for histopathology. Complications: There was no immediate complications.
--- NOTE | 2021-08-05 15:33 | ANE.PACU2 ---
Inpatient post-anesthesia follow up: Airway intact: Yes Vital signs: Temperature 97.7 F Pulse Rate 62 Respiratory Rate 16 Blood Pressure 119/62 Pulse Oximetry 92 Oxygen Delivery Me thod Room Air Oxygen Flow Rate 7 Fraction of Inspir ed Oxygen Hydration adequate: Yes Nausea and vomiting: No Pain level: 2 Mental status: Baseline
[2021-09-04 09:51] LABS: Miscellaneous Test See Scanned Lab Rpt
== END 2021-08-05 12:50 | disposition home or self-care (01) ==
PROVIDERS: PCP Family Medicine; Visit Provider Internal Medicine Critical Care Medicine
PROC: BB4BZZZ Ultrasonography of Pleura (ICD-10-PCS; principal; 2021-08-05 10:00)
PROC: 0BJ08ZZ Inspection of Tracheobronchial Tree, Via Natural or Artificial Opening Endoscopic (ICD-10-PCS; CPT 31622; 2021-08-05 10:00)
DX: C34.90 Malignant neoplasm of unspecified part of unspecified bronchus or lung (principal); J44.9 Chronic obstructive pulmonary disease, unspecified; I48.91 Unspecified atrial fibrillation; I11.0 Hypertensive heart disease with heart failure; I50.9 Heart failure, unspecified; Z86.73 Personal history of transient ischemic attack (TIA), and cerebral infarction without residual deficits; Z87.891 Personal history of nicotine dependence; Z79.82 Long term (current) use of aspirin
CPT/HCPCS: 31622; 31652; 80500; 88305; 88342; 96360; 96361; J2704; J3010; J3490; J7030

== ENCOUNTER → 2021-08-21 14:43 | Outpatient (BNVA) | payer MEDICARE, BC, SELFPAY | PROVIDERS: PCP Family Medicine; Visit Provider Nurse Practitioner Family | DX: J22 Unspecified acute lower respiratory infection (principal); C34.90 Malignant neoplasm of unspecified part of unspecified bronchus or lung; J44.9 Chronic obstructive pulmonary disease, unspecified | CPT/HCPCS: 71046 ==

== ENCOUNTER → 2021-08-27 11:20 | Outpatient (BNVA) | payer BC, MEDICARE, SELFPAY | PROVIDERS: PCP Family Medicine; Visit Provider Internal Medicine Hematology & Oncology | DX: C34.90 Malignant neoplasm of unspecified part of unspecified bronchus or lung (principal); J44.0 Chronic obstructive pulmonary disease with (acute) lower respiratory infection | CPT/HCPCS: 80053; 85025 ==

== ENCOUNTER 2021-08-28 06:42 | Outpatient (RCR) | payer BC, MEDICARE, SELFPAY ==
--- NOTE | 2021-08-29 09:52 | ONC FU_ITS ---
Dr. Schroeder follow up note Patient: Tramaine Galaviz Unit #: [id number]: 1955 Dicatated By: Martin Schroeder M.D.Date of Visit:Aug 28, 2021 Onc Med Follow-up/Prog Note History of Present Illness: Mr. Galaviz is a 66-year-old gentleman with a history of hematuria. it was which confirmed to be due to an enlarged prostate. As a part of hematuria evaluation, he underwent CT urography on February 06, 2021, which showed an incidental finding of 11 mm lung nodule along with the left hilar lymphadenopathy. Mr Galaviz then underwent CT scan of chest on February 11, 2021 which showed enlarged lymph nodes within both sides of middle mediastinum and within subcarinal space. He also had a lymph node within the right paratracheal space measuring up to 15 mm; low-grade left hilar lymphadenopathy and A small masslike lesion grossly measuring 2.6 x 2.1 cm, centrally of left infrahilar region contiguous with peribronchovascular soft tissue thickening within the posterior basal segment of left lung and a small localized region of complex soft tissue thickening centrally within the left lower lobe and limited images of upper abdomen without apparent significant pathology. Subsequently Mr Galaviz was referred to pulmonology and underwent bronchoscopy on February 19, 2021. EBUS FNA biopsy was obtained from lymph node station 4R, 4L, station 7, station 11 L, and left lower lobe of lung mass #1 endobronchial biopsy, all of them confirmed involvement with squamous cell carcinoma whereas left lower lobe mass #2 posterior basal segment showed benign alveolated lung tissue, no tumor was seen. Guardant 360 showed no targetable mutation but TMB was more than 10 e.g. 11.16 mutation thus candidate for pembrolizumab Patient quit smoking in 2009 but prior to that about 40-year history of smoking with 3 to 4 packs a day, Mr Galaviz had been complaining of left neck pain radiating to left shoulder and elbow, progressive for the last couple of weeks, A plain x-ray of C-spine done on February 10, 2021 shows no evidence of fracture or dislocation; mild disc space narrowing at C5-6 and C6-7 with mild degenerative retrolisthesis at these levels. Hydrocodone is not helping his pain much and not getting enough sleep because of it. Denies any history of trauma to neck or left shoulder. Denies any history of hemoptysis or hematemesis denies any history of jaundice denies any history of bony pains, off and on headaches but no blurred vision or double vision. No weight loss, no night sweats but some cough and dyspnea on exertion for the last few weeks. Mr Galaviz was diagnosed with osteoporosis based on a DEXA scan from October 30, 2020. The bone density from 10/30/2020 at [facility] reported the bone mineral density T-score for L1-L4 @ -2.5; the left femoral neck at -1.2; and left total hip T score -0.7. He was started on alendronate therapy by PMD. CT PET scan done on March 13, 2021 showed hypermetabolic spiculated nodule left lower lobe with SUV of 4.1, extensive hypermetabolic bilateral mediastinal and left hilar asya metastasis. No hypermetabolic right hilar lymph node. Hypermetabolic gastrohepatic ligament lymph node suspicious for asya metastasis. Solitary hypermetabolic expansile lytic lesion of left T2 transverse process and pedicle extensive hypermetabolic tumor into the left T2-3 neuroforamen and left lateral aspect of central canal. Mr. 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 He had radio therapy from April 03, 2021 through April 16, 2021 to total prescribed dose of 30 cGy delivered in 10 fractions. Mr. Galaviz has been offered treatment with Keytruda/carboplatin Taxol with plan Neulasta support. His current treatment plan will be day 1 and 8 every 21-day cycle. Started on May 19, 2021 Mr. Galaviz had placement of a right subclavian PowerPort per Dr. Calderon on May 15, 2021. Mr. Galaviz did have an MRI of the head without contrast on 05/05/2021 ordered by Myron Frias NP. It reported evidence of subacute ischemia involving the right periventricular white matter extending to the right inferior frontal lobe and insula. Associated T2 signal abnormality. No significant mass-effect or midline shift. A few additional tiny acute/subacute foci of acute ischemia in the right frontoparietal white matter. Mild small vessel changes. Mild to moderate parenchymal volume loss. Mild small vessel changes in the tigre. Tiny focus of hemosiderin in the right inferior frontal lobe. This is being followed by neurology. Follow-up CT PET scan done on July 12, 2021 shows lytic osseous lesion at T2 demonstrates minimal, inflammatory FDG uptake consistent with treated malignancy. A 3 cm lesion in the inferior left hilum has SUV of 7.6, consistent with known lung cancer. Left lower lobe atelectasis is FDG negative. Mild FDG activity in the right paratracheal 4R and subcarinal lymph node is consistent with local metastatic disease with SUV of 4.5., Was referred to pulmonology for right paratracheal mass evaluation, patient underwent bronchoscopy/EBUS on August 05, 2021 and a biopsy from 4R lymph node confirmed poorly differentiated metastatic squamous cell carcinoma Came for follow-up, denies any specific complaints, no fever chills, no nausea or vomiting, no diarrhea constipation, no hemoptysis or hematemesis, no new bony pains except mild mid back pain which is under control, patient recently underwent bronchoscopy for evaluation of right paratracheal mass/lymph node Medications: Adult Aspirin EC Low Strength 2 Tablet (of 81 mg) Tablet, enteric coated Oral daily, Alendronate Sodium 1 Tablet (of 70 mg) Oral q 7 days, Atorvastatin Calcium 1 Tablet (of 40 mg) Oral at bedtime, Cardizem CD 1 Caplet (of 240 mg) Capsule SR 24 HR Oral daily, Clopidogrel Bisulfate 1 Tablet (of 75 mg) Oral daily, Cozaar 1 Tablet (of 50 mg) Oral daily, Dexamethasone 1 Tablet (of 4 mg) Oral t.i.d., Diclofenac Sodium 1 Tablet (of 75 mg) Tablet, enteric coated Oral daily, Eliquis 1 Tablet (of 5 mg) Oral b.i.d., Finasteride 1 Tablet (of 5 mg) Oral daily, Gabapentin 1 Caplet (of 400 mg) Capsule Oral t.i.d., oxyCODONE-Acetaminophen 1 (10-325 mg) Tablet Oral q 6 hours, Pantoprazole Sodium 1 (40 mg) Pack Oral daily, Tamsulosin HCl 1 (0.4 mg) Capsule Oral daily Allergies: No Known Allergies. Review of Systems: Review of Systems is not available for this patient. Vital Signs: Performed on Aug 28, 2021 10:25 Height - 70.00 in Temperature - 98.1 F (LOW) Pulse - 80 /min Respiration - 18 /min BP - 100/65 mm(hg) O2 Sat - 95 % (LOW) Pain - 0 Fatigue - 0 Performance Status: 0 - Fully active, able to carry on all predisease activities without restrictions. (ECOG) Physical Examination: ENMT - No mouth sores, no thrush, no jaundice, Respiratory - Lungs are clear to auscultation, Cardiovascular - Regular rate and rhythm of heart, Abdomen - Soft, bowel sounds present, Extremities - No visible edema. Lab/Imaging: Test performed on Aug 27, 2021 10:11 Glucose 85 mg/dL BUN 20 mg/dL Creatinine 0.7 mg/dL Cr Clearance (Est) 125.55 mL/min Sodium 142 mmol/L Potassium 3.4 mmol/L Chloride 104 mmol/L CO2 27 mmol/L Calcium 8.8 mg/dL Protein, Total 6.0 g/dL Albumin 3.9 g/dL Globulin 2.1 g/dL Bilirubin, Total 0.2 mg/dL Alkaline Phosphatase 88 International Units/L AST (SGOT) 11 International Units/L ALT (SGPT) 10 International Units/L WBC 8.6 10^9/L RBC 3.55 10^12/L HGB 11 g/dL HCT 35.7 % MCV 100.6 fl MCH 31 pg MCHC 30.8 g/dL RDW 18.8 % Platelet Count 327 10^9/L Neutrophils (Gran) 6.51 10^9/L Lymphocytes 0.8 10^9/L Monocytes 1.1 10^9/L Eosinophils 0.1 10^9/L Basophils 0 10^9/L Test performed on Jul 29, 2021 10:00 Anion Gap 13.3 eGFR 113.2 mL/min Osmolality - Calculated 293 mOsm/kg MPV 10.2 fl Neutrophil % 75.3 % Lymphocyte % 13.1 % Monocyte % 8.9 % Eosinophil % 0.7 % Basophils % 0.3 % NRBC 0 /100 WBC NRBC % 0.0 % Test performed on May 19, 2021 08:25 Manual Lymphocytes 13.7 % Manual Monocytes 1.0 % Manual Eosinophils 0.0 % Manual Basophils 0.2 % Impression: Metastatic Squamous cell carcinoma involving bilateral mediastinal lymph nodes and left lower lobe of lung per bronchoscopy/EBUS FNA obtained from lymph node station 4R, station 4L, station 7, station 11 L and left lower lobe mass endobronchial biopsy all confirmed squamous cell carcinoma involvement, Guardant 360 showed no targetable mutation but TMB was more than 10. E.g. candidate for pembrolizumab CT PET scan done on March 13, 2021 showed hypermetabolic spiculated nodule left lower lobe with maximal SUV of 4.1, extensive hypermetabolic bilateral mediastinal and left hilar lymph nodes, no hypermetabolic right hilar lymph node. Hypermetabolic gastrohepatic ligament lymph node suspicious for asya metastasis. Solitary hypermetabolic expansile lytic lesion of the left T2 transverse process and pedicle extensive hypermetabolic tumor into the left T2-3 neural foramen and left lateral aspect of central canal CT scan of the chest done on February 11, 2021 showed suspected neoplasm within left lower lobe and accompanying left hilar and mediastinal lymphadenopathy and limited image of upper abdomen without apparent significant pathology. Left neck pain radiating to left shoulder and arm, etiology unclear, metastatic disease versus osteoarthritis versus disc protrusion, Status post radiation therapy to T2 vertebral body completed on April 16, 2021, patient received 30 Gy in 10 fractions Longstanding history of heavy smoking quit in 2009 Plan: . Discussed with patient regarding his labs white blood count 8.6 hemoglobin 11 compared to 9.5 previously hematocrit 35.7 platelets 327,000 CMP within normal limit except potassium 3.4 and recently done bronchoscopy/EBUS for right paratracheal mass evaluation confirmed metastatic squamous cell carcinoma Clinically, patient doing well with no new signs symptom suggestive of disease progression, tolerating systemic therapy with Keytruda/carboplatin/Taxol well. His follow-up CT PET scan done in June 2021 shows good response but persistent right paratracheal activity otherwise very good response as far as mediastinal lymphadenopathy is concerned and persistent left lower lobe mass with activity so he was referred to pulmonology to evaluate persistent right paratracheal mass/FDG activity to confirm persistent disease versus inflammatory so that if it is inflammatory then consider combined chemoradiation for left lower lobe lung mass on the other hand if is positive then continue with systemic therapy as there is no further room for definitive radiation therapy dose for right paratracheal mass as patient has already received palliative radiation therapy to his T2 vertebra. So now, recent biopsy has confirmed persistent disease in the right paratracheal which was confirmed at the time of diagnosis, treatment options including continue with same regimen for 3 more cycle and then repeating CT PET scan if it shows good response then switch him to maintenance therapy with immunotherapy versus switching him to another regiment to downstage disease so that combined chemoradiation can be considered. Patient will return to clinic on Wednesday to discuss treatment options which include continue with current regimen for 3 more cycle then followed by a CT PET scan versus switching him to maintenance therapy with immunotherapy alone versus switching him to another chemo regimen like cisplatin/Navelbine or cisplatin/gemcitabine plus minus immunotherapy. Case was discussed with pathology and radiology, his recent PET scan shows good response so we will continue with same regimen for 3 more cycles and then repeat CT PET scan if it shows good response and no disease activity in the mediastinum, may consider SBRT to left lower lung mass and switching to maintenance therapy with immunotherapy alone. Signed By: Martin Schroeder M.D. <<Signature on File>>
== END 2021-08-28 23:59 | disposition home or self-care (01) ==
LOC: ONCMED 06:42
PROVIDERS: PCP Family Medicine; Visit Provider Internal Medicine Hematology & Oncology
DX: C34.32 Malignant neoplasm of lower lobe, left bronchus or lung (principal); C77.8 Secondary and unspecified malignant neoplasm of lymph nodes of multiple regions; C79.51 Secondary malignant neoplasm of bone; F17.211 Nicotine dependence, cigarettes, in remission; Z79.899 Other long term (current) drug therapy; Z92.21 Personal history of antineoplastic chemotherapy
CPT/HCPCS: 71046; 87635; 99214

== ENCOUNTER → 2021-09-08 09:12 | Outpatient (BNVA) | payer BC, MEDICARE, SELFPAY | PROVIDERS: PCP Family Medicine; Visit Provider Internal Medicine Hematology & Oncology | DX: C34.92 Malignant neoplasm of unspecified part of left bronchus or lung (principal) | CPT/HCPCS: 80053; 85025 ==

== ENCOUNTER → 2021-09-22 00:01 | Outpatient (BNVA) | payer BC, MEDICARE, SELFPAY | PROVIDERS: PCP Family Medicine; Visit Provider Internal Medicine Hematology & Oncology | DX: C34.90 Malignant neoplasm of unspecified part of unspecified bronchus or lung (principal) | CPT/HCPCS: 80053; 85025 ==

== ENCOUNTER 2021-09-23 06:10 | Outpatient (RCR) | payer BC, MEDICARE, SELFPAY ==
--- NOTE | 2021-09-01 14:51 | ONC FU_ITS ---
Dr. Schroeder follow up note Patient: Tramaine Galaviz Unit #: [id number]: 1955 Dicatated By: Martin Schroeder M.D.Date of Visit:Sep 01, 2021 Onc Med Follow-up/Prog Note History of Present Illness: Mr. Galaviz is a 66-year-old gentleman with a history of hematuria. it was which confirmed to be due to an enlarged prostate. As a part of hematuria evaluation, he underwent CT urography on February 06, 2021, which showed an incidental finding of 11 mm lung nodule along with the left hilar lymphadenopathy. Mr Galaviz then underwent CT scan of chest on February 11, 2021 which showed enlarged lymph nodes within both sides of middle mediastinum and within subcarinal space. He also had a lymph node within the right paratracheal space measuring up to 15 mm; low-grade left hilar lymphadenopathy and A small masslike lesion grossly measuring 2.6 x 2.1 cm, centrally of left infrahilar region contiguous with peribronchovascular soft tissue thickening within the posterior basal segment of left lung and a small localized region of complex soft tissue thickening centrally within the left lower lobe and limited images of upper abdomen without apparent significant pathology. Subsequently Mr Galaviz was referred to pulmonology and underwent bronchoscopy on February 19, 2021. EBUS FNA biopsy was obtained from lymph node station 4R, 4L, station 7, station 11 L, and left lower lobe of lung mass #1 endobronchial biopsy, all of them confirmed involvement with squamous cell carcinoma whereas left lower lobe mass #2 posterior basal segment showed benign alveolated lung tissue, no tumor was seen. Guardant 360 showed no targetable mutation but TMB was more than 10 e.g. 11.16 mutation thus candidate for pembrolizumab Patient quit smoking in 2009 but prior to that about 40-year history of smoking with 3 to 4 packs a day, Mr Galaviz had been complaining of left neck pain radiating to left shoulder and elbow, progressive for the last couple of weeks, A plain x-ray of C-spine done on February 10, 2021 shows no evidence of fracture or dislocation; mild disc space narrowing at C5-6 and C6-7 with mild degenerative retrolisthesis at these levels. Hydrocodone is not helping his pain much and not getting enough sleep because of it. Denies any history of trauma to neck or left shoulder. Denies any history of hemoptysis or hematemesis denies any history of jaundice denies any history of bony pains, off and on headaches but no blurred vision or double vision. No weight loss, no night sweats but some cough and dyspnea on exertion for the last few weeks. Mr Galaviz was diagnosed with osteoporosis based on a DEXA scan from October 30, 2020. The bone density from 10/30/2020 at [facility] reported the bone mineral density T-score for L1-L4 @ -2.5; the left femoral neck at -1.2; and left total hip T score -0.7. He was started on alendronate therapy by PMD. CT PET scan done on March 13, 2021 showed hypermetabolic spiculated nodule left lower lobe with SUV of 4.1, extensive hypermetabolic bilateral mediastinal and left hilar asya metastasis. No hypermetabolic right hilar lymph node. Hypermetabolic gastrohepatic ligament lymph node suspicious for asya metastasis. Solitary hypermetabolic expansile lytic lesion of left T2 transverse process and pedicle extensive hypermetabolic tumor into the left T2-3 neuroforamen and left lateral aspect of central canal. Mr. 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 He had radio therapy from April 03, 2021 through April 16, 2021 to total prescribed dose of 30 cGy delivered in 10 fractions. Mr. Galaviz has been offered treatment with Keytruda/carboplatin Taxol with plan Neulasta support. His current treatment plan will be day 1 and 8 every 21-day cycle. Started on May 19, 2021 Mr. Galaviz had placement of a right subclavian PowerPort per Dr. Calderon on May 15, 2021. Mr. Galaviz did have an MRI of the head without contrast on 05/05/2021 ordered by Myron Frias NP. It reported evidence of subacute ischemia involving the right periventricular white matter extending to the right inferior frontal lobe and insula. Associated T2 signal abnormality. No significant mass-effect or midline shift. A few additional tiny acute/subacute foci of acute ischemia in the right frontoparietal white matter. Mild small vessel changes. Mild to moderate parenchymal volume loss. Mild small vessel changes in the tigre. Tiny focus of hemosiderin in the right inferior frontal lobe. This is being followed by neurology. Follow-up CT PET scan done on July 12, 2021 shows lytic osseous lesion at T2 demonstrates minimal, inflammatory FDG uptake consistent with treated malignancy. A 3 cm lesion in the inferior left hilum has SUV of 7.6, consistent with known lung cancer. Left lower lobe atelectasis is FDG negative. Mild FDG activity in the right paratracheal 4R and subcarinal lymph node is consistent with local metastatic disease with SUV of 4.5., Was referred to pulmonology for right paratracheal mass evaluation, patient underwent bronchoscopy/EBUS on August 05, 2021 and a biopsy from 4R lymph node confirmed poorly differentiated metastatic squamous cell carcinoma Came for follow-up, denies any specific complaints, no fever chills, no nausea or vomiting, no diarrhea or constipation, persistent mid/upper back pain but under control with current pain medication, Denies any peripheral numbness denies any nausea or vomiting denies any diarrhea or constipation denies any fever chills Medications: Adult Aspirin EC Low Strength 2 Tablet (of 81 mg) Tablet, enteric coated Oral daily, Alendronate Sodium 1 Tablet (of 70 mg) Oral q 7 days, Atorvastatin Calcium 1 Tablet (of 40 mg) Oral at bedtime, Cardizem CD 1 Caplet (of 240 mg) Capsule SR 24 HR Oral daily, Clopidogrel Bisulfate 1 Tablet (of 75 mg) Oral daily, Cozaar 1 Tablet (of 50 mg) Oral daily, Dexamethasone 1 Tablet (of 4 mg) Oral t.i.d., Diclofenac Sodium 1 Tablet (of 75 mg) Tablet, enteric coated Oral daily, Eliquis 1 Tablet (of 5 mg) Oral b.i.d., Finasteride 1 Tablet (of 5 mg) Oral daily, Gabapentin 1 Caplet (of 400 mg) Capsule Oral t.i.d., oxyCODONE-Acetaminophen 1 (10-325 mg) Tablet Oral q 6 hours, Pantoprazole Sodium 1 (40 mg) Pack Oral daily, Tamsulosin HCl 1 (0.4 mg) Capsule Oral daily Allergies: No Known Allergies. Review of Systems: Review of Systems is not available for this patient. Vital Signs: Vitals are not available for this patient. Performance Status: 0 - Fully active, able to carry on all predisease activities without restrictions. (ECOG) Physical Examination: ENMT - No mouth sores, no thrush, no jaundice, Respiratory - Lungs are clear to auscultation, Cardiovascular - Regular rate and rhythm of heart, Abdomen - Soft, bowel sounds present, Extremities - No visible edema. Lab/Imaging: Test performed on Aug 27, 2021 10:11 Glucose 85 mg/dL BUN 20 mg/dL Creatinine 0.7 mg/dL Cr Clearance (Est) 125.55 mL/min Sodium 142 mmol/L Potassium 3.4 mmol/L Chloride 104 mmol/L CO2 27 mmol/L Calcium 8.8 mg/dL Protein, Total 6.0 g/dL Albumin 3.9 g/dL Globulin 2.1 g/dL Bilirubin, Total 0.2 mg/dL Alkaline Phosphatase 88 International Units/L AST (SGOT) 11 International Units/L ALT (SGPT) 10 International Units/L WBC 8.6 10^9/L RBC 3.55 10^12/L HGB 11 g/dL HCT 35.7 % MCV 100.6 fl MCH 31 pg MCHC 30.8 g/dL RDW 18.8 % Platelet Count 327 10^9/L Neutrophils (Gran) 6.51 10^9/L Lymphocytes 0.8 10^9/L Monocytes 1.1 10^9/L Eosinophils 0.1 10^9/L Basophils 0 10^9/L Test performed on Jul 29, 2021 10:00 Anion Gap 13.3 eGFR 113.2 mL/min Osmolality - Calculated 293 mOsm/kg MPV 10.2 fl Neutrophil % 75.3 % Lymphocyte % 13.1 % Monocyte % 8.9 % Eosinophil % 0.7 % Basophils % 0.3 % NRBC 0 /100 WBC NRBC % 0.0 % Test performed on May 19, 2021 08:25 Manual Lymphocytes 13.7 % Manual Monocytes 1.0 % Manual Eosinophils 0.0 % Manual Basophils 0.2 % Impression: Metastatic Squamous cell carcinoma involving bilateral mediastinal lymph nodes and left lower lobe of lung per bronchoscopy/EBUS FNA obtained from lymph node station 4R, station 4L, station 7, station 11 L and left lower lobe mass endobronchial biopsy all confirmed squamous cell carcinoma involvement, Guardant 360 showed no targetable mutation but TMB was more than 10. E.g. candidate for pembrolizumab CT PET scan done on March 13, 2021 showed hypermetabolic spiculated nodule left lower lobe with maximal SUV of 4.1, extensive hypermetabolic bilateral mediastinal and left hilar lymph nodes, no hypermetabolic right hilar lymph node. Hypermetabolic gastrohepatic ligament lymph node suspicious for asya metastasis. Solitary hypermetabolic expansile lytic lesion of the left T2 transverse process and pedicle extensive hypermetabolic tumor into the left T2-3 neural foramen and left lateral aspect of central canal CT scan of the chest done on February 11, 2021 showed suspected neoplasm within left lower lobe and accompanying left hilar and mediastinal lymphadenopathy and limited image of upper abdomen without apparent significant pathology. Left neck pain radiating to left shoulder and arm, etiology unclear, metastatic disease versus osteoarthritis versus disc protrusion, Status post radiation therapy to T2 vertebral body completed on April 16, 2021, patient received 30 Gy in 10 fractions Longstanding history of heavy smoking quit in 2009 Plan: Discussed with patient regarding his treatment options and plan, case was discussed with radiation oncology and patient is follow-up CT PET scan was reviewed again which shows significant improvement in his extensive local regional disease, at this point it was decided to continue with same regimen e.g. Keytruda/carboplatin/Taxol for 3 more cycles and then repeat CT PET scan if it shows resolution of right paratracheal mass/abnormality then will consider SBRT to the left lower lobe mass and continue with maintenance immunotherapy. Patient expressed full understanding and will resume his systemic therapy in the morning, will repeat his CBC CMP today and he will take his premedication with high-dose steroids tonight and then return to clinic in the morning to resume his therapy with Keytruda/carboplatin/Taxol Signed By: Martin Schroeder M.D. <<Signature on File>>
[2021-09-01 15:29] LABS: Basophils % 0.1 %; Eosinophils % 0.2 %; Hematocrit 33.5 % (42.0-52.0); Hemoglobin 10.5 g/dL (11.7-16.6); Lymphocytes # 1.1 10^3/uL (0.8-4.8); Lymphocytes % 10.2 %; Mean Corpuscular HGB Conc 31.3 g/dL (30.0-36.0); Mean Corpuscular Volume 98.8 fl (80-94); Mean Platelet Volume 10.2 fL (7.4-10.4); Monocytes # 1.8 10^3/uL (0.2-0.9); Neutrophils % 71.1 %; Nucleated Red Blood Cells % 0 %; Platelet Count 336 10^3/cmm (130-400); Red Blood Count 3.39 10^6/uL (4.1-5.3); Red Cell Distribution Width 18.7 % (12.1-15.1); White Blood Count 10.5 10^3/uL (4.0-10.0)
[2021-09-01 16:13] LABS: Alanine Aminotransferase 7 U/L (0-41); Albumin Level 3.1 g/dL (3.5-5.2); Alkaline Phosphatase 71 IU/L (40-130); Anion Gap 14.7 (5-19); Aspartate Amino Transferase 7 U/L (0-40); Blood Urea Nitrogen 20 mg/dL (8-23); Calcium 8.6 mg/dL (8.5-10.5); Carbon Dioxide 24 mmol/L (22-29); Chloride 101 mmol/L (98-107); Globulin 2.5 g/dL (1.3-4.6); Glucose 108 mg/dL (65-115); Osmolality Calculated 285 mOsm/kg (285-295); Potassium 3.7 mmol/L (3.5-5.1); Sodium 136 mmol/L (136-145); Total Bilirubin 0.3 mg/dL (0.15-1.2); Total Protein 5.6 g/dL (6.6-8.7)
[2021-09-02] MEDS: sodium chloride 0.9% 250 ML 75 ML IV (10:15)
[2021-09-02] MEDS: palonosetron 0.25 mg/5 mL SDV IV (10:15)
[2021-09-02] MEDS: famotidine 20 mg/2 mL INJ IVP (10:16)
[2021-09-02] MEDS: diphenhydrAMINE 50 mg/mL SDV 1mL 25 MG IV (10:18)
[2021-09-02] MEDS: fosaprepitant 150 MG in sodium chloride 0.9% 150 ML 300 MG IV (10:38)
[2021-09-09] MEDS: palonosetron 0.25 mg/5 mL SDV IV (09:45)
[2021-09-09] MEDS: sodium chloride 0.9% 250 ML 75 ML IV (09:45)
[2021-09-09] MEDS: famotidine 20 mg/2 mL INJ IVP (09:46)
[2021-09-09] MEDS: diphenhydrAMINE 50 mg/mL SDV 1mL 25 MG IV (09:48)
[2021-09-09] MEDS: fosaprepitant 150 MG in sodium chloride 0.9% 150 ML 300 MG IV (10:11)
[2021-09-09] MEDS: pegfilgrastim 6 mg/0.6 mL Kit (onpro) SUBCUT (13:00)
--- NOTE | 2021-09-15 10:16 | ONC FU_ITS ---
Dr. Schroeder follow up note Patient: Tramaine Galaviz Unit #: [id number]: 1955 Dicatated By: Martin Schroeder M.D.Date of Visit:Sep 09, 2021 Onc Med Follow-up/Prog Note History of Present Illness: Mr. Galaviz is a 66-year-old gentleman with a history of hematuria. it was which confirmed to be due to an enlarged prostate. As a part of hematuria evaluation, he underwent CT urography on February 06, 2021, which showed an incidental finding of 11 mm lung nodule along with the left hilar lymphadenopathy. Mr Galaviz then underwent CT scan of chest on February 11, 2021 which showed enlarged lymph nodes within both sides of middle mediastinum and within subcarinal space. He also had a lymph node within the right paratracheal space measuring up to 15 mm; low-grade left hilar lymphadenopathy and A small masslike lesion grossly measuring 2.6 x 2.1 cm, centrally of left infrahilar region contiguous with peribronchovascular soft tissue thickening within the posterior basal segment of left lung and a small localized region of complex soft tissue thickening centrally within the left lower lobe and limited images of upper abdomen without apparent significant pathology. Subsequently Mr Galaviz was referred to pulmonology and underwent bronchoscopy on February 19, 2021. EBUS FNA biopsy was obtained from lymph node station 4R, 4L, station 7, station 11 L, and left lower lobe of lung mass #1 endobronchial biopsy, all of them confirmed involvement with squamous cell carcinoma whereas left lower lobe mass #2 posterior basal segment showed benign alveolated lung tissue, no tumor was seen. Guardant 360 showed no targetable mutation but TMB was more than 10 e.g. 11.16 mutation thus candidate for pembrolizumab Patient quit smoking in 2009 but prior to that about 40-year history of smoking with 3 to 4 packs a day, Mr Galaviz had been complaining of left neck pain radiating to left shoulder and elbow, progressive for the last couple of weeks, A plain x-ray of C-spine done on February 10, 2021 shows no evidence of fracture or dislocation; mild disc space narrowing at C5-6 and C6-7 with mild degenerative retrolisthesis at these levels. Hydrocodone is not helping his pain much and not getting enough sleep because of it. Denies any history of trauma to neck or left shoulder. Denies any history of hemoptysis or hematemesis denies any history of jaundice denies any history of bony pains, off and on headaches but no blurred vision or double vision. No weight loss, no night sweats but some cough and dyspnea on exertion for the last few weeks. Mr Galaviz was diagnosed with osteoporosis based on a DEXA scan from October 30, 2020. The bone density from 10/30/2020 at [facility] reported the bone mineral density T-score for L1-L4 @ -2.5; the left femoral neck at -1.2; and left total hip T score -0.7. He was started on alendronate therapy by PMD. CT PET scan done on March 13, 2021 showed hypermetabolic spiculated nodule left lower lobe with SUV of 4.1, extensive hypermetabolic bilateral mediastinal and left hilar asya metastasis. No hypermetabolic right hilar lymph node. Hypermetabolic gastrohepatic ligament lymph node suspicious for asya metastasis. Solitary hypermetabolic expansile lytic lesion of left T2 transverse process and pedicle extensive hypermetabolic tumor into the left T2-3 neuroforamen and left lateral aspect of central canal. Mr. 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 He had radio therapy from April 03, 2021 through April 16, 2021 to total prescribed dose of 30 cGy delivered in 10 fractions. Mr. Galaviz has been offered treatment with Keytruda/carboplatin Taxol with plan Neulasta support. His current treatment plan will be day 1 and 8 every 21-day cycle. Started on May 19, 2021 Mr. Galaviz had placement of a right subclavian PowerPort per Dr. Calderon on May 15, 2021. Mr. Galaviz did have an MRI of the head without contrast on 05/05/2021 ordered by Myron Frias NP. It reported evidence of subacute ischemia involving the right periventricular white matter extending to the right inferior frontal lobe and insula. Associated T2 signal abnormality. No significant mass-effect or midline shift. A few additional tiny acute/subacute foci of acute ischemia in the right frontoparietal white matter. Mild small vessel changes. Mild to moderate parenchymal volume loss. Mild small vessel changes in the tigre. Tiny focus of hemosiderin in the right inferior frontal lobe. This is being followed by neurology. Follow-up CT PET scan done on July 12, 2021 shows lytic osseous lesion at T2 demonstrates minimal, inflammatory FDG uptake consistent with treated malignancy. A 3 cm lesion in the inferior left hilum has SUV of 7.6, consistent with known lung cancer. Left lower lobe atelectasis is FDG negative. Mild FDG activity in the right paratracheal 4R and subcarinal lymph node is consistent with local metastatic disease with SUV of 4.5., Was referred to pulmonology for right paratracheal mass evaluation, patient underwent bronchoscopy/EBUS on August 05, 2021 and a biopsy from 4R lymph node confirmed poorly differentiated metastatic squamous cell carcinoma Came for follow-up, denies any specific complaints, except off-and-on substernal chest pain sometimes related to dropping blood pressure ,, no palpitation, no associated shortness of breath, no pain radiating to left arm, no indigestion, no heartburn. No fever chills, no nausea or vomiting, no diarrhea constipation, no skin rash, no jaundice Medications: Adult Aspirin EC Low Strength 2 Tablet (of 81 mg) Tablet, enteric coated Oral daily, Alendronate Sodium 1 Tablet (of 70 mg) Oral q 7 days, Atorvastatin Calcium 1 Tablet (of 40 mg) Oral at bedtime, Cardizem CD 1 Caplet (of 240 mg) Capsule SR 24 HR Oral daily, Clopidogrel Bisulfate 1 Tablet (of 75 mg) Oral daily, Cozaar 1 Tablet (of 50 mg) Oral daily, Dexamethasone 1 Tablet (of 4 mg) Oral t.i.d., Diclofenac Sodium 1 Tablet (of 75 mg) Tablet, enteric coated Oral daily, Eliquis 1 Tablet (of 5 mg) Oral b.i.d., Finasteride 1 Tablet (of 5 mg) Oral daily, Gabapentin 1 Caplet (of 400 mg) Capsule Oral t.i.d., oxyCODONE-Acetaminophen 1 (10-325 mg) Tablet Oral q 6 hours, Pantoprazole Sodium 1 (40 mg) Pack Oral daily, Tamsulosin HCl 1 (0.4 mg) Capsule Oral daily Allergies: No Known Allergies. Review of Systems: Review of Systems is not available for this patient. Vital Signs: Performed on Sep 09, 2021 08:44 Height - 70.00 in Weight - 180.8 lbs (LOW) BSA - 2.00 sq.m BMI - 25.94 Temperature - 97.9 F (LOW) Pulse - 73 /min Respiration - 18 /min BP - 110/70 mm(hg) O2 Sat - 98 % Pain - 0 Fatigue - 1 Performance Status: 0 - Fully active, able to carry on all predisease activities without restrictions. (ECOG) Physical Examination: ENMT - No mouth sores, no thrush, no jaundice, Respiratory - Lungs are clear to auscultation, Cardiovascular - Regular rate and rhythm of heart, Abdomen - Soft, bowel sounds present, Extremities - No visible edema. Lab/Imaging: Test performed on Sep 08, 2021 09:12 Glucose 102 mg/dL BUN 15 mg/dL Creatinine 0.7 mg/dL Cr Clearance (Est) 125.55 mL/min Sodium 142 mmol/L Potassium 3.9 mmol/L Chloride 104 mmol/L CO2 29 mmol/L Calcium 9.1 mg/dL Protein, Total 5.4 g/dL Albumin 3.5 g/dL Globulin 1.9 g/dL Bilirubin, Total 0.3 mg/dL Alkaline Phosphatase 79 International Units/L AST (SGOT) 9 International Units/L ALT (SGPT) 10 International Units/L WBC 6.2 10^9/L RBC 3.41 10^12/L HGB 10.4 g/dL HCT 34.0 % MCV 99.7 fl MCH 30.5 pg MCHC 30.6 g/dL RDW 18.2 % Platelet Count 285 10^9/L MPV 11.1 fL Neutrophils (Gran) 4.99 10^9/L Lymphocytes 0.7 10^9/L Monocytes 0.4 10^9/L Eosinophils 0.1 10^9/L Basophils 0.0 10^9/L Manual Lymphocytes 11.4 % Manual Monocytes 6.1 % Manual Eosinophils 1.0 % Manual Basophils 0.3 % NRBCs 0.0 /100 WBC Test performed on Jul 29, 2021 10:00 Anion Gap 13.3 eGFR 113.2 mL/min Osmolality - Calculated 293 mOsm/kg Neutrophil % 75.3 % Lymphocyte % 13.1 % Monocyte % 8.9 % Eosinophil % 0.7 % Basophils % 0.3 % NRBC % 0.0 % Impression: Metastatic Squamous cell carcinoma involving bilateral mediastinal lymph nodes and left lower lobe of lung per bronchoscopy/EBUS FNA obtained from lymph node station 4R, station 4L, station 7, station 11 L and left lower lobe mass endobronchial biopsy all confirmed squamous cell carcinoma involvement, Guardant 360 showed no targetable mutation but TMB was more than 10. E.g. candidate for pembrolizumab CT PET scan done on March 13, 2021 showed hypermetabolic spiculated nodule left lower lobe with maximal SUV of 4.1, extensive hypermetabolic bilateral mediastinal and left hilar lymph nodes, no hypermetabolic right hilar lymph node. Hypermetabolic gastrohepatic ligament lymph node suspicious for asya metastasis. Solitary hypermetabolic expansile lytic lesion of the left T2 transverse process and pedicle extensive hypermetabolic tumor into the left T2-3 neural foramen and left lateral aspect of central canal CT scan of the chest done on February 11, 2021 showed suspected neoplasm within left lower lobe and accompanying left hilar and mediastinal lymphadenopathy and limited image of upper abdomen without apparent significant pathology. Left neck pain radiating to left shoulder and arm, etiology unclear, metastatic disease versus osteoarthritis versus disc protrusion, Status post radiation therapy to T2 vertebral body completed on April 16, 2021, patient received 30 Gy in 10 fractions Longstanding history of heavy smoking quit in 2009 Plan: Discussed with patient regarding his labs white blood count 6.2 hemoglobin 10.4 hematocrit 34 platelets 285,000 CMP within normal limits Clinically, patient doing well with no new signs symptoms, at this point we will proceed with his next cycle of chemotherapy with Keytruda/carboplatin/Taxol today and then he will return to clinic in 1 week with CBC CMP and for day 8 carboplatin/Taxol As far as off and on substernal chest pain/pressure is concerned, etiology unclear could be due to esophageal spasm or GERD but underlying cardiac disease cannot be ruled out, patient has never seen cardiology before so we will refer him to sales office coordinator for evaluation, patient was also advised in case there is a persistent or progressive substernal pain, he need to go to hospital for evaluation. Signed By: Martin Schroeder M.D. <<Signature on File>>
[2021-09-23] MEDS: palonosetron 0.25 mg/5 mL SDV IV (11:20)
[2021-09-23] MEDS: sodium chloride 0.9% 250 ML 75 ML IV (11:20)
[2021-09-23] MEDS: famotidine 20 mg/2 mL INJ IVP (11:21)
[2021-09-23] MEDS: diphenhydrAMINE 50 mg/mL SDV 1mL 25 MG IV (11:23)
[2021-09-23 11:53] LABS: Thyroid Stimulating Hormone 0.29 uIU/mL (0.27-4.20)
[2021-09-23] MEDS: fosaprepitant 150 MG in sodium chloride 0.9% 150 ML 300 MG IV (12:41)
--- NOTE | 2021-10-04 15:02 | ONC FU_ITS ---
[facility] Patient Note Patient: Tramaine Galaviz Unit #: [id number]: 1955 Dictated By: Jazmyne GayDate of Visit: Sep 23, 2021 Onc MED Follow-Up/Prog Note Chief Complaint: Non-small cell lung cancer History of Present Illness: Mr. Galaviz is a 66-year-old gentleman with a history of hematuria. it was which confirmed to be due to an enlarged prostate. As a part of hematuria evaluation, he underwent CT urography on February 06, 2021, which showed an incidental finding of 11 mm lung nodule along with the left hilar lymphadenopathy. Mr Galaviz then underwent CT scan of chest on February 11, 2021 which showed enlarged lymph nodes within both sides of middle mediastinum and within subcarinal space. He also had a lymph node within the right paratracheal space measuring up to 15 mm; low-grade left hilar lymphadenopathy and A small masslike lesion grossly measuring 2.6 x 2.1 cm, centrally of left infrahilar region contiguous with peribronchovascular soft tissue thickening within the posterior basal segment of left lung and a small localized region of complex soft tissue thickening centrally within the left lower lobe and limited images of upper abdomen without apparent significant pathology. Subsequently Mr Galaviz was referred to pulmonology and underwent bronchoscopy on February 19, 2021. EBUS FNA biopsy was obtained from lymph node station 4R, 4L, station 7, station 11 L, and left lower lobe of lung mass #1 endobronchial biopsy, all of them confirmed involvement with squamous cell carcinoma whereas left lower lobe mass #2 posterior basal segment showed benign alveolated lung tissue, no tumor was seen. Guardant 360 showed no targetable mutation but TMB was more than 10 e.g. 11.16 mutation thus candidate for pembrolizumab Patient quit smoking in 2009 but prior to that about 40-year history of smoking with 3 to 4 packs a day, Mr Galaviz had been complaining of left neck pain radiating to left shoulder and elbow, progressive for the last couple of weeks, A plain x-ray of C-spine done on February 10, 2021 shows no evidence of fracture or dislocation; mild disc space narrowing at C5-6 and C6-7 with mild degenerative retrolisthesis at these levels. Hydrocodone was not helping his pain much and Mr Galaviz was not getting enough sleep because of it. Mr Galaviz was diagnosed with osteoporosis based on a DEXA scan from October 30, 2020. The bone density from 10/30/2020 at [facility] reported the bone mineral density T-score for L1-L4 @ -2.5; the left femoral neck at -1.2; and left total hip T score -0.7. He was started on alendronate therapy by PMD. PET/CT scan from March 13, 2021 showed hypermetabolic spiculated nodule left lower lobe with SUV of 4.1, extensive hypermetabolic bilateral mediastinal and left hilar asya metastasis. No hypermetabolic right hilar lymph node. Hypermetabolic gastrohepatic ligament lymph node suspicious for asya metastasis. Solitary hypermetabolic expansile lytic lesion of left T2 transverse process and pedicle extensive hypermetabolic tumor into the left T2-3 neuroforamen and left lateral aspect of central canal. Mr. 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 He had radiation therapy from April 03, 2021 through April 16, 2021 to total prescribed dose of 30 cGy delivered in 10 fractions. Mr. Galaviz did have an MRI of the head without contrast on 05/05/2021 ordered by Myron Frias NP. It reported evidence of subacute ischemia involving the right periventricular white matter extending to the right inferior frontal lobe and insula. Associated T2 signal abnormality. No significant mass-effect or midline shift. A few additional tiny acute/subacute foci of acute ischemia in the right frontoparietal white matter. Mild small vessel changes. Mild to moderate parenchymal volume loss. Mild small vessel changes in the tigre. Tiny focus of hemosiderin in the right inferior frontal lobe. This is being followed by neurology. Mr. Galaviz has been offered treatment with Keytruda/carboplatin Taxol with plan Neulasta support. His current treatment plan will be day 1 and 8 every 21-day cycle. He had placement of a right subclavian PowerPort per Dr. Calderon on May 15, 2021. He began his first cycle of Keytruda/Carboplatin and Taxl on 05/19/2021. Follow-up PET/CT scan from July 12, 2021 shows lytic osseous lesion at T2 demonstrates minimal, inflammatory FDG uptake consistent with treated malignancy. A 3 cm lesion in the inferior left hilum hadV of 7.6, consistent with known lung cancer. Left lower lobe atelectasis is FDG negative. Mild FDG activity in the right paratracheal 4R and subcarinal lymph node is consistent with local metastatic disease with SUV of 4.5. Mr Galaviz was referred to pulmonology for right paratracheal mass evaluation and underwent bronchoscopy/EBUS on August 05, 2021. The biopsy from 4R lymph node confirmed poorly differentiated metastatic squamous cell carcinoma. He has remained on Keytruda carboplatin and Taxol. His last cycle completed on July 10, 2021 and his Keytruda was last given on September 02, 2021. He did have a chest x-ray on August 27, 2021 for acute lower respiratory infection per his PCP. He did not report any signs of infection or pneumonia. He has had persistent cough though. He states his cough has been like when I had pneumonia . He has not had any hemoptysis. He denies any fever or chills. He states he coughs off and on to the day he does keep him awake occasionally at night. Thus far has been nonproductive. He is little bit more short of breath than what feels like he has been over the last few weeks. He denies any angina or chest pain. He denies orthopnea. He states he has not had any palpitations. Denies nausea or vomiting. He does have some residual peripheral neuropathy in his negatives and toes occasionally but states it is not impairing his activities of daily living. He denies any concerns with his bowel or bladder at this time. His ECOG is 1. Past Medical History: BPH Chronic joint pain Degenerative disease of the spine Hypertension Inflammatory arthritis Lumbar spinal stenosis Osteoporosis Covid 19 in 2020 Past Surgical History: Bronchoscopy Shoulder arthroscopy Right subclavian PowerPort placement???Dr. Calderon???[facility] in 2020 Allergies: No Known Allergies. Medications: Adult Aspirin EC Low Strength 2 Tablet (of 81 mg) Tablet, enteric coated Oral daily Alendronate Sodium 1 Tablet (of 70 mg) Oral q 7 days Atorvastatin Calcium 1 Tablet (of 40 mg) Oral at bedtime Cardizem CD 1 Caplet (of 240 mg) Capsule SR 24 HR Oral daily Clopidogrel Bisulfate 1 Tablet (of 75 mg) Oral daily Cozaar 1 Tablet (of 50 mg) Oral daily Dexamethasone 1 Tablet (of 4 mg) Oral t.i.d. Diclofenac Sodium 1 Tablet (of 75 mg) Tablet, enteric coated Oral daily Eliquis 1 Tablet (of 5 mg) Oral b.i.d. Finasteride 1 Tablet (of 5 mg) Oral daily Gabapentin 1 Caplet (of 400 mg) Capsule Oral t.i.d. oxyCODONE-Acetaminophen 1 (10-325 mg) Tablet Oral q 6 hours Pantoprazole Sodium 1 (40 mg) Pack Oral daily Tamsulosin HCl 1 (0.4 mg) Capsule Oral daily Family History: Mr. Galaviz's mother at age 91: Rectal Cancer. Mr. Galaviz's father at age 70. Mr. Galaviz has 1 brother who is : throat cancer. Social History: Mr. Galaviz is and he is an unknown. Mr. Galaviz quit smoking 10 years ago but had smoked 4.0 packs/day for 30 years. He quit drinking 10 years ago. 6-12 beers per day. Review Of Symptoms: <See Above> Vital Signs: Performed on Sep 23, 2021 10:08 Height - 70.00 in Weight - 176.2 lbs (LOW) BSA - 1.98 sq.m BMI - 25.28 Temperature - 97.7 F (LOW) Pulse - 78 /min Respiration - 18 /min BP - 100/62 mm(hg) O2 Sat - 97 % Pain - 0 Fatigue - 0,1 - No physically strenuous activity, but ambulatory and able to carry out light or sedentary work (e.g. office work, light house work). (ECOG) Physical Examination: Constitutional Alert, oriented, no acute distress. Skin pink, warm and dry. Head Normocephalic; atraumatic. Eyes Conjunctivae and sclerae are clear and without icterus. Pupils are reactive and equal. ENMT No oral exudates, ulcers, masses, thrush or mucositis. Oropharynx clear. Tongue normal. Neck Supple without masses or thyromegaly. No jugular venous distension. Hematologic/Lymphatic No petechiae or purpura. No tender or palpable lymph nodes in the cervical or supraclavicular areas. Respiratory Lungs are clear to auscultation without rhonchi or wheezing. Cardiovascular Regular rate and rhythm of heart without murmurs,clicks, gallops or rubs. Chest Right chest wall PowerPort placement site is unremarkable. Back/Spine Non-tender to palpation. Extremities No visible deformities, no cyanosis, clubbing or edema. Musculoskeletal No tenderness or swelling, normal range of motion without obvious weakness. Integumentary No rashes or lesions. Neurologic No sensory or motor deficits, normal cerebellar function, normal gait. Psychiatric Alert and oriented times three. Coherent speech. Verbalizes understanding of our discussions today. Test performed on Sep 23, 2021 10:55 TSH 0.29 uIU/mL Impression: 1. Metastatic Squamous cell carcinoma involving bilateral mediastinal lymph nodes and left lower lobe of lung per bronchoscopy/EBUS FNA obtained from lymph node station 4R, station 4L, station 7, station 11 L and left lower lobe mass endobronchial biopsy all confirmed squamous cell carcinoma involvement. 2. Bone mets February 2021: s/p radiation to T2 copleted 04/16/21 to 30 Gy. Longstanding history of heavy smoking quit in 2009 Plan/Problems Addressed at this Visit: 1. Metastatic Squamous cell carcinoma involving bilateral mediastinal lymph nodes and left lower lobe of lung per bronchoscopy/EBUS FNA obtained from lymph node station 4R, station 4L, station 7, station 11 L and left lower lobe mass endobronchial biopsy all confirmed squamous cell carcinoma involvement, Guardant 360 showed no targetable mutation but TMB was more than 10. E.g. candidate for pembrolizumab PET/CT scan done on March 13, 2021 showed hypermetabolic spiculated nodule left lower lobe with maximal SUV of 4.1, extensive hypermetabolic bilateral mediastinal and left hilar lymph nodes, no hypermetabolic right hilar lymph node. Hypermetabolic gastrohepatic ligament lymph node suspicious for asya metastasis. Solitary hypermetabolic expansile lytic lesion of the left T2 transverse process and pedicle extensive hypermetabolic tumor into the left T2-3 neural foramen and left lateral aspect of central canal CT scan of the chest done on February 11, 2021 showed suspected neoplasm within left lower lobe and accompanying left hilar and mediastinal lymphadenopathy and limited image of upper abdomen without apparent significant pathology. Left neck pain radiating to left shoulder and arm, etiology unclear, metastatic disease versus osteoarthritis versus disc protrusion, Status post radiation therapy to T2 vertebral body completed on April 16, 2021, patient received 30 Gy in 10 fractions. A. We will proceed with cycle 6-day 1 carboplatin and Taxol. However and plan to hold his Keytruda today for the persistent shortness of breath and cough. Suspicious he may be trying to develop pneumonitis. B. Labs from September 22 2021 were reviewed in detail discussed with Mr. Galaviz and his family and a copy was given to them. WBC 8.0, hemoglobin 10.3, platelets 231,000, ANC is 6750. Creatinine 0.7 LFTs are normal. Renal glucose was 129. TSH was normal. C. We will plan to see him back in 1 week with CBC CMP and TSH and reassessment for pneumonitis symptoms at that time. If his cough/SOB has improved he can try resuming the Keytruda at that time. D. Mr. Galaviz was instructed to contact us in interim should questions or problems arise. Signed By: Jazmyne Gay-, AOP Martin Schroeder MD <<Signature on File>>
== END 2021-09-28 23:59 | disposition home or self-care (01) ==
LOC: ONCMED 06:10
PROVIDERS: Nurse Practitioner; PCP Family Medicine; Visit Provider Internal Medicine Hematology & Oncology
DX: Z51.12 Encounter for antineoplastic immunotherapy (principal); Z51.11 Encounter for antineoplastic chemotherapy; C34.32 Malignant neoplasm of lower lobe, left bronchus or lung; C79.51 Secondary malignant neoplasm of bone; Z87.891 Personal history of nicotine dependence; Z79.899 Other long term (current) drug therapy
CPT/HCPCS: 36591; 80053; 84443; 85025; 96367; 96372; 96375; 96413; 96417; 99214; 99215; J1100; J1200; J1453; J2469; J2505; J3490; J7030; J7040; J7050; J9045; J9267; J9271

== ENCOUNTER → 2021-09-29 09:34 | Outpatient (BNVA) | payer BC, MEDICARE, SELFPAY | PROVIDERS: PCP Family Medicine; Visit Provider Internal Medicine Hematology & Oncology | DX: C34.90 Malignant neoplasm of unspecified part of unspecified bronchus or lung (principal) | CPT/HCPCS: 80053; 85025 ==

== ENCOUNTER → 2021-10-13 09:29 | Outpatient (BNVA) | payer BC, MEDICARE, SELFPAY | PROVIDERS: PCP Family Medicine; Visit Provider Internal Medicine Hematology & Oncology | DX: C34.92 Malignant neoplasm of unspecified part of left bronchus or lung (principal) | CPT/HCPCS: 36415; 80053; 85025 ==

== ENCOUNTER 2021-10-14 06:23 | Outpatient (RCR) | payer BC, MEDICARE, SELFPAY ==
[2021-09-30] MEDS: famotidine 20 mg/2 mL INJ IVP (11:07)
[2021-09-30] MEDS: diphenhydrAMINE 50 mg/mL SDV 1mL 25 MG IV (11:08)
[2021-09-30] MEDS: sodium chloride 0.9% 250 ML 75 ML IV (11:09)
[2021-09-30] MEDS: palonosetron 0.25 mg/5 mL SDV IV (11:09)
[2021-09-30] MEDS: fosaprepitant 150 MG in sodium chloride 0.9% 150 ML 300 MG IV (11:25)
[2021-09-30] MEDS: pegfilgrastim 6 mg/0.6 mL Kit (onpro) SUBCUT (14:30)
--- NOTE | 2021-10-14 16:19 | ONC FU_ITS ---
Dr. Schroeder follow up note Patient: Tramaine Galaviz Unit #: [id number]: 1955 Dicatated By: Martin Schroeder M.D.Date of Visit:Oct 14, 2021 Onc Med Follow-up/Prog Note History of Present Illness: Mr. Galaviz is a 66-year-old gentleman with a history of hematuria. it was which confirmed to be due to an enlarged prostate. As a part of hematuria evaluation, he underwent CT urography on February 06, 2021, which showed an incidental finding of 11 mm lung nodule along with the left hilar lymphadenopathy. Mr Galaviz then underwent CT scan of chest on February 11, 2021 which showed enlarged lymph nodes within both sides of middle mediastinum and within subcarinal space. He also had a lymph node within the right paratracheal space measuring up to 15 mm; low-grade left hilar lymphadenopathy and A small masslike lesion grossly measuring 2.6 x 2.1 cm, centrally of left infrahilar region contiguous with peribronchovascular soft tissue thickening within the posterior basal segment of left lung and a small localized region of complex soft tissue thickening centrally within the left lower lobe and limited images of upper abdomen without apparent significant pathology. Subsequently Mr Galaviz was referred to pulmonology and underwent bronchoscopy on February 19, 2021. EBUS FNA biopsy was obtained from lymph node station 4R, 4L, station 7, station 11 L, and left lower lobe of lung mass #1 endobronchial biopsy, all of them confirmed involvement with squamous cell carcinoma whereas left lower lobe mass #2 posterior basal segment showed benign alveolated lung tissue, no tumor was seen. Guardant 360 showed no targetable mutation but TMB was more than 10 e.g. 11.16 mutation thus candidate for pembrolizumab Patient quit smoking in 2009 but prior to that about 40-year history of smoking with 3 to 4 packs a day, Mr Galaviz had been complaining of left neck pain radiating to left shoulder and elbow, progressive for the last couple of weeks, A plain x-ray of C-spine done on February 10, 2021 shows no evidence of fracture or dislocation; mild disc space narrowing at C5-6 and C6-7 with mild degenerative retrolisthesis at these levels. Hydrocodone was not helping his pain much and Mr Galaviz was not getting enough sleep because of it. Mr Galaviz was diagnosed with osteoporosis based on a DEXA scan from October 30, 2020. The bone density from 10/30/2020 at [facility] reported the bone mineral density T-score for L1-L4 @ -2.5; the left femoral neck at -1.2; and left total hip T score -0.7. He was started on alendronate therapy by PMD. PET/CT scan from March 13, 2021 showed hypermetabolic spiculated nodule left lower lobe with SUV of 4.1, extensive hypermetabolic bilateral mediastinal and left hilar asya metastasis. No hypermetabolic right hilar lymph node. Hypermetabolic gastrohepatic ligament lymph node suspicious for asya metastasis. Solitary hypermetabolic expansile lytic lesion of left T2 transverse process and pedicle extensive hypermetabolic tumor into the left T2-3 neuroforamen and left lateral aspect of central canal. Mr. 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 He had radiation therapy from April 03, 2021 through April 16, 2021 to total prescribed dose of 30 cGy delivered in 10 fractions. Mr. Galaviz did have an MRI of the head without contrast on 05/05/2021 ordered by Myron Frias NP. It reported evidence of subacute ischemia involving the right periventricular white matter extending to the right inferior frontal lobe and insula. Associated T2 signal abnormality. No significant mass-effect or midline shift. A few additional tiny acute/subacute foci of acute ischemia in the right frontoparietal white matter. Mild small vessel changes. Mild to moderate parenchymal volume loss. Mild small vessel changes in the tigre. Tiny focus of hemosiderin in the right inferior frontal lobe. This is being followed by neurology. Mr. Galaviz has been offered treatment with Keytruda/carboplatin Taxol with plan Neulasta support. His current treatment plan will be day 1 and 8 every 21-day cycle. He had placement of a right subclavian PowerPort per Dr. Calderon on May 15, 2021. He began his first cycle of Keytruda/Carboplatin and Taxl on 05/19/2021. Follow-up PET/CT scan from July 12, 2021 shows lytic osseous lesion at T2 demonstrates minimal, inflammatory FDG uptake consistent with treated malignancy. A 3 cm lesion in the inferior left hilum hadV of 7.6, consistent with known lung cancer. Left lower lobe atelectasis is FDG negative. Mild FDG activity in the right paratracheal 4R and subcarinal lymph node is consistent with local metastatic disease with SUV of 4.5. Mr Galaviz was referred to pulmonology for right paratracheal mass evaluation and underwent bronchoscopy/EBUS on August 05, 2021. The biopsy from 4R lymph node confirmed poorly differentiated metastatic squamous cell carcinoma .Came for follow-up, complaining of off and on palpitation and chest tightness/pain for the last 2 days, denies any indigestion, denies any shortness of breath, denies any hemoptysis or hematemesis, denies any fever chills, denies any nausea or vomiting. Patient has seen Dr. Pineda elevator service mechanic for evaluation, as per patient EKG was good and now he is scheduled for stress test in November 2021. Patient is being treated with chemoimmunotherapy with carboplatin/Taxol/Keytruda last dose was given on September 30, 2021 Medications: Adult Aspirin EC Low Strength 2 Tablet (of 81 mg) Tablet, enteric coated Oral daily, Alendronate Sodium 1 Tablet (of 70 mg) Oral q 7 days, Atorvastatin Calcium 1 Tablet (of 40 mg) Oral at bedtime, Cardizem CD 1 Caplet (of 240 mg) Capsule SR 24 HR Oral daily, Clopidogrel Bisulfate 1 Tablet (of 75 mg) Oral daily, Cozaar 1 Tablet (of 50 mg) Oral daily, Dexamethasone 1 Tablet (of 4 mg) Oral t.i.d., Diclofenac Sodium 1 Tablet (of 75 mg) Tablet, enteric coated Oral daily, Eliquis 1 Tablet (of 5 mg) Oral b.i.d., Finasteride 1 Tablet (of 5 mg) Oral daily, Gabapentin 1 Caplet (of 400 mg) Capsule Oral t.i.d., oxyCODONE-Acetaminophen 1 (10-325 mg) Tablet Oral q 6 hours, Pantoprazole Sodium 1 (40 mg) Pack Oral daily, Tamsulosin HCl 1 (0.4 mg) Capsule Oral daily Allergies: No Known Allergies. Review of Systems: Review of Systems is not available for this patient. Vital Signs: Performed on Oct 14, 2021 10:04 Height - 70.00 in Weight - 176.2 lbs BSA - 1.98 sq.m BMI - 25.28 Temperature - 96.3 F (LOW) Pulse - 83 /min Respiration - 18 /min BP - 103/69 mm(hg) O2 Sat - 97 % Pain - 5 Fatigue - 5 Performance Status: 0 - Fully active, able to carry on all predisease activities without restrictions. (ECOG) Physical Examination: ENMT - No mouth sores, no thrush, no jaundice, Respiratory - Lungs are clear to auscultation, Cardiovascular - Regular rate and rhythm of heart, Abdomen - Soft, bowel sounds present, Extremities - No visible edema. Lab/Imaging: Test performed on Oct 14, 2021 10:02 Creatinine 0.7 mg/dL Cr Clearance (Est) 118.94 mL/min Test performed on Oct 13, 2021 09:29 Glucose 107 mg/dL BUN 10 mg/dL Sodium 142 mmol/L Potassium 4.2 mmol/L Chloride 102 mmol/L CO2 27 mmol/L Calcium 9.1 mg/dL Protein, Total 6.2 g/dL Albumin 3.9 g/dL Globulin 2.3 g/dL Bilirubin, Total 0.3 mg/dL Alkaline Phosphatase 104 International Units/L AST (SGOT) 8 International Units/L ALT (SGPT) 7 International Units/L WBC 8.4 10^9/L RBC 3.28 10^12/L HGB 10.2 g/dL HCT 33.2 % MCV 101.2 fl MCH 31.1 pg MCHC 30.7 g/dL RDW 17.9 % Platelet Count 305 10^9/L MPV 10.6 fL Neutrophils (Gran) 6.44 10^9/L Lymphocytes 0.924 10^9/L Monocytes 0.8064 10^9/L Eosinophils 0.0084 10^9/L Basophils 0.0504 10^9/L Test performed on Sep 23, 2021 10:55 TSH 0.29 uIU/mL Test performed on Sep 08, 2021 09:12 Manual Lymphocytes 11.4 % Manual Monocytes 6.1 % Manual Eosinophils 1.0 % Manual Basophils 0.3 % NRBCs 0.0 /100 WBC Test performed on Jul 29, 2021 10:00 Anion Gap 13.3 eGFR 113.2 mL/min Osmolality - Calculated 293 mOsm/kg Neutrophil % 75.3 % Lymphocyte % 13.1 % Monocyte % 8.9 % Eosinophil % 0.7 % Basophils % 0.3 % NRBC % 0.0 % Impression: 1. Metastatic Squamous cell carcinoma involving bilateral mediastinal lymph nodes and left lower lobe of lung per bronchoscopy/EBUS FNA obtained from lymph node station 4R, station 4L, station 7, station 11 L and left lower lobe mass endobronchial biopsy all confirmed squamous cell carcinoma involvement. 2. Bone mets February 2021: s/p radiation to T2 copleted 04/16/21 to 30 Gy. On chemoimmunotherapy with Keytruda/carboplatin/Taxol Longstanding history of heavy smoking quit in 2009 Plan: Discussed with patient regarding his labs white blood count 8.4 hemoglobin 10.2 hematocrit 33.2 platelets 305,000 CMP within normal limits Clinically, patient is doing reasonably well, no signs symptom suggestive of disease progression, tolerating chemo immunotherapy well with Keytruda/carboplatin/Taxol but now with progressive off and on palpitation probably due to paroxysmal atrial fibrillation and the chest pain/tightness, recently was referred to cardiology for evaluation to rule out underlying coronary artery disease. As per patient EKG was done which shows no obvious abnormality, stress test was recommended and now scheduled for in November 2021. , Now with off and on palpitation associated with chest tightness or pain, concern is whether patient has active ischemia due to coronary artery disease moreover the patient has underlying coronary artery disease systemic therapy and premedication with high-dose steroids can precipitate symptoms especially palpitation/cardiac arrhythmias, case was discussed with Dr. Pineda today and requested to evaluate and give cardiac clearance to continue with patient chemoimmunotherapy. So we will hold his treatment today and then patient will return to clinic in 2 weeks with CBC CMP and if cleared by cardiology, we will resume his chemoimmunotherapy Along with Xgeva Signed By: Martin Schroeder M.D. <<Signature on File>>
== END 2021-10-28 23:59 | disposition home or self-care (01) ==
LOC: ONCMED 06:23
PROVIDERS: PCP Family Medicine; Visit Provider Internal Medicine Hematology & Oncology
DX: Z51.12 Encounter for antineoplastic immunotherapy (principal); Z51.11 Encounter for antineoplastic chemotherapy; C34.32 Malignant neoplasm of lower lobe, left bronchus or lung; C79.51 Secondary malignant neoplasm of bone; C77.2 Secondary and unspecified malignant neoplasm of intra-abdominal lymph nodes; F17.211 Nicotine dependence, cigarettes, in remission; Z79.899 Other long term (current) drug therapy
CPT/HCPCS: 96367; 96372; 96375; 96377; 96413; 96417; 99214; J1100; J1200; J1453; J2469; J2505; J3490; J7030; J7040; J7050; J9045; J9267

== ENCOUNTER 2021-10-30 06:00 | Outpatient (CLI) | payer BC, MEDICARE, SELFPAY ==
[2021-10-29 08:32] LABS: Basophils % 0.8 %; Eosinophils # 0.1 10^3/uL (0.0-0.8); Eosinophils % 1.5 %; Hematocrit 32.1 % (42.0-52.0); Hemoglobin 10.1 g/dL (11.7-16.6); Lymphocytes # 0.9 10^3/uL (0.8-4.8); Lymphocytes % 16.8 %; Mean Corpuscular HGB Conc 31.5 g/dL (30.0-36.0); Mean Corpuscular Volume 98.5 fl (80-94); Mean Platelet Volume 9.9 fL (7.4-10.4); Monocytes # 0.6 10^3/uL (0.2-0.9); Monocytes % 11.6 %; Neutrophils # 3.61 10^3/uL (1.8-7.7); Neutrophils % 68.7 %; Nucleated Red Blood Cells % 0 %; Platelet Count 372 10^3/cmm (130-400); Red Blood Count 3.26 10^6/uL (4.1-5.3); White Blood Count 5.3 10^3/uL (4.0-10.0)
[2021-10-29 08:43] LABS: INR 1.03 (0.8-1.2)
[2021-10-29 08:49] LABS: SARS Covid-2 Antigen Negative (Negative)
[2021-10-29 08:49] LABS: Anion Gap 17.3 (5-19); Blood Urea Nitrogen 16 mg/dL (8-23); Calcium 8.8 mg/dL (8.5-10.5); Carbon Dioxide 25 mmol/L (22-29); Chloride 104 mmol/L (98-107); Glomerular Filtration Rate 84.7 mL/min (90-130); Glucose 90 mg/dL (65-115); Osmolality Calculated 295 mOsm/kg (285-295); Potassium 4.3 mmol/L (3.5-5.1); Sodium 142 mmol/L (136-145)
[2021-10-30] VITALS (14 sets, daily range): BP systolic 113–139; BP diastolic 76–87; PULSE 67–89; RESP 13–24; TEMP 36.6; O2SAT 93–98; BMI 25.8
--- NOTE | 2021-10-30 06:21 | XACV_ITS ---
Ht: 178 cm Wt: 82 kg BSA: 2.02 m2 Gender: Male : 1955 Any Known Allergies: Iodine Exam Priority: Routine Procedure(s): Procedure Description: Diagnostic procedure Procedure Description: Left Heart Catheterization Procedure Description: Left ventriculography Procedure Description: Coronary Angiography Edwin ORNELAS; Diagnostic Cath Status: Elective Diagnostic Findings * No disease noted in the Left Main, Left Anterior Descending, Right, or Circumflex coronary arteries. * Coronary angiography shows right dominance. * Left main is a medium caliber vessel with no significant stenotic lesions. * The left anterior descending artery is a medium caliber vessel which appears to taper off to his LV apex. The proximal segment of the artery was found to be very tortuous. The ostium of the LAD was found to have around 50% narrowing. * The left circumflex artery was found to be a medium caliber vessel which appears to trifurcated proximally. Minimal narrowing was noted at the ostium of these arteries. No significant stenotic lesions. * The intermedius artery is a medium caliber vessel with no significant stenotic lesions. * The right coronary artery is a medium to large caliber dominant vessel which he was found to have 20 to 30% diffuse narrowing in the proximal and mid segment. The artery was found to have a high and posterior takeoff. The PDA and the PLV branches were found to have minimal intimal irregularities. AL-1 catheter was used to engage the artery.. Conclusions 1. 66-year-old white male with a history of's smoking abuse, dyslipidemia, presenting with complaints of chest pain and shortness of breath. He is diagnosed with a small cell CA of the lung. Because of his worsening symptoms, multiple risk factors, in order to further evaluate his coronary status, a cardiac catheterization was recommended. Patient underwent left heart catheterization with left and right coronary angiogram and LV angiogram today. The findings are as follows.. 2. Mild to moderate diffuse coronary artery disease. Normal LV ejection fraction of 65%. Slightly elevated LVEDP of 17 mmHg. Recommendations * Continue current medical management and risk factor modification. Diagnostic RX Recommendation: medical therapy and/or counseling LV EDP: 17 mmHg Ventriculography Ejection Fraction: 65.0 % Left Ventriculography Findings: * LV gram was performed the PALMER position. LV cavity appeared to be normal size. LV ejection fraction was around 65%. No filling defects are noted. No significant mitral valve prolapse or mitral regurgitation. Pressures Phase:Rest AO : 138 / 79 ( 103 ) @ 6:01:00 AM 134 / 69 ( 100 ) @ 6:01:00 AM 130 / 80 ( 101 ) @ 6:04:00 AM 143 / 73 ( 104 ) @ 6:12:00 AM 140 / 73 ( 103 ) @ 6:12:00 AM LV : 133 / -7 / 14 @ 5:59:00 AM 141 / -3 / 17 @ 6:00:00 AM 141 / -5 / 17 @ 6:01:00 AM 135 / -5 / 20 @ 6:12:00 AM 136 / -5 / 19 @ 6:12:00 AM Valves Phase:DefaultPhase AV : 0.0 @ 8:19:51 AM AV Mean Gradient: 0.0 @ 8:19:51 AM Clinical Evaluation EBL: 5mL-10mL Procedural Details Procedure Consent Obtained. Pre-Procedure Time Out. Identified patient by full name and date of as verbalized by the patient/guarantor. Does the consent match the physician's order: Yes. Accurate & Complete Informed Consent: Yes. Inpatient/Outpatient History & Physical on Chart: Yes. If H&P is completed, is and addenduem needed: No; If yes, is the addendum complete: N/A. Relevant Radiology Images available: N/A. Visualize and Verify Site with Patient/Guarantor: N/A. The risks, benefits, and alternatives of sedation and/or procedure were discussed by physician. The patient agrees to continue. Procedure started. [facility] Clinical Fraility Score: 4: Vulnerable. 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 Chest Pain Symptom Assessment: Typical Angina Symptoms. Cardiovascular Instability: No. Correct patient, site and procedure confirmed by cath team. PERRLA. Strong, equal hand sales service technician bilaterally. Lungs clear x 5 lobes. IV Site on Arrival: 20 gauge in the right anticubital. IV Fluids: 0.9% NaCl at KVO. 0 mL infused prior to label rewinder. Pre Procedural Pulses: bilateral dorsalis pedis was 3+. Pre Procedural Pulses: bilateral posterior tibial was 1+. Pre Procedural Pulses: right radial was 2+. Oxygen started at 2liters/min via nasal canula. Physician arrived. Equipment: 6F - Radial. Cardiac Cath Pack. ACIST Manifold Kit Model BT 2000. Heparinized Saline (2 units/mL), 1000 mL bag. right groin was prepped with chloroprep then draped in the usual sterile fashion. right radial was prepped with chloroprep then draped in the usual sterile fashion. Baseline sample Acquired. HR: 63 BPM. Physician scrubbed in. Immediate Pre-Procedure Time Out. Correct Patient: Yes; Correct Procedure: Yes; Correct Site: Yes; Correct Patient Position: Yes; Correct Supplies: Yes; Dried Flammable Prep: Yes; Blood Products Available: N/A;. Lidocaine 1% infiltrated to the right radial. Arterial access obtained. A 5 pitcairn islander Sean catheter in over wire. Multiple views taken of left coronary artery. Catheter redirected to the RCA. A 5 pitcairn islander JR4 catheter in over wire. EDP Sample taken: LV 133/-8,14; HR: 73 BPM; SpO2: 99%. Pullback taken: LV Off; AO Off; Mean: , Peak to Peak: , SEP: ; HR: 71 BPM; SpO2: 99%. EDP Sample taken: LV 141/-4,17; HR: 71 BPM; SpO2: 99%. Pullback taken: LV 141/-6,17; AO 138/79(103); Mean: 0mmHg, Peak to Peak: 2mmHg, SEP: 16sec/min; HR: 71 BPM; SpO2: 99%. Catheter removed over the exchange wire. Catheter removed over the exchange wire. A 5 pitcairn islander 3DRC catheter in over wire. Catheter removed over the exchange wire. A 5 pitcairn islander AR MOD catheter in over wire. Multiple views taken of right coronary artery. A 5 pitcairn islander Angled Pig catheter in over wire. LV gram performed in PALMER @ 10 mL/second for a total of 30 mL. EDP Sample taken: LV 135/-6,20; HR: 74 BPM; SpO2: 100%. Pullback taken: LV 136/-6,19; AO 143/73(104); Mean: 0mmHg, Peak to Peak: 0mmHg, SEP: 5sec/min; HR: 74 BPM; SpO2: 100%. Catheter removed over the exchange wire. Physician scrubbed out. A TR Band was successful obtaining hemostatsis at the Right Radial artery insertion site. TR band placed. Hemostasis obtained. Post Procedure: Pulses reassessed and unchanged. PERRLA. Strong, equal hand sales service technician bilaterally. No VTE prophylaxis required. Medication's Wasted: Lidocaine 1% = 18 mL. Medication's Wasted: Nitro = 49.8 mg. Medication's Wasted: Heparin = 1000 units. Total IV fluids: 100 mL. Contrast type used: Omnipaque 300 mgI/mL, 500 mL bottle. Post-op diagnosis: mild CAD. Complications: none. Estimated blood loss: 5mL-10mL. Procedure completed. Patient transferred by wheelchair to CPRU. Vital chart was stopped. Access Site Site: Right Radial artery Sheath Size: 6 Fr Hemostasis Method: TR Band Hemostasis Success: Successful Procedure Medications Start: 7:32 AM Stop: 7:32 AM Medication: Versed Amount: 2 mg Route: I.V. Start: 7:32 AM Stop: 7:32 AM Medication: Fentanyl Amount: 50 mcg Route: I.V. Start: 7:47 AM Stop: 7:47 AM Medication: Verapamil Amount: 5 mg Route: I.A. Start: 7:47 AM Stop: 7:47 AM Medication: Nitrogylcerin Amount: 200 mcg Route: I.A. Start: 7:49 AM Stop: 7:49 AM Medication: Heparin Amount: 5000 units Route: I.V. Start: 8:04 AM Stop: 8:04 AM Medication: Versed Amount: 1 mg Route: I.V. Start: 8:04 AM Stop: 8:04 AM Medication: Fentanyl Amount: 25 mcg Route: I.V. Start: 8:09 AM Stop: 8:09 AM Medication: Versed Amount: 1 mg Route: I.V. Start: 8:09 AM Stop: 8:09 AM Medication: Fentanyl Amount: 25 mcg Route: I.V. I, the attending physician, have reviewed and verified all procedure medications. Yes, all medications given per verbal order History/Risk Factors Hypertension: Yes Dyslipidemia: No Peripheral Arterial Disease (PAD): No Myocardial Infarction (DE): No Obesity: No Renal Disease: No Tobacco Use: Former Prior Interventions PCI: No CABG: No Valve Surgery: No Report Signatures Finalized by Dr Maria Eugenia Pineda MD [facility] on 10/30/2021 08:14 PM
[2021-10-30] MEDS: diphenhydrAMINE 50 mg Capsule PO (07:00)
--- NOTE | 2021-10-30 07:24 | W.PM.OPSUD ---
Surgery/Procedure H&P Update DATE OF PROCEDURE: October 30, 2021 DATE H&P PERFORMED: 10/15/21 H&P UPDATE INFORMATION: I have reviewed H&P completed within last 30 days, I have examined patient prior to procedure and No changes to prior documentation PREOP DIAGNOSIS: ASHD PRIMARY INDICATION FOR PROCEDURE: Worsening angina/ DHF/HTN/CVA/ AFIB PLANNED PROCEDURE: Operation Date: 10/30/21 07:00 Proposed Procedures p Cardiac Catheterization(Left) - Maria Eugenia Pineda MD PATIENT REASSESSED PRIOR TO SEDATION, WITH NO CHANGE NOTED: Yes PHYSICAL EXAM: alert, oriented x 3 and clear to auscultation bilaterally (occassional expiratory wheeze) AIRWAY EVAL/ANESTHESIA PLAN: normal airway, ASA III, Monitored Anesthesia, Local Anesthesia, Risks, benefits & alternatives of sedation and/or procedure discussed and Patient agrees to continue as planned
--- NOTE | 2021-10-30 08:30 | PC.NURSE ---
[facility] procedure complete Pt received to CPRU room 3 via w/c. Alert and oriented, denies pain. TR band intact to R radial access site, no hematoma or bleeding noted. at bedside and updated. No needs voiced. Call light in reach. Will monitor.
--- NOTE | 2021-10-30 10:39 | PC.NURSE ---
TR band removed TR band removed at this time. No hematoma or bleeding noted, site unremarkable. Denies pain. Will monitor.
--- NOTE | 2021-10-30 10:50 | PC.NURSE ---
TR band Air released from TR band at this time per protocol. No hematoma or bleeding noted. Will continue to monitor.
--- NOTE | 2021-10-30 11:35 | PC.NURSE ---
Discharge Pt discharged at this time with . Verbalized understanding of discharge instructions.
== END 2021-10-30 06:01 | disposition home or self-care (01) ==
PROVIDERS: PCP Family Medicine; Visit Provider Internal Medicine Cardiovascular Disease
DX: I25.10 Atherosclerotic heart disease of native coronary artery without angina pectoris (principal); C34.90 Malignant neoplasm of unspecified part of unspecified bronchus or lung; I50.31 Acute diastolic (congestive) heart failure; I48.0 Paroxysmal atrial fibrillation; Z87.891 Personal history of nicotine dependence; E78.5 Hyperlipidemia, unspecified; I11.0 Hypertensive heart disease with heart failure; R06.02 Shortness of breath
CPT/HCPCS: 80048; 85025; 85610; 86850; 86900; 87426; 93452; C1769; C1887; C1894; J1644; J2250; J3010; J3490; J7030; Q0163; Q9967

== ENCOUNTER → 2021-11-03 11:33 | Outpatient (BNVA) | payer BC, MEDICARE, SELFPAY | PROVIDERS: PCP Family Medicine; Visit Provider Internal Medicine Hematology & Oncology | DX: C34.92 Malignant neoplasm of unspecified part of left bronchus or lung (principal) | CPT/HCPCS: 80053; 85025 ==

== ENCOUNTER → 2021-11-10 09:31 | Outpatient (BNVA) | payer BC, MEDICARE, SELFPAY | PROVIDERS: PCP Family Medicine; Visit Provider Internal Medicine Hematology & Oncology | DX: C34.92 Malignant neoplasm of unspecified part of left bronchus or lung (principal) | CPT/HCPCS: 80053; 85025 ==

== ENCOUNTER 2021-11-14 11:28 | Outpatient (RCR) | payer BC, MEDICARE, SELFPAY | END 2021-11-28 23:59 | disposition home or self-care (01) | LOC: WPT 11:28 | PROVIDERS: PCP Family Medicine; Referring Provider Internal Medicine Hematology & Oncology; Visit Provider Internal Medicine Hematology & Oncology | DX: Z74.09 Other reduced mobility (principal); C79.51 Secondary malignant neoplasm of bone; C34.32 Malignant neoplasm of lower lobe, left bronchus or lung | CPT/HCPCS: 97110; 97112; 97163; 97530 ==

== ENCOUNTER 2021-11-24 06:24 | Outpatient (RCR) | payer BC, MEDICARE, SELFPAY ==
[2021-11-04] MEDS: palonosetron 0.25 mg/5 mL SDV IV (12:15)
[2021-11-04] MEDS: sodium chloride 0.9% 250 ML 75 ML IV (12:15)
[2021-11-04] MEDS: famotidine 20 mg/2 mL INJ IVP (12:16)
[2021-11-04] MEDS: diphenhydrAMINE 50 mg/mL SDV 1mL 25 MG IV (12:18)
[2021-11-04] MEDS: fosaprepitant 150 MG in sodium chloride 0.9% 150 ML 300 MG IV (12:37)
--- NOTE | 2021-11-04 14:01 | ONC FU_ITS ---
Dr. Schroeder follow up note Patient: Tramaine Galaviz Unit #: [id number]: 1955 Dicatated By: Martin Schroeder M.D.Date of Visit:Nov 04, 2021 Onc Med Follow-up/Prog Note History of Present Illness: Mr. Galaviz is a 66-year-old gentleman with a history of hematuria. it was which confirmed to be due to an enlarged prostate. As a part of hematuria evaluation, he underwent CT urography on February 06, 2021, which showed an incidental finding of 11 mm lung nodule along with the left hilar lymphadenopathy. Mr Galaviz then underwent CT scan of chest on February 11, 2021 which showed enlarged lymph nodes within both sides of middle mediastinum and within subcarinal space. He also had a lymph node within the right paratracheal space measuring up to 15 mm; low-grade left hilar lymphadenopathy and A small masslike lesion grossly measuring 2.6 x 2.1 cm, centrally of left infrahilar region contiguous with peribronchovascular soft tissue thickening within the posterior basal segment of left lung and a small localized region of complex soft tissue thickening centrally within the left lower lobe and limited images of upper abdomen without apparent significant pathology. Subsequently Mr Galaviz was referred to pulmonology and underwent bronchoscopy on February 19, 2021. EBUS FNA biopsy was obtained from lymph node station 4R, 4L, station 7, station 11 L, and left lower lobe of lung mass #1 endobronchial biopsy, all of them confirmed involvement with squamous cell carcinoma whereas left lower lobe mass #2 posterior basal segment showed benign alveolated lung tissue, no tumor was seen. Guardant 360 showed no targetable mutation but TMB was more than 10 e.g. 11.16 mutation thus candidate for pembrolizumab Patient quit smoking in 2009 but prior to that about 40-year history of smoking with 3 to 4 packs a day, Mr Galaviz had been complaining of left neck pain radiating to left shoulder and elbow, progressive for the last couple of weeks, A plain x-ray of C-spine done on February 10, 2021 shows no evidence of fracture or dislocation; mild disc space narrowing at C5-6 and C6-7 with mild degenerative retrolisthesis at these levels. Hydrocodone was not helping his pain much and Mr Galaviz was not getting enough sleep because of it. Mr Galaviz was diagnosed with osteoporosis based on a DEXA scan from October 30, 2020. The bone density from 10/30/2020 at [facility] reported the bone mineral density T-score for L1-L4 @ -2.5; the left femoral neck at -1.2; and left total hip T score -0.7. He was started on alendronate therapy by PMD. PET/CT scan from March 13, 2021 showed hypermetabolic spiculated nodule left lower lobe with SUV of 4.1, extensive hypermetabolic bilateral mediastinal and left hilar asya metastasis. No hypermetabolic right hilar lymph node. Hypermetabolic gastrohepatic ligament lymph node suspicious for asya metastasis. Solitary hypermetabolic expansile lytic lesion of left T2 transverse process and pedicle extensive hypermetabolic tumor into the left T2-3 neuroforamen and left lateral aspect of central canal. Mr. 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 He had radiation therapy from April 03, 2021 through April 16, 2021 to total prescribed dose of 30 cGy delivered in 10 fractions. Mr. Galaviz did have an MRI of the head without contrast on 05/05/2021 ordered by Myron Frias NP. It reported evidence of subacute ischemia involving the right periventricular white matter extending to the right inferior frontal lobe and insula. Associated T2 signal abnormality. No significant mass-effect or midline shift. A few additional tiny acute/subacute foci of acute ischemia in the right frontoparietal white matter. Mild small vessel changes. Mild to moderate parenchymal volume loss. Mild small vessel changes in the tigre. Tiny focus of hemosiderin in the right inferior frontal lobe. This is being followed by neurology. Mr. Galaviz has been offered treatment with Keytruda/carboplatin Taxol with plan Neulasta support. His current treatment plan will be day 1 and 8 every 21-day cycle. He had placement of a right subclavian PowerPort per Dr. Calderon on May 15, 2021. He began his first cycle of Keytruda/Carboplatin and Taxl on 05/19/2021. Follow-up PET/CT scan from July 12, 2021 shows lytic osseous lesion at T2 demonstrates minimal, inflammatory FDG uptake consistent with treated malignancy. A 3 cm lesion in the inferior left hilum hadV of 7.6, consistent with known lung cancer. Left lower lobe atelectasis is FDG negative. Mild FDG activity in the right paratracheal 4R and subcarinal lymph node is consistent with local metastatic disease with SUV of 4.5. Mr Galaviz was referred to pulmonology for right paratracheal mass evaluation and underwent bronchoscopy/EBUS on August 05, 2021. The biopsy from 4R lymph node confirmed poorly differentiated metastatic squamous cell carcinoma complaining of off and on palpitation and chest tightness/pain ,. Patient has seen Dr. Pineda bonding and composite fabricator for evaluation, as per patient EKG was good and Underwent cardiac cath on October 30, 2021 shows mild to moderate diffuse coronary artery disease. Normal LV ejection fraction 65% Came for follow-up, denies any specific complaints except mild discomfort/pain in the lower neck and across upper back, as per patient he used to get this pain off and on but since he was on chemo/immunotherapy, his pain was gone and now since he is off chemo immunotherapy while being evaluated by cardiology, he could feel pain again. Denies any numbness in the upper extremities, denies any trauma to his neck, denies any fever or chills denies any nausea or vomiting denies any chest pain or palpitation denies any shortness of breath, denies any diarrhea or constipation, patient is ready to resume his therapy Medications: Adult Aspirin EC Low Strength 2 Tablet (of 81 mg) Tablet, enteric coated Oral daily, Alendronate Sodium 1 Tablet (of 70 mg) Oral q 7 days, Atorvastatin Calcium 1 Tablet (of 40 mg) Oral at bedtime, Cardizem CD 1 Caplet (of 240 mg) Capsule SR 24 HR Oral daily, Clopidogrel Bisulfate 1 Tablet (of 75 mg) Oral daily, Cozaar 1 Tablet (of 50 mg) Oral daily, Dexamethasone 1 Tablet (of 4 mg) Oral t.i.d., Diclofenac Sodium 1 Tablet (of 75 mg) Tablet, enteric coated Oral daily, Eliquis 1 Tablet (of 5 mg) Oral b.i.d., Finasteride 1 Tablet (of 5 mg) Oral daily, Gabapentin 1 Caplet (of 400 mg) Capsule Oral t.i.d., oxyCODONE-Acetaminophen 1 (10-325 mg) Tablet Oral q 6 hours, Pantoprazole Sodium 1 (40 mg) Pack Oral daily, Tamsulosin HCl 1 (0.4 mg) Capsule Oral daily Allergies: No Known Allergies. Review of Systems: Review of Systems is not available for this patient. Vital Signs: Performed on Nov 04, 2021 11:53 Height - 70.00 in Weight - 178.2 lbs (HIGH) BSA - 1.99 sq.m BMI - 25.57 Temperature - 98.2 F (LOW) Pulse - 85 /min Respiration - 16 /min BP - 110/75 mm(hg) O2 Sat - 98 % Pain - 0 Fatigue - 0 Performance Status: 0 - Fully active, able to carry on all predisease activities without restrictions. (ECOG) Physical Examination: ENMT - No mouth sores, no thrush, no jaundice, Respiratory - Lungs are clear to auscultation, Cardiovascular - Regular rate and rhythm of heart, Abdomen - Soft, bowel sounds present, Extremities - No visible edema. Lab/Imaging: Test performed on Nov 03, 2021 16:44 Glucose 104 mg/dL BUN 13 mg/dL Creatinine 0.8 mg/dL Cr Clearance (Est) 104.07 mL/min Sodium 141 mmol/L Potassium 4.4 mmol/L Chloride 103 mmol/L CO2 22 mmol/L Calcium 8.9 mg/dL Protein, Total 6.2 g/dL Albumin 4.1 g/dL Globulin 2.1 g/dL Bilirubin, Total 0.3 mg/dL Alkaline Phosphatase 92 International Units/L AST (SGOT) 9 International Units/L ALT (SGPT) 9 International Units/L Test performed on Nov 03, 2021 15:57 WBC 6.8 10^9/L RBC 3.41 10^12/L HGB 10.6 g/dL HCT 33.9 % MCV 99.4 fl MCH 31.1 pg MCHC 31.3 g/dL RDW 16.9 % Platelet Count 376 10^9/L Neutrophils (Gran) 4.66 10^9/L Lymphocytes 1.0 10^9/L Monocytes 0.9 10^9/L Eosinophils 0.1 10^9/L Basophils 0.1 10^9/L Test performed on Oct 13, 2021 09:29 MPV 10.6 fL Test performed on Sep 23, 2021 10:55 TSH 0.29 uIU/mL Test performed on Sep 08, 2021 09:12 Manual Lymphocytes 11.4 % Manual Monocytes 6.1 % Manual Eosinophils 1.0 % Manual Basophils 0.3 % NRBCs 0.0 /100 WBC Test performed on Jul 29, 2021 10:00 Anion Gap 13.3 eGFR 113.2 mL/min Osmolality - Calculated 293 mOsm/kg Neutrophil % 75.3 % Lymphocyte % 13.1 % Monocyte % 8.9 % Eosinophil % 0.7 % Basophils % 0.3 % NRBC % 0.0 % Impression: 1. Metastatic Squamous cell carcinoma involving bilateral mediastinal lymph nodes and left lower lobe of lung per bronchoscopy/EBUS FNA obtained from lymph node station 4R, station 4L, station 7, station 11 L and left lower lobe mass endobronchial biopsy all confirmed squamous cell carcinoma involvement. 2. Bone mets February 2021: s/p radiation to T2 copleted 04/16/21 to 30 Gy. On chemoimmunotherapy with Keytruda/carboplatin/Taxol Longstanding history of heavy smoking quit in 2009 Plan: Discussed with patient regarding his labs white blood count 6.8 hemoglobin 10.6 hematocrit 33.9 platelets 376,000 CMP within normal limits and cardiac catheter results which shows mild to moderate diffuse coronary artery disease with normal ejection fraction at 65% Clinically, patient is doing well with no new signs symptoms just of recurrence or disease progression,, As per cardiology evaluation, his cardiac cath shows mild to moderate coronary artery disease, as per patient, cardiology has cleared him to continue his treatment will resume his chemo immunotherapy with Keytruda/carboplatin/Taxol today he will receive cycle number 7-day 1 and then return to clinic in 1 week with CBC CMP, blood count looks reasonable, day 8 with carboplatin/Taxol, following that, will consider follow-up CT PET scan to assess disease status if it shows good response, we may discuss with radiation oncology regarding any role or may switch him to maintenance immunotherapy. Signed By: Martin Schroeder M.D. <<Signature on File>>
[2021-11-12] MEDS: sodium chloride 0.9% 250 ML 75 ML IV (10:00)
[2021-11-12] MEDS: palonosetron 0.25 mg/5 mL SDV IV (10:00)
[2021-11-12] MEDS: famotidine 20 mg/2 mL INJ IVP (10:01)
[2021-11-12] MEDS: diphenhydrAMINE 50 mg/mL SDV 1mL 25 MG IV (10:03)
[2021-11-12] MEDS: denosumab 120 mg SDV SUBCUT (10:15)
[2021-11-12] MEDS: fosaprepitant 150 MG in sodium chloride 0.9% 150 ML 300 MG IV (10:30)
[2021-11-12] MEDS: pegfilgrastim 6 mg/0.6 mL Kit (onpro) SUBCUT (13:15)
[2021-11-24 09:30] LABS: Basophils % 0.2 %; Hematocrit 29.9 % (42.0-52.0); Hemoglobin 9.5 g/dL (11.7-16.6); Lymphocytes # 0.2 10^3/uL (0.8-4.8); Lymphocytes % 3.9 %; Mean Corpuscular HGB Conc 31.8 g/dL (30.0-36.0); Mean Corpuscular Hemoglobin 30.4 pg (28.0-34.0); Mean Corpuscular Volume 95.5 fl (80-94); Mean Platelet Volume 10.5 fL (7.4-10.4); Monocytes % 0.3 %; Neutrophils # 5.54 10^3/uL (1.8-7.7); Neutrophils % 94.9 %; Nucleated Red Blood Cells % 0 %; Platelet Count 233 10^3/cmm (130-400); Red Blood Count 3.13 10^6/uL (4.1-5.3); Red Cell Distribution Width 16.1 % (12.1-15.1); White Blood Count 5.8 10^3/uL (4.0-10.0)
[2021-11-24 09:55] LABS: Alanine Aminotransferase 7 U/L (0-41); Albumin Level 3.9 g/dL (3.5-5.2); Alkaline Phosphatase 102 IU/L (40-130); Anion Gap 14.2 (5-19); Aspartate Amino Transferase 8 U/L (0-40); Blood Urea Nitrogen 25 mg/dL (8-23); Calcium 8.6 mg/dL (8.5-10.5); Carbon Dioxide 23 mmol/L (22-29); Chloride 105 mmol/L (98-107); Globulin 2.6 g/dL (1.3-4.6); Glomerular Filtration Rate 84.7 mL/min (90-130); Glucose 148 mg/dL (65-115); Osmolality Calculated 293 mOsm/kg (285-295); Potassium 4.2 mmol/L (3.5-5.1); Sodium 138 mmol/L (136-145); Total Bilirubin 0.2 mg/dL (0.15-1.2); Total Protein 6.5 g/dL (6.6-8.7)
--- NOTE | 2021-11-24 15:41 | ONC FU_ITS ---
Dr. Schroeder follow up note Patient: Tramaine Galaviz Unit #: [id number]: 1955 Dicatated By: Martin Schroeder M.D.Date of Visit:Nov 24, 2021 Onc Med Follow-up/Prog Note History of Present Illness: Mr. Galaviz is a 66-year-old gentleman with a history of hematuria. it was which confirmed to be due to an enlarged prostate. As a part of hematuria evaluation, he underwent CT urography on February 06, 2021, which showed an incidental finding of 11 mm lung nodule along with the left hilar lymphadenopathy. Mr Galaviz then underwent CT scan of chest on February 11, 2021 which showed enlarged lymph nodes within both sides of middle mediastinum and within subcarinal space. He also had a lymph node within the right paratracheal space measuring up to 15 mm; low-grade left hilar lymphadenopathy and A small masslike lesion grossly measuring 2.6 x 2.1 cm, centrally of left infrahilar region contiguous with peribronchovascular soft tissue thickening within the posterior basal segment of left lung and a small localized region of complex soft tissue thickening centrally within the left lower lobe and limited images of upper abdomen without apparent significant pathology. Subsequently Mr Galaviz was referred to pulmonology and underwent bronchoscopy on February 19, 2021. EBUS FNA biopsy was obtained from lymph node station 4R, 4L, station 7, station 11 L, and left lower lobe of lung mass #1 endobronchial biopsy, all of them confirmed involvement with squamous cell carcinoma whereas left lower lobe mass #2 posterior basal segment showed benign alveolated lung tissue, no tumor was seen. Guardant 360 showed no targetable mutation but TMB was more than 10 e.g. 11.16 mutation thus candidate for pembrolizumab Patient quit smoking in 2009 but prior to that about 40-year history of smoking with 3 to 4 packs a day, Mr Galaviz had been complaining of left neck pain radiating to left shoulder and elbow, progressive for the last couple of weeks, A plain x-ray of C-spine done on February 10, 2021 shows no evidence of fracture or dislocation; mild disc space narrowing at C5-6 and C6-7 with mild degenerative retrolisthesis at these levels. Hydrocodone was not helping his pain much and Mr Galaviz was not getting enough sleep because of it. Mr Galaviz was diagnosed with osteoporosis based on a DEXA scan from October 30, 2020. The bone density from 10/30/2020 at [facility] reported the bone mineral density T-score for L1-L4 @ -2.5; the left femoral neck at -1.2; and left total hip T score -0.7. He was started on alendronate therapy by PMD. PET/CT scan from March 13, 2021 showed hypermetabolic spiculated nodule left lower lobe with SUV of 4.1, extensive hypermetabolic bilateral mediastinal and left hilar asay metastasis. No hypermetabolic right hilar lymph node. Hypermetabolic gastrohepatic ligament lymph node suspicious for asya metastasis. Solitary hypermetabolic expansile lytic lesion of left T2 transverse process and pedicle extensive hypermetabolic tumor into the left T2-3 neuroforamen and left lateral aspect of central canal. Mr. 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 He had radiation therapy from April 03, 2021 through April 16, 2021 to total prescribed dose of 30 cGy delivered in 10 fractions. Mr. Galaviz did have an MRI of the head without contrast on 05/05/2021 ordered by Myron Frias NP. It reported evidence of subacute ischemia involving the right periventricular white matter extending to the right inferior frontal lobe and insula. Associated T2 signal abnormality. No significant mass-effect or midline shift. A few additional tiny acute/subacute foci of acute ischemia in the right frontoparietal white matter. Mild small vessel changes. Mild to moderate parenchymal volume loss. Mild small vessel changes in the tigre. Tiny focus of hemosiderin in the right inferior frontal lobe. This is being followed by neurology. Mr. Galaviz has been offered treatment with Keytruda/carboplatin Taxol with plan Neulasta support. His current treatment plan will be day 1 and 8 every 21-day cycle. He had placement of a right subclavian PowerPort per Dr. Calderon on May 15, 2021. He began his first cycle of Keytruda/Carboplatin and Taxl on 05/19/2021. Follow-up PET/CT scan from July 12, 2021 shows lytic osseous lesion at T2 demonstrates minimal, inflammatory FDG uptake consistent with treated malignancy. A 3 cm lesion in the inferior left hilum hadV of 7.6, consistent with known lung cancer. Left lower lobe atelectasis is FDG negative. Mild FDG activity in the right paratracheal 4R and subcarinal lymph node is consistent with local metastatic disease with SUV of 4.5. Mr Galaviz was referred to pulmonology for right paratracheal mass evaluation and underwent bronchoscopy/EBUS on August 05, 2021. The biopsy from 4R lymph node confirmed poorly differentiated metastatic squamous cell carcinoma complaining of off and on palpitation and chest tightness/pain ,. Patient has seen Dr. Pineda concrete fence builder for evaluation, as per patient EKG was good and Underwent cardiac cath on October 30, 2021 shows mild to moderate diffuse coronary artery disease. Normal LV ejection fraction 65% Follow-up CT PET scan done on 11/15/2021 showed progression of left hilar lesion and mediastinal lymph nodes with development of new mediastinal lymphadenopathy. Probable recurrence in left lower lobe atelectasis. New FDG positive upper abdominal lymph node consistent with malignancy. Recurrent osseous metastatic disease at T2 Came for follow-up, denies any specific complaints, no fever chills, no nausea or vomiting, no diarrhea or constipation, no chest pain, no shortness of breath no palpitation, no new bony pains, no hemoptysis or hematemesis, no neuropathy, tolerating systemic therapy with Keytruda/carboplatin/Taxol well otherwise Medications: Adult Aspirin EC Low Strength 2 Tablet (of 81 mg) Tablet, enteric coated Oral daily, Alendronate Sodium 1 Tablet (of 70 mg) Oral q 7 days, Atorvastatin Calcium 1 Tablet (of 40 mg) Oral at bedtime, Cardizem CD 1 Caplet (of 240 mg) Capsule SR 24 HR Oral daily, Clopidogrel Bisulfate 1 Tablet (of 75 mg) Oral daily, Cozaar 1 Tablet (of 50 mg) Oral daily, Dexamethasone 1 Tablet (of 4 mg) Oral t.i.d., Diclofenac Sodium 1 Tablet (of 75 mg) Tablet, enteric coated Oral daily, Eliquis 1 Tablet (of 5 mg) Oral b.i.d., Finasteride 1 Tablet (of 5 mg) Oral daily, Gabapentin 1 Caplet (of 400 mg) Capsule Oral t.i.d., oxyCODONE-Acetaminophen 1 (10-325 mg) Tablet Oral q 6 hours, Pantoprazole Sodium 1 (40 mg) Pack Oral daily, Tamsulosin HCl 1 (0.4 mg) Capsule Oral daily Allergies: No Known Allergies. Review of Systems: Review of Systems is not available for this patient. Vital Signs: Performed on Nov 24, 2021 10:13 Height - 70.00 in Weight - 177.4 lbs (LOW) BSA - 1.98 sq.m BMI - 25.45 Temperature - 96.9 F (LOW) Pulse - 70 /min Respiration - 16 /min BP - 104/68 mm(hg) O2 Sat - 97 % Pain - 4 Fatigue - 2 Performance Status: 0 - Fully active, able to carry on all predisease activities without restrictions. (ECOG) Physical Examination: ENMT - No mouth sores, no thrush, no jaundice, Respiratory - Lungs are clear to auscultation, Cardiovascular - Regular rate and rhythm of heart, Abdomen - Soft, bowel sounds present, Extremities - No visible edema. Lab/Imaging: Test performed on Nov 24, 2021 10:00 Creatinine 0.9 mg/dL Cr Clearance (Est) 92.51 mL/min Test performed on Nov 10, 2021 09:31 Glucose 104 mg/dL BUN 19 mg/dL Sodium 140 mmol/L Potassium 4.2 mmol/L Chloride 102 mmol/L CO2 26 mmol/L Calcium 8.8 mg/dL Protein, Total 6.3 g/dL Albumin 3.7 g/dL Globulin 2.6 g/dL Bilirubin, Total 0.2 mg/dL Alkaline Phosphatase 79 International Units/L AST (SGOT) 7 International Units/L ALT (SGPT) 6 International Units/L WBC 5.9 10^9/L RBC 3.34 10^12/L HGB 10.3 g/dL HCT 33.5 % MCV 100.3 fl MCH 30.8 pg MCHC 30.7 g/dL RDW 16.1 % Platelet Count 373 10^9/L MPV 10.7 fL Neutrophils (Gran) 4.36 10^9/L Lymphocytes 0.9 10^9/L Monocytes 0.5 10^9/L Eosinophils 0.1 10^9/L Basophils 0.0 10^9/L Manual Lymphocytes 14.6 % Manual Monocytes 8.0 % Manual Eosinophils 2.4 % Manual Basophils 0.7 % Test performed on Sep 23, 2021 10:55 TSH 0.29 uIU/mL Test performed on Sep 08, 2021 09:12 NRBCs 0.0 /100 WBC Test performed on Jul 29, 2021 10:00 Anion Gap 13.3 eGFR 113.2 mL/min Osmolality - Calculated 293 mOsm/kg Neutrophil % 75.3 % Lymphocyte % 13.1 % Monocyte % 8.9 % Eosinophil % 0.7 % Basophils % 0.3 % NRBC % 0.0 % Impression: 1. Metastatic Squamous cell carcinoma involving bilateral mediastinal lymph nodes and left lower lobe of lung per bronchoscopy/EBUS FNA obtained from lymph node station 4R, station 4L, station 7, station 11 L and left lower lobe mass endobronchial biopsy all confirmed squamous cell carcinoma involvement. 2. Bone mets February 2021: s/p radiation to T2 copleted 04/16/21 to 30 Gy. On chemoimmunotherapy with Keytruda/carboplatin/Taxol, Discontinued on 11/24/2021 because of follow-up CT PET scan done on 11/15/2021 shows disease progression and switched to weekly cisplatin/gemcitabine Longstanding history of heavy smoking quit in 2009 Plan: Discussed with patient regarding his labs white blood count 5.8 hemoglobin 9.5 hematocrit 29.9 platelets 233,000 CMP within normal limits Clinically, patient is doing well with no new signs symptom but his follow-up CT PET scan shows disease progression, at this point we will discontinue his current chemo regimen with carboplatin/Taxol/Keytruda and switch him to weekly cisplatin/gemcitabine, all the side effect possible benefits associated with new regimen with cisplatin/gemcitabine including but not limited to hair loss, nausea vomiting, bone marrow suppression, were mentioned, further teaching was done by chemotherapy nurse, will obtain approval from his insurance prior to the treatment In the meantime, we will consider guardant 362 identifying treatable mutations and he will return to clinic 1 week after his first dose of weekly cisplatin/gemcitabine with CBC CMP unless is guardant 360 shows treatable mutation, in that case we will consider treatment based on mutations, in the meantime, he will continue with monthly Xgeva Signed By: Martin Schroeder M.D. <<Signature on File>>
== END 2021-11-28 23:59 | disposition home or self-care (01) ==
LOC: ONCMED 06:24
PROVIDERS: PCP Family Medicine; Visit Provider Internal Medicine Hematology & Oncology
DX: Z51.12 Encounter for antineoplastic immunotherapy (principal); Z51.11 Encounter for antineoplastic chemotherapy; C34.32 Malignant neoplasm of lower lobe, left bronchus or lung; C79.51 Secondary malignant neoplasm of bone; C77.8 Secondary and unspecified malignant neoplasm of lymph nodes of multiple regions; Z87.891 Personal history of nicotine dependence; Z79.899 Other long term (current) drug therapy
CPT/HCPCS: 36591; 80053; 85025; 96367; 96372; 96375; 96377; 96413; 96417; 99214; 99215; J0897; J1100; J1200; J1453; J2469; J2505; J3490; J7030; J7040; J7050; J9045; J9267; J9271

== ENCOUNTER 2021-11-29 06:00 | Outpatient (RCR) | payer BC, MEDICARE, SELFPAY | END 2021-12-29 23:59 | disposition home or self-care (01) | LOC: WPT 06:00 | PROVIDERS: PCP Family Medicine; Referring Provider Internal Medicine Hematology & Oncology; Visit Provider Internal Medicine Hematology & Oncology | DX: Z74.09 Other reduced mobility (principal) | CPT/HCPCS: 97110 ==

== ENCOUNTER → 2021-12-08 11:40 | Outpatient (BNVA) | payer BC, MEDICARE, SELFPAY | PROVIDERS: PCP Family Medicine; Visit Provider Nurse Practitioner Family | DX: J22 Unspecified acute lower respiratory infection (principal) | CPT/HCPCS: 71046; 87400; 87635 ==

== ENCOUNTER 2021-12-09 19:34 | Emergency (ER) | payer BC, MEDICARE, SELFPAY ==
[2021-12-09 19:44] VITALS: PULSE 89; RESP 20; TEMP 36.1; O2SAT 95; BMI 25.1
--- NOTE | 2021-12-09 19:44 | ED_ITS ---
HPI - Chest Pain General: Chief Complaint: Chest Pain Stated Complaint: Chest pains, pain in back too Time Seen by Provider: 12/09/21 19:43 History of Present Illness: HPI narrative: Mr. Galaviz is a 66-year-old gentleman with history of hypertension, hyperlipidemia, diastolic heart failure, COPD, small cell lung cancer status post radiation therapy and on chemotherapy (intermittently due to infection recently) who presents to the emergency department due to chest pain, neck pain, shortness of breath. His primary concern today is worsening neck and shoulder pain. He has known bony mets to T1 and T2 and has had progressive worsening pain that feels sharp in the neck and shoulder region. He denies new associated neurologic deficits. This pain for showed up about 6 months ago however has been worse daily over the past few weeks. Symptoms are worse with lying down and sitting however mildly improved with standing up. He has tried home medications including oxycodone which she is having to take at home every 2 hours and despite this pain continues to worsen. He has mild associated shortness of breath and minimally productive cough over the past few weeks. No other signs of systemic illness. Overall the course of symptoms has been worsening. Intensity is now moderate to severe. No other specific changes in health, exacerbating, or relieving factors identified. He is on Eliquis and has not missed any doses. MD complaint: chest pain Pertinent past history: other Onset (ago): week(s) Timing of current episode: constant and increasing Onset: other Pain location: posterior Pain radiation: back and neck Severity: severe Quality: aching Relieving factors: sitting upright Exacerbating factors: supine Context: other Associated symptoms: Reports dyspnea Treatment prior to arrival: other Review of Systems General: Reports: 10 or more systems reviewed and unremarkable except in HPI and below Resp: Reports: dyspnea PFS ED PFSH: Medical History Atherosclerosis of coronary artery Bilateral impacted cerumen Cervical radiculopathy Dyspnea on exertion Hx of angina pectoris Hypertension Lower respiratory infection Lower respiratory infection 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 Peripheral neuropathy Surgical History History of ankle surgery History of bronchoscopy History of lumbar laminectomy for spinal cord decompression History of shoulder surgery S/P right rotator cuff repair Family History Sister Anesthesia complication CAD (coronary artery disease) Chronic kidney disease (CKD) Family/Other CAD (coronary artery disease) Brother Cancer Father Dementia Stroke Mother Stroke Denies family history of Diabetes Clotting disorder Suicide Bleeding disorder Lung disease Social History Quit status (tobacco): has quit using tobacco Year quit tobacco: 2010 Former quit date comment: 5 PPD x 40 Years Second hand smoke exposure: No Smoking risk assessment/counseling performed?: No Alcohol intake: former Counseling given: No Counseling given: No Lives independently: Yes Household members: spouse Marital status: Current occupational status: unemployed History of recent travel: No Current gender identity: Male Physical Exam Const: COMMON NORMALS: alert GENERAL APPEARANCE: cooperative, well developed and ill appearing (mildly, acute and chronic) HENMT: COMMON NORMALS: normocephalic and atraumatic HEAD & SCALP: normocephalic and atraumatic THROAT: posterior oropharynx normal Eye: COMMON NORMALS: conjunctivae normal CONJUNCTIVA: Yes conjunctivae normal SCLERA: sclerae normal Neck/C-Spine: COMMON NORMALS: supple GENERAL: Yes trachea midline Resp: EFFORT & INSPECTION: Yes able to speak in complete sentences and Yes tachypneic AUSCULTATION: diminished lung sounds Cardio: COMMON NORMALS: regular rate and regular rhythm RATE: regular rate RHYTHM: regular rhythm GI: COMMON NORMALS: Soft to palpation PALPATION: Yes Soft to palpation and No Tenderness to palpation present (GI) PERCUSSION: normal to percussion Extremity: GENERAL: Yes normal exam except as noted and No edema Neuro: COMMON NORMALS: moves all extremities SENSORIUM/ORIENTATION: Yes alert and No Orientation impaired Psych: COMMON NORMALS: mental status grossly normal and Normal thought process present THOUGHT PROCESS: Normal thought process present Course ED course: - Patient was seen and evaluated by me at bedside - Patient placed on cardiac monitors, IV access obtained - Initial evaluation notable for exam as above -Symptom treatment only - Labs notable for no leukocytosis, macrocytic anemia similar to prior. No acute electrolyte derangement. Delta troponin negative. - Imaging notable for multiple pathologic fractures superimposed on known bony metastatic disease. -No new neurologic deficits noted on exam. Discussed case with Dr. Christina with neurosurgery at [facility] who reviewed imaging. No acute need for surgical intervention or transfer. - Upon serial reexamination after treatment the patient was improved with analgesia - Based on patient history, evaluation, labs, and imaging as interpreted the most likely cause of the patient's condition is pain likely secondary to metastatic disease as well as new pathologic fracture. - The results of ED evaluation were discussed with the patient including prescriptions and/or symptomatic cares (if applicable) including appropriate and responsible use, followup plan, and return precautions. The patient verbalized u nderstanding and felt safe for discharge. - Patient discharged in satisfactory condition. Note: Click bubbles or prepopulated diaz in note writing are used for assistance with data collection and billing and are inherently more limited than narrative and other text portions of this note. Please use narrative for additional clinical history and defer to narrative/free test for any case of contradictory information. If information appears in only free text or click bubble it should be considered present or absent as reported. Please contact note development writer for clarifications of clinical information or contradictory information. MDM is a brief summary, contradictory or erroneous seeming information should be clarified and full note should be reviewed. Vital Signs: Vital signs: Vital Signs Temperature 96.9 F L 12/09/21 19:44 Pulse Rate 80 12/09/21 20:35 Respiratory Rate 16 12/09/21 22:09 Pulse Oximetry 98 12/09/21 20:35 MDM - Chest Pain MDM Narrative: Medical decision making narrative: 66-year-old gentleman with history of metastatic lung cancer presenting with worsening pain. Found to have new pathologic fracture superimposed on known bony metastatic disease. No new neurologic deficits associated with this. Discussed with neurosurgery at [facility], no acute surgical intervention required. Patient likely requires up titration of home pain control regimen as he is, relatively speaking, on low doses. Satisfactory for discharge. Medical Records: Attestation: I reviewed the patient's medical records. Lab Data: Attestation: I reviewed the patient's lab results. Labs: Lab Results 12/09/21 12/09/21 12/09/21 20:08 20:08 20:08 WBC 6.5 10^3/uL 10^3/ uL (4.0-10.0) RBC 3.52 10^6/uL L 10 ^6/uL (4.1-5.3) Hgb 10.4 g/dL L g/dL (11.7-16.6) Hct 33.2 % L % (42.0-52.0) MCV 94.3 fl H fl (80-94) MCH 29.5 pg pg (28.0-34.0) MCHC 31.3 g/dL g/dL (30.0-36.0) RDW 16.7 % H % (12.1-15.1) Plt Count 389 10^3/cmm 10^3 /cmm (130-400) MPV 9.8 fL fL (7.4-10.4) Neut % (Auto) 80.5 % % Lymph % (Auto) 10.2 % % Morrill % (Auto) 7.9 % % Eos % (Auto) 0.0 % % Baso % (Auto) 0.0 % % Neut # (Auto) 5.23 10^3/uL 10^3 /uL (1.8-7.7) Lymph # (Auto) 0.7 10^3/uL L 10^ 3/uL (0.8-4.8) Morrill # (Auto) 0.5 10^3/uL 10^3/ uL (0.2-0.9) Eos # (Auto) 0.0 10^3/uL 10^3/ uL (0.0-0.8) Baso # (Auto) 0.0 10^3/uL 10^3/ uL (0.0-0.1) Nucleated RBC % (a uto) 0 % % Nucleated RBCs # 0.0 /100WBC /100W BC Sodium 136 mmol/L mmol/L (136-145) Potassium 4.2 mmol/L mmol/L (3.5-5.1) Chloride 100 mmol/L mmol/L (98-107) Carbon Dioxide 22 mmol/L mmol/L (22-29) Anion Gap 18.2 (5-19) BUN 25 mg/dL H mg/dL (8-23) Creatinine 1.0 mg/dL mg/dL (0.7-1.2) GFR Calculation 75.0 mL/min L mL/ min (90-130) Glucose 165 mg/dL H mg/dL (65-115) Calculated Osmolal ity 290 mOsm/kg mOsm/ kg (285-295) Calcium 8.7 mg/dL mg/dL (8.5-10.5) Total Bilirubin 0.2 mg/dL mg/dL (0.15-1.2) AST 9 U/L U/L (0-40) ALT 6 U/L U/L (0-41) Alkaline Phosphata se 87 IU/L IU/L (40-130) Troponin T Baselin e 14 ng/L ng/L (0-15) Troponin T 120 Min wil Delta Troponin T Total Protein 6.3 g/dL L g/dL (6.6-8.7) Albumin 3.6 g/dL g/dL (3.5-5.2) Globulin 2.7 g/dL g/dL (1.3-4.6) Lipase 7 U/L L U/L (13-60) Procalcitonin 0.07 ng/mL ng/mL (0-0.5) 12/09/21 21:52 WBC RBC Hgb Hct MCV MCH MCHC RDW Plt Count MPV Neut % (Auto) Lymph % (Auto) Morrill % (Auto) Eos % (Auto) Baso % (Auto) Neut # (Auto) Lymph # (Auto) Morrill # (Auto) Eos # (Auto) Baso # (Auto) Nucleated RBC % (a uto) Nucleated RBCs # Sodium Potassium Chloride Carbon Dioxide Anion Gap BUN Creatinine GFR Calculation Glucose Calculated Osmolal ity Calcium Total Bilirubin AST ALT Alkaline Phosphata se Troponin T Baselin e Troponin T 120 Min wil 13.14 ng/L ng/L (0-15) Delta Troponin T -0.86 ABS# L ABS# (0-10) Total Protein Albumin Globulin Lipase Procalcitonin EKG Data^: EKG 1: Attestation: I personally reviewed and interpreted this EKG as follows: EKG interpretation date: 12/09/21 EKG interpretation time: 19:52 Interpretation: Twelve-lead EKG shows a regular rhythm at a rate of 86. NV interval 146, QRS duration 105, QTc 403. Normal axis. Interpretation: Sinus rhythm. Nonspecific ST segment abnormalities. EKG 2: Attestation: I personally reviewed and interpreted this EKG as follows: EKG interpretation date: 12/09/21 EKG interpretation time: 23:57 Interpretation: Twelve-lead EKG shows a regular rhythm at a rate of 73. NV interval 156, QRS duration 102, QTc 418. Normal axis. Interpretation: Sinus rhythm. Nonspecific ST segment abnormalities. Discharge Plan Discharge Patient Disposition: Home Clinical Impression: Chest pain, Neck pain, Closed T2 fracture, Metastatic cancer Condition: Stable Prescriptions: New oxycodone 5 mg tablet 5 mg PO Q4H PRN (Reason: pain) Qty: 30 RF: 0 No Action prochlorperazine maleate 10 mg tablet 10 mg PO BID PRN (Reason: Nausea) RF: 0 albuterol sulfate 90 mcg/actuation HFA aerosol inhaler 1 inh inhalation QID PRN (Reason: shortness of breath or wheezing) Qty: 8.5 RF: 0 tiotropium-olodaterol 2.5-2.5 mcg/actuation mist 2 puff inhalation DAILY Qty: 4 RF: 0 fluticasone propion-salmeterol [Advair Diskus] 250-50 mcg/dose blister with device 1 inh inhalation BID Qty: 60 RF: 0 Eliquis 5 mg tablet 5 mg PO BID RF: 0 finasteride 5 mg tablet 5 mg PO DAILY RF: 0 gabapentin 400 mg capsule 400 mg PO TID RF: 0 lidocaine-prilocaine 2.5-2.5 % cream 0.5 g topical BID PRN (Reason: port access) RF: 0 potassium gluconate 595 mg (99 mg) tablet 595 mg PO DAILY RF: 0 nitroglycerin 0.4 mg tablet, sublingual 0.4 mg sublingual Q5M PRN (Reason: chest pain) 30 Days Qty: 30 RF: 3 doxycycline monohydrate 100 mg capsule 100 mg PO BID 10 Days Qty: 20 RF: 0 dexamethasone 6 mg tablet 6 mg PO DAILY 7 Days Qty: 7 RF: 0 (DME) DIRECTOR STERILE PROCESSING See Rx Instructions .Route .MEDSUPPLY Qty: 1 RF: 0 oxycodone-acetaminophen 10-325 mg tablet 1 tab PO Q6H PRN (Reason: Pain) RF: 0 atorvastatin 40 mg Tablet 40 mg PO BEDTIME Qty: 30 RF: 0 tamsulosin 0.4 mg Capsule 0.4 mg PO DAILY Qty: 30 RF: 0 pantoprazole 40 mg Tablet,Delayed Release (Dr/Ec) 40 mg PO DAILY Qty: 30 RF: 0 ferrous sulfate [Iron (ferrous sulfate)] 325 mg (65 mg iron) Tablet 325 mg PO DAILY RF: 0 Mucinex 1,200 mg Tablet Extended Release 12hr 1,200 mg PO Q12H RF: 0 metoprolol tartrate 37.5 mg tablet 37.5 mg PO BID RF: 0 furosemide 20 mg tablet 20 mg PO QAM PRN (Reason: SWELLING) RF: 0 alendronate 70 mg tablet 70 mg PO Q7D RF: 0 acetaminophen [Tylenol Extra Strength] 500 mg Tablet 1,000 mg PO Q6H PRN (Reason: Pain) RF: 0 aspirin 81 mg tablet,delayed release (DR/EC) 81 mg PO DAILY@05 Qty: 0 RF: 0 dexamethasone 4 mg tablet 4 mg PO BID RF: 0 Discharge Orders: Discharge ED (Routine); Ordered 12/10/21 Ordered By: Brendon Champagne Referrals: Arabella Montero MD [Primary Care Provider] - Discharge Diet: Usual diet Discharge Activity: Resume usual activity Patient Instructions: Chest Pain (ED), Thoracolumbar Fracture (ED), Opioid Safety Activity Restrictions/Additional Instructions: Thank you for visiting the emergency department. You were seen and evaluated fo r neck pain and chest pain. The exact cause your symptoms is unclear though most likely related to your underlying cancer. As discussed, you do have worsening of your T2 pathologic disease including a new fracture since prior. This was discussed with neurosurgery in [place] and no immediate operative intervention is required. This does require return to your oncologist for further treatment consideration. For pain control you can increase the frequency of your 10?325 oxycodone/acetaminophen to every 4 hours as needed for pain. Additionally I will write you a prescription for additional oxycodone 5 mg that you can take when your pain is not adequately controlled up to every 4 hours perhaps alternating timing as needed. As discussed, opioids do have risk including respiratory depression, GROCERY STORE MANAGER depression, constipation, and others. Please use these appropriately and watch closely for side effects. I will give you a prescription for Narcan to be given if you are found to have significant GROCERY STORE MANAGER or respiratory depression. Please follow-up with your oncologist and primary care provider. Return to the emergency department for worsening pain, shortness of breath, chest pain, any new neurologic symptoms, or anything else that you are concerned about and feel needs emergency department evaluation. Coding Level of Care Code ED Hop Picker for Desmond Fwobdulia Exam Comprehensive
--- NOTE | 2021-12-09 19:59 | XRR_ITS ---
PROCEDURE INFORMATION: Exam: XR Chest Exam date and time: 12/09/2021 7:59 PM Age: 66 years old Clinical indication: Chest wall pain; Additional info: Chest pain TECHNIQUE: Imaging protocol: XR of the chest. Views: 1 view. COMPARISON: CR XR chest 2V* [id number] 12/08/2021 11:51 AM FINDINGS: Tubes, catheters and devices: There is a right subclavian port with tip in the superior vena cava. Lungs: Unchanged hyperinflation. No consolidation. Unchanged probable mild fibrosis. Pleural spaces: Unremarkable. No pleural effusion. No pneumothorax. Heart/Mediastinum: Unchanged cardiomegaly. Bones/joints: No acute abnormality. XR/XR chest 1V portable [id number] IMPRESSION: No acute findings.
--- NOTE | 2021-12-09 20:00 | ECG_ITS ---
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 Measurements Intervals [place] Rate: 86 P: 46 [place]: 146 QRS: 40 QRSD: 105 T: 33 QT: 360 QTc: 431 Interpretive Statements SINUS RHYTHM Compared to ECG 04/30/2021 15:47:23 Sinus tachycardia no longer present Atrial abnormality no longer present Incomplete right bundle-branch block no longer present Electronically Signed On 12-10-2021 19:54:52 VEHICLE REFINISHER by Maria Eugenia Pineda M.D. [id number]
[2021-12-09 20:11] VITALS: RESP 14
[2021-12-09] MEDS: morphine 4 mg/mL SDV 1 mL IVP ×2 (20:11→22:09)
[2021-12-09 20:14] LABS: Hematocrit 33.2 % (42.0-52.0); Hemoglobin 10.4 g/dL (11.7-16.6); Lymphocytes # 0.7 10^3/uL (0.8-4.8); Lymphocytes % 10.2 %; Mean Corpuscular HGB Conc 31.3 g/dL (30.0-36.0); Mean Corpuscular Hemoglobin 29.5 pg (28.0-34.0); Mean Corpuscular Volume 94.3 fl (80-94); Mean Platelet Volume 9.8 fL (7.4-10.4); Monocytes # 0.5 10^3/uL (0.2-0.9); Monocytes % 7.9 %; Neutrophils # 5.23 10^3/uL (1.8-7.7); Neutrophils % 80.5 %; Nucleated Red Blood Cells % 0 %; Platelet Count 389 10^3/cmm (130-400); Red Blood Count 3.52 10^6/uL (4.1-5.3); Red Cell Distribution Width 16.7 % (12.1-15.1); White Blood Count 6.5 10^3/uL (4.0-10.0)
[2021-12-09 20:34] LABS: Troponin(5th) Baseline 14 ng/L (0-15)
[2021-12-09 20:35] VITALS: PULSE 80; RESP 16; O2SAT 98
[2021-12-09 20:35] LABS: Alanine Aminotransferase 6 U/L (0-41); Albumin Level 3.6 g/dL (3.5-5.2); Alkaline Phosphatase 87 IU/L (40-130); Anion Gap 18.2 (5-19); Aspartate Amino Transferase 9 U/L (0-40); Blood Urea Nitrogen 25 mg/dL (8-23); Calcium 8.7 mg/dL (8.5-10.5); Carbon Dioxide 22 mmol/L (22-29); Chloride 100 mmol/L (98-107); Globulin 2.7 g/dL (1.3-4.6); Glucose 165 mg/dL (65-115); Lipase 7 U/L (13-60); Osmolality Calculated 290 mOsm/kg (285-295); Potassium 4.2 mmol/L (3.5-5.1); Sodium 136 mmol/L (136-145); Total Bilirubin 0.2 mg/dL (0.15-1.2); Total Protein 6.3 g/dL (6.6-8.7)
[2021-12-09] MEDS: ipratropium-albuterol 3 mL Neb INHALATION (20:36)
[2021-12-09 20:42] LABS: Procalcitonin 0.07 ng/mL (0-0.5)
--- NOTE | 2021-12-09 21:21 | CTR_ITS ---
PROCEDURE INFORMATION: Exam: CT Cervical Spine Without Contrast Exam date and time: 12/09/2021 9:21 PM Age: 66 years old Clinical indication: Neck pain; Additional info: Neck pain, known cancer TECHNIQUE: Imaging protocol: Computed tomography images of the cervical spine without contrast. Radiation optimization: All CT scans at this facility use at least one of these dose optimization techniques: automated exposure control; mA and/or kV adjustment per patient size (includes targeted exams where dose is matched to clinical indication); or iterative reconstruction. COMPARISON: MR cervical spine wo/w [id number] 07/15/2021 11:09 AM RADIATION DOSE METRICS: Total DLP (mGy-cm): 545.14 FINDINGS: Bones/joints: There is unchanged anterior wedging pathologic fracture of T2 vertebral body with lytic lesion involving the left aspect of the vertebral body, pedicle and spinous process. There is a new pathologic fracture through the left lamina and left pedicle of T2 series 601, image 31 and series 4 axial image sixty-five through 67. The T2 fracture is extending into the base of the left transverse process and adjacent segment of absent bones/destruction of the left lamina of T2 as seen on series 4, image 64. Expansile lytic changes of the left transverse process has not changed significantly. No acute fracture of the right lamina or pedicle of T2. Periosteal reaction and soft tissue mass protruding from the left pedicle and vertebral body of T2 series 4, image 65 is unchanged. No new soft tissue mass or new lytic bony lesion. Moderate to severe spondylosis in the lower cervical spine is unchanged. There is unchanged mild degenerative anterolisthesis of C4 on C5. Discs/Spinal canal/Neural foramina: There is an unchanged central disc bulge at C3-C4 without critical stenosis. At C5-C6, there is a small disc bulge with mild narrowing of the central canal and moderate bilateral foraminal narrowing mostly due to uncovertebral and facet hypertrophy. At C6-C7, there is a small central disc bulge without significant stenosis but there is also bilateral moderate to severe foraminal narrowing due to uncovertebral and facet hypertrophy. Lungs: Lung apices are normal. Soft tissues: Unremarkable. CT/CT cervical spin wo con* [id number] IMPRESSION: 1. New pathologic fracture of the left lamina and adjacent base of the left transverse process of T2 and progressive lytic destruction of the lamina of T2 compared to the prior MRI. Unchanged anterior wedging/pathologic fracture of the vertebral body of T2 is noted. The right pedicle and lamina of T2 are intact. 2. Unchanged spondylosis and disc bulges without critical stenosis. Unchanged narrowing of the left spinal canal at T2 due to bony destruction and periosteal reaction. 3. No new area of lytic bony destruction other than the T2 abnormalities noted above.
--- NOTE | 2021-12-09 21:21 | CTR_ITS ---
PROCEDURE INFORMATION: Exam: CT Chest With Contrast; Diagnostic Exam date and time: 12/09/2021 9:21 PM Age: 66 years old Clinical indication: Pain; Cough; Chest pressure; Prior surgery; Surgery type: Port; Additional info: Chest pain, HX cancer and bony mets TECHNIQUE: Imaging protocol: Diagnostic computed tomography of the chest with contrast. Radiation optimization: All CT scans at this facility use at least one of these dose optimization techniques: automated exposure control; mA and/or kV adjustment per patient size (includes targeted exams where dose is matched to clinical indication); or iterative reconstruction. Contrast material: VISI 320; Contrast volume: 95 ml; Contrast route: INTRAVENOUS (IV); COMPARISON: CT chest w con* [id number] 02/11/2021 9:50 AM RADIATION DOSE METRICS: Total DLP (mGy-cm): 637.28 FINDINGS: Lungs: There is a larger left infrahilar mass with postobstructive volume loss and pneumonitis measuring 2.8 x 4.2 cm today where previously it measured 2.6 x 2.5 cm series 2, image 36. There is interval enlargement of a pulmonary nodule left lung image 25 today measuring 1.3 x 1.4 cm compared to 1.2 x 1.3 cm previously. There is linear atelectasis in the right lung base. Subcentimeter nodular densities/tree-in-bud opacities in the upper lobes are unchanged. There is unchanged apical fibrosis/scarring. Pleural spaces: Unremarkable. No pneumothorax. No pleural effusion. Heart: The heart is enlarged. There is a small pericardial fluid collection present. Aorta: There is 4.0 cm aneurysmal dilatation of the ascending thoracic aorta without dissection or mural hematoma. Lymph nodes: There is improving mediastinal adenopathy. On series 2, image 23, there is a lymph node with a short axis measurement of 1.2 cm today compared to 1.8 cm previously. A subcarinal lymph node today measures 1.0 cm in short axis compared to 1.7 cm previously. Diaphragm: A small hiatal hernia is present. Liver: A few tiny hepatic hypodensities are noted and are unchanged and too small to characterize. Spleen: The spleen is normal. Adrenal glands: The adrenal glands are normal. Bones/joints: The pathologic bony destruction of T2 with pathologic fracture of the left pedicle and lamina is better visualized on the cervical spine CT of the same day. There is diffuse osteopenia. There is mild chronic appearing anterior wedging of the T3 vertebral body. Soft tissues: There is a soft tissue mass visualized in the left upper abdominal wall immediately beneath the left 11th rib measuring 1.4 x 3.3 cm new compared to the prior exam. Splenule versus soft tissue nodule in the mesentery left upper abdomen image 65 measures 1.[address]/CT chest w con* [id number] IMPRESSION: 1. The pathologic bony destruction of T2 with pathologic fracture of the left pedicle and lamina is better visualized on the cervical spine CT of the same day. 2. Improving mediastinal adenopathy. Larger left hilar mass with interval increased postobstructive pneumonitis and volume loss left lower lobe. Larger nodule lateral to the left hilum. Fleischner Society follow up recommendations for incidental nodules are not indicated. Follow up per the patient's medical condition. 3. New soft tissue nodule left abdominal wall just adjacent to the 11th rib. Hypodense nodule adjacent to the spleen was not included on the prior exam and may be a splenule or mesenteric nodule.
[2021-12-09] MEDS: iodixanol 320 mg/mL 100mL Btl IV (21:36)
--- NOTE | 2021-12-09 22:00 | ECG_ITS ---
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 Measurements Intervals [place] Rate: 73 P: -26 MT: 156 QRS: 48 QRSD: 100 T: 22 QT: 391 QTc: 434 Interpretive Statements SINUS RHYTHM Compared to ECG 12/09/2021 19:48:28 No significant changes Electronically Signed On 12-10-2021 20:07:02 TRACK REPAIR WORKER by Maria Eugenia Pineda M.D. [id number]
[2021-12-09] MEDS: ondansetron 2 mg/ML SDV 2 mL 4 MG IVP (22:08)
[2021-12-09 22:09] VITALS: RESP 16
[2021-12-09 22:14] LABS: Troponin 5 2HR 13.14 ng/L (0-15); Troponin 5 2HR Delta -0.86 ABS# (0-10)
== END 2021-12-10 00:59 | disposition home or self-care (01) ==
PROVIDERS: Emergency Provider Emergency Medicine; PCP Family Medicine
DX: R07.9 Chest pain, unspecified (principal); M54.2 Cervicalgia; S22.029A Unspecified fracture of second thoracic vertebra, initial encounter for closed fracture; C34.90 Malignant neoplasm of unspecified part of unspecified bronchus or lung; Z79.01 Long term (current) use of anticoagulants; Z79.82 Long term (current) use of aspirin; Z87.891 Personal history of nicotine dependence; I11.0 Hypertensive heart disease with heart failure; I50.30 Unspecified diastolic (congestive) heart failure; J44.9 Chronic obstructive pulmonary disease, unspecified; Z92.21 Personal history of antineoplastic chemotherapy; Z92.3 Personal history of irradiation; X58.XXXA Exposure to other specified factors, initial encounter
CPT/HCPCS: 36415; 71045; 71260; 72125; 80053; 83690; 84145; 84484; 85025; 93005; 94640; 96374; 96376; 99283; J2270; J2405; Q9967

== ENCOUNTER 2021-12-16 11:43 | Outpatient (RCR) | payer BC, MEDICARE, SELFPAY ==
--- NOTE | 2021-12-17 08:52 | ONC FU_ITS ---
Dr. Schroeder follow up note Patient: Tramaine Galaviz Unit #: [id number]: 1955 Dicatated By: Martin Schroeder M.D.Date of Visit:Dec 16, 2021 Onc Med Follow-up/Prog Note History of Present Illness: Mr. Galaviz is a 66-year-old gentleman with a history of hematuria. it was which confirmed to be due to an enlarged prostate. As a part of hematuria evaluation, he underwent CT urography on February 06, 2021, which showed an incidental finding of 11 mm lung nodule along with the left hilar lymphadenopathy. Mr Galaviz then underwent CT scan of chest on February 11, 2021 which showed enlarged lymph nodes within both sides of middle mediastinum and within subcarinal space. He also had a lymph node within the right paratracheal space measuring up to 15 mm; low-grade left hilar lymphadenopathy and A small masslike lesion grossly measuring 2.6 x 2.1 cm, centrally of left infrahilar region contiguous with peribronchovascular soft tissue thickening within the posterior basal segment of left lung and a small localized region of complex soft tissue thickening centrally within the left lower lobe and limited images of upper abdomen without apparent significant pathology. Subsequently Mr Galaviz was referred to pulmonology and underwent bronchoscopy on February 19, 2021. EBUS FNA biopsy was obtained from lymph node station 4R, 4L, station 7, station 11 L, and left lower lobe of lung mass #1 endobronchial biopsy, all of them confirmed involvement with squamous cell carcinoma whereas left lower lobe mass #2 posterior basal segment showed benign alveolated lung tissue, no tumor was seen. Guardant 360 showed no targetable mutation but TMB was more than 10 e.g. 11.16 mutation thus candidate for pembrolizumab Patient quit smoking in 2009 but prior to that about 40-year history of smoking with 3 to 4 packs a day, Mr Galaviz had been complaining of left neck pain radiating to left shoulder and elbow, progressive for the last couple of weeks, A plain x-ray of C-spine done on February 10, 2021 shows no evidence of fracture or dislocation; mild disc space narrowing at C5-6 and C6-7 with mild degenerative retrolisthesis at these levels. Hydrocodone was not helping his pain much and Mr Galaviz was not getting enough sleep because of it. Mr Glaaviz was diagnosed with osteoporosis based on a DEXA scan from October 30, 2020. The bone density from 10/30/2020 at [facility] reported the bone mineral density T-score for L1-L4 @ -2.5; the left femoral neck at -1.2; and left total hip T score -0.7. He was started on alendronate therapy by PMD. PET/CT scan from March 13, 2021 showed hypermetabolic spiculated nodule left lower lobe with SUV of 4.1, extensive hypermetabolic bilateral mediastinal and left hilar asya metastasis. No hypermetabolic right hilar lymph node. Hypermetabolic gastrohepatic ligament lymph node suspicious for asya metastasis. Solitary hypermetabolic expansile lytic lesion of left T2 transverse process and pedicle extensive hypermetabolic tumor into the left T2-3 neuroforamen and left lateral aspect of central canal. Mr. 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 He had radiation therapy from April 03, 2021 through April 16, 2021 to total prescribed dose of 30 cGy delivered in 10 fractions. Mr. Galaviz did have an MRI of the head without contrast on 05/05/2021 ordered by Myron Frias NP. It reported evidence of subacute ischemia involving the right periventricular white matter extending to the right inferior frontal lobe and insula. Associated T2 signal abnormality. No significant mass-effect or midline shift. A few additional tiny acute/subacute foci of acute ischemia in the right frontoparietal white matter. Mild small vessel changes. Mild to moderate parenchymal volume loss. Mild small vessel changes in the tigre. Tiny focus of hemosiderin in the right inferior frontal lobe. This is being followed by neurology. Mr. Galaviz has been offered treatment with Keytruda/carboplatin Taxol with plan Neulasta support. His current treatment plan will be day 1 and 8 every 21-day cycle. He had placement of a right subclavian PowerPort per Dr. Calderon on May 15, 2021. He began his first cycle of Keytruda/Carboplatin and Taxl on 05/19/2021. Follow-up PET/CT scan from July 12, 2021 shows lytic osseous lesion at T2 demonstrates minimal, inflammatory FDG uptake consistent with treated malignancy. A 3 cm lesion in the inferior left hilum hadV of 7.6, consistent with known lung cancer. Left lower lobe atelectasis is FDG negative. Mild FDG activity in the right paratracheal 4R and subcarinal lymph node is consistent with local metastatic disease with SUV of 4.5. Mr Galaviz was referred to pulmonology for right paratracheal mass evaluation and underwent bronchoscopy/EBUS on August 05, 2021. The biopsy from 4R lymph node confirmed poorly differentiated metastatic squamous cell carcinoma complaining of off and on palpitation and chest tightness/pain ,. Patient has seen Dr. Pineda ointment mill tender for evaluation, as per patient EKG was good and Underwent cardiac cath on October 30, 2021 shows mild to moderate diffuse coronary artery disease. Normal LV ejection fraction 65% Follow-up CT PET scan done on 11/15/2021 showed progression of left hilar lesion and mediastinal lymph nodes with development of new mediastinal lymphadenopathy. Probable recurrence in left lower lobe atelectasis. New FDG positive upper abdominal lymph node consistent with malignancy. Recurrent osseous metastatic disease at T2 Next generation sequencing done on 2021 showed no targetable mutation as test came back negative for ALK, ROS1, BRAF, MET HER2/ortiz, RET, NTRK K-mikie and also MSI H was not detected Patient was complaining of hoarseness of voice and progressive pain in mid upper back, CT scan of chest was ordered which was done on December 09, 2021 showed pathological bony destruction of T2 with pathological fracture of left pedicle and lamina, improving mediastinal adenopathy, large left hilar mass with interval increase postobstructive pneumonitis and volume loss left lower lobe. Larger nodule lateral to left hilum, new soft tissue nodule left abdominal wall just adjacent to 11th rib. Hypodense nodule adjacent to spleen was not included on prior exam, may be splenule or mesenteric nodule Came for follow-up, complaining of hoarseness of voice for the last few days since he was started on steroids for progressive upper back pain as his CT scan of thoracic spine shows T2 pathological fracture, patient has radiation therapy done to this area in the past because of progressive pain he was given steroids dexamethasone with that his pain improved along with his current pain medication. But no numbness in the upper extremities or lower extremities, no urine or stool incontinence. Patient denies any hemoptysis or hematemesis denies any melena or hematochezia but mild sore throat. Medications: Adult Aspirin EC Low Strength 2 Tablet (of 81 mg) Tablet, enteric coated Oral daily, Alendronate Sodium 1 Tablet (of 70 mg) Oral q 7 days, Atorvastatin Calcium 1 Tablet (of 40 mg) Oral at bedtime, Cardizem CD 1 Caplet (of 240 mg) Capsule SR 24 HR Oral daily, Clopidogrel Bisulfate 1 Tablet (of 75 mg) Oral daily, Cozaar 1 Tablet (of 50 mg) Oral daily, Dexamethasone 1 Tablet (of 4 mg) Oral t.i.d., Diclofenac Sodium 1 Tablet (of 75 mg) Tablet, enteric coated Oral daily, Eliquis 1 Tablet (of 5 mg) Oral b.i.d., Finasteride 1 Tablet (of 5 mg) Oral daily, Gabapentin 1 Caplet (of 400 mg) Capsule Oral t.i.d., oxyCODONE-Acetaminophen 1 (10-325 mg) Tablet Oral q 6 hours, Pantoprazole Sodium 1 (40 mg) Pack Oral daily, Tamsulosin HCl 1 (0.4 mg) Capsule Oral daily Allergies: No Known Allergies. Review of Systems: Review of Systems is not available for this patient. Vital Signs: Performed on Dec 16, 2021 11:52 Height - 70.00 in Weight - 183 lbs (HIGH) BSA - 2.01 sq.m BMI - 26.26 Temperature - 98.1 F (LOW) Pulse - 61 /min Respiration - 18 /min BP - 144/79 mm(hg) (HIGH) O2 Sat - 100 % Pain - 5 Fatigue - 0 Performance Status: 1 - No physically strenuous activity, but ambulatory and able to carry out light or sedentary work (e.g. office work, light house work). (ECOG) Physical Examination: ENMT - No mouth sores, mild pharyngeal thrush, no jaundice, no cervical lymphadenopathy, Respiratory - Lungs are clear to auscultation, Cardiovascular - Regular rate and rhythm of heart, Abdomen - Soft, bowel sounds present, Extremities - No visible edema, neuro exam nonfocal. Lab/Imaging: Test performed on Nov 24, 2021 10:00 Creatinine 0.9 mg/dL Cr Clearance (Est) 92.51 mL/min Test performed on Nov 10, 2021 09:31 Glucose 104 mg/dL BUN 19 mg/dL Sodium 140 mmol/L Potassium 4.2 mmol/L Chloride 102 mmol/L CO2 26 mmol/L Calcium 8.8 mg/dL Protein, Total 6.3 g/dL Albumin 3.7 g/dL Globulin 2.6 g/dL Bilirubin, Total 0.2 mg/dL Alkaline Phosphatase 79 International Units/L AST (SGOT) 7 International Units/L ALT (SGPT) 6 International Units/L WBC 5.9 10^9/L RBC 3.34 10^12/L HGB 10.3 g/dL HCT 33.5 % MCV 100.3 fl MCH 30.8 pg MCHC 30.7 g/dL RDW 16.1 % Platelet Count 373 10^9/L MPV 10.7 fL Neutrophils (Gran) 4.36 10^9/L Lymphocytes 0.9 10^9/L Monocytes 0.5 10^9/L Eosinophils 0.1 10^9/L Basophils 0.0 10^9/L Manual Lymphocytes 14.6 % Manual Monocytes 8.0 % Manual Eosinophils 2.4 % Manual Basophils 0.7 % Test performed on Sep 23, 2021 10:55 TSH 0.29 uIU/mL Test performed on Sep 08, 2021 09:12 NRBCs 0.0 /100 WBC Test performed on Jul 29, 2021 10:00 Anion Gap 13.3 eGFR 113.2 mL/min Osmolality - Calculated 293 mOsm/kg Neutrophil % 75.3 % Lymphocyte % 13.1 % Monocyte % 8.9 % Eosinophil % 0.7 % Basophils % 0.3 % NRBC % 0.0 % Impression: 1. Metastatic Squamous cell carcinoma involving bilateral mediastinal lymph nodes and left lower lobe of lung per bronchoscopy/EBUS FNA obtained from lymph node station 4R, station 4L, station 7, station 11 L and left lower lobe mass endobronchial biopsy all confirmed squamous cell carcinoma involvement. 2. Bone mets February 2021: s/p radiation to T2 copleted 04/16/21 to 30 Gy. On chemoimmunotherapy with Keytruda/carboplatin/Taxol, Discontinued on 11/24/2021 because of follow-up CT PET scan done on 11/15/2021 shows disease progression and switched to weekly cisplatin/gemcitabine Longstanding history of heavy smoking quit in 2009 Plan: Discussed with patient regarding his CT scan of chest findings which shows pathological bony destruction of T12 with pathological fracture of left pedicle and lamina seen on C-spine CT scan done on same day. Improving mediastinal lymphadenopathy. Large left hilar mass with interval increase postobstructive pneumonitis and volume loss left lower lobe. And new soft tissue nodule left abdominal wall just adjacent to 11th rib and hypodense nodule adjacent to spleen was not included in prior exam may be splenule or mesenteric nodule. , His case was discussed with radiation oncology and CT scan of thoracic spine was reviewed, and it showed his worsening of pain was probably due to pathological fracture of T2 vertebra and as per radiation, radiation therapy may not be helpful rather consider orthopedics evaluation, patient was referred to orthopedics, he is scheduled to see Dr. muse on coming , if surgery is considered, will hold his systemic therapy if thoracic brace is considered, then will consider starting him on palliative chemotherapy either with gemcitabine alone or weekly cisplatin/Navelbine as next generation sequencing did not show any targetable mutation. As far as hoarseness of voice is concerned probably due to Cindy pharyngitis/laryngitis as patient is also complaining of mild odynophagia and on exam there is a evidence of oral thrush, will start him on Diflucan 150 mg p.o. daily for 3 days. And also consider tapering of his dexamethasone. Patient return to clinic in 1 week with CBC CMP unless due to surgery is considered. Signed By: Martin Schroeder M.D. <<Signature on File>>
== END 2021-12-29 23:59 | disposition home or self-care (01) ==
LOC: ONCMED 11:43
PROVIDERS: PCP Family Medicine; Visit Provider Internal Medicine Hematology & Oncology
DX: C34.32 Malignant neoplasm of lower lobe, left bronchus or lung (principal); C79.51 Secondary malignant neoplasm of bone; C77.8 Secondary and unspecified malignant neoplasm of lymph nodes of multiple regions; R49.0 Dysphonia; R13.19 Other dysphagia; Z79.52 Long term (current) use of systemic steroids; Z79.899 Other long term (current) drug therapy; Z87.891 Personal history of nicotine dependence; Z92.25 Personal history of immunosuppression therapy; Z92.21 Personal history of antineoplastic chemotherapy
CPT/HCPCS: 99215

== ENCOUNTER → 2021-12-18 10:44 | Outpatient (BNVA) | payer BC, MEDICARE, SELFPAY | PROVIDERS: PCP Family Medicine; Visit Provider Physician Assistant | DX: M47.819 Spondylosis without myelopathy or radiculopathy, site unspecified (principal); M85.88 Other specified disorders of bone density and structure, other site | CPT/HCPCS: 72070 ==

== ENCOUNTER 2022-01-07 10:42 | Inpatient (IN) | payer BC, MEDICARE, SELFPAY ==
[2022-01-07] VITALS (9 sets, daily range): BP systolic 102–127; BP diastolic 69–81; PULSE 88–160; RESP 18–26; TEMP 37.5; O2SAT 96–98; BMI 25.4
--- NOTE | 2022-01-07 11:03 | XR_ITS ---
WS: [id number] CHEST XRAY TECHNIQUE: Portable chest. CLINICAL INFORMATION: dyspnea/cough COMPARISON: December 09, 2021 FINDINGS: RIGHT Port-A-Cath with tip in the mid SVC. Heart: Cardiomegaly. Lungs: Small to moderate LEFT pleural effusion with LEFT perihilar interstitial edema or infiltrates. RIGHT lung is well aerated. Trace RIGHT pleural fluid or pleural thickening. Slight RIGHT lower lobe atelectasis medially. Bones: Normal visualized bony structures. XR/XR chest 1V portable [id number] IMPRESSION: 1. Cardiomegaly. 2. Small moderate LEFT pleural effusion with LEFT perihilar interstitial edema or infiltrates. 3. Trace RIGHT pleural fluid with atelectasis RIGHT lower lobe medially.
--- NOTE | 2022-01-07 11:05 | CT_ITS ---
WS: [id number] CT CHEST ANGIOGRAPHY WITH REFORMATS HISTORY: dyspnea/chest pain TECHNIQUE: Contiguous axial images are obtained through the chest during arterial injection of intrav enous contrast. Images are reconstructed to evaluate the pulmonary arteries. MIP imaging also reviewe d. All CT scans at [facility] use at least one of these dose optimization techniques: automat ed exposure control; mA and/or kV adjustment per patient size (includes targeted exams where dose is matched to clinical indication); or iterative reconstruction. CONTRAST: Omnipaque 350; 66 mL IV. DLP: 606.01 mGy.cm COMPARISON: 12/09/2021 Good opacification of the pulmonary arteries. No pulmonary embolism is identified. Mild atheroscleros is aorta. No dissection or aneurysm. Pulmonary artery size is normal. Heart chambers are normal. Deve lopment of a large circumferential pericardial effusion with a diameter of 11 mm. Small RIGHT pleural effusion and [id number] LEFT pleural effusion. Pleural effusions are new since the prior stud y. Atelectasis of the LEFT lower lobe. Obstructing tumor is thought at the LEFT hilum. This was positive on PET/CT from 11/15/2021. There is a soft tissue mass centered at the LEFT hilum which is partially deforming the LEFT atrium. RIGHT paratracheal and bilateral hilar lymph nodes are reidentified and n ot significantly progressed since 12/09/2021. Stable well-circumscribed nodule measuring 11 mm in the LEFT upper lobe. Right-sided Mediport is identified. Visualized liver is normal. No adrenal mass. Patient has a known metastatic lesion in the T2 vertebra l body. Soft tissue nodule in the upper posterior LEFT abdomen is intercostal. This was positive on t he recent PET/CT consistent with a metastatic site. There were additional metastatic lesions within t he ribs as seen on the prior study. Preaortic lymph node and incompletely visualized lymph node in th e yvon hepatis. CT/CT angio chest PE protcl [id number] IMPRESSION: 1. No pulmonary embolism. 2. Interval development of large circumferential pericardial effusion. 3. Interval development of bilateral pleural effusions, small on the RIGHT and [id number] on the LEFT. 4. Complete atelectasis LEFT lower lobe. Increasing soft tissue mass obstructi ng the proximal LEFT lower lobe bronchus. This was described also on a prior PE T/CT. 5. Pathological compression at T2. Intercostal nodule in the LEFT lower thorax consistent with metastatic site, also positive on the prior PET/CT. 6. No significant progression of the mediastinal and RIGHT paratracheal lymph nodes or the well-circumscribed nodule in the LEFT upper lobe.
[2022-01-07 11:26] LABS: ABG PCO2 34.8 mmHg (35-45); ABG PH Result 7.48 (7.35-7.45); Alveolar-Arterial Oxygen Gradi 10.2 mmHg (5-10); Arterial Blood Gas Hematocrit 31.1 % (42-52); Base Excess ABG 2.2 mmol/L (-2.0-2.0); Blood Gas Allen Test Pos; Blood Gas Operator Identificat MONRO; Blood Gas Sample Site Radial, left; Blood Gas Sample Type Arterial; Carboxyhemoglobin 0.7 %THgb (0.4-20.1); HCO3 ABG 25.7 mmol/L (22-26); HGB O2 Sat 99.1 % (95-100); Methemoglobin 0.2 % (0.4-1.5); Oxygen Device NC; Potassium Level - ABG 4.1 mmol/L (3.5-5.0); Total Hemoglobin 10.2 g/dL (14-18)
--- NOTE | 2022-01-07 11:31 | ECG_ITS ---
[facility] Test Date: 2022-01-07 Pat Name: Tramaine Galaviz Department: Room: Gender: Male Registered Mail Clerk: : [id number] Requested By: Dustin Jalloh Order Number: [id number] Dixon MD: Bryanna Schafer M.D. Measurements Intervals [place] Rate: 100 P: 21 VT: 145 QRS: 35 QRSD: 98 T: 102 QT: 345 QTc: 445 Interpretive Statements SINUS TACHYCARDIA Compared to ECG 01/07/2022 11:43:04 Atrial fibrillation no longer present T-wave abnormality no longer present Electronically Signed On 01-07-2022 19:21:43 MEDIA DIRECTOR by Bryanna Schafer M.D. [id number]
--- NOTE | 2022-01-07 11:34 | ED_ITS ---
HPI - SOB/Dyspnea General: Chief Complaint: ER Hold Stated Complaint: SOB Time Seen by Provider: 01/07/22 10:49 History of Present Illness: HPI Narrative: 66-year-old male presents emergency room via EMS with acute dyspnea. Patient has a known history of lung CA he had COVID in May 2021 he has been vaccinated he has severe sudden onset of hypoxia this morning along with a cough he said last couple days cough has been nonproductive he is not had any hemoptysis. His O2 sats in the field were in the 70% range on room air. On arrival here he is tachycardic. On 5 to 6 L by nasal cannula he will still desat to mid 80s with even mild exertion such as sitting up in bed for exam. He did have some chest pain overnight nothing that is been sharp. Low-grade subjective fever. MD elicited complaint: shortness of breath and cough Pertinent past history: COPD Timing: constant Severity: severe Exacerbating factors: nothing Relieving factors: nothing Known history of: COPD Associated symptoms: Deny abdominal pain, chest congestion, chest pain, cough, diaphoresis, dizziness, extremity pain, fever(s), hemoptysis, lightheadedness, myalgias, nausea, orthopnea, palpitations, paresthesias, polydipsia, polyuria, rash, sense of impending doom, syncope or vomiting Treatment prior to arrival: none Review of Systems Const: Denies: fever(s) or diaphoresis Card: Denies: chest pain, palpitations, lightheadedness, syncope or orthopnea Resp: Denies: hemoptysis or chest congestion GI: Denies: abdominal pain, nausea or vomiting Musc: Denies: extremity pain Neuro: Denies: dizziness Endo: Denies: polyuria or polydipsia PFS ED PFSH: Medical History Atherosclerosis of coronary artery Bilateral impacted cerumen Cerebrovascular accident Cervical radiculopathy 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 COPD (chronic obstructive pulmonary disease) COPD exacerbation Dyspnea on exertion Hx of angina pectoris Hypertension Lower respiratory infection Lower respiratory infection 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 Pericardial effusion Peripheral neuropathy Secondary malignant neoplasm of bone Surgical History History of ankle surgery History of bronchoscopy History of lumbar laminectomy for spinal cord decompression History of shoulder surgery S/P right rotator cuff repair Family History Sister Anesthesia complication CAD (coronary artery disease) Chronic kidney disease (CKD) Family/Other CAD (coronary artery disease) Brother Cancer Father Dementia Stroke Mother Stroke Denies family history of Diabetes Clotting disorder Suicide Bleeding disorder Lung disease Social History Quit status (tobacco): has quit using tobacco Year quit tobacco: 2010 Former quit date comment: 5 PPD x 40 Years Second hand smoke exposure: No Smoking risk assessment/counseling performed?: No Alcohol intake: former Counseling given: No Counseling given: No Lives independently: Yes Household members: spouse Marital status: Current occupational status: unemployed History of recent travel: No Current gender identity: Male Physical Exam Const: GENERAL APPEARANCE: cooperative ORIENTATION/CONSCIOUSNESS: Yes awake, Yes oriented to person, Yes oriented to place and Yes oriented to time HENMT: COMMON NORMALS: normocephalic and atraumatic HEAD & SCALP: normocephalic and atraumatic Resp: AUSCULTATION: rales and wheezes Cardio: RATE: tachycardic RHYTHM: abnormal rhythm irregularly irregular GI: COMMON NORMALS: Soft to palpation and No hepatosplenomegaly present AUSCULTATION: Yes normoactive bowel sounds PALPATION: Yes Soft to palpation, No Tenderness to palpation present (GI), No Guarding due to palpation present (GI) and Yes No hepatosplenomegaly present Extremity: COMMON NORMALS: normal to inspection, capillary refill normal, no clubbing, cyanosis or edema, no calf tenderness and no pedal edema Neuro: SENSORIUM/ORIENTATION: Yes oriented to person, Yes oriented to place and Yes oriented to time Skin: COMMON NORMALS: no rashes or lesions noted GENERAL SKIN EXAM: no r ashes or lesions noted Course Vital Signs: Vital signs: Vital Signs Temperature 97.6 F 01/11/22 03:53 Pulse Rate 91 01/11/22 15:09 Respiratory Rate 17 01/11/22 15:09 Blood Pressure 92/68 01/11/22 15:09 Pulse Oximetry 92 01/11/22 15:09 MDM - SOB/Dyspnea Medical Decision Making Labs and imaging reviewed acute congestive heart failure with bilateral pleural effusions. Patient has a history of lung CA and atrial fibrillation. Will admit discussed the hospitalist orders written. A. fib with RVR currently attempt to control rate with diltiazem. Medical Records I reviewed the patient's medical records. Lab Data I reviewed the patient's lab results. : 01/09/22 07:50 01/11/22 02:40 Labs/Radiology: Radiology Impressions Chest CTA 01/07/22 11:05 IMPRESSION: 1. No pulmonary embolism. 2. Interval development of large circumferential pericardial effusion. 3. Interval development of bilateral pleural effusions, small on the RIGHT and ikjjo-nj-ldeaduay on the LEFT. 4. Complete atelectasis LEFT lower lobe. Increasing soft tissue mass obstructing the proximal LEFT lower lobe bronchus. This was described also on a prior PET/CT. 5. Pathological compression at T2. Intercostal nodule in the LEFT lower thorax consistent with metastatic site, also positive on the prior PET/CT. 6. No significant progression of the mediastinal and RIGHT paratracheal lymph nodes or the well-circumscribed nodule in the LEFT upper lobe. Chest X-Ray 01/10/22 09:19 IMPRESSION: Stable opacification of the left base consistent with left pleural effusion and basilar atelectasis/consolidation. Laboratory Results WBC 9.2 10^3/uL (4.0-10.0) 01/08/22 06:39 RBC 2.84 10^6/uL (4.1-5.3) L 01/08/22 06:39 Hgb 8.3 g/dL (11.7-16.6) L 01/08/22 06:39 Hct 26.3 % (42.0-52.0) L 01/08/22 06:39 MCV 92.6 fl (80-94) 01/08/22 06:39 MCH 29.2 pg (28.0-34.0) 01/08/22 06:39 MCHC 31.6 g/dL (30.0-36.0) 01/08/22 06:39 RDW 17.8 % (12.1-15.1) H 01/08/22 06:39 Plt Count 294 10^3/cmm (130-400) 01/08/22 06:39 MPV 10.9 fL (7.4-10.4) H 01/08/22 06:39 Neut % (Auto) 83.9 % 01/08/22 06:39 Lymph % (Auto) 5.1 % 01/08/22 06:39 Stevens % (Auto) 10.5 % 01/08/22 06:39 Eos % (Auto) 0.0 % 01/08/22 06:39 Baso % (Auto) 0.1 % 01/08/22 06:39 Neut # (Auto) 7.74 10^3/uL (1.8-7.7) H 01/08/22 06:39 Lymph # (Auto) 0.5 10^3/uL (0.8-4.8) L 01/08/22 06:39 Stevens # (Auto) 1.0 10^3/uL (0.2-0.9) H 01/08/22 06:39 Eos # (Auto) 0.0 10^3/uL (0.0-0.8) 01/08/22 06:39 Baso # (Auto) 0.0 10^3/uL (0.0-0.1) 01/08/22 06:39 Nucleated RBC % (auto) 0 % 01/08/22 06:39 Nucleated RBCs # 0.0 /100WBC 01/08/22 06:39 D-Dimer 3.60 ug/mIFEU (0-0.59) H 01/07/22 12:10 Specimen Type Arterial 01/07/22 11:15 Sample Site Radial, left 01/07/22 11:15 ABG pH 7.48 (7.35-7.45) H 01/07/22 11:15 ABG pCO2 34.8 mmHg (35-45) L 01/07/22 11:15 ABG pO2 195.0 mmHg (80.0-100.0) H 01/07/22 11:15 ABG HCO3 25.7 mmol/L (22-26) 01/07/22 11:15 ABG O2 Saturation 100.0 01/07/22 11:15 ABG Base Excess 2.2 mmol/L (-2.0-2.0) H 01/07/22 11:15 Melo Test Pos 01/07/22 11:15 A-a O2 Gradient 10.2 mmHg (5-10) H 01/07/22 11:15 Hematocrit 31.1 % (42-52) L 01/07/22 11:15 Hgb O2 Saturation 99.1 % (95-100) 01/07/22 11:15 Carboxyhemoglobin 0.7 %THgb (0.4-20.1) 01/07/22 11:15 Methemoglobin 0.2 % (0.4-1.5) L 01/07/22 11:15 Total Hemoglobin 10.2 g/dL (14-18) L 01/07/22 11:15 Sodium 137.0 mmol/L (131-143) 01/07/22 11:15 Potassium 4.1 mmol/L (3.5-5.0) 01/07/22 11:15 Glucose 133.0 mg/dL (70-115) H 01/07/22 11:15 O2 Delivery Device Nc 01/07/22 11:15 O2 Liters/Min 6.0 % 01/07/22 11:15 FiO2 45.0 % 01/07/22 11:15 Mold Closer ID Monro 01/07/22 11:15 Sodium 136 mmol/L (136-145) 01/08/22 06:39 Potassium 4.2 mmol/L (3.5-5.1) 01/08/22 06:39 Chloride 99 mmol/L (98-107) 01/08/22 06:39 Carbon Dioxide 23 mmol/L (22-29) 01/08/22 06:39 Anion Gap 18.2 (5-19) 01/08/22 06:39 BUN 15 mg/dL (8-23) 01/08/22 06:39 Creatinine 0.9 mg/dL (0.7-1.2) 01/08/22 06:39 GFR Calculation 84.7 mL/min (90-130) L 01/08/22 06:39 Glucose 127 mg/dL (65-115) H 01/08/22 06:39 Estimat Average Glucose 134 01/08/22 06:39 Hemoglobin A1c 6.3 % (4.0-6.0) H 01/08/22 06:39 Calculated Osmolality 284 mOsm/kg (285-295) L 01/08/22 06:39 Calcium 9.1 mg/dL (8.5-10.5) 01/08/22 06:39 Phosphorus 3.1 mg/dL (2.5-4.5) 01/08/22 06:39 Magnesium 2.1 mg/dL (1.7-2.3) 01/08/22 06:39 Iron 21 ug/dL (59-158) L 01/07/22 13:58 TIBC 151 mcg/dl 01/07/22 13:58 % Saturation 13.9 % (20-50) L 01/07/22 13:58 Unsat Iron Binding 130 ug/dL (112-347) 01/07/22 13:58 Total Bilirubin 0.2 mg/dL (0.15-1.2) 01/08/22 06:39 AST 13 U/L (0-40) 01/08/22 06:39 ALT 11 U/L (0-41) 01/08/22 06:39 Alkaline Phosphatase 114 IU/L (40-130) 01/08/22 06:39 Troponin T Baseline 32 ng/L (0-15) H 01/07/22 12:10 Troponin T 120 Minute 29.07 ng/L (0-15) H 01/07/22 13:58 Delta Troponin T -2.93 ABS# (0-10) L 01/07/22 13:58 Troponin T Hi Sens 6Hr 42.70 ng/L (0-15) H 01/07/22 18:10 Troponin T Hi Sens 6Hr Delta 10.70 ng/L (0-12) 01/07/22 18:10 NT-Pro-B Natriuret Pep 685 pg/mL (0-125) H 01/08/22 06:39 Total Protein 5.8 g/dL (6.6-8.7) L 01/08/22 06:39 Albumin 2.9 g/dL (3.5-5.2) L 01/08/22 06:39 Globulin 2.9 g/dL (1.3-4.6) 01/08/22 06:39 Triglycerides 77 mg/dL (0-150) 01/08/22 06:39 Cholesterol 119 mg/dL (0-200) 01/08/22 06:39 LDL Cholesterol, Calc 76 mg/dL (50-129) 01/08/22 06:39 Total VLDL Cholesterol 15 mg/dL (0-30) 01/08/22 06:39 HDL Cholesterol 28 mg/dL (60-100) L 01/08/22 06:39 Cholesterol/HDL Ratio 4.25 mg/dL (1.0-5.00) 01/08/22 06:39 Procalcitonin 0.10 ng/mL (0-0.5) 01/07/22 12:10 TSH 0.58 uIU/mL (0.27-4.20) 01/07/22 13:58 Urine Color Yellow (Yellow) 01/07/22 16:30 Urine Appearance Clear (CLEAR) 01/07/22 16:30 Urine pH 5 (5-7) 01/07/22 16:30 Ur Specific [place] 1.005 (1.005-1.030) 01/07/22 16:30 Urine Protein Trace (Negative) 01/07/22 16:30 Urine Glucose (UA) Norm (Normal) 01/07/22 16:30 Urine Ketones Negative (Negative) 01/07/22 16:30 Urine Blood 2+ (Negative) H 01/07/22 16:30 Urine Nitrate Negative (Negative) 01/07/22 16:30 Urine Bilirubin Neg (Negative) 01/07/22 16:30 Urine Urobilinogen 1 mg/dL (Negative) H 01/07/22 16:30 Ur Leukocyte Esterase Negative (Negative) 01/07/22 16:30 Urine RBC 10-15 /hpf (0-2) H 01/07/22 16:30 Urine WBC Rare /hpf (0-5) 01/07/22 16:30 Ur Squamous Epith Cells Rare /hpf (0-5) 01/07/22 16:30 Amorphous Sediment Not Reportable 01/07/22 16:30 Urine Bacteria None /hpf (NONE) 01/07/22 16:30 Coronavirus 229E (PCR) Not detected (NOT DETECT) 01/07/22 11:25 SARS-CoV-2 (PCR) Not detected (NOT DETECT) 01/07/22 11:25 Discharge Plan Discharge Patient Disposition: Admitted As Inpatient Admit Provider: Evans Reveles Clinical Impression: Diastolic CHF, Paroxysmal atrial fibrillation, Acute respiratory failure with hypoxia, Non-small cell lung cancer Condition: Stable Discharge Diet: Cardiac and Low Salt Discharge Activity: Increase activity as tolerated Coding Level of Care Code ED Emergency Medicine Specialist for Chg Luis Carlos
[2022-01-07 11:36] LABS: Basophils % 0.3 %; Eosinophils % 0.5 %; Hematocrit 30.5 % (42.0-52.0); Hemoglobin 9.6 g/dL (11.7-16.6); Lymphocytes # 0.7 10^3/uL (0.8-4.8); Lymphocytes % 8.1 %; Mean Corpuscular HGB Conc 31.5 g/dL (30.0-36.0); Mean Corpuscular Hemoglobin 29.7 pg (28.0-34.0); Mean Corpuscular Volume 94.4 fl (80-94); Mean Platelet Volume 10.6 fL (7.4-10.4); Monocytes % 12.2 %; Neutrophils # 6.25 10^3/uL (1.8-7.7); Neutrophils % 78.3 %; Nucleated Red Blood Cells % 0 %; Platelet Count 309 10^3/cmm (130-400); Red Blood Count 3.23 10^6/uL (4.1-5.3); Red Cell Distribution Width 18.5 % (12.1-15.1)
[2022-01-07] MEDS: ondansetron 2 mg/ML SDV 2 mL 4 MG IVP (11:46)
[2022-01-07] MEDS: HYDROcodone-acetaminophen 10-325 mg Tablet 1 TAB PO (11:47)
[2022-01-07] MEDS: gabapentin 400 mg Capsule PO ×3 (11:47→20:53)
[2022-01-07] MEDS: iohexol 350 mg/mL 100 mL Btl IV (12:02)
[2022-01-07] MEDS: dexamethasone 10 mg/mL INJ 6 MG IVP (12:07)
[2022-01-07 13:01] LABS: Troponin(5th) Baseline 32 ng/L (0-15)
[2022-01-07 13:09] LABS: NT Pro B Type Natriuretic Pept 913 pg/mL (0-125)
[2022-01-07 13:22] LABS: Alanine Aminotransferase 12 U/L (0-41); Albumin Level 2.8 g/dL (3.5-5.2); Alkaline Phosphatase 124 IU/L (40-130); Aspartate Amino Transferase 11 U/L (0-40); Blood Urea Nitrogen 11 mg/dL (8-23); Calcium 8.4 mg/dL (8.5-10.5); Carbon Dioxide 20 mmol/L (22-29); Chloride 101 mmol/L (98-107); Globulin 3.3 g/dL (1.3-4.6); Glucose 114 mg/dL (65-115); Osmolality Calculated 284 mOsm/kg (285-295); Sodium 137 mmol/L (136-145); Total Bilirubin 0.4 mg/dL (0.15-1.2); Total Protein 6.1 g/dL (6.6-8.7)
[2022-01-07 13:25] LABS: Anion Gap 20.3 (5-19); Potassium 4.3 mmol/L (3.5-5.1)
--- NOTE | 2022-01-07 13:31 | ECG_ITS ---
[facility] Test Date: 2022-01-07 Pat Name: Tramaine Galaviz Department: Room: Gender: Male Office Clinician: : [id number] Requested By: Dustin Jalloh Order Number: [id number] Dixon MD: Bryanna Schafer M.D. Measurements Intervals Ermine Rate: 143 P: CO: QRS: 50 QRSD: 95 T: 140 QT: 265 QTc: 409 Interpretive Statements ATRIAL FIBRILLATION WITH RAPID VENTRICULAR RESPONSE NONSPECIFIC T-WAVE ABNORMALITY Compared to ECG 12/09/2021 23:52:22 T-wave abnormality now present Sinus rhythm no longer present Electronically Signed On 01-07-2022 19:43:20 SENIOR SUPPORT ENGINEER by Bryanna Schafer M.D. [email or web address]
--- NOTE | 2022-01-07 13:53 | PC.NURSE ---
Pt has converted into a normal sinus rhythm at 101-104, Dr. Wilson aware.
[2022-01-07 14:00] LABS: Adenovirus Not Detected (NOT DETECT); Chlamydia Pneumoniae Not Detected (NOT DETECT); Coronavirus 229E,HKU1,NL63,OC4 Not Detected (NOT DETECT); Human Metapneumovirus Not Detected (NOT DETECT); Human Rhinovirus/Enterovirus Not Detected (NOT DETECT); Influenza A Not Detected (NOT DETECT); Influenza A H1 Not Detected (NOT DETECT); Influenza A H1-2009 Not Detected (NOT DETECT); Influenza A H3 Not Detected (NOT DETECT); Influenza B Not Detected (NOT DETECT); Mycoplasma Pneumoniae Not Detected (NOT DETECT); Parainfluenza Virus Type 1 Not Detected (NOT DETECT); Parainfluenza Virus Type 2 Not Detected (NOT DETECT); Parainfluenza Virus Type 3 Not Detected (NOT DETECT); Parainfluenza Virus Type 4 Not Detected (NOT DETECT); Respiratory Syncytial Virus A Not Detected (NOT DETECT); Respiratory Syncytial Virus B Not Detected (NOT DETECT); SARS-COV-2 Not Detected (NOT DETECT)
--- NOTE | 2022-01-07 14:11 | PM.HP ---
Providers/Chief Complaint Primary Care Provider: Arabella Montero MD Chief Complaint: SOB History of Present Illness Tramaine Galaviz is a 66 year old male with past medical history of stage 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 fib on chronic anticoagulation with Eliquis presents to the ER today with symptoms of worsening shortness of breath over last 1 month worse for last 3 days. As per the patient and at bedside patient's voice is also becoming more hoarse gradually over last 1 month. Patient is not able to lie down flat and usually sleeps sitting up for the last 1 month. States shortness of breath is getting worse and currently he is getting out of breath even on talking. Does not use oxygen at home. Denies any fever, nausea, vomiting, dysuria, diarrhea. States appetite is poor. Blood work in the ER showed a white count of 8000, hemoglobin of 9.6, platelet of 309, D-dimer of 3.6, ABG showing a pH of 7.48, PCO2 of 34, PO2 of 195 on 6 L, chemistry showing sodium of 137, creatinine of 0.8, calcium of 8.4, baseline troponin of 32 with a delta of -3, BNP of 913, COVID-[address] chest as below. Currently on Cardizem of 5 with a heart rate running in high 90s Review of Systems General: Reports: 10 or more systems reviewed and unremarkable except in HPI and below Const: Denies: fever(s), chills, body aches, change in appetite, change in weight, malaise, night sweats, diaphoresis, change in sleep pattern, daytime sleepiness or snoring Eyes: Denies: change in vision, blurry vision, photophobia, eye discomfort or eye discharge ENMT: Denies: throat pain, enlarged tonsils, hoarseness, mouth pain, oral sores, dry mouth, tinnitus, nasal congestion or post nasal drip Card: Denies: chest pain, palpitations, irregular heart rhythm, edema, swelling of feet/ankles, lightheadedness, syncope, pre-syncope, dyspnea on exertion, orthopnea, leg pain with exertion or acrocyanosis Resp: Denies: dyspnea, productive cough, non-productive cough, wheezing, stridor, pain on inspiration, change in phlegm color, hemoptysis or chest congestion GI: Denies: abdominal pain, nausea, vomiting, hematemesis, coffee ground emesis, dysphagia, heartburn, diarrhea, constipation, bloating, GI cramping, change in bowel habits, pain on defecation, hematochezia or melena : Denies: flank pain, difficulty urinating, dysuria, urinary frequency, urinary urgency, urinary hesitancy, urinary dribbling, difficulty starting urination, change in urine stream, nocturia or hematuria Musc: Denies: neck pain, back pain, extremity pain, joint pain, joint swelling, joint redness, joint stiffness or limited range of motion Neuro: Denies: headache(s), numbness in extremities, weakness in extremities, sensory changes, lack of coordination, difficulty walking, frequent falls, dizziness, vertigo, confusion, Slurred speech present, difficulty communicating thoughts or seizure-like activity Psych: Denies: anxiety, depression, mood swings, panic attacks, hopelessness or irritability Endo: Denies: polyuria, polydipsia, tired all the time, cold intolerance, excessive sweating, flushing or heat intolerance Gregorio/Lymph: Denies: easy bruising or easy bleeding All/Imm: Denies: tongue swelling, facial swelling or acute wheezing Medications/Allergies Home Medications Medication Instructions Recorded Confirmed Last Taken Type acetaminophen 500 mg tablet 1,000 mg PO Q6H PRN 02/27/21 01/07/22 08/02/21 History (Tylenol Extra Strength) alendronate 70 mg tablet 70 mg PO Q7D 02/27/21 01/07/22 01/03/22 History oxycodone-acetaminophen 10 mg-325 1 tab PO Q6H PRN 03/31/21 01/07/22 08/04/21 21:00 History mg tablet atorvastatin 40 mg tablet 40 mg PO BEDTIME #30 tab 04/02/21 01/07/22 01/06/22 Rx pantoprazole 40 mg tablet,delayed 40 mg PO DAILY #30 tab 04/02/21 01/07/22 01/07/22 Rx release tamsulosin 0.4 mg capsule 0.4 mg PO DAILY #30 cap 05/04/1801/07/22 01/07/22 Rx aspirin 81 mg tablet,delayed 81 mg PO DAILY@05 #0 tab 05/02/21 01/07/22 01/07/22 Rx release apixaban 5 mg tablet (Eliquis) 5 mg PO BID 07/30/21 01/07/22 01/07/22 History dexamethasone 4 mg tablet 4 mg PO BID tab 07/30/21 01/07/22 12/03/21 History finasteride 5 mg tablet 5 mg PO DAILY 07/30/21 01/07/22 01/07/22 History gabapentin 400 mg capsule 800 mg PO TID 07/30/21 01/07/22 01/07/22 History ferrous sulfate 325 mg (65 mg 325 mg PO DAILY 07/31/21 01/07/22 01/07/22 History iron) tablet (Iron (ferrous sulfate)) furosemide 20 mg tablet 20 mg PO QAM PRN 07/31/21 01/07/22 01/07/22 History guaifenesin 1,200 mg tablet, 1,200 mg PO Q12H 07/31/21 01/07/22 01/07/22 History extended release 12 hr (Mucinex) metoprolol tartrate 37.5 mg tablet 37.5 mg PO BID 07/31/21 01/07/22 01/07/22 History lidocaine-prilocaine 2.5 %-2.5 % 0.5 g TOPICAL BID PRN g 09/23/21 01/07/22 Unknown History topical cream nitroglycerin 0.4 mg sublingual 0.4 mg SUBLINGUAL Q5M PRN 30 Days 09/23/21 01/07/22 Unknown Rx tablet #30 tab potassium gluconate 595 mg (99 mg) 595 mg PO DAILY 09/23/21 01/07/22 01/07/22 History tablet albuterol sulfate 90 mcg/actuation 1 inh INHALATION QID PRN #8.5 g 12/01/21 01/07/22 Unknown Rx aerosol inhaler prochlorperazine maleate 10 mg 10 mg PO BID PRN tab 12/01/21 01/07/22 Unknown History tablet tiotropium 2.5 mcg-olodaterol 2.5 2 puff INHALATION DAILY #4 g 12/01/21 01/07/22 01/07/22 Rx mcg/actuation mist for inhalation ipratropium 0.5 mg-albuterol 3 mg 3 ml INHALATION Q6H PRN 30 Days 12/19/21 01/07/22 Unknown Rx (2.5 mg base)/3 mL nebulization #360 ml soln Allergies Allergy/AdvReac Type Severity Reaction Status Date / Time iodine Allergy ADR-Nausea Verified 01/07/22 08:37 PFSH Acute PFSH: Medical History Atherosclerosis of coronary artery Bilateral impacted cerumen Cerebrovascular accident Cervical radiculopathy 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 COPD exacerbation Dyspnea on exertion Hx of angina pectoris Hypertension Lower respiratory infection Lower respiratory infection 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 Peripheral neuropathy Secondary malignant neoplasm of bone Surgical History History of ankle surgery History of bronchoscopy History of lumbar laminectomy for spinal cord decompression History of shoulder surgery S/P right rotator cuff repair Family History Sister Anesthesia complication CAD (coronary artery disease) Chronic kidney disease (CKD) Family/Other CAD (coronary artery disease) Brother Cancer Father Dementia Stroke Mother Stroke Denies family history of Diabetes Clotting disorder Suicide Bleeding disorder Lung disease Social History Quit status (tobacco): has quit using tobacco Year quit tobacco: 2010 Former quit date comment: 5 PPD x 40 Years Second hand smoke exposure: No Smoking risk assessment/counseling performed?: No Alcohol intake: former Counseling given: No Counseling given: No Lives independently: Yes Household members: spouse Marital status: Current occupational status: unemployed History of recent travel: No Current gender identity: Male Vitals/I&O/Wt Last Vital Signs Temp 99.5 F 01/07/22 11:35 Pulse 101 H 01/07/22 13:52 Resp 18 01/07/22 13:52 BP 106/81 01/07/22 13:52 Pulse Ox 96 01/07/22 13:52 Weight last 48 hrs Weight 82.554 kg Physical Exam Narrative: General: In acute distress because of difficulty in breathing, AOx3, pleasant on 3 L, sitting up in bed as unable to lie down HEENT: PERRLA, pupils bilaterally equal and reactive Chest: Bilateral decreased breath sounds in the lower zone, fine crackles present all over the lung diaz, equal good air entry bilaterally CVS: S1-S2 regular, muffled heart sounds, soft pansystolic murmur present at apex, no tachycardia, no gallops, no rubs Abdomen: Soft, nontender, no organomegaly, bowel sounds present Neuro: No focal deficits, no facial deformity, AO x3, power 5/5 in all limbs Data : 01/07/22 11:25 01/07/22 12:10 Other Labs: Radiology Impressions Chest X-Ray 01/07/22 11:03 IMPRESSION: 1. Cardiomegaly. 2. Small moderate LEFT pleural effusion with LEFT perihilar interstitial edema or infiltrates. 3. Trace RIGHT pleural fluid with atelectasis RIGHT lower lobe medially. Chest CTA 01/07/22 11:05 IMPRESSION: 1. No pulmonary embolism. 2. Interval development of large circumferential pericardial effusion. 3. Interval development of bilateral pleural effusions, small on the RIGHT and [id number] on the LEFT. 4. Complete atelectasis LEFT lower lobe. Increasing soft tissue mass obstructing the proximal LEFT lower lobe bronchus. This was described also on a prior PET/CT. 5. Pathological compression at T2. Intercostal nodule in the LEFT lower thorax consistent with metastatic site, also positive on the prior PET/CT. 6. No significant progression of the mediastinal and RIGHT paratracheal lymph nodes or the well-circumscribed nodule in the LEFT upper lobe. Student Assistant procedure: 10/30/2021: Conclusions ? 1. 66-year-old white male with a history of's smoking abuse, dyslipidemia,presenting with complaints of chest pain and shortness of breath.? He is diagnosed with a small cell CA of the lung.? Because of his worsening symptoms, multiple risk factors, in order to further evaluate his coronary status, a cardiac catheterization was recommended.? Patient underwent left heart catheterization with left and right coronary angiogram and LV angiogram today. The findings are as follows. ? 2. Mild to moderate diffuse coronary artery disease.? Normal LV ejection fraction of 65%.? Slightly elevated LVEDP of 17 mmHg. Echocardiogram: 04/01/2021 ?CONCLUSIONS ?LV systolic function is normal with EF of 60-65% ?Grade 1 diastolic dysfunction ?Mild mitral regurgitation ?Trace aortic regurgitation ?No comparison studies are available ?Mario Watts MD ?(Electronically Signed) ?Final Date:? ? ? 01 Apr 2021 19:33 S Laboratory Results WBC 8.0 10^3/uL (4.0-10.0) 01/07/22 11:25 RBC 3.23 10^6/uL (4.1-5.3) L 01/07/22 11:25 Hgb 9.6 g/dL (11.7-16.6) L 01/07/22 11:25 Hct 30.5 % (42.0-52.0) L 01/07/22 11:25 MCV 94.4 fl (80-94) H 01/07/22 11:25 MCH 29.7 pg (28.0-34.0) 01/07/22 11:25 MCHC 31.5 g/dL (30.0-36.0) 01/07/22 11:25 RDW 18.5 % (12.1-15.1) H 01/07/22 11:25 Plt Count 309 10^3/cmm (130-400) 01/07/22 11:25 MPV 10.6 fL (7.4-10.4) H 01/07/22 11:25 Neut % (Auto) 78.3 % 01/07/22 11:25 Lymph % (Auto) 8.1 % 01/07/22 11:25 [place] % (Auto) 12.2 % 01/07/22 11:25 Eos % (Auto) 0.5 % 01/07/22 11:25 Baso % (Auto) 0.3 % 01/07/22 11:25 Neut # (Auto) 6.25 10^3/uL (1.8-7.7) 01/07/22 11:25 Lymph # (Auto) 0.7 10^3/uL (0.8-4.8) L 01/07/22 11:25 [place] # (Auto) 1.0 10^3/uL (0.2-0.9) H 01/07/22 11:25 Eos # (Auto) 0.0 10^3/uL (0.0-0.8) 01/07/22 11:25 Baso # (Auto) 0.0 10^3/uL (0.0-0.1) 01/07/22 11:25 Nucleated RBC % (auto) 0 % 01/07/22 11:25 Nucleated RBCs # 0.0 /100WBC 01/07/22 11:25 D-Dimer 3.60 ug/mIFEU (0-0.59) H 01/07/22 12:10 Specimen Type Arterial 01/07/22 11:15 Sample Site Radial, left 01/07/22 11:15 ABG pH 7.48 (7.35-7.45) H 01/07/22 11:15 ABG pCO2 34.8 mmHg (35-45) L 01/07/22 11:15 ABG pO2 195.0 mmHg (80.0-100.0) H 01/07/22 11:15 ABG HCO3 25.7 mmol/L (22-26) 01/07/22 11:15 ABG O2 Saturation 100.0 01/07/22 11:15 ABG Base Excess 2.2 mmol/L (-2.0-2.0) H 01/07/22 11:15 Melo Test Pos 01/07/22 11:15 A-a O2 Gradient 10.2 mmHg (5-10) H 01/07/22 11:15 Hematocrit 31.1 % (42-52) L 01/07/22 11:15 Hgb O2 Saturation 99.1 % (95-100) 01/07/22 11:15 Carboxyhemoglobin 0.7 %THgb (0.4-20.1) 01/07/22 11:15 Methemoglobin 0.2 % (0.4-1.5) L 01/07/22 11:15 Total Hemoglobin 10.2 g/dL (14-18) L 01/07/22 11:15 Sodium 137.0 mmol/L (131-143) 01/07/22 11:15 Potassium 4.1 mmol/L (3.5-5.0) 01/07/22 11:15 Glucose 133.0 mg/dL (70-115) H 01/07/22 11:15 O2 Delivery Device Nc 01/07/22 11:15 O2 Liters/Min 6.0 % 01/07/22 11:15 FiO2 45.0 % 01/07/22 11:15 Vehicle Damage Appraiser ID Hemant 01/07/22 11:15 Sodium 137 mmol/L (136-145) 01/07/22 12:10 Potassium 4.3 mmol/L (3.5-5.1) 01/07/22 12:10 Chloride 101 mmol/L (98-107) 01/07/22 12:10 Carbon Dioxide 20 mmol/L (22-29) L 01/07/22 12:10 Anion Gap 20.3 (5-19) H 01/07/22 12:10 BUN 11 mg/dL (8-23) 01/07/22 12:10 Creatinine 0.8 mg/dL (0.7-1.2) 01/07/22 12:10 GFR Calculation 97.0 mL/min (90-130) 01/07/22 12:10 Glucose 114 mg/dL (65-115) 01/07/22 12:10 Calculated Osmolality 284 mOsm/kg (285-295) L 01/07/22 12:10 Calcium 8.4 mg/dL (8.5-10.5) L 01/07/22 12:10 Total Bilirubin 0.4 mg/dL (0.15-1.2) 01/07/22 12:10 AST 11 U/L (0-40) 01/07/22 12:10 ALT 12 U/L (0-41) 01/07/22 12:10 Alkaline Phosphatase 124 IU/L (40-130) 01/07/22 12:10 Troponin T Baseline 32 ng/L (0-15) H 01/07/22 12:10 Troponin T 120 Minute 29.07 ng/L (0-15) H 01/07/22 13:58 Delta Troponin T -2.93 ABS# (0-10) L 01/07/22 13:58 NT-Pro-B Natriuret Pep 913 pg/mL (0-125) H 01/07/22 12:10 Total Protein 6.1 g/dL (6.6-8.7) L 01/07/22 12:10 Albumin 2.8 g/dL (3.5-5.2) L 01/07/22 12:10 Globulin 3.3 g/dL (1.3-4.6) 01/07/22 12:10 Procalcitonin 0.10 ng/mL (0-0.5) 01/07/22 12:10 TSH 0.58 uIU/mL (0.27-4.20) 01/07/22 13:58 Coronavirus 229E (PCR) Not detected (NOT DETECT) 01/07/22 11:25 SARS-CoV-2 (PCR) Not detected (NOT DETECT) 01/07/22 11:25 A&P Assessment and plan (1) Acute respiratory failure with hypoxia: Status: Acute (2) Paroxysmal atrial fibrillation: Status: Acute (3) Diastolic CHF: Status: Acute Qualifiers: Heart failure chronicity: acute Qualified Code(s): I50.31 - Acute diastolic (congestive) heart failure (4) Bilateral pleural effusion: Status: Acute (5) Pericardial effusion: Status: Acute (6) COPD (chronic obstructive pulmonary disease): Status: Acute (7) Hypertension: Status: Acute Qualifiers: Hypertension type: primary hypertension Qualified Code(s): I10 - Essential (primary) hypertension Plan Acute respiratory failure: Most likely a combination of acute decompensated congestive heart failure along with bilateral pleural effusion and pericardial effusion. Hemodynamics currently not consistent with cardiac tamponade. Has a history of diastolic heart failure. Peraza catheter. Strict input output charting, daily weights. Fluid restriction up to 1500 cc. IV Lasix 60 mg twice daily. Cardiac echocardiogram to rule out tamponade physiology. We will consult pulmonology for possible thoracentesis for symptomatic relief. Pneumonia less likely. Patient does not have any leukocytosis or fever. Symptoms more consistently not. Check urine Legionella, bacterial antigen. For now start patient on Levaquin for 5-day course. Check sputum culture. Will trend procalcitonin. History of COPD: Ipratropium, Xopenex every 6 hour, budesonide twice daily. No acute exacerbation currently we will hold off on steroids. Paroxysmal atrial fibrillation: Rapid ventricular response on arrival. Currently on Cardizem drip. Increase home dose of metoprolol to 50 mg twice daily. Start on Cardizem 30 mg every 6 hourly. Stop Cardizem drip accordingly keeping heart rate less than 100. Takes Eliquis at home for anticoagulation. For now hold off given possible thoracentesis. Hypertension: Goal blood pressure less than 140/90 mmHg. Medications as above. We will continue to monitor. Continue other chronic home medications including finasteride, oxycodone IR, Flomax. Check TSH, iron panel, A1c, lipid panel, blood culture. CODE STATUS: Full code. Cardiac diet. Eliquis will help with DVT prophylaxis. Protonix for PUD prophylaxis. Attestations Medical Necessity Statement*: Admission for more than 2 midnights for management of respiratory failure secondary to acute decompensated congestive heart failure in setting of bilateral pleural effusion and pericardial effusion while tamponade is ruled out in a patient with squamous cell lung carcinoma and paroxysmal A. fib with RVR Time Spent in Patient Care: Greater than 35 minutes Coding Level of Care Code Acute Electrical Hardware Engineer for Chg Fwd Diagnoses Paroxysmal atrial fibrillation I48.0 Diastolic CHF I50.31 Heart failure chronicity: acute Acute respiratory failure with hypoxia J96.01 Bilateral pleural effusion J90 Pericardial effusion I31.3 COPD (chronic obstructive pulmonary disease) J44.9 Hypertension I10 Hypertension type: primary hypertension
[2022-01-07 14:45] LABS: Troponin 5 2HR 29.07 ng/L (0-15)
[2022-01-07 14:49] LABS: Troponin 5 2HR Delta -2.93 ABS# (0-10)
[2022-01-07 14:51] LABS: Thyroid Stimulating Hormone 0.58 uIU/mL (0.27-4.20)
[2022-01-07] MEDS: FUROsemide 10 mg/mL SDV 10mL 60 MG IVP (15:51)
--- NOTE | 2022-01-07 16:14 | USCV_ITS ---
Tramaine Galaviz Age: 66 Gender: M : 1955 Exam Date: 01/07/2022 16:54 Ordering Phys: Evans Reveles MD Technologist: Husam Lopes [place] [facility] [place]: PERICARDIAL EFFUSION BP: 119 / 78 HR: 84 Rhythm: Sinus Technical Quality: Adequate MEASUREMENTS (Male / Female) Normal Values 2D ECHO LV Diastolic Diameter PLAX 3.5 cm 4.2 - 5.9 / 3.9 - 5.3 cm LV Systolic Diameter PLAX 2.2 cm IVS Diastolic Thickness 1.3 cm 0.6 - 1.0 / 0.6 - 0.9 cm IVS Systolic Thickness 1.3 cm LVPW Diastolic Thickness 1.7 cm 0.6 - 1.0 / 0.6 - 0.9 cm LVPW Systolic Thickness 1.5 cm LVOT Diameter 2.0 cm LV Ejection Fraction 2D Teich 68.3 % LV Ejection Fraction MOD 2C 59.4 % LV Ejection Fraction 2C AL 57.6 % LA Diameter 3.0 cm LA Width 3.2 cm LA Height 3.8 cm RA Width 1.9 cm RA Height 4.8 cm Aorta at Sinotubular Diameter 2.6 cm M-MODE Aortic Annulus Diameter 3.4 cm LA Ao Ratio MM 0.9 MV E Point Septal Separation 0.4 cm DOPPLER AV Peak Velocity 168.0 cm/s LVOT Peak Velocity 125.0 cm/s AV Area Cont Eq vti 2.7 cm squared AV Area Cont Eq pk 2.5 cm squared MV Area PHT 5.5 cm squared Mitral E to A Ratio 0.9 MV E' Velocity 74.0 cm/s Mitral E to LV E' Septal Ratio 6.3 TR Peak Velocity 221.6 cm/s TR Peak Gradient 19.6 mmHg TR Mean Velocity 161.8 cm/s TR Mean Gradient 11.4 mmHg TR Velocity Time Integral 61.4 cm RV Acceleration Time 0.1 s RV Ejection Time 0.3 s RV AcT/ET 0.3 FINDINGS Left Ventricle Normal left ventricular cavity size. Normal left ventricular systolic function.abnormal septal motion consistent with conduction abnormality. . Left ventricular ejection fraction is estimated at 65 %. Grade I/IV diastolic dysfunction (abnormal relaxation filling pattern), normal to mildly elevated filling pressures. Right Ventricle The right ventricle is normal in size and function. RVSP could not be calculated due to incomplete tricuspid regurgitation velocity profile. Right Atrium The right atrium is normal in size. Left Atrium The left atrium is normal in size. Mitral Valve Structurally normal mitral valve without significant stenosis or prolapse. There is no mitral regurgitation. Aortic Valve Structurally normal aortic valve without significant sclerosis or stenosis. There is no aortic regurgitation. Tricuspid Valve Structurally normal tricuspid valve without significant stenosis or regurgitation. Pulmonic Valve Structurally normal pulmonic valve without significant stenosis. There is no pulmonic regurgitation. Pericardium Small pericardial effusion. Aorta Normal ascending aorta dimension. CONCLUSIONS 1-Normal left ventricular cavity size. Normal left ventricular systolic function.abnormal septal motion consistent with conduction abnormality. . Left ventricular ejection fraction is estimated at 65 %. Grade I/IV diastolic dysfunction (abnormal relaxation filling pattern), normal to mildly elevated filling pressures. 2-The right ventricle is normal in size and function. RVSP could not be calculated due to incomplete tricuspid regurgitation velocity profile. 3-No significant valve abnormalities. 4-There is no pericardial effusion. 5-Small pericardial effusion. 6-Right atrial pressure is around 5 mm of mercury. 7-When compared to prior echocardiogram dated 04/01/2021 there appeared to be septal bounce now. Yany Rousseau MD (Electronically Signed) Final Date: 07 January 2022 20:42 S
--- NOTE | 2022-01-07 16:21 | PC.NURSE ---
Duplicate order for Peraza catheter and Lasix 60mg IVP. Both discontinued
[2022-01-07 17:11] LABS: Iron 21 ug/dL (59-158); Percent Saturation 13.9 % (20-50); Total Iron Binding Capacity 151 mcg/dl; Unsaturated Iron Binding 130 ug/dL (112-347)
[2022-01-07] MEDS: levoFLOXacin 500 mg Tablet PO (17:24)
[2022-01-07] MEDS: dilTIAZem 30 mg Tablet PO ×2 (17:24→21:50)
--- NOTE | 2022-01-07 17:31 | ECG_ITS ---
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 Measurements Intervals [place] Rate: 94 P: 0 DC: 139 QRS: 38 QRSD: 101 T: 101 QT: 370 QTc: 464 Interpretive Statements SINUS RHYTHM Compared to ECG 01/07/2022 13:56:48 Sinus tachycardia no longer present Electronically Signed On 01-07-2022 19:33:14 MARKETING UNDERWRITER by Bryanna Schafer M.D. [id number]
[2022-01-07 17:35] LABS: Add Urine Microscopic? YES; Bilirubin Urine Neg (Negative); Blood Urine 2+ (Negative); Glucose Urine UA Norm (Normal); Ketones Urine Negative (Negative); Leukocyte Esterase Urine Negative (Negative); Nitrate Urine Negative (Negative); Protein Urine Trace (Negative); Specific Gravity, Urine 1.005 (1.005-1.030); Urine Appearance Clear (CLEAR); Urine Color Yellow (Yellow); Urobilinogen Urine 1 mg/dL (Negative); pH Urine 5 (5-7)
[2022-01-07 17:36] LABS: WBC Urine RARE /hpf (0-5)
[2022-01-07 17:37] LABS: Add Urine Culture? No; Squamous Epithelial Cell Urine RARE /hpf (0-5)
[2022-01-07] MEDS: metoprolol tartrate 25 mg Tablet 37.5 MG PO (18:14)
[2022-01-07] MEDS: ipratropium 0.5 mg/2.5 mL Neb INHALATION (20:16)
[2022-01-07] MEDS: levalbuterol 0.63 mg/3 mL Neb INHALATION (20:16)
[2022-01-07] MEDS: atorvastatin 40 mg Tablet PO (20:53)
[2022-01-07] MEDS: oxyCODONE 5 mg IR Tab/Cap PO (20:53)
[2022-01-08] VITALS (23 sets, daily range): BP systolic 102–114; BP diastolic 44–81; PULSE 82–100; RESP 13–22; TEMP 36.4; O2SAT 92–98
[2022-01-08] MEDS: ipratropium 0.5 mg/2.5 mL Neb INHALATION ×4 (02:43→21:38)
[2022-01-08] MEDS: levalbuterol 0.63 mg/3 mL Neb INHALATION ×4 (02:43→21:38)
[2022-01-08] MEDS: dilTIAZem 30 mg Tablet PO ×4 (04:55→22:41)
[2022-01-08] MEDS: FUROsemide 10 mg/mL SDV 10mL 60 MG IVP ×2 (04:55→15:23)
[2022-01-08] MEDS: oxyCODONE 5 mg IR Tab/Cap PO ×4 (04:55→20:32)
[2022-01-08] MEDS: aspirin 81 mg EC Tablet PO (04:55)
--- NOTE | 2022-01-08 07:32 | PC.NURSE ---
patient resting in bed. patient on continuous bedside groundwater monitoring technician.
[2022-01-08] MEDS: levoFLOXacin 500 mg Tablet PO (07:44)
[2022-01-08 07:56] LABS: Chol HDL Ratio 4.25 mg/dL (1.0-5.00); Cholesterol 119 mg/dL (0-200); HDL Cholesterol 28 mg/dL (60-100); LDL Cholesterol Calculated 76 mg/dL (50-129); Magnesium 2.1 mg/dL (1.7-2.3); NT Pro B Type Natriuretic Pept 685 pg/mL (0-125); Phosphorus 3.1 mg/dL (2.5-4.5); Triglycerides 77 mg/dL (0-150); VLDL Cholestrol Calculation 15 mg/dL (0-30)
--- NOTE | 2022-01-08 07:56 | PC.NURSE ---
patient given breakfast tray
[2022-01-08 08:31] LABS: Estmated Average Glucose 134; Hemoglobin A1C 6.3 % (4.0-6.0)
[2022-01-08] MEDS: finasteride 5 mg Tablet PO (08:44)
[2022-01-08] MEDS: tamsulosin 0.4 mg Capsule PO (08:45)
[2022-01-08] MEDS: pantoprazole DR 40 mg Tablet PO (08:45)
[2022-01-08] MEDS: gabapentin 400 mg Capsule PO ×3 (08:45→20:30)
[2022-01-08] MEDS: metoprolol tartrate 25 mg Tablet 37.5 MG PO ×2 (08:46→17:38)
[2022-01-08 09:05] LABS: Basophils % 0.1 %; Hematocrit 26.3 % (42.0-52.0); Hemoglobin 8.3 g/dL (11.7-16.6); Lymphocytes # 0.5 10^3/uL (0.8-4.8); Lymphocytes % 5.1 %; Mean Corpuscular HGB Conc 31.6 g/dL (30.0-36.0); Mean Corpuscular Hemoglobin 29.2 pg (28.0-34.0); Mean Corpuscular Volume 92.6 fl (80-94); Mean Platelet Volume 10.9 fL (7.4-10.4); Monocytes % 10.5 %; Neutrophils # 7.74 10^3/uL (1.8-7.7); Neutrophils % 83.9 %; Nucleated Red Blood Cells % 0 %; Platelet Count 294 10^3/cmm (130-400); Red Blood Count 2.84 10^6/uL (4.1-5.3); Red Cell Distribution Width 17.8 % (12.1-15.1); White Blood Count 9.2 10^3/uL (4.0-10.0)
[2022-01-08 09:14] LABS: Alanine Aminotransferase 11 U/L (0-41); Albumin Level 2.9 g/dL (3.5-5.2); Alkaline Phosphatase 114 IU/L (40-130); Anion Gap 18.2 (5-19); Aspartate Amino Transferase 13 U/L (0-40); Blood Urea Nitrogen 15 mg/dL (8-23); Calcium 9.1 mg/dL (8.5-10.5); Carbon Dioxide 23 mmol/L (22-29); Chloride 99 mmol/L (98-107); Globulin 2.9 g/dL (1.3-4.6); Glomerular Filtration Rate 84.7 mL/min (90-130); Glucose 127 mg/dL (65-115); Osmolality Calculated 284 mOsm/kg (285-295); Potassium 4.2 mmol/L (3.5-5.1); Sodium 136 mmol/L (136-145); Total Bilirubin 0.2 mg/dL (0.15-1.2); Total Protein 5.8 g/dL (6.6-8.7)
--- NOTE | 2022-01-08 14:21 | P.PN_ITS ---
Subjective Subjective: No acute events overnight. Patient states he is feeling a lot better. States overnight he was able to lay down flat. Currently on 2 to 3 L of oxygen saturating 97%. Today morning seen in the ER he still awaiting bed. He is on a Cardizem drip at 5. Discussed with the nurse and Cardizem drip was shut down. During the day patient's heart rate remained stable off Cardizem drip. Documented urine output of 1800 cc. States his voice is becoming better as well but still not at baseline Vitals/I&O/Wt Last Vital Signs Temp 99.5 F 01/07/22 11:35 Pulse 84 01/08/22 12:26 Resp 21 H 01/08/22 12:26 BP 107/74 01/08/22 12:26 Pulse Ox 97 01/08/22 12:26 01/07/22 01/08/22 01/08/22 22:59 06:59 14:59 Intake Total 10.5 / 10.5 91.667 / 91.667 Output Total 1800 / 1800 Balance -1789.5 / -1789.5 91.667 / 91.667 Weight last 48 hrs Weight 82.554 kg Physical Exam Narrative: General: In acute distress because of difficulty in breathing, AOx3, pleasant on 3 L, sitting up in bed as unable to lie down HEENT: PERRLA, pupils bilaterally equal and reactive Chest: Bilateral decreased breath sounds in the lower zone, fine crackles present all over the lung diaz, equal good air entry bilaterally CVS: S1-S2 regular, muffled heart sounds, soft pansystolic murmur present at apex, no tachycardia, no gallops, no rubs Abdomen: Soft, nontender, no organomegaly, bowel sounds present Neuro: No focal deficits, no facial deformity, AO x3, power 5/5 in all limbs Urinary Catheter Management: Peraza: Cath Placed During This Visit: yes Reason for Continuing Indwelling Catheter: Accurate Measurement of Urinary Output in Critically Ill Patients Urinary Catheter Date of Insertion: 01/07/22 Urinary Catheter Time of Insertion: 16:08 Data : 01/08/22 06:39 01/08/22 06:39 Micro: Microbiology 01/07/22 12:10 Blood Culture - Preliminary Blood NEGATIVE TO DATE 01/07/22 16:30 MRSA Culture - Final Nose 01/07/22 23:20 Gram Stain - Final Sputum - Expectorated Sputum 01/07/22 16:30 Bacterial Antigens - Final Urine Kidney 01/07/22 18:10 Blood Culture - Preliminary Blood SPECIMEN COLLECTED 01/07/22 16:30 Legionella Urinary Antigen - Final Urine Catheterized A&P Assessment and plan (1) Acute respiratory failure with hypoxia: Status: Acute (2) Paroxysmal atrial fibrillation: Status: Acute (3) Diastolic CHF: Status: Acute Qualifiers: Heart failure chronicity: acute Qualified Code(s): I50.31 - Acute diastolic (congestive) heart failure (4) Bilateral pleural effusion: Status: Acute (5) Pericardial effusion: Status: Acute (6) COPD (chronic obstructive pulmonary disease): Status: Acute (7) Hypertension: Status: Acute Qualifiers: Hypertension type: primary hypertension Qualified Code(s): I10 - Essential (primary) hypertension Plan Acute respiratory failure: Most likely a combination of acute decompensated congestive heart failure along with bilateral pleural effusion and pericardial effusion. Hemodynamics currently not consistent with cardiac tamponade. Has a history of diastolic heart failure. Peraza catheter. Strict input output charting, daily weights. Fluid restriction up to 1500 cc. IV Lasix 60 mg twice daily. Echocardiogram reviewed. EF of 65% with grade 1 diastolic dysfunction, mild pericardial effusion without any valvular abnormality. Case discussed with pulmonology. Hold off on thoracentesis for now given good urine output and response to diuretics. Pneumonia less likely. Patient does not have any leukocytosis or fever. Symptoms more consistently not. Urine Legionella, bacterial antigen negative. Procalcitonin negative. Sputum culture results awaited. Continue Levaquin to finish a 5-day course. Day 2/5. History of COPD: Continue with ipratropium, Xopenex every 6 hour, budesonide twice daily. No acute exacerbation currently we will hold off on IV steroids. Paroxysmal atrial fibrillation: Rate controlled. Continue with Cardizem 30 mg every 6 hourly, metoprolol 37.5 mg twice daily. Will uptitrate medications as per blood pressure permitting. Restart Eliquis 5 mg twice daily as no plans for thoracentesis. Hypertension: Goal blood pressure less than 140/90 mmHg. Medications as above. We will continue to monitor. Continue other chronic home medications including finasteride, oxycodone IR, Kenny max. Check TSH, iron panel, A1c, lipid panel, blood culture. CODE STATUS: Full code. Cardiac diet. Eliquis will help with DVT prophylaxis. Protonix for PUD prophylaxis. Plan for day: Continue aggressive diuresis with Lasix 60 mg twice daily. Stop Cardizem drip. Maintain rate less than 100. Transfer to [facility]SU when bed available. Attestations Medical Necessity Statement*: Requires further hospitalization for management of acute hypoxic respiratory failure secondary to congestive heart, bilateral pleural effusion, proximal A. fib. 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
[2022-01-08] MEDS: apixaban 5 mg Tablet PO (17:38)
--- NOTE | 2022-01-08 20:16 | P.CONIM_ITS ---
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 fib on chronic anticoagulation with Eliquis presented 01/08/2022 to ER with symptoms of 1 month shortness of breath which was worsening in the last 3 days. Also complained of worsening hoarseness of his voice. Complained of orthopnea and appetite is poor Patient does not use home oxygen. Upon admission patient had normal white count, ABG 7.4 07/28/ on 6 L, BNP 913, CT chest on admission 01/07/2022 compared to 12/09/2021 showed interval development of large circumferential pericardial effusion, interval development of bilateral pleural effusions small right and [id number] left, complete atelectasis of left lower lobe with increasing soft tissue mass obstructing proximal left lower lobe bronchus described on prior PET/CT. Pathological compression T2. Noted to be in A. fib RVR. Patient was started on Cardizem drip and started on Lasix 60 mg IV push twice daily. Echocardiogram reported normal LV size and systolic function with abnormal septal motion consistent with conduction abnormality. LVEF 65% grade 1 diastolic dysfunction. Right ventricle normal in size and function. Small pericardial effusion. Pulmonary consult requested to evaluate for thoracentesis. I have seen patient at bedside -Currently on 4 L nasal cannula saturating 97%; reported improvement in his shortness of breath since arrival to ER yesterday afternoon -He had received Lasix overnight and on Cardizem drip with rate controlled in 80s -Patient has net -1.7 L urine output -Bedside ultrasound showed uncomplicated moderate left pleural effusion with no good pocket to tap and mild right pleural effusion -Other labs and imaging reviewed Review of Systems General: Reports: 10 or more systems reviewed and unremarkable except in HPI and below Medications/Allergies Home Medications Medication Instructions Recorded Confirmed Last Taken Type acetaminophen 500 mg tablet 1,000 mg PO Q6H PRN 02/27/21 01/07/22 08/02/21 Hist ory (Tylenol Extra Strength) alendronate 70 mg tablet 70 mg PO Q7D 02/27/21 01/07/22 01/03/22 History oxycodone-acetaminophen 10 mg-325 1 tab PO Q6H PRN 03/31/21 01/07/22 08/04/21 21:00 History mg tablet atorvastatin 40 mg tablet 40 mg PO BEDTIME #30 tab 04/02/21 01/07/22 01/06/22 Rx pantoprazole 40 mg tablet,delayed 40 mg PO DAILY #30 tab 04/02/21 01/07/22 01/07/22 Rx release tamsulosin 0.4 mg capsule 0.4 mg PO DAILY #30 cap 04/02/21 01/07/22 01/07/22 Rx aspirin 81 mg tablet,delayed 81 mg PO DAILY@05 #0 tab 05/02/21 01/07/22 01/07/22 Rx release apixaban 5 mg tablet (Eliquis) 5 mg PO BID 07/30/21 01/07/22 01/07/22 History dexamethasone 4 mg tablet 4 mg PO BID tab 07/30/21 01/07/22 12/03/21 History finasteride 5 mg tablet 5 mg PO DAILY 07/30/21 01/07/22 01/07/22 History gabapentin 400 mg capsule 800 mg PO TID 07/30/21 01/07/22 01/07/22 History ferrous sulfate 325 mg (65 mg 325 mg PO DAILY 07/31/21 01/07/22 01/07/22 History iron) tablet (Iron (ferrous sulfate)) furosemide 20 mg tablet 20 mg PO QAM PRN 07/31/21 01/07/22 01/07/22 History guaifenesin 1,200 mg tablet, 1,200 mg PO Q12H 07/31/21 01/07/22 01/07/22 History extended release 12 hr (Mucinex) metoprolol tartrate 37.5 mg tablet 37.5 mg PO BID 07/31/21 01/07/22 01/07/22 History lidocaine-prilocaine 2.5 %-2.5 % 0.5 g TOPICAL BID PRN g 09/23/21 01/07/22 Un known History topical cream nitroglycerin 0.4 mg sublingual 0.4 mg SUBLINGUAL Q5M PRN 30 Days 09/23/21 01/07/22 Unknown Rx tablet #30 tab potassium gluconate 595 mg (99 mg) 595 mg PO DAILY 09/23/21 01/07/22 01/07/22 History tablet albuterol sulfate 90 mcg/actuation 1 inh INHALATION QID PRN #8.5 g 12/01/21 01/07/22 Unknown Rx aerosol inhaler prochlorperazine maleate 10 mg 10 mg PO BID PRN tab 12/01/21 01/07/22 Unknown History tablet tiotropium 2.5 mcg-olodaterol 2.5 2 puff INHALATION DAILY #4 g 12/01/21 01/07/22 01/07/22 Rx mcg/actuation mist for inhalation ipratropium 0.5 mg-albuterol 3 mg 3 ml INHALATION Q6H PRN 30 Days 12/19/21 01/07/22 Unknown Rx (2.5 mg base)/3 mL nebulization #360 ml soln Allergies Allergy/AdvReac Type Severity Reaction Status Date / Time iodine Allergy ADR-Nausea Verified 01/07/22 08:37 Current Medications Generic Name Dose Route Start Last Admin Trade Name Freq PRN Reason Stop Dose Admin Apixaban 5 mg 01/08/22 15:45 01/08/22 17:38 Apixaban 5 Mg Tablet PO 5 mg BID@0900,2100 MAX Administration Aspirin 81 mg 01/08/22 05:00 01/08/22 04:55 Aspirin 81 Mg Ec Tablet PO 81 mg DAILY@05 MAX Administration Atorvastatin Calcium 40 mg 01/07/22 21:00 01/07/22 20:53 Atorvastatin 40 Mg Tablet PO 40 mg BEDTIME MAX Administration Budesonide 0.5 mg 01/07/22 18:00 01/08/22 09:15 Budesonide 0.5 Mg/2 Ml Neb INHALATION Not Given BID MAX Diltiazem HCl 30 mg 01/07/22 16:14 01/08/22 15:23 Diltiazem 30 Mg Tablet PO 30 mg Q6H MAX Administration Finasteride 5 mg 01/08/22 09:00 01/08/22 08:44 Finasteride 5 Mg Tablet PO 5 mg DAILY MAX Administration Furosemide 60 mg 01/07/22 16:14 01/08/22 15:23 Furosemide 10 Mg/Ml Sdv 10ml IVP 60 mg Q12H MAX Administration Gabapentin 400 mg 01/07/22 16:14 01/08/22 14:29 Gabapentin 400 Mg Capsule PO 400 mg TID MAX Administration Diltiazem HCl 125 mg/ Sodium 125 mls @ 0 mls/hr 01/07/22 12:00 01/08/22 10:11 Chloride IV 0 mg/hr .Q0M MAX 0 mls/hr Titration Protocol Per Protocol Ipratropium Watson 0.5 mg 01/07/22 21:00 01/08/22 16:03 Ipratropium 0.5 Mg/2.5 Ml Neb INHALATION 0.5 mg Q6H.RESPIRATORY MAX Administration Levalbuterol HCl 0.63 mg 01/07/22 21:00 01/08/22 16:03 Levalbuterol 0.63 Mg/3 Ml Neb INHALATION 0.63 mg Q6H.RESPIRATORY MAX Administration Levofloxacin 500 mg 01/07/22 16:25 01/08/22 07:44 Levofloxacin 500 Mg Tablet PO 01/12/22 16:24 500 mg DAILY@0600 MAX Administration Protocol Metoprolol Tartrate 37.5 mg 01/07/22 18:00 01/08/22 17:38 Metoprolol Tartrate 25 Mg Tablet PO 37.5 mg BID MAX Administration Oxycodone HCl 5 mg 01/07/22 16:14 01/08/22 14:30 Oxycodone 5 Mg Ir Tab/Cap PO 5 mg Q4H PRN Administration pain Pantoprazole Sodium 40 mg 01/08/22 09:00 01/08/22 08:[address] 40 Mg Tablet PO 40 mg DAILY MAX Administration Tamsulosin HCl 0.4 mg 01/08/22 09:00 01/08/22 08:45 Tamsulosin 0.4 Mg Capsule PO 0.4 mg DAILY MAX Administration PFSH Acute PFSH: Medical History Atherosclerosis of coronary artery Bilateral impacted cerumen Cerebrovascular accident Cervical radiculopathy 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 COPD exacerbation Dyspnea on exertion Hx of angina pectoris Hypertension Lower respiratory infection Lower respiratory infection 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 Peripheral neuropathy Secondary malignant neoplasm of bone Surgical History History of ankle surgery History of bronchoscopy History of lumbar laminectomy for spinal cord decompression History of shoulder surgery S/P right rotator cuff repair Family History Sister Anesthesia complication CAD (coronary artery disease) Chronic kidney disease (CKD) Family/Other CAD (coronary artery disease) Brother Cancer Father Dementia Stroke Mother Stroke Denies family history of Diabetes Clotting disorder Suicide Bleeding disorder Lung disease Social History Quit status (tobacco): has quit using tobacco Year quit tobacco: 2010 Former quit date comment: 5 PPD x 40 Years Second hand smoke exposure: No Smoking risk assessment/counseling performed?: No Alcohol intake: former Counseling given: No Counseling given: No Lives independently: Yes Household members: spouse Marital status: Current occupational status: unemployed History of recent travel: No Current gender identity: Male Vitals/I&O/Wt Last Vital Signs Temp 99.5 F 01/07/22 11:35 Pulse 87 01/08/22 19:37 Resp 20 H 01/08/22 19:37 BP 114/81 01/08/22 19:37 Pulse Ox 97 01/08/22 19:37 01/08/22 01/08/22 01/08/22 06:59 14:59 22:59 Intake Total 91.667 / 91.667 Balance 91.667 / 91.667 Weight last 48 hrs Weight 182 lb Physical Exam Narrative: General: alert, NAD HEENT: conj clear, EOMI, PERRL, mmm, Neck: supple, no meningismus Heme: no cervical LAP Pulmonary: Reduced breath sounds on left lower lung zone Cardiovascular: rrr, nl s1s2, no mrg Abdomen: soft, nt, nd, no r/g, bs+ Extremities: pulses +, no edema, no c/c : no CVA tenderness Skin: intact, no rash MSK: no back or neck pain Neurologic: grossly intact Urinary Catheter Management: Peraza: Cath Placed During This Visit: yes Reason for Continuing Indwelling Catheter: Accurate Measurement of Urinary Output in Critically Ill Patients Urinary Catheter Date of Insertion: 01/07/22 Urinary Catheter Time of Insertion: 16:08 Data : 01/08/22 06:39 01/08/22 06:39 Other Labs: Radiology Impressions Chest X-Ray 01/07/22 11:03 IMPRESSION: 1. Cardiomegaly. 2. Small moderate LEFT pleural effusion with LEFT perihilar interstitial edema or infiltrates. 3. Trace RIGHT pleural fluid with atelectasis RIGHT lower lobe medially. Chest CTA 01/07/22 11:05 IMPRESSION: 1. No pulmonary embolism. 2. Interval development of large circumferential pericardial effusion. 3. Interval development of bilateral pleural effusions, small on the RIGHT and [id number] on the LEFT. 4. Complete atelectasis LEFT lower lobe. Increasing soft tissue mass obstructing the proximal LEFT lower lobe bronchus. This was described also on a prior PET/CT. 5. Pathological compression at T2. Intercostal nodule in the LEFT lower thorax consistent with metastatic site, also positive on the prior PET/CT. 6. No significant progression of the mediastinal and RIGHT paratracheal lymph nodes or the well-circumscribed nodule in the LEFT upper lobe. Laboratory Results WBC 9.2 10^3/uL (4.0-10.0) 01/08/22 06:39 RBC 2.84 10^6/uL (4.1-5.3) L 01/08/22 06:39 Hgb 8.3 g/dL (11.7-16.6) L 01/08/22 06:39 Hct 26.3 % (42.0-52.0) L 01/08/22 06:39 MCV 92.6 fl (80-94) 01/08/22 06:39 MCH 29.2 pg (28.0-34.0) 01/08/22 06:39 MCHC 31.6 g/dL (30.0-36.0) 01/08/22 06:39 RDW 17.8 % (12.1-15.1) H 01/08/22 06:39 Plt Count 294 10^3/cmm (130-400) 01/08/22 06:39 MPV 10.9 fL (7.4-10.4) H 01/08/22 06:39 Neut % (Auto) 83.9 % 01/08/22 06:39 Lymph % (Auto) 5.1 % 01/08/22 06:39 [place] % (Auto) 10.5 % 01/08/22 06:39 Eos % (Auto) 0.0 % 01/08/22 06:39 Baso % (Auto) 0.1 % 01/08/22 06:39 Neut # (Auto) 7.74 10^3/uL (1.8-7.7) H 01/08/22 06:39 Lymph # (Auto) 0.5 10^3/uL (0.8-4.8) L 01/08/22 06:39 [place] # (Auto) 1.0 10^3/uL (0.2-0.9) H 01/08/22 06:39 Eos # (Auto) 0.0 10^3/uL (0.0-0.8) 01/08/22 06:39 Baso # (Auto) 0.0 10^3/uL (0.0-0.1) 01/08/22 06:39 Nucleated RBC % (auto) 0 % 01/08/22 06:39 Nucleated RBCs # 0.0 /100WBC 01/08/22 06:39 D-Dimer 3.60 ug/mIFEU (0-0.59) H 01/07/22 12:10 Specimen Type Arterial 01/07/22 11:15 Sample Site Radial, left 01/07/22 11:15 ABG pH 7.48 (7.35-7.45) H 01/07/22 11:15 ABG pCO2 34.8 mmHg (35-45) L 01/07/22 11:15 ABG pO2 195.0 mmHg (80.0-100.0) H 01/07/22 11:15 ABG HCO3 25.7 mmol/L (22-26) 01/07/22 11:15 ABG O2 Saturation 100.0 01/07/22 11:15 ABG Base Excess 2.2 mmol/L (-2.0-2.0) H 01/07/22 11:15 Melo Test Pos 01/07/22 11:15 A-a O2 Gradient 10.2 mmHg (5-10) H 01/07/22 11:15 Hematocrit 31.1 % (42-52) L 01/07/22 11:15 Hgb O2 Saturation 99.1 % (95-100) 01/07/22 11:15 Carboxyhemoglobin 0.7 %THgb (0.4-20.1) 01/07/22 11:15 Methemoglobin 0.2 % (0.4-1.5) L 01/07/22 11:15 Total Hemoglobin 10.2 g/dL (14-18) L 01/07/22 11:15 Sodium 137.0 mmol/L (131-143) 01/07/22 11:15 Potassium 4.1 mmol/L (3.5-5.0) 01/07/22 11:15 Glucose 133.0 mg/dL (70-115) H 01/07/22 11:15 O2 Delivery Device Nc 01/07/22 11:15 O2 Liters/Min 6.0 % 01/07/22 11:15 FiO2 45.0 % 01/07/22 11:15 Machine Operator Cane Cutter ID [place]ro 01/07/22 11:15 Sodium 136 mmol/L (136-145) 01/08/22 06:39 Potassium 4.2 mmol/L (3.5-5.1) 01/08/22 06:39 Chloride 99 mmol/L (98-107) 01/08/22 06:39 Carbon Dioxide 23 mmol/L (22-29) 01/08/22 06:39 Anion Gap 18.2 (5-19) 01/08/22 06:39 BUN 15 mg/dL (8-23) 01/08/22 06:39 Creatinine 0.9 mg/dL (0.7-1.2) 01/08/22 06:39 GFR Calculation 84.7 mL/min (90-130) L 01/08/22 06:39 Glucose 127 mg/dL (65-115) H 01/08/22 06:39 Estimat Average Glucose 134 01/08/22 06:39 Hemoglobin A1c 6.3 % (4.0-6.0) H 01/08/22 06:39 Calculated Osmolality 284 mOsm/kg (285-295) L 01/08/22 06:39 Calcium 9.1 mg/dL (8.5-10.5) 01/08/22 06:39 Phosphorus 3.1 mg/dL (2.5-4.5) 01/08/22 06:39 Magnesium 2.1 mg/dL (1.7-2.3) 01/08/22 06:39 Iron 21 ug/dL (59-158) L 01/07/22 13:58 TIBC 151 mcg/dl 01/07/22 13:58 % Saturation 13.9 % (20-50) L 01/07/22 13:58 Unsat Iron Binding 130 ug/dL (112-347) 01/07/22 13:58 Total Bilirubin 0.2 mg/dL (0.15-1.2) 01/08/22 06:39 AST 13 U/L (0-40) 01/08/22 06:39 ALT 11 U/L (0-41) 01/08/22 06:39 Alkaline Phosphatase 114 IU/L (40-130) 01/08/22 06:39 Troponin T Baseline 32 ng/L (0-15) H 01/07/22 12:10 Troponin T 120 Minute 29.07 ng/L (0-15) H 01/07/22 13:58 Delta Troponin T -2.93 ABS# (0-10) L 01/07/22 13:58 Troponin T Hi Sens 6Hr 42.70 ng/L (0-15) H 01/07/22 18:10 Troponin T Hi Sens 6Hr Delta 10.70 ng/L (0-12) 01/07/22 18:10 NT-Pro-B Natriuret Pep 685 pg/mL (0-125) H 01/08/22 06:39 Total Protein 5.8 g/dL (6.6-8.7) L 01/08/22 06:39 Albumin 2.9 g/dL (3.5-5.2) L 01/08/22 06:39 Globulin 2.9 g/dL (1.3-4.6) 01/08/22 06:39 Triglycerides 77 mg/dL (0-150) 01/08/22 06:39 Cholesterol 119 mg/dL (0-200) 01/08/22 06:39 LDL Cholesterol, Calc 76 mg/dL (50-129) 01/08/22 06:39 Total VLDL Cholesterol 15 mg/dL (0-30) 01/08/22 06:39 HDL Cholesterol 28 mg/dL (60-100) L 01/08/22 06:39 Cholesterol/HDL Ratio 4.25 mg/dL (1.0-5.00) 01/08/22 06:39 Procalcitonin 0.10 ng/mL (0-0.5) 01/07/22 12:10 TSH 0.58 uIU/mL (0.27-4.20) 01/07/22 13:58 Urine Color Yellow (Yellow) 01/07/22 16:30 Urine Appearance Clear (CLEAR) 01/07/22 16:30 Urine pH 5 (5-7) 01/07/22 16:30 Ur Specific [place] 1.005 (1.005-1.030) 01/07/22 16:30 Urine Protein Trace (Negative) 01/07/22 16:30 Urine Glucose (UA) Norm (Normal) 01/07/22 16:30 Urine Ketones Negative (Negative) 01/07/22 16:30 Urine Blood 2+ (Negative) H 01/07/22 16:30 Urine Nitrate Negative (Negative) 01/07/22 16:30 Urine Bilirubin Neg (Negative) 01/07/22 16:30 Urine Urobilinogen 1 mg/dL (Negative) H 01/07/22 16:30 Ur Leukocyte Esterase Negative (Negative) 01/07/22 16:30 Urine RBC 10-15 /hpf (0-2) H 01/07/22 16:30 Urine WBC Rare /hpf (0-5) 01/07/22 16:30 Ur Squamous Epith Cells Rare /hpf (0-5) 01/07/22 16:30 Amorphous Sediment Not Reportable 01/07/22 16:30 Urine Bacteria None /hpf (NONE) 01/07/22 16:30 Coronavirus 229E (PCR) Not detected (NOT DETECT) 01/07/22 11:25 SARS-CoV-2 (PCR) Not detected (NOT DETECT) 01/07/22 11:25 Micro: Microbiology 01/07/22 18:10 Blood Culture - Preliminary Blood NEGATIVE TO DATE 01/07/22 12:10 Blood Culture - Preliminary Blood NEGATIVE TO DATE 01/07/22 16:30 MRSA Culture - Final Nose 01/07/22 23:20 Gram Stain - Final Sputum - Expectorated Sputum 01/07/22 16:30 Bacterial Antigens - Final Urine Kidney 01/07/22 16:30 Legionella Urinary Antigen - Final Urine Catheterized A&P Assessment and plan (1) Pericardial effusion: Status: Acute (2) Bilateral pleural effusion: Status: Acute (3) COPD (chronic obstructive pulmonary disease): Status: Acute (4) Diastolic CHF: Status: Acute Qualifiers: Heart failure chronicity: acute Qualified Code(s): I50.31 - Acute diastolic (congestive) heart failure (5) Acute respiratory failure with hypoxia: Status: Acute (6) Non-small cell cancer of left lung: Status: Acute (7) Paroxysmal atrial fibrillation: Status: Acute Plan #Acute hypoxia and patient with worsening shortness of breath-secondary to bilateral pleural effusion/pericardial effusion-in patient with underlying diastolic heart failure exacerbated by paroxysmal atrial fibrillation #Patient with underlying metastatic squamous cell cancer of the lung with T2 compression fracture #Patient has history of COPD-on Stiolto as outpatient -Currently saturating 97% on 4 L-can taper down further -BNP 800, echo LV function with EF 65% and normal RV function and small pericardial effusion -Reported subjective improvement in dyspnea since admission after being treated with Lasix and Cardizem -Bedside ultrasound showed mild right pleural effusion and mild to moderate left pleural effusion with no safe pocket to tap; there are no fibrinous strands are loculations and it appeared simple effusion -As patient is symptomatically improving, I would hold off on thoracentesis and recommend to continue diuresis and optimize rate control and repeat ultrasound in 2 to 3 days -Currently on Xopenex and Atrovent every 6 hours nebulization and Pulmicort twice daily inhalation; -Recommended to discharge patient home on Xopenex and Atrovent nebulization every 6 hour -Patient to follow-up with oncology and orthopedic surgery for T2 compression fracture after discharge Recommendations conveyed to hospitalist covering the patient Consult Attestations Medical Necessity Statement: Continue diuresis for bilateral pleural effusions and optimize rate control medications for paroxysmal A. fib RVR Time Spent in Patient Care: Greater than 35 minutes (>than 50% of time spent in counselling and/or direct pt care on unit) . Including bedside ultrasound examination of bilateral pleural effusions Critical Care Time: The high probability of a clinically significant, sudden or life threatening deterioration of the patient's [pulmonary, cardiac system(s) required my full and direct attention, intervention and personal management. The critical care time is as shown. 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
[2022-01-08] MEDS: atorvastatin 40 mg Tablet PO (20:30)
--- NOTE | 2022-01-08 21:28 | PC.NURSE ---
resp called for scheduled breathing treatments
[2022-01-08] MEDS: budesonide 0.5 mg/2 mL Neb INHALATION (21:37)
[2022-01-09] VITALS (29 sets, daily range): BP systolic 91–136; BP diastolic 69–90; PULSE 90–137; RESP 6–30; TEMP 36.3–36.7; O2SAT 91–100
[2022-01-09] MEDS: aspirin 81 mg EC Tablet PO (05:03)
[2022-01-09] MEDS: dilTIAZem 30 mg Tablet PO ×2 (05:03→12:18)
[2022-01-09] MEDS: levoFLOXacin 500 mg Tablet PO (05:03)
[2022-01-09] MEDS: FUROsemide 10 mg/mL SDV 10mL 60 MG IVP ×2 (05:03→16:50)
[2022-01-09] MEDS: oxyCODONE 5 mg IR Tab/Cap PO ×5 (05:08→22:17)
[2022-01-09] MEDS: gabapentin 400 mg Capsule PO ×3 (05:12→22:18)
[2022-01-09] MEDS: metoprolol tartrate 25 mg Tablet 37.5 MG PO (08:00)
[2022-01-09] MEDS: pantoprazole DR 40 mg Tablet PO (08:00)
[2022-01-09] MEDS: apixaban 5 mg Tablet PO ×2 (08:00→22:18)
[2022-01-09] MEDS: finasteride 5 mg Tablet PO (08:01)
[2022-01-09] MEDS: tamsulosin 0.4 mg Capsule PO (08:01)
[2022-01-09] MEDS: acetaminophen 325 mg Tablet 650 MG PO ×3 (08:01→21:16)
[2022-01-09 08:07] LABS: Basophils % 0.1 %; Eosinophils % 0.2 %; Hematocrit 31.8 % (42.0-52.0); Hemoglobin 9.9 g/dL (11.7-16.6); Lymphocytes # 0.8 10^3/uL (0.8-4.8); Lymphocytes % 8.3 %; Mean Corpuscular HGB Conc 31.1 g/dL (30.0-36.0); Mean Corpuscular Volume 93.3 fl (80-94); Mean Platelet Volume 10.6 fL (7.4-10.4); Monocytes # 1.2 10^3/uL (0.2-0.9); Monocytes % 12.4 %; Neutrophils # 7.69 10^3/uL (1.8-7.7); Neutrophils % 78.3 %; Nucleated Red Blood Cells % 0 %; Platelet Count 363 10^3/cmm (130-400); Red Blood Count 3.41 10^6/uL (4.1-5.3); Red Cell Distribution Width 18.1 % (12.1-15.1); White Blood Count 9.8 10^3/uL (4.0-10.0)
[2022-01-09 08:29] LABS: Alanine Aminotransferase 14 U/L (0-41); Albumin Level 3.2 g/dL (3.5-5.2); Alkaline Phosphatase 139 IU/L (40-130); Anion Gap 18.2 (5-19); Aspartate Amino Transferase 13 U/L (0-40); Blood Urea Nitrogen 16 mg/dL (8-23); Calcium 8.8 mg/dL (8.5-10.5); Carbon Dioxide 29 mmol/L (22-29); Chloride 94 mmol/L (98-107); Glucose 115 mg/dL (65-115); Osmolality Calculated 288 mOsm/kg (285-295); Potassium 3.2 mmol/L (3.5-5.1); Sodium 138 mmol/L (136-145); Total Bilirubin 0.3 mg/dL (0.15-1.2); Total Protein 7.2 g/dL (6.6-8.7)
--- NOTE | 2022-01-09 08:38 | PC.NURSE ---
Heartrate is ranging from 120-160, AM meds given early. Dr Muro rounded and stated to see if AM meds helps, if no improvement to start Cardizem drip again. He stated he would let Dr Lopez know. Pt is notably SOB in conversation, stopping every couple words to take a breath. C/O chest tightness. States that has been happening all throughout hospital stay. Desats to upper 80s during conversation. C/O neck pain and given PRN tylenol. Otherwise pleasant, with no other complaints.
--- NOTE | 2022-01-09 09:22 | PC.NURSE ---
Dr Lopez rounded. Heartrate 110s-120s. Stated to give Amio IVP x 1 now and then he would put in order for Amio dinh. Updated patient on plan of care.
[2022-01-09] MEDS: levalbuterol 0.63 mg/3 mL Neb INHALATION ×2 (09:30→22:19)
[2022-01-09] MEDS: budesonide 0.5 mg/2 mL Neb INHALATION ×2 (09:30→22:18)
[2022-01-09] MEDS: ipratropium 0.5 mg/2.5 mL Neb INHALATION ×2 (09:30→22:18)
[2022-01-09] MEDS: potassium chloride ER 20 mEq Tablet 40 MEQ PO ×3 (10:52→13:18)
--- NOTE | 2022-01-09 17:47 | P.PN_ITS ---
Subjective Subjective: Overnight patient went into A. fib with RVR again. During the episode he was feeling short of breath. On examination patient lying comfortably in bed with head of the bed elevated to 30 degrees with heart rate running at 110-115 bpm, irregular. Documented urine output of 2 L in last 24 hours. He was started on amiodarone drip after which he converted to normal sinus rhythm. Vitals/I&O/Wt Last Vital Signs Temp 97.4 F L 01/09/22 16:00 Pulse 104 H 01/09/22 16:00 Resp 20 H 01/09/22 16:00 BP 111/79 01/09/22 16:00 Pulse Ox 96 01/09/22 16:00 01/09/22 01/09/22 01/09/22 06:59 14:59 22:59 Intake Total 203 / 203 Output Total 750 / 750 Balance -547 / -547 Weight last 48 hrs Weight 82.372 kg Physical Exam Narrative: General: In acute distress because of difficulty in breathing, AOx3, pleasant on 3 L, laying comfortably in bed with head of the bed elevated to 30 degrees HEENT: PERRLA, pupils bilaterally equal and reactive Chest: Bilateral decreased breath sounds in the lower zone, fine crackles present all over the lung diaz, equal good air entry bilaterally CVS: S1-S2 irregularly irregular, soft pansystolic murmur present at apex, no tachycardia, no gallops, no rubs Abdomen: Soft, nontender, no organomegaly, bowel sounds present Neuro: No focal deficits, no facial deformity, AO x3, power 5/5 in all limbs Urinary Catheter Management: Peraza: Cath Placed During This Visit: yes Reason for Continuing Indwelling Catheter: Accurate Measurement of Urinary Output in Critically Ill Patients Urinary Catheter Date of Insertion: 01/07/22 Urinary Catheter Time of Insertion: 16:08 Data : 01/09/22 07:50 01/09/22 07:50 Micro: Microbiology 01/07/22 23:20 Gram Stain - Final Sputum - Expectorated Sputum Sputum Culture - Preliminary 01/07/22 18:10 Blood Culture - Preliminary Blood NEGATIVE TO DATE 01/07/22 12:10 Blood Culture - Preliminary Blood NEGATIVE TO DATE 01/07/22 16:30 MRSA Culture - Final Nose A&P Assessment and plan (1) Acute respiratory failure with hypoxia: Status: Acute (2) Paroxysmal atrial fibrillation: Status: Acute (3) Diastolic CHF: Status: Acute Qualifiers: Heart failure chronicity: acute Qualified Code(s): I50.31 - Acute diast olic (congestive) heart failure (4) Bilateral pleural effusion: Status: Acute (5) Pericardial effusion: Status: Acute (6) COPD (chronic obstructive pulmonary disease): Status: Acute (7) Hypertension: Status: Acute Qualifiers: Hypertension type: primary hypertension Qualified Code(s): I10 - Essential (primary) hypertension Plan Acute respiratory failure: Most likely a combination of acute decompensated congestive heart failure along with bilateral pleural effusion and pericardial effusion. Hemodynamics currently not consistent with cardiac tamponade. Has a history of diastolic heart failure. Peraza catheter. Strict input output charting, daily weights. Fluid restriction up to 1500 cc. IV Lasix 60 mg twice daily. Echocardiogram reviewed. EF of 65% with grade 1 diastolic dysfunction, mild pericardial effusion without any valvular abnormality. Case discussed with pulmonology. Hold off on thoracentesis for now given good urine output and response to diuretics. Pneumonia less likely. Patient does not have any leukocytosis or fever. Symptoms more consistently not. Urine Legionella, bacterial antigen negative. Procalcitonin negative. Sputum culture results awaited. Continue Levaquin to finish a 5-day course. Day 3/5. History of COPD: Continue with ipratropium, Xopenex every 6 hour, budesonide twice daily. No acute exacerbation currently we will hold off on IV steroids. Paroxysmal atrial fibrillation: Rate controlled. Converted to normal sinus rh [facility]. Continue with amiodarone drip. We will transition over to oral amiodarone. Stop Cardizem. Increase home dose of metoprolol to 50 mg twice daily. Continue with Eliquis 5 mg twice daily as no plans for thoracentesis. Hypertension: Goal blood pressure less than 140/90 mmHg. Medications as above. We will continue to monitor. Continue other chronic home medications including finasteride, oxycodone IR, Flomax. CODE STATUS: Full code. Cardiac diet. Eliquis will help with DVT prophylaxis. Protonix for PUD prophylaxis. Plan for day: Continue with aggressive diuresis with Lasix. Amiodarone drip. Stop Cardizem. Increase dose of metoprolol. Monitor hemodynamics. Replete potassium 120 mEq in 3 divided doses. 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
[2022-01-09] MEDS: metoprolol tartrate 25 mg Tablet 50 MG PO (18:29)
[2022-01-09] MEDS: atorvastatin 40 mg Tablet PO (22:18)
[2022-01-10] VITALS (26 sets, daily range): BP systolic 96–123; BP diastolic 68–88; PULSE 85–115; RESP 15–28; TEMP 36.6–37.1; O2SAT 90–100
[2022-01-10] MEDS: oxyCODONE 5 mg IR Tab/Cap PO ×2 (04:20→08:30)
[2022-01-10] MEDS: levoFLOXacin 500 mg Tablet PO (04:20)
[2022-01-10] MEDS: acetaminophen 325 mg Tablet 650 MG PO (04:20)
[2022-01-10] MEDS: FUROsemide 10 mg/mL SDV 10mL 60 MG IVP (04:21)
[2022-01-10] MEDS: aspirin 81 mg EC Tablet PO (04:21)
[2022-01-10] MEDS: levalbuterol 0.63 mg/3 mL Neb INHALATION ×3 (04:30→14:26)
[2022-01-10] MEDS: ipratropium 0.5 mg/2.5 mL Neb INHALATION ×2 (04:31→09:24)
[2022-01-10 06:06] LABS: Alanine Aminotransferase 15 U/L (0-41); Albumin Level 3.1 g/dL (3.5-5.2); Alkaline Phosphatase 121 IU/L (40-130); Anion Gap 16.9 (5-19); Aspartate Amino Transferase 16 U/L (0-40); Blood Urea Nitrogen 14 mg/dL (8-23); Calcium 8.8 mg/dL (8.5-10.5); Carbon Dioxide 28 mmol/L (22-29); Chloride 96 mmol/L (98-107); Globulin 3.6 g/dL (1.3-4.6); Glucose 114 mg/dL (65-115); Osmolality Calculated 285 mOsm/kg (285-295); Potassium 3.9 mmol/L (3.5-5.1); Sodium 137 mmol/L (136-145); Total Bilirubin 0.4 mg/dL (0.15-1.2); Total Protein 6.7 g/dL (6.6-8.7)
[2022-01-10] MEDS: apixaban 5 mg Tablet PO ×2 (08:29→20:29)
[2022-01-10] MEDS: gabapentin 400 mg Capsule PO ×3 (08:29→20:29)
[2022-01-10] MEDS: metoprolol tartrate 25 mg Tablet 50 MG PO (08:29)
[2022-01-10] MEDS: finasteride 5 mg Tablet PO (08:29)
[2022-01-10] MEDS: pantoprazole DR 40 mg Tablet PO (08:30)
[2022-01-10] MEDS: tamsulosin 0.4 mg Capsule PO (08:30)
--- NOTE | 2022-01-10 09:19 | XRR_ITS ---
PROCEDURE INFORMATION: Exam: XR Chest Exam date and time: 01/10/2022 9:19 AM Age: 66 years old Clinical indication: Other: Chf, pleural effusion TECHNIQUE: Imaging protocol: XR of the chest. Views: 1 view. COMPARISON: CR XR chest 1V portable [id number] 01/07/2022 11:28 AM FINDINGS: Tubes, catheters and devices: MediPort catheter is present with the tip in the projection of the SVC. Lungs: The left base is opacified due to a left pleural effusion with left basilar consolidation and atelectasis. This is unchanged. Right lung is clear. Pleural spaces: See Lungs finding. Heart/Mediastinum: The cardiac silhouette is enlarged but unchanged. Bones/joints: Unremarkable. XR/XR chest 1V portable [id number] IMPRESSION: Stable opacification of the left base consistent with left pleural effusion and basilar atelectasis/consolidation.
[2022-01-10] MEDS: budesonide 0.5 mg/2 mL Neb INHALATION (09:24)
[2022-01-10] MEDS: potassium chloride ER 20 mEq Tablet 40 MEQ PO (10:34)
[2022-01-10] MEDS: amiodarone 200 mg Tablet PO ×2 (10:34→18:57)
[2022-01-10] MEDS: ALPRAZolam 0.5 mg Tablet PO (13:51)
--- NOTE | 2022-01-10 14:26 | PM.PN ---
Subjective Subjective: No acute events overnight. Continues to be on amiodarone drip as per protocol. Converted to normal sinus rhythm yesterday in the afternoon. Laying comfortably in bed. Turned down to room air today. States feeling better. States feeling anxious. Asking for his pain medications. States he takes his gabapentin 803 times a day and oxycodone 10 mg every 6 hours as needed. Denies any nausea, vomiting, headache. Vitals/I&O/Wt Last Vital Signs Temp 98.3 F 01/10/22 11:49 Pulse 102 H 01/10/22 11:49 Resp 24 H 01/10/22 11:49 BP 123/68 01/10/22 11:49 Pulse Ox 92 01/10/22 11:49 01/09/22 01/10/22 01/10/22 22:59 06:59 14:59 Intake Total 339.266 / 542.266 500 / 1042.266 653.734 / 653.734 Output Total 1500 / 2250 450 / 2700 1800 / 1800 Balance -1160.734 / -1707.734 50 / -1657.734 -1146.266 / -1146.266 Weight last 48 hrs Weight 86.183 kg Weight 86.183 kg Physical Exam Narrative: General: In acute distress because of difficulty in breathing, AOx3, pleasant on 3 L, laying comfortably in bed with head of the bed elevated to 15 degrees HEENT: PERRLA, pupils bilaterally equal and reactive Chest: Bilateral decreased breath sounds in the lower zone, fine crackles present all over the lung diaz, equal good air entry bilaterally CVS: S1-S2 irregularly irregular, soft pansystolic murmur present at apex, no tachycardia, no gallops, no rubs Abdomen: Soft, nontender, no organomegaly, bowel sounds present Neuro: No focal deficits, no facial deformity, AO x3, power 5/5 in all limbs Urinary Catheter Management: Peraza: Cath Placed During This Visit: yes Reason for Continuing Indwelling Catheter: Accurate Measurement of Urinary Output in Critically Ill Patients Urinary Catheter Date of Insertion: 01/07/22 Urinary Catheter Time of Insertion: 16:08 Data : 01/09/22 07:50 01/10/22 04:54 Micro: Microbiology 01/07/22 23:20 Gram Stain - Final Sputum - Expectorated Sputum Sputum Culture - Preliminary A&P Assessment and plan (1) Acute respiratory failure with hypoxia: Status: Acute (2) Paroxysmal atrial fibrillation: Status: Acute (3) Diastolic CHF: Status: Acute Qualifiers: Heart failure chronicity: acute Qualified Code(s): I50.31 - Acute diastolic (congestive) heart failure (4) Bilateral pleural effusion: Status: Acute (5) Pericardial effusion: Status: Acute (6) COPD (chronic obstructive pulmonary disease): Status: Acute (7) Hypertension: Status: Acute Qualifiers: Hypertension type: primary hypertension Qualified Code(s): I10 - Essential (primary) hypertension Plan Acute respiratory failure: Most likely a combination of acute decompensated congestive heart failure along with bilateral pleural effusion and pericardial effusion. Echocardiogram done to rule out tamponade. Peraza catheter. Strict input output charting, daily weights. Fluid restriction up to 1500 cc. Oral Lasix 80 mg twice daily. Echocardiogram reviewed. EF of 65% with grade 1 diastolic dysfunction, mild pericardial effusion without any valvular abnormality. Start on oral potassium 40 mg daily. Case discussed with pulmonology. Hold off on thoracentesis for now given good urine output and response to diuretics. Pneumonia less likely. Patient does not have any leukocytosis or fever. Symptoms more consistently not. Urine Legionella, bacterial antigen negative. Procalcitonin negative. Sputum culture results awaited. Continue Levaquin to finish a 5-day course. Day 3/5. History of COPD: Switch to Advair, Spiriva. No acute exacerbation currently we will hold off on IV steroids. Paroxysmal atrial fibrillation: Converted to normal sinus rhythm. Sinus tachycardia. Start on amiodarone 200 mg twice daily. Stop amiodarone drip as per protocol. Depending on the blood pressures can increase the dose of metoprolol to 75 mg twice daily. Continue with Eliquis 5 mg twice daily as no plans for thoracentesis. Hypertension: Goal blood pressure less than 140/90 mmHg. Medications as above. We will continue to monitor. Continue other chronic home medications including finasteride, gabapentin 800 mg 3 times a day, Percocet 10 mg every 6 hours, Flomax. CODE STATUS: Full code. Cardiac diet. Eliquis will help with DVT prophylaxis. Protonix for PUD prophylaxis. Plan for day: Increase pain meds as per home dose. Add Xanax 0.5 every 8 hours as needed and venlafaxine 75 mg twice daily for anxiety and depression. Switch to Advair, Spiriva. Possibly increase metoprolol to 75 mg twice daily. Switch to oral Lasix 80 mg twice daily. MRI thoracolumbar region. 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
[2022-01-10] MEDS: venlafaxine 75 mg Tablet PO (15:43)
[2022-01-10] MEDS: metoprolol tartrate 25 mg Tablet PO (15:43)
[2022-01-10] MEDS: FUROsemide 40 mg Tablet 80 MG PO (15:47)
[2022-01-10] MEDS: ondansetron 2 mg/ML SDV 2 mL 4 MG IVP (20:29)
[2022-01-10] MEDS: metoprolol tartrate 25 mg Tablet 75 MG PO (20:29)
[2022-01-10] MEDS: oxyCODONE-APAP 10-325 mg Tablet 1 TAB PO (20:29)
[2022-01-10] MEDS: atorvastatin 40 mg Tablet PO (20:29)
[2022-01-11] VITALS (10 sets, daily range): BP systolic 91–97; BP diastolic 68–74; PULSE 89–103; RESP 16–21; TEMP 36.4; O2SAT 88–98
[2022-01-11] MEDS: oxyCODONE-APAP 10-325 mg Tablet 1 TAB PO ×3 (02:51→14:43)
[2022-01-11 03:47] LABS: Alanine Aminotransferase 17 U/L (0-41); Albumin Level 3.1 g/dL (3.5-5.2); Alkaline Phosphatase 134 IU/L (40-130); Anion Gap 14.8 (5-19); Aspartate Amino Transferase 16 U/L (0-40); Blood Urea Nitrogen 18 mg/dL (8-23); Calcium 9.8 mg/dL (8.5-10.5); Carbon Dioxide 29 mmol/L (22-29); Chloride 94 mmol/L (98-107); Globulin 3.9 g/dL (1.3-4.6); Glucose 113 mg/dL (65-115); Osmolality Calculated 281 mOsm/kg (285-295); Potassium 3.8 mmol/L (3.5-5.1); Sodium 134 mmol/L (136-145); Total Bilirubin 0.4 mg/dL (0.15-1.2)
[2022-01-11] MEDS: levoFLOXacin 500 mg Tablet PO (03:51)
[2022-01-11] MEDS: aspirin 81 mg EC Tablet PO (03:52)
[2022-01-11] MEDS: pantoprazole DR 40 mg Tablet PO (08:03)
[2022-01-11] MEDS: tamsulosin 0.4 mg Capsule PO (08:03)
[2022-01-11] MEDS: venlafaxine 75 mg Tablet PO (08:03)
[2022-01-11] MEDS: metoprolol tartrate 25 mg Tablet 75 MG PO (08:03)
[2022-01-11] MEDS: amiodarone 200 mg Tablet PO (08:03)
[2022-01-11] MEDS: potassium chloride ER 20 mEq Tablet 40 MEQ PO (08:03)
[2022-01-11] MEDS: gabapentin 400 mg Capsule PO ×2 (08:03→14:43)
[2022-01-11] MEDS: FUROsemide 40 mg Tablet 80 MG PO (08:03)
[2022-01-11] MEDS: apixaban 5 mg Tablet PO (08:03)
[2022-01-11] MEDS: finasteride 5 mg Tablet PO (08:09)
--- NOTE | 2022-01-11 10:36 | PC.SOCIAL ---
IMM update IMM updated with patient. Verbalized an understanding. Copy Pg 2 provided. Initialled, dated, timed, and placed in chart.
--- NOTE | 2022-01-11 11:59 | P.DS_ITS ---
Discharge Providers Date of Admission: 01/08/22 23:23 Date of Discharge: January 11, 2022 Attending Provider at Admission: Evans Reveles MD Attending Provider at Discharge: Evans Reveles MD Consults: Pulm: Datar Primary Care Provider: Arabella Montero MD Diagnoses at Discharge Discharge Diagnosis (1) Acute respiratory failure with hypoxia: Status: Acute (2) Paroxysmal atrial fibrillation: Status: Acute (3) Diastolic CHF: Status: Acute Qualifiers: Heart failure chronicity: acute Qualified Code(s): I50.31 - Acute diastolic (congestive) heart failure (4) Bilateral pleural effusion: Status: Acute (5) Pericardial effusion: Status: Acute (6) COPD (chronic obstructive pulmonary disease): Status: Acute (7) Hypertension: Status: Acute Qualifiers: Hypertension type: primary hypertension Qualified Code(s): I10 - Essential (primary) hypertension Reason for Visit Reason for Visit: SOB Hospital Course Hospital Course History as per HPI: Tramaine Galaviz is a 66 year old male with past medical history of stage 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 fib on chronic anticoagulation with Eliquis presents to the ER today with symptoms of worsening shortness of breath over last 1 month worse for last 3 days.? As per the patient and at bedside patient's voice is also becoming more hoarse gradually over last 1 month.? Patient is not able to lie down flat and usually sleeps sitting up for the last 1 month.? States shortness of breath is getting worse and currently he is getting out of breath even on talking.? Does not use oxygen at home.? Denies any fever, nausea, vomiting, dysuria, diarrhea.? States appetite is poor. Blood work in the ER showed a white count of 8000, hemoglobin of 9.6, platelet of 309, D-dimer of 3.6, ABG showing a pH of 7.48, PCO2 of 34, PO2 of 195 on 6 L, chemistry showing sodium of 137, creatinine of 0.8, calcium of 8.4, baseline troponin of 32 with a delta of -3, BNP of 913, COVID-[address] chest as below.? Currently on Cardizem of 5 with a heart rate running in high 90s. Hospital Course: He was admitted for management of acute hypoxic respiratory failure from CHF and afib with RVR. Afib was difficult to control with recurrent episodes of RVR. Eventually he was started on amiodarone drip after words he converted to NSR. He was treated with aggressive IV diuresis and by day of discharge he is net 8 l negative. Echo was done which was not concerning for tamponade physiology but was concerning for diastolic HF. Pulmonology was consulted for possible thoracentesis but was deferred given simple fluid with no good pocket to drain on bedside ultrasound as patient was diuresing well. He is being dced in hemodynamically stable condition on oral lasix, amiodarone 200 mg BID for 1 week f/b 200 mg OD, increased dose of Lopressor with advice to f/u with PCP in 7 days for repeat CMP and specialist on set dates. Home O2 eval was done prior to discharge. Plan was discussed in detail with patient and partner at bedside and all questions were answered. Physical Exam Narrative: General: In acute distress because of difficulty in breathing, AOx3, pleasant on 3 L, laying comfortably in bed with head of the bed elevated to 15 degrees HEENT: PERRLA, pupils bilaterally equal and reactive Chest: Bilateral decreased breath sounds in the lower zone, fine crackles present all over the lung diaz, equal good air entry bilaterally CVS: S1-S2 irregularly irregular, soft pansystolic murmur present at apex, no tachycardia, no gallops, no rubs Abdomen: Soft, nontender, no organomegaly, bowel sounds present Neuro: No focal deficits, no facial deformity, AO x3, power 5/5 in all limbs Urinary Catheter Management: Peraza: Cath Placed During This Visit: yes Reason for Continuing Indwelling Catheter: Accurate Measurement of Urinary Output in Critically Ill Patients Urinary Catheter Date of Insertion: 01/07/22 Urinary Catheter Time of Insertion: 16:08 Discharge Data Studies Completed and Pending Completed Studies During Hospitalization Category Date Time Status CT angio chest PE protcl [id number] Stat Cat Scan 01/07/22 11:05 Completed XR chest 1V portable [id number] Routine Exams 01/10/22 09:19 Completed XR chest 1V portable [id number] Stat Exams 01/07/22 11:03 Completed CV. echo complete* [id number] Urgent Ultrasound 01/07/22 16:14 Completed Pending at discharge Category Date Time Status Arterial Blood Gas Full Stat Lab 01/07/22 11:15 Results Blood Culture Stat Lab 01/07/22 18:10 Results MR lumbar spine wo con* [id number] Routine MRI 01/10/22 09:17 Ordered MR thoracic spine wo [MR thoracic spin wo con* [id number]] MRI 01/10/22 09:17 Ordered Routine Radiology Impressions Chest CTA 01/07/22 11:05 IMPRESSION: 1. No pulmonary embolism. 2. Interval development of large circumferential pericardial effusion. 3. Interval development of bilateral pleural effusions, small on the RIGHT and [id number] on the LEFT. 4. Complete atelectasis LEFT lower lobe. Increasing soft tissue mass obstructing the proximal LEFT lower lobe bronchus. This was described also on a prior PET/CT. 5. Pathological compression at T2. Intercostal nodule in the LEFT lower thorax consistent with metastatic site, also positive on the prior PET/CT. 6. No significant progression of the mediastinal and RIGHT paratracheal lymph nodes or the well-circumscribed nodule in the LEFT upper lobe. Chest X-Ray 01/10/22 09:19 IMPRESSION: Stable opacification of the left base consistent with left pleural effusion and basilar atelectasis/consolidation. Echocardiogram CONCLUSIONS ?1-Normal left ventricular cavity size. Normal left ventricular?systolic function.abnormal septal motion consistent with?conduction abnormality. . Left ventricular ejection fraction is?estimated at 65 %. Grade I/IV diastolic dysfunction (abnormal?relaxation filling pattern), normal to mildly elevated filling?pressures. ?2-The right ventricle is normal in size and function.? RVSP?could not be calculated due to incomplete tricuspid?regurgitation velocity profile. ?3-No significant valve abnormalities. ?4-There is no pericardial effusion. ?5-Small pericardial effusion.? ?6-Right atrial pressure is around 5 mm of mercury. ?7-When compared to prior echocardiogram dated 04/01/2021 there?appeared to be septal bounce now. ?Yany Rousseau MD ?(Electronically Signed) ?Final Date:? ? ? 07 January 2022 ? 20:42 Laboratory Results WBC 9.8 10^3/uL (4.0-10.0) 01/09/22 07:50 RBC 3.41 10^6/uL (4.1-5.3) L 01/09/22 07:50 Hgb 9.9 g/dL (11.7-16.6) L 01/09/22 07:50 Hct 31.8 % (42.0-52.0) L 01/09/22 07:50 MCV 93.3 fl (80-94) 01/09/22 07:50 MCH 29.0 pg (28.0-34.0) 01/09/22 07:50 MCHC 31.1 g/dL (30.0-36.0) 01/09/22 07:50 RDW 18.1 % (12.1-15.1) H 01/09/22 07:50 Plt Count 363 10^3/cmm (130-400) 01/09/22 07:50 MPV 10.6 fL (7.4-10.4) H 01/09/22 07:50 Neut % (Auto) 78.3 % 01/09/22 07:50 Lymph % (Auto) 8.3 % 01/09/22 07:50 [place] % (Auto) 12.4 % 01/09/22 07:50 Eos % (Auto) 0.2 % 01/09/22 07:50 Baso % (Auto) 0.1 % 01/09/22 07:50 Neut # (Auto) 7.69 10^3/uL (1.8-7.7) 01/09/22 07:50 Lymph # (Auto) 0.8 10^3/uL (0.8-4.8) 01/09/22 07:50 [place] # (Auto) 1.2 10^3/uL (0.2-0.9) H 01/09/22 07:50 Eos # (Auto) 0.0 10^3/uL (0.0-0.8) 01/09/22 07:50 Baso # (Auto) 0.0 10^3/uL (0.0-0.1) 01/09/22 07:50 Nucleated RBC % (auto) 0 % 01/09/22 07:50 Nucleated RBCs # 0.0 /100WBC 01/09/22 07:50 D-Dimer 3.60 ug/mIFEU (0-0.59) H 01/07/22 12:10 Specimen Type Arterial 01/07/22 11:15 Sample Site Radial, left 01/07/22 11:15 ABG pH 7.48 (7.35-7.45) H 01/07/22 11:15 ABG pCO2 34.8 mmHg (35-45) L 01/07/22 11:15 ABG pO2 195.0 mmHg (80.0-100.0) H 01/07/22 11:15 ABG HCO3 25.7 mmol/L (22-26) 01/07/22 11:15 ABG O2 Saturation 100.0 01/07/22 11:15 ABG Base Excess 2.2 mmol/L (-2.0-2.0) H 01/07/22 11:15 Melo Test Pos 01/07/22 11:15 A-a O2 Gradient 10.2 mmHg (5-10) H 01/07/22 11:15 Hematocrit 31.1 % (42-52) L 01/07/22 11:15 Hgb O2 Saturation 99.1 % (95-100) 01/07/22 11:15 Carboxyhemoglobin 0.7 %THgb (0.4-20.1) 01/07/22 11:15 Methemoglobin 0.2 % (0.4-1.5) L 01/07/22 11:15 Total Hemoglobin 10.2 g/dL (14-18) L 01/07/22 11:15 Sodium 137.0 mmol/L (131-143) 01/07/22 11:15 Potassium 4.1 mmol/L (3.5-5.0) 01/07/22 11:15 Glucose 133.0 mg/dL (70-115) H 01/07/22 11:15 O2 Delivery Device Nc 01/07/22 11:15 O2 Liters/Min 6.0 % 01/07/22 11:15 FiO2 45.0 % 01/07/22 11:15 Cloth Mercerizer Operator ID Monro 01/07/22 11:15 Sodium 134 mmol/L (136-145) L 01/11/22 02:40 Potassium 3.8 mmol/L (3.5-5.1) 01/11/22 02:40 Chloride 94 mmol/L (98-107) L 01/11/22 02:40 Carbon Dioxide 29 mmol/L (22-29) 01/11/22 02:40 Anion Gap 14.8 (5-19) 01/11/22 02:40 BUN 18 mg/dL (8-23) 01/11/22 02:40 Creatinine 1.0 mg/dL (0.7-1.2) 01/11/22 02:40 GFR Calculation 75.0 mL/min (90-130) L 01/11/22 02:40 Glucose 113 mg/dL (65-115) 01/11/22 02:40 Estimat Average Glucose 134 01/08/22 06:39 Hemoglobin A1c 6.3 % (4.0-6.0) H 01/08/22 06:39 Calculated Osmolality 281 mOsm/kg (285-295) L 01/11/22 02:40 Calcium 9.8 mg/dL (8.5-10.5) 01/11/22 02:40 Phosphorus 3.1 mg/dL (2.5-4.5) 01/08/22 06:39 Magnesium 2.1 mg/dL (1.7-2.3) 01/08/22 06:39 Iron 21 ug/dL (59-158) L 01/07/22 13:58 TIBC 151 mcg/dl 01/07/22 13:58 % Saturation 13.9 % (20-50) L 01/07/22 13:58 Unsat Iron Binding 130 ug/dL (112-347) 01/07/22 13:58 Total Bilirubin 0.4 mg/dL (0.15-1.2) 01/11/22 02:40 AST 16 U/L (0-40) 01/11/22 02:40 ALT 17 U/L (0-41) 01/11/22 02:40 Alkaline Phosphatase 134 IU/L (40-130) H 01/11/22 02:40 Troponin T Baseline 32 ng/L (0-15) H 01/07/22 12:10 Troponin T 120 Minute 29.07 ng/L (0-15) H 01/07/22 13:58 Delta Troponin T -2.93 ABS# (0-10) L 01/07/22 13:58 Troponin T Hi Sens 6Hr 42.70 ng/L (0-15) H 01/07/22 18:10 Troponin T Hi Sens 6Hr Delta 10.70 ng/L (0-12) 01/07/22 18:10 NT-Pro-B Natriuret Pep 685 pg/mL (0-125) H 01/08/22 06:39 Total Protein 7.0 g/dL (6.6-8.7) 01/11/22 02:40 Albumin 3.1 g/dL (3.5-5.2) L 01/11/22 02:40 Globulin 3.9 g/dL (1.3-4.6) 01/11/22 02:40 Triglycerides 77 mg/dL (0-150) 01/08/22 06:39 Cholesterol 119 mg/dL (0-200) 01/08/22 06:39 LDL Cholesterol, Calc 76 mg/dL (50-129) 01/08/22 06:39 Total VLDL Cholesterol 15 mg/dL (0-30) 01/08/22 06:39 HDL Cholesterol 28 mg/dL (60-100) L 01/08/22 06:39 Cholesterol/HDL Ratio 4.25 mg/dL (1.0-5.00) 01/08/22 06:39 Procalcitonin 0.10 ng/mL (0-0.5) 01/07/22 12:10 TSH 0.58 uIU/mL (0.27-4.20) 01/07/22 13:58 Urine Color Yellow (Yellow) 01/07/22 16:30 Urine Appearance Clear (CLEAR) 01/07/22 16:30 Urine pH 5 (5-7) 01/07/22 16:30 Ur Specific Fries 1.005 (1.005-1.030) 01/07/22 16:30 Urine Protein Trace (Negative) 01/07/22 16:30 Urine Glucose (UA) Norm (Normal) 01/07/22 16:30 Urine Ketones Negative (Negative) 01/07/22 16:30 Urine Blood 2+ (Negative) H 01/07/22 16:30 Urine Nitrate Negative (Negative) 01/07/22 16:30 Urine Bilirubin Neg (Negative) 01/07/22 16:30 Urine Urobilinogen 1 mg/dL (Negative) H 01/07/22 16:30 Ur Leukocyte Esterase Negative (Negative) 01/07/22 16:30 Urine RBC 10-15 /hpf (0-2) H 01/07/22 16:30 Urine WBC Rare /hpf (0-5) 01/07/22 16:30 Ur Squamous Epith Cells Rare /hpf (0-5) 01/07/22 16:30 Amorphous Sediment Not Reportable 01/07/22 16:30 Urine Bacteria None /hpf (NONE) 01/07/22 16:30 Coronavirus 229E (PCR) Not detected (NOT DETECT) 01/07/22 11:25 SARS-CoV-2 (PCR) Not detected (NOT DETECT) 01/07/22 11:25 Vitals Last Vital Signs Temp 97.6 F 01/11/22 03:53 Pulse 103 H 01/11/22 09:38 Resp 20 H 01/11/22 09:35 BP 91/74 01/11/22 08:05 Pulse Ox 95 01/11/22 11:17 Discharge Plan Discharge Patient Disposition: Home Condition: Stable Prescriptions: New Lasix 80 mg tablet 80 mg PO BID Qty: 60 0RF metoprolol tartrate 75 mg tablet 75 mg PO BID Qty: 60 0RF amiodarone 200 mg tablet See Rx Instructions mg .ROUTE .COMPLEX 30 Days Qty: 40 0RF Taper: amiodarone 400bid to 200daily 200 mg Twice A Day for 7 Days and 0 Hour 200 mg Daily for 30 Days and 0 Hour Rx Instructions: See Taper orally Continued prochlorperazine maleate 10 mg tablet 10 mg PO BID PRN (Reason: Nausea) 0RF albuterol sulfate 90 mcg/actuation HFA aerosol inhaler 1 inh inhalation QID PRN (Reason: shortness of breath or wheezing) Qty: 8.5 0RF tiotropium-olodaterol 2.5-2.5 mcg/actuation mist 2 puff inhalation DAILY Qty: 4 0RF Eliquis 5 mg tablet 5 mg PO BID 0RF finasteride 5 mg tablet 5 mg PO DAILY 0RF gabapentin 400 mg capsule 800 mg PO TID 0RF ipratropium-albuterol 0.5 mg-3 mg(2.5 mg base)/3 mL solution for nebulization 3 ml inhalation Q6H PRN (Reason: wheezing) 30 Days Qty: 360 3RF lidocaine-prilocaine 2.5-2.5 % cream 0.5 g topical BID PRN (Reason: port access) 0RF potassium gluconate 595 mg (99 mg) tablet 595 mg PO DAILY 0RF nitroglycerin 0.4 mg tablet, sublingual 0.4 mg sublingual Q5M PRN (Reason: chest pain) 30 Days Qty: 30 3RF Rx Instructions: until response; do not exceed 3 doses per episode oxycodone-acetaminophen 10-325 mg tablet 1 tab PO Q6H PRN (Reason: Pain) 0RF atorvastatin 40 mg Tablet 40 mg PO BEDTIME Qty: 30 0RF tamsulosin 0.4 mg Capsule 0.4 mg PO DAILY Qty: 30 0RF pantoprazole 40 mg Tablet,Delayed Release (Dr/Ec) 40 mg PO DAILY Qty: 30 0RF ferrous sulfate [Iron (ferrous sulfate)] 325 mg (65 mg iron) Tablet 325 mg PO DAILY 0RF Mucinex 1,200 mg Tablet Extended Release 12hr 1,200 mg PO Q12H 0RF alendronate 70 mg tablet 70 mg PO Q7D 0RF Rx Instructions: on sat acetaminophen [Tylenol Extra Strength] 500 mg Tablet 1,000 mg PO Q6H PRN (Reason: Pain) 0RF aspirin 81 mg tablet,delayed release (DR/EC) 81 mg PO DAILY@05 Qty: 0 0RF Discontinued metoprolol tartrate 37.5 mg tablet 37.5 mg PO BID 0RF furosemide 20 mg tablet 20 mg PO QAM PRN (Reason: SWELLING) 0RF dexamethasone 4 mg tablet 4 mg PO BID 0RF Rx Instructions: On Chemo days Discharge Orders: Discharge Order (Routine); Ordered 01/11/22 Ordered By: Evans Reveles Other Ambulatory Orders: MR lumbar spine wo con* [id number] (Routine) Timeframe: 1 Week Facility: [facility] [place] - Location: Radiology [facility] Ordered By: Evans Reveles MR thoracic spin wo con* [id number] (Routine) Timeframe: 1 Week Facility: [facility] [place] - Location: Radiology [facility] Ordered By: Evans Reveles DME: Oxygen (Order) Location: None Selected Ordered By: Evans Reveles Referrals: Gus Muro MD [Physician] - 7-10 days ([facility] will be calling to schedule a pulmonology followup up with Dr. Datar. If you don't hear from them by Wednesday, please give them a call. Thank you) Maria Eugenia Pineda MD [Physician] - 2 weeks ([facility] [place] [facility] will be calling to schedule a cardiology followup up with Dr. Pineda. If you don't hear from them by Wednesday, please give them a call. Thank you) Edwin Montoya MD [Hospitalist] - 7-10 days ([facility] will be calling to schedule a hospital followup with Dr. Montoya and to have a repeat CMP bloodwork done in approx. 7 to 10 days. if you don't hear from them by Wednesday, please give them a call ) Discharge Diet: Cardiac and Low Salt Discharge Activity: Resume usual activity and Increase activity as tolerated Patient Instructions: Atrial Fibrillation, Metoprolol (By mouth) (Lopressor, Toprol XL), Furosemide (By mouth) (Lasix), Amiodarone (By mouth) (Cordarone, Pacerone), Opioid Safety Activity Restrictions/Additional Instructions: Dose of metoprolol has been changed to 75 mg twice daily Please restrict your oral intake of fluids to less than 2 L daily which includes your water, coffee, juice. Try to restrict your salt intake to 2 g. Check your body weight at home. f your body weight increases by 5 pounds in a week increase take extra dose of Lasix 40 mg. For now take Lasix 80 mg twice daily. Pulmonary: Take 200 mg twice daily for next 7 days followed by 20 mg daily. Please follow-up with your PCP within next 1 week for repeat CMP. Please follow-up with Dr. Pineda in the next 2 weeks. Please follow-up with Dr. Muro from pulmonology within next 10 days Discharge Attestations Time Spent in Discharge Care*: greater than 30 min Specific Discharge Activities: educating patient, educating and/or supporting family/caregiver, discussing with pcp/other providers, discussing with immigration case manager/social workers/dc planners, documenting/other paperwork and evaluating patient/reviewing data Status at Discharge: Cognitive status at discharge: cognitively intact , Behavioral status at discharge: cooperative , Functional status at discharge: uses cane/walker , Overall status at discharge: patient is progressing back to baseline Quality Metrics Clinical Quality Measures [ No reported AMI, CVA or VTE this stay] Coding Level of Care Code Acute Chg FW DC note Medical Decision Making High Complexity Diagnoses Acute respiratory failure with hypoxia J96.01 Paroxysmal atrial fibrillation I48.0 Diastolic CHF I50.31 Heart failure chronicity: acute Bilateral pleural effusion J90 Pericardial effusion I31.3 COPD (chronic obstructive pulmonary disease) J44.9 Hypertension I10 Hypertension type: primary hypertension
--- NOTE | 2022-01-11 13:00 | PC.NURSE ---
called meds to [facility] in [facility] [place] per pt's due to our pharmacy is close on sundays.
--- NOTE | 2022-01-11 14:00 | PC.NURSE ---
HOME o2 in room
== END 2022-01-11 15:55 | disposition home or self-care (01) | DRG 291 ==
LOC: ER 01-08 09:32 → ER IP 01-08 22:29 → CSU 01-08 23:23
PROVIDERS: Admitting Provider Student in an Organized Health Care Education/Training Program; Emergency Provider Family Medicine; PCP Family Medicine; Visit Provider Student in an Organized Health Care Education/Training Program
DX: I11.0 Hypertensive heart disease with heart failure (principal); I50.33 Acute on chronic diastolic (congestive) heart failure; J96.01 Acute respiratory failure with hypoxia; I31.3 Pericardial effusion (noninflammatory); C34.92 Malignant neoplasm of unspecified part of left bronchus or lung; C79.51 Secondary malignant neoplasm of bone; I48.0 Paroxysmal atrial fibrillation; J43.9 Emphysema, unspecified; I25.10 Atherosclerotic heart disease of native coronary artery without angina pectoris; F41.9 Anxiety disorder, unspecified; F32.A Depression, unspecified; Z87.891 Personal history of nicotine dependence; Z86.16 Personal history of COVID-19; Z92.21 Personal history of antineoplastic chemotherapy; Z92.3 Personal history of irradiation; Z79.01 Long term (current) use of anticoagulants
CPT/HCPCS: 36415; 36600; 51702; 51798; 71045; 71275; 80051; 80053; 80061; 81001; 82330; 82805; 83036; 83540; 83550; 83735; 83880; 84100; 84145; 84443; 84484; 85025; 85378; 86403; 87040; 87070; 87205; 87449; 87635; 87641; 93005; 93306; 94640; 94664; 96365; 96366; 96375; 97110; 97116; 97162; 99291; J0282; J1100; J1940; J2405; J3490; J7060; J7614; J7626; J7644; Q9967

== ENCOUNTER → 2022-01-15 10:51 | Outpatient (BNVA) | payer BC, MEDICARE, SELFPAY | PROVIDERS: PCP Family Medicine; Visit Provider Family Medicine | DX: Z20.822 Contact with and (suspected) exposure to COVID-19 (principal); J22 Unspecified acute lower respiratory infection; J90 Pleural effusion, not elsewhere classified | CPT/HCPCS: 71046; 87635 ==

== ENCOUNTER 2022-01-21 07:15 | Outpatient (CLI) | payer BC, MEDICARE, SELFPAY ==
--- NOTE | 2022-01-21 07:31 | MR_ITS ---
WS: [id number] MRI THORACIC SPINE WITHOUT CONTRAST TECHNIQUE: Sagittal T1, T2 and STIR imaging. Axial T2 imaging. Noncontrast imaging obtained. CLINICAL INFORMATION: compression fracture on chemoradiation ofr lung cancer, COMPARISON: PET CT November 15, 2021, MRI cervical July 15, 2021 FINDINGS: Again seen is the metastatic lesion involving the T2 vertebral body with extension into the posterior elements worse in the LEFT. This is similar in appearance to the prior examinations. This extends in to the LEFT transverse process pedicle and lamina. Associated mild epidural involvement is similar in appearance with mild central canal stenosis. Overall this appears slightly progressed compared to th e prior cervical MRI July 15, 2021 but not significantly changed. Persistent edema on the STIR imag ing. Associated paravertebral edema. Mild LEFT foraminal narrowing at this level. No other osseous metastatic metastatic disease in the thoracic spine. No edema in the T6 vertebral wanda dy mentioned on the recent radiograph. Moderate facet arthropathy lower thoracic spine. Cord signal i s normal. No high-grade central canal stenosis. Moderate LEFT pleural effusion. Adrenal glands are no rmal. MR/MR thoracic spin wo con* [id number] IMPRESSION: 1. Again seen is the metastatic marrow replacing lesion involving the T2 verte bral body extending into the posterior elements on the LEFT. This involves the LEFT transverse process and LEFT lamina and pedicle. This appears slightly prog ressed compared to July 15, 2021 MRI with mild central canal stenosis. 2. Mild to moderate LEFT C2/C3 bony foraminal narrowing. 3. No other bony metastatic lesions in the thoracic spine.
--- NOTE | 2022-01-21 07:31 | MR_ITS ---
WS: [id number] MRI LUMBAR SPINE NONCONTRAST TECHNIQUE: Sagittal T1, T2 and STIR imaging. Axial T1 and T2 imaging. CLINICAL INFORMATION: back pain, compression fracture on chemo COMPARISON: None. FINDINGS: Some images degraded by patient motion. No acute compression fractures in the lumbar spine. Hypertrophic changes in the lower lumbar spine. M ild lumbar curve. No acute compression. No high-grade central canal stenosis. L1-L2: Mild annular bulging. Spinal canal and foramen are patent. Mild facet arthropathy. L2-L3: Mild disc bulging with moderate central canal stenosis. Impingement traversing L3 nerve roots bilaterally. Moderate facet arthropathy. Mild LEFT and no significant RIGHT foraminal narrowing. L3-L4: Mild disc bulging with mild central canal stenosis. Prior laminectomy defects. Slight narrowin g of the subarticular recess bilaterally. Mild facet arthropathy. Mild bilateral foraminal narrowing. L4-L5: Mild disc bulging with slight effacement of ventral thecal sac. Slight impingement on the suba rticular recess bilaterally. Moderate facet arthropathy. Laminectomy defects. Mild LEFT greater than RIGHT foraminal narrowing. L5-S1: Mild disc bulging with slight effacement of ventral thecal sac. Mild facet arthropathy. Mild R IGHT and no significant LEFT foraminal narrowing. Laminectomy defects. Visualized pelvic bony structures: Normal. Paravertebral soft tissues: Normal. MR/MR lumbar spine wo con* [id number] IMPRESSION: 1. No acute compression fractures in the lumbar spine. Normal bone marrow sign al in the lumbar spine. 2. Prior laminectomy defects L3-L5. 3. Moderate central canal stenosis L2-L3 due to mild disc bulging with facet a rthropathy and ligamentum flavum flavum hypertrophy. Impingement on the subarti cular recess and traversing L3 nerve roots bilaterally. 4. Mild narrowing of the subarticular recess L3-L4 and L4-L5. 5. Mild foraminal narrowing more prominent at RIGHT L3-L4, and LEFT L4-L5. 6. Moderate facet arthropathy L3-L5.
== END 2022-01-21 07:16 | disposition home or self-care (01) ==
LOC: RAD 07:30
PROVIDERS: PCP Family Medicine; Visit Provider Student in an Organized Health Care Education/Training Program
DX: T14.8XXA Other injury of unspecified body region, initial encounter (principal); S24.112A Complete lesion at T2-T6 level of thoracic spinal cord, initial encounter; X58.XXXA Exposure to other specified factors, initial encounter; M96.1 Postlaminectomy syndrome, not elsewhere classified; M47.816 Spondylosis without myelopathy or radiculopathy, lumbar region
CPT/HCPCS: 72146; 72148

== ENCOUNTER 2022-02-02 13:31 | Inpatient (IN) | payer BC, MEDICARE, SELFPAY ==
[2022-02-02] VITALS (16 sets, daily range): BP systolic 020–152; BP diastolic 50–85; PULSE 72–95; RESP 16–29; TEMP 36.6–36.8; O2SAT 93–100; BMI 25.0
--- NOTE | 2022-02-02 14:44 | ED_ITS ---
HPI - General Adult General: Chief complaint: Shortness of Breath/Dyspnea Stated complaint: DIFF BREATHING Time Seen by Provider: 02/02/22 13:40 History of Present Illness: Patient is a 66-year-old male with history of CAD, hypertension, COPD, non-small cell carcinoma, T2 vertebral fracture who presents the emergency room with lightheadedness and chest pain. Patient states the symp sheldon has been going on for the last 3 to 4 days. Patient says that that he has had intermittent chest pressure which has significantly worsened today. Initial, patient has had multiple episodes of lightheadedness and nearly passing out. Patient says that since last month, he also had decreased p.o. intake. Patient has any fever, cough, sore throat, diarrhea, abdominal complaints. Patient denies any shortness of breath. Onset: 3-4 days ago Duration:ongoing Location:home Severity:moderate Associated symptoms: Reports chest pain; Deny dyspnea, nausea, rash, palpitations or vomiting Review of Systems Const: Denies: fever(s) or chills Eyes: Denies: change in vision ENMT: Denies: mouth pain Card: Reports: chest pain; Denies: palpitations Resp: Denies: dyspnea or non-productive cough GI: Denies: abdominal pain, nausea, vomiting or diarrhea : Denies: dysuria Musc: Denies: extremity pain Skin/Breast: Denies: rash or new lesions Neuro: Reports: other (+light-headedness); Denies: weakness in extremities Psych: Reports: other (Normal mood) Gregorio/Lymph: Denies: easy bruising PFS ED PFSH: Medical History (Updated 02/02/22 @ 22:57 by Evans Reveles MD) Acute respiratory failure with hypoxia Atherosclerosis of coronary artery Bilateral impacted cerumen Cerebrovascular accident Cervical radiculopathy 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 COPD (chronic obstructive pulmonary disease) COPD exacerbation Dyspnea on exertion Hx of angina pectoris Hypertension Lower respiratory infection Lower respiratory infection 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 Non-small cell lung cancer. Records currently not available. Surgical History History of ankle surgery History of bronchoscopy History of lumbar laminectomy for spinal cord decompression History of shoulder surgery S/P right rotator cuff repair Family History Sister Anesthesia complication CAD (coronary artery disease) Chronic kidney disease (CKD) Family/Other CAD (coronary artery disease) Brother Cancer Father Dementia Stroke Mother Stroke Denies family history of Diabetes Clotting disorder Suicide Bleeding disorder Lung disease Social History Smoking and tobacco status: former smoker Quit status (tobacco): has quit using tobacco Year quit tobacco: 2010 Former quit date comment: 5 PPD x 40 Years Second hand smoke exposure: No Smoking risk assessment/counseling performed?: No Alcohol intake: former Counseling given: No Counseling given: No Lives independently: Yes Household members: spouse Marital status: Current occupational status: unemployed History of recent travel: No Current gender identity: Male Physical Exam Const: COMMON NORMALS: alert HENMT: COMMON NORMALS: atraumatic HEAD & SCALP: atraumatic MOUTH: moist mucous membranes not abnormal Eye: COMMON NORMALS: EOMs intact bilaterally and conjunctivae normal CONJUNCTIVA: Yes conjunctivae normal Neck/C-Spine: COMMON NORMALS: full ROM and supple Resp: COMMON NORMALS: normal respiratory effort and clear to auscultation bilaterally AUSCULTATION: clear to auscultation bilaterally Cardio: COMMON NORMALS: regular rate RATE: regular rate OTHER: 2+ radial pulses b/l GI: COMMON NORMALS: Soft to palpation and non-tender PALPATION: Yes Soft to palpation Extremity: COMMON NORMALS: full ROM Neuro: SENSORIUM/ORIENTATION: Yes alert MOTOR EXAM: No Abnormal motor strength present and Other motor observations present (no focal motor deficits) Psych: COMMON NORMALS: speech normal SPEECH: Yes normal speech MOOD & AFFECT: Yes euthymic mood Course Vital Signs: Vital signs: Vital Signs Temperature 97.9 F 02/03/22 07:22 Pulse Rate 87 02/03/22 07:22 Respiratory Rate 12 02/03/22 07:22 Blood Pressure 106/73 02/03/22 07:22 Pulse Oximetry 100 02/03/22 07:22 [facility] - General Adult Medical Decision Making 66-year-old male with history of CAD, hypertension, COPD, non-squamous cell carcinoma not on chemotherapy presenting to the emergency room with 3 days of worsening chest pressure and lightheadedness. On arrival, patient is hemodynamically stable, neuro AOx3 GCS 15, no focal neurological deficits. En route, patient received DuoNeb and Decadron by EMS. Troponin of 60, BNP elevation of 6K. X-ray chest show left-sided pleural effusion similar to prior. Patient has no signs of respiratory distress will observe the emergency room. White count of 15 K of unknown etiology. Creatinine of 1.7 new compared to baseline of 1.0. Patient received 500 cc of fluids in the emergency room. While observed in the emergency room family request for PEG tube advancement as patient has lost over 15 pounds in the last month and is hardly able to get out of bed and has no appetite. Bedside US evaluation of the L pleural effusion did not show any signs of loculation, malignant pleural effusion or signs of empyema. I have discussed case with Dr. Montanez who agrees to assess patient first in the morning to determine whether patient is a candidate for PEG tube. Disposition: admission Lab Data : 02/03/22 04:37 02/03/22 04:37 Radiology Impressions Chest X-Ray 02/02/22 14:50 IMPRESSION: Moderate size left pleural effusion with underlying atelectasis/infiltrates slightly decreased in size. Abdomen/Pelvis CT 02/02/22 22:13 IMPRESSION: 1. Third spacing of fluid. 2. Nonspecific mild wall thickening of the gallbladder which is otherwise contracted. More likely related to the underlying fluid overload status, rather than acute cholecystitis. Laboratory Results WBC 15.4 10^3/uL (4.0-10.0) H 02/02/22 15:00 RBC 3.00 10^6/uL (4.1-5.3) L 02/02/22 15:00 Hgb 8.4 g/dL (11.7-16.6) L 02/02/22 15:00 Hct 26.2 % (42.0-52.0) L 02/02/22 15:00 MCV 87.3 fl (80-94) 02/02/22 15:00 MCH 28.0 pg (28.0-34.0) 02/02/22 15:00 MCHC 32.1 g/dL (30.0-36.0) 02/02/22 15:00 RDW 19.8 % (12.1-15.1) H 02/02/22 15:00 Plt Count 316 10^3/cmm (130-400) 02/02/22 15:00 MPV 11.9 fL (7.4-10.4) H 02/02/22 15:00 Neut % (Auto) 91.9 % 02/02/22 15:00 Lymph % (Auto) 1.8 % 02/02/22 15:00 [place] % (Auto) 5.5 % 02/02/22 15:00 Eos % (Auto) 0.0 % 02/02/22 15:00 Baso % (Auto) 0.1 % 02/02/22 15:00 Neut # (Auto) 14.13 10^3/uL (1.8-7.7) H 02/02/22 15:00 Lymph # (Auto) 0.3 10^3/uL (0.8-4.8) L 02/02/22 15:00 [place] # (Auto) 0.9 10^3/uL (0.2-0.9) 02/02/22 15:00 Eos # (Auto) 0.0 10^3/uL (0.0-0.8) 02/02/22 15:00 Baso # (Auto) 0.0 10^3/uL (0.0-0.1) 02/02/22 15:00 Nucleated RBC % (auto) 0.3 % 02/02/22 15:00 Nucleated RBCs # 0.0 /100WBC 02/02/22 15:00 Sodium 132 mmol/L (136-145) L 02/02/22 15:00 Potassium 3.7 mmol/L (3.5-5.1) 02/02/22 15:00 Chloride 86 mmol/L (98-107) L 02/02/22 15:00 Carbon Dioxide 28 mmol/L (22-29) 02/02/22 15:00 Anion Gap 21.7 (5-19) H 02/02/22 15:00 BUN 56 mg/dL (8-23) H 02/02/22 15:00 Creatinine 1.7 mg/dL (0.7-1.2) H 02/02/22 15:00 GFR Calculation 40.7 mL/min (90-130) L 02/02/22 15:00 Glucose 142 mg/dL (65-115) H 02/02/22 15:00 Calculated Osmolality 292 mOsm/kg (285-295) 02/02/22 15:00 Calcium 8.1 mg/dL (8.5-10.5) L 02/02/22 15:00 Troponin T Baseline 60 ng/L (0-15) H 02/02/22 15:00 NT-Pro-B Natriuret Pep 6396 pg/mL (0-125) H 02/02/22 15:00 Procalcitonin 0.35 ng/mL (0-0.5) 02/02/22 15:00 Imaging Data Other Imaging: Radiologist's impression: [employer] [address] XRay Report Signed Patient: Tramaine Galaviz Unit #: [id number] : 1955 Age/Sex: 66 / M ADM Date: 02/02/22 Loc: ER Room/Bed: Attending Dr: Ordering Provider/Ordering MD: Stefanie Booth MD Date of Service: 02/02/22 Procedure(s): XR chest 1V portable [id number] Accession Number(s): [id number] Report Number: [id number] PROCEDURE INFORMATION: Exam: XR Chest Exam date and time: 02/02/2022 2:50 PM Age: 66 years old Clinical indication: Dyspnea; Patient HX: RT lung TECHNIQUE: Imaging protocol: XR of the chest. Views: 1 view. COMPARISON: CR XR chest 2V* [id number] 01/15/2022 10:53 AM FINDINGS: Tubes, catheters and devices: Right-sided Port-A-Cath with its tip in the distal superior vena cava. Lungs: See Pleural spaces finding. Pleural spaces: Moderate-sized left pleural effusion with underlying atelectasis/infiltrates. Heart/Mediastinum: Unremarkable. No cardiomegaly. Bones/joints:? Degenerative changes of the spine and bilateral shoulder joints. XR/XR chest 1V portable [id number] IMPRESSION: Moderate size left pleural effusion with underlying atelectasis/infiltrates slightly decreased in size. ? 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
--- NOTE | 2022-02-02 14:50 | XRR_ITS ---
PROCEDURE INFORMATION: Exam: XR Chest Exam date and time: 02/02/2022 2:50 PM Age: 66 years old Clinical indication: Dyspnea; Patient HX: RT lung TECHNIQUE: Imaging protocol: XR of the chest. Views: 1 view. COMPARISON: CR XR chest 2V* [id number] 01/15/2022 10:53 AM FINDINGS: Tubes, catheters and devices: Right-sided Port-A-Cath with its tip in the distal superior vena cava. Lungs: See Pleural spaces finding. Pleural spaces: Moderate-sized left pleural effusion with underlying atelectasis/infiltrates. Heart/Mediastinum: Unremarkable. No cardiomegaly. Bones/joints: Degenerative changes of the spine and bilateral shoulder joints. XR/XR chest 1V portable [id number] IMPRESSION: Moderate size left pleural effusion with underlying atelectasis/infiltrates slightly decreased in size.
--- NOTE | 2022-02-02 14:50 | ECG_ITS ---
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 Measurements Intervals [place] Rate: 86 P: 38 CT: 162 QRS: 25 QRSD: 104 T: 193 QT: 422 QTc: 506 Interpretive Statements SINUS RHYTHM [address] DEVIATION AND MODERATE T-WAVE ABNORMALITY, CONSIDER LATERAL ISCHEMIA [-0.1+ mV T-WAVE IN I/aVL/V5/V6] ST DEVIATION AND MODERATE T-WAVE ABNORMALITY, CONSIDER INFERIOR ISCHEMIA [-0.1+ mV T-WAVE IN II/aVF] Compared to ECG 01/07/2022 17:33:17 T-wave abnormality now present Possible ischemia now present Electronically Signed On 02-02-2022 16:09:27 COMPUTER SYSTEM SPECIALIST by Bryanna Schafer M.D. [id number]
[2022-02-02 15:06] LABS: Basophils % 0.1 %; Hematocrit 26.2 % (42.0-52.0); Hemoglobin 8.4 g/dL (11.7-16.6); Lymphocytes # 0.3 10^3/uL (0.8-4.8); Lymphocytes % 1.8 %; Mean Corpuscular HGB Conc 32.1 g/dL (30.0-36.0); Mean Corpuscular Volume 87.3 fl (80-94); Mean Platelet Volume 11.9 fL (7.4-10.4); Monocytes # 0.9 10^3/uL (0.2-0.9); Monocytes % 5.5 %; Neutrophils # 14.13 10^3/uL (1.8-7.7); Neutrophils % 91.9 %; Nucleated Red Blood Cells % 0.3 %; Platelet Count 316 10^3/cmm (130-400); Red Cell Distribution Width 19.8 % (12.1-15.1); White Blood Count 15.4 10^3/uL (4.0-10.0)
[2022-02-02 15:36] LABS: Troponin(5th) Baseline 60 ng/L (0-15)
[2022-02-02 15:43] LABS: Anion Gap 21.7 (5-19); Blood Urea Nitrogen 56 mg/dL (8-23); Calcium 8.1 mg/dL (8.5-10.5); Carbon Dioxide 28 mmol/L (22-29); Chloride 86 mmol/L (98-107); Glomerular Filtration Rate 40.7 mL/min (90-130); Glucose 142 mg/dL (65-115); NT Pro B Type Natriuretic Pept 6396 pg/mL (0-125); Osmolality Calculated 292 mOsm/kg (285-295); Potassium 3.7 mmol/L (3.5-5.1); Sodium 132 mmol/L (136-145)
[2022-02-02] MEDS: morphine 4 mg/mL SDV 1 mL 2 MG IVP (16:22)
--- NOTE | 2022-02-02 16:49 | PM.HP ---
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 fib on chronic anticoagulation with Eliquis who was recently in hospital and discharged on January 11 when he was treated for acute hypoxic respiratory failure from congestive heart failure and A. fib with RVR. During that hospitalization he was started on amiodarone and discharged on diuretics. In between patient was found to have metastatic disease of T2 for which he followed up with Dr. Sethi and is scheduled for kyphoplasty. Patient presented to the ER today because of worsening generalized weakness. Patient states since the last time he was discharged he has been doing very well from a breathing standpoint. He states he has been able to walk around the house a little bit without having any difficulty in breathing but has been getting weaker progressively. States his oral intake has been extremely poor. Denies any nausea, vomiting, abdominal pain, diarrhea. He states he just does not feel hungry and even if he feels hungry food does not taste well in his mouth. Denies having any difficulty in swallowing or choking events. States sometimes when he is eating he feels full very soon. Denies any fever, dysuria, diarrhea, headache, dizziness. As per his who also bedside he thinks he has lost some weight. Review of Systems General: Reports: 10 or more systems reviewed and unremarkable except in HPI and below Const: Denies: fever(s), chills, body aches, change in appetite, change in weight, malaise, night sweats, diaphoresis, change in sleep pattern, daytime sleepiness or snoring Eyes: Denies: change in vision, blurry vision, photophobia, eye discomfort or eye discharge ENMT: Denies: throat pain, enlarged tonsils, hoarseness, mouth pain, oral sores, dry mouth, tinnitus, nasal congestion or post nasal drip Card: Denies: chest pain, palpitations, irregular heart rhythm, edema, swelling of feet/ankles, lightheadedness, syncope, pre-syncope, dyspnea on exertion, orthopnea, leg pain with exertion or acrocyanosis Resp: Denies: dyspnea, productive cough, non-productive cough, wheezing, stridor, pain on inspiration, change in phlegm color, hemoptysis or chest congestion GI: Denies: abdominal pain, nausea, vomiting, hematemesis, coffee ground emesis, dysphagia, heartburn, diarrhea, constipation, bloating, GI cramping, change in bowel habits, pain on defecation, hematochezia or melena : Denies: flank pain, difficulty urinating, dysuria, urinary frequency, urinary urgency, urinary hesitancy, urinary dribbling, difficulty starting urination, change in urine stream, nocturia or hematuria Musc: Denies: neck pain, back pain, extremity pain, joint pain, joint swelling, joint redness, joint stiffness or limited range of motion Neuro: Denies: headache(s), numbness in extremities, weakness in extremities, sensory changes, lack of coordination, difficulty walking, frequent falls, dizziness, vertigo, confusion, Slurred speech present, difficulty communicating thoughts or seizure-like activity Psych: Denies: anxiety, depression, mood swings, panic attacks, hopelessness or irritability Endo: Denies: polyuria, polydipsia, tired all the time, cold intolerance, excessive sweating, flushing or heat intolerance Gregorio/Lymph: Denies: easy bruising or easy bleeding All/Imm: Denies: tongue swelling, facial swelling or acute wheezing Medications/Allergies Home Medications Medication Instructions Recorded Confirmed Last Taken Type acetaminophen 500 mg tablet 500 - 1,000 mg PO Q6H PRN 02/27/21 02/02/22 08/02/21 History (Tylenol Extra Strength) oxycodone-acetaminophen 10 mg-325 1 tab PO Q6H PRN 03/31/21 02/02/22 08/04/21 21:00 History mg tablet apixaban 5 mg tablet (Eliquis) 5 mg PO BID 07/30/21 02/02/22 02/02/22 History finasteride 5 mg tablet 5 mg PO QAM 07/30/21 02/02/22 02/02/22 History gabapentin 400 mg capsule 400 mg PO Q6H 07/30/21 02/02/22 01/07/22 History ferrous sulfate 325 mg (65 mg 325 mg PO BID 07/31/21 02/02/22 02/02/22 History iron) tablet (Iron (ferrous sulfate)) guaifenesin 1,200 mg tablet, 1,200 mg PO Q12H 07/31/21 02/02/22 02/02/22 History extended release 12 hr (Mucinex) lidocaine-prilocaine 2.5 %-2.5 % 1 applic TOPICAL PRN PRN g 09/23/21 02/02/22 Unknown History topical cream nitroglycerin 0.4 mg sublingual 0.4 mg SUBLINGUAL Q5M PRN 30 Days 09/23/21 02/02/22 Unknown Rx tablet #30 tab potassium gluconate 595 mg (99 mg) 595 mg PO QAM 09/23/21 02/02/22 02/02/22 History tablet albuterol sulfate 90 mcg/actuation 1 inh INHALATION QID PRN #8.5 g 12/01/21 02/02/22 Unknown Rx aerosol inhaler prochlorperazine maleate 10 mg 10 mg PO Q4H PRN tab 12/01/21 02/02/22 Unknown History tablet ipratropium 0.5 mg-albuterol 3 mg 3 ml INHALATION Q6H PRN 30 Days 12/19/21 02/02/22 Unknown Rx (2.5 mg base)/3 mL nebulization #360 ml soln metoprolol tartrate 75 mg tablet 75 mg PO BID #60 tab 01/11/22 02/02/22 02/02/22 Rx furosemide 80 mg tablet (Lasix) 80 mg PO BID #60 tab 01/15/22 02/02/22 02/02/22 Rx atorvastatin 40 mg tablet 40 mg PO BEDTIME #30 tab 01/19/22 02/02/22 02/01/22 Rx amiodarone 200 mg tablet 200 mg PO QAM 02/02/22 02/02/22 02/02/22 History aspirin 81 mg tablet,delayed 81 mg PO QAM 02/02/22 02/02/22 02/02/22 History release calcium carbonate 600 mg (1,500 1 tab PO QAM 02/02/22 02/02/22 02/02/22 History mg)-vitamin D3 200 unit tablet cholecalciferol (vitamin D3) 50 50 mcg PO QAM 02/02/22 02/02/22 02/02/22 History mcg (2,000 unit) capsule (Vitamin D3) cyanocobalamin (vitamin B-12) 5,000 mcg SUBLINGUAL QAM 02/02/22 02/02/22 02/02/22 History 5,000 mcg sublingual tablet (Vitamin B-12) dexamethasone 4 mg tablet See Rx Instructions .ROUTE .COMPLEX 02/02/22 02/02/22 Unknown History hydrocodone 10 mg-acetaminophen 1 - 2 tab PO Q4H PRN 02/02/22 02/02/22 Unknown History 325 mg tablet oxycodone 5 mg tablet 5 mg PO Q4H PRN 02/02/22 02/02/22 Unknown History pantoprazole 40 mg tablet,delayed 40 mg PO QAM 02/02/22 02/02/22 02/02/22 History release tamsulosin 0.4 mg capsule 0.4 mg PO QAM 02/02/22 02/02/22 02/02/22 History tiotropium 2.5 mcg-olodaterol 2.5 2 puff INHALATION QAM 02/02/22 02/02/22 02/02/22 History mcg/actuation mist for inhalation Allergies Allergy/AdvReac Type Severity Reaction Status Date / Time iodine Allergy ADR-Nausea Verified 02/02/22 14:36 PFSH Acute PFSH: Medical History (Updated 02/02/22 @ 22:57 by Evans Reveles MD) Acute respiratory failure with hypoxia Atherosclerosis of coronary artery Bilateral impacted cerumen Cerebrovascular accident Cervical radiculopathy 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 COPD (chronic obstructive pulmonary disease) COPD exacerbation Dyspnea on exertion Hx of angina pectoris Hypertension Lower respiratory infection Lower respiratory infection 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 Non-small cell lung cancer. Records currently not available. Surgical History History of ankle surgery History of bronchoscopy History of lumbar laminectomy for spinal cord decompression History of shoulder surgery S/P right rotator cuff repair Family History Sister Anesthesia complication CAD (coronary artery disease) Chronic kidney disease (CKD) Family/Other CAD (coronary artery disease) Brother Cancer Father Dementia Stroke Mother Stroke Denies family history of Diabetes Clotting disorder Suicide Bleeding disorder Lung disease Social History Smoking and tobacco status: former smoker Quit status (tobacco): has quit using tobacco Year quit tobacco: 2010 Former quit date comment: 5 PPD x 40 Years Second hand smoke exposure: No Smoking risk assessment/counseling performed?: No Alcohol intake: former Counseling given: No Counseling given: No Lives independently: Yes Household members: spouse Marital status: Current occupational status: unemployed History of recent travel: No Current gender identity: Male Vitals/I&O/Wt Last Vital Signs Temp 97.8 F 02/02/22 16:00 Pulse 81 02/02/22 16:15 Resp 18 02/02/22 16:22 BP 89/64 02/02/22 16:15 Pulse Ox 99 02/02/22 16:22 Physical Exam Narrative: General: No acute distress, AO x3, chronically sick appearing, dehydrated HEENT: PERRLA, pupils bilaterally equal and reactive Chest: Normal vesicular breath sounds, no added sounds, equal good air entry bilaterally CVS: S1-S2 irregularly irregular, soft pansystolic murmur at apex no tachycardia, no gallops, no rubs Abdomen: Soft, nontender, no organomegaly, bowel sounds present mild distention Neuro: No focal deficits, no facial deformity, AO x3, power 5/5 in all limbs Data : 02/02/22 15:00 02/02/22 15:00 A&P Assessment and plan (1) Dehydration: Status: Acute (2) Acute kidney injury: Status: Acute (3) Anorexia: Status: Acute (4) Protein-energy malnutrition: Status: Acute (5) Paroxysmal atrial fibrillation: Status: Acute (6) Diastolic CHF: Status: Acute Qualifiers: Heart failure chronicity: chronic Qualified Code(s): I50.32 - Chronic diastolic (congestive) heart failure (7) 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 Could be multifactorial. Most likely cancer cachexia versus paraneoplastic syndrome. Speech evaluation to rule out aspiration. Upper GI series to rule out mechanical obstruction secondary to tumor growth versus tumor invasion. For now start patient on mechanical soft diet with protein supplements. Dietitian consult for calorie count. Patient is immunocompromised secondary to multiple chemotherapy till recently. Cannot rule out mucositis. Start patient on nystatin 200,000 4 times daily. Protonix 40 mg twice daily, Carafate. If all the studies comes back negative or inconclusive we will consult surgery for possible upper GI endoscopy. Severe protein energy malnutrition: Due to chronic illness, metastatic cancer on chemotherapy. Poor oral intake. Check prealbumin. Dietitian consult. Calorie count. Acute kidney injury: Most likely secondary dehydration from poor oral intake along with diuretics at home. Gentle IV hydration with normal saline 50 cc/h for 1 bag. Monitor BMP daily. Medical reconciliation done for nephrotoxic drugs. Atrial fibrillation: Currently rate controlled. Continue with home dose of amiodarone. Decrease home dose of metoprolol to 50 mg twice daily. Supposed to be on Eliquis twice daily but not on MAR. We will confirm if was stopped for possible kyphoplasty. Chronic diastolic heart failure: Currently euvolemic. Continue to monitor. Shortness of breath: Combination of COPD and chronic diastolic heart failure along with pleural effusion. At baseline. Continue other chronic medications. Full code. Mechanical soft cardiac diet. Eliquis will suffice for DVT prophylaxis. 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
--- NOTE | 2022-02-02 16:50 | ECG_ITS ---
[facility] Test Date: 2022-02-02 Pat Name: Tramaine Galaviz Department: Room: Gender: Male Home Health Lpn: : 1955 Requested By: Stefanie Booth Order Number: [id number] Dixon MD: Bryanna Schafer M.D. Measurements Intervals [place] Rate: 93 P: 39 AL: 157 QRS: 31 QRSD: 106 T: 206 QT: 413 QTc: 515 Interpretive Statements SINUS RHYTHM POSSIBLE LEFT ATRIAL ENLARGEMENT [-0.1mV P-WAVE IN V1/V2] ST DEVIATION AND MODERATE T-WAVE ABNORMALITY, CONSIDER LATERAL ISCHEMIA [-0.1+ mV T-WAVE IN I/aVL/V5/V6] ST DEVIATION AND MODERATE T-WAVE ABNORMALITY, CONSIDER INFERIOR ISCHEMIA [-0.1+ mV T-WAVE IN II/aVF] Compared to ECG 01/07/2022 17:33:17 T-wave abnormality now present Possible ischemia now present Electronically Signed On 02-03-2022 8:04:44 OPTICS TECHNICAL OFFICER by Bryanna Schafer M.D. [id number]
[2022-02-02] MEDS: ferrous sulfate EC 325 mg Tablet PO (17:23)
[2022-02-02 17:28] LABS: Procalcitonin 0.35 ng/mL (0-0.5)
[2022-02-02] MEDS: sodium chloride 0.9% 1,000 ML 50 ML IV (17:42)
[2022-02-02 18:12] LABS: Troponin 5 2HR 47.06 ng/L (0-15)
[2022-02-02 18:14] LABS: Troponin 5 2HR Delta -12.94 ABS# (0-10)
[2022-02-02] MEDS: atorvastatin 40 mg Tablet PO (20:30)
[2022-02-02] MEDS: HYDROcodone-acetaminophen 10-325 mg Tablet 1 TAB PO (20:44)
[2022-02-02 21:35] LABS: Troponin 5 6HR 46.16 ng/L (0-15)
--- NOTE | 2022-02-02 22:13 | CTR_ITS ---
PROCEDURE INFORMATION: Exam: CT Abdomen And Pelvis Without Contrast Exam date and time: 02/02/2022 10:13 PM Age: 66 years old Clinical indication: Abnormal findings; Abnormal lab test; Prior surgery; Surgery type: Lumbar laminectomy; Patient HX: Weight loss with loss of appetite. Elevated wbc. History of small cell lung cancer. ; Additional info: Lung cancer, poor oral intake, anorexia TECHNIQUE: Imaging protocol: Computed tomography of the abdomen and pelvis without contrast. Radiation optimization: All CT scans at this facility use at least one of these dose optimization techniques: automated exposure control; mA and/or kV adjustment per patient size (includes targeted exams where dose is matched to clinical indication); or iterative reconstruction. COMPARISON: CT Abdomen/Pelvis Renal [id number] 02/06/2021 9:46 AM RADIATION DOSE METRICS: Total DLP (mGy-cm): 1466.1 FINDINGS: Lungs: Left lower lobe collapse. Pleural spaces: Large left-sided pleural effusion. Small right-sided pleural effusion. Heart: Moderate volume non simple pericardial effusion. Liver: Normal. No mass. Gallbladder and bile ducts: Contracted gallbladder. Wall thickening evident. Negative for biliary system dilation. Pancreas: Normal. No ductal dilation. Spleen: Normal. No splenomegaly. Adrenal glands: Normal. No mass. Kidneys and ureters: Normal. No hydronephrosis. Stomach and bowel: Unremarkable. No obstruction. No mucosal thickening. Appendix: No evidence of appendicitis. Intraperitoneal space: Unremarkable. No free air. No significant fluid collection. Vasculature: Unremarkable. No abdominal aortic aneurysm. Lymph nodes: Unremarkable. No enlarged lymph nodes. Urinary bladder: Unremarkable as visualized. Reproductive: Unremarkable as visualized. Bones/joints: Unremarkable. No acute fracture. Soft tissues: Unremarkable. CT/CT abdomen pelvis wo con [id number] IMPRESSION: 1. Third spacing of fluid. 2. Nonspecific mild wall thickening of the gallbladder which is otherwise contracted. More likely related to the underlying fluid overload status, rather than acute cholecystitis.
[2022-02-02 22:39] LABS: Prealbumin 8.4 mg/dL (20-40)
[2022-02-02] MEDS: gabapentin 400 mg Capsule 200 MG PO (22:43)
[2022-02-02 23:02] LABS: Cortisol Random 36.15 ug/dL (2.47-19.5)
[2022-02-02 23:07] LABS: Add Urine Microscopic? NO; Charge for UA Resulting for Rev
[2022-02-02 23:23] LABS: Bilirubin Urine Neg (Negative); Blood Urine Neg (Negative); Glucose Urine UA Norm (Normal); Ketones Urine Negative (Negative); Leukocyte Esterase Urine Negative (Negative); Nitrate Urine Negative (Negative); Potassium, Radom Urine 52 mmol/L; Protein Urine Neg (Negative); Specific Gravity, Urine 1.015 (1.005-1.030); Urine Appearance Clear (CLEAR); Urine Color Yellow (Yellow); Urine Creatinine 84 mg/dL (39-259); Urobilinogen Urine Norm (Negative); pH Urine 5 (5-7)
[2022-02-03 00:15] LABS: Urine Random Chloride < 10 mmol/L; Urine Random Sodium < 10 mmol/L
[2022-02-03 02:02] LABS: Adenovirus Not Detected (NOT DETECT); Chlamydia Pneumoniae Not Detected (NOT DETECT); Coronavirus 229E,HKU1,NL63,OC4 Not Detected (NOT DETECT); Human Metapneumovirus Not Detected (NOT DETECT); Human Rhinovirus/Enterovirus Not Detected (NOT DETECT); Influenza A Not Detected (NOT DETECT); Influenza A H1 Not Detected (NOT DETECT); Influenza A H1-2009 Not Detected (NOT DETECT); Influenza A H3 Not Detected (NOT DETECT); Influenza B Not Detected (NOT DETECT); Mycoplasma Pneumoniae Not Detected (NOT DETECT); Parainfluenza Virus Type 1 Not Detected (NOT DETECT); Parainfluenza Virus Type 2 Not Detected (NOT DETECT); Parainfluenza Virus Type 3 Not Detected (NOT DETECT); Parainfluenza Virus Type 4 Not Detected (NOT DETECT); Respiratory Syncytial Virus A Not Detected (NOT DETECT); Respiratory Syncytial Virus B Not Detected (NOT DETECT); SARS-COV-2 Not Detected (NOT DETECT)
[2022-02-03 04:00] VITALS: BP 91/69; PULSE 79; RESP 16; TEMP 36.7; O2SAT 100
[2022-02-03] MEDS: gabapentin 400 mg Capsule 200 MG PO (04:51)
[2022-02-03] MEDS: amiodarone 200 mg Tablet PO (04:52)
[2022-02-03] MEDS: tamsulosin 0.4 mg Capsule PO (04:52)
[2022-02-03] MEDS: finasteride 5 mg Tablet PO (04:52)
[2022-02-03] MEDS: HYDROcodone-acetaminophen 10-325 mg Tablet 1 TAB PO ×3 (04:52→17:54)
[2022-02-03] MEDS: aspirin 81 mg EC Tablet PO (04:53)
[2022-02-03 05:06] LABS: Basophils % 0.1 %; Eosinophils % 0.1 %; Hematocrit 27.1 % (42.0-52.0); Hemoglobin 8.3 g/dL (11.7-16.6); Lymphocytes # 0.5 10^3/uL (0.8-4.8); Lymphocytes % 4.5 %; Mean Corpuscular HGB Conc 30.6 g/dL (30.0-36.0); Mean Corpuscular Hemoglobin 27.8 pg (28.0-34.0); Mean Corpuscular Volume 90.6 fl (80-94); Mean Platelet Volume 12.1 fL (7.4-10.4); Monocytes # 0.7 10^3/uL (0.2-0.9); Monocytes % 6.5 %; Neutrophils # 9.54 10^3/uL (1.8-7.7); Neutrophils % 87.9 %; Nucleated Red Blood Cells % 0.3 %; Platelet Count 299 10^3/cmm (130-400); Red Blood Count 2.99 10^6/uL (4.1-5.3); Red Cell Distribution Width 20.2 % (12.1-15.1); White Blood Count 10.9 10^3/uL (4.0-10.0)
[2022-02-03 05:26] LABS: Alanine Aminotransferase 187 U/L (0-41); Alkaline Phosphatase 904 IU/L (40-130); Anion Gap 20.5 (5-19); Aspartate Amino Transferase 118 U/L (0-40); Blood Urea Nitrogen 57 mg/dL (8-23); Calcium 8.6 mg/dL (8.5-10.5); Carbon Dioxide 28 mmol/L (22-29); Chloride 87 mmol/L (98-107); Globulin 3.3 g/dL (1.3-4.6); Glomerular Filtration Rate 38.1 mL/min (90-130); Glucose 140 mg/dL (65-115); Magnesium 2.6 mg/dL (1.7-2.3); Osmolality Calculated 292 mOsm/kg (285-295); Potassium 3.5 mmol/L (3.5-5.1); Sodium 132 mmol/L (136-145); Total Bilirubin 0.7 mg/dL (0.15-1.2); Total Protein 6.3 g/dL (6.6-8.7)
[2022-02-03 05:31] LABS: Estmated Average Glucose 148; Hemoglobin A1C 6.8 % (4.0-6.0)
[2022-02-03 07:22] VITALS: BP 106/73; PULSE 87; RESP 12; TEMP 36.6; O2SAT 100
--- NOTE | 2022-02-03 08:00 | FL_ITS ---
WS: [id number] MODIFIED BARIUM SWALLOW TECHNIQUE: Modified barium swallow with speech therapy using multiple consistencies. FLUOROSCOPY TIME: 3.8 minutes. CLINICAL INFORMATION: Oropharyngeal dysphagia COMPARISON: None. FINDINGS: Multiple consistencies utilized. No evidence of callie aspiration. Delayed oropharyngeal phase. Mild p ooling in the vallecula. Penetration with thin liquids. Normal transit of the barium tablet in the esophagus. Mild esophageal dysmotility with somewhat delay ed emptying. No evidence of high-grade stricture or obstructing mass. FL/FL barium swallow modifd [id number] IMPRESSION: 1. No evidence of callie aspiration. 2. Penetration with thin liquids. 3. Mild esophageal dysmotility with delayed emptying. No evidence of high-grad e stricture or obstructing mass.
[2022-02-03] MEDS: ferrous sulfate EC 325 mg Tablet PO ×2 (08:16→18:20)
[2022-02-03] MEDS: pantoprazole DR 40 mg Tablet PO ×2 (08:16→18:20)
[2022-02-03] MEDS: metoprolol tartrate 50 mg Tablet PO ×2 (08:16→18:20)
[2022-02-03] MEDS: sucralfate 1 gm/10 mL Oral Liq UDC PO ×2 (08:16→18:20)
--- NOTE | 2022-02-03 09:39 | PC.CHAP ---
Pastoral Care Encounter/Spiritual Assessment Type of Contact [] Declined freelance graphic designer visit [] Patient/Family/Request visit [] Outpatient visit [] Follow-up visit [] Physician referral [] Code/Alert [x] Routine visit [] Staff referral [] Actively dying [] Patient sleeping [] Family support [] [] Out of room [] Palliative care [] [] Receiving care in room [] Pre-surgical visit [] Trauma [] Long length of stay [] ICU visit [] Other: Relational/Emotional Strength [x] Patient feels connected with others/family/visitors/staff [] Distress [] Loneliness/isolation [] Abandonment Spirituality of Patient [x] Person of Ammy [x] Attends Evangelical of their Ammy [x] Believes in Prayer [] Reads Bible or Congregational materials [] There are Spiritual issues to be addressed Telegraph Messenger Interventions [x] Prayer [x] Active listening [x] Non-anxious presence [x] Spiritual/emotional support [] Crisis/trauma care [] Spiritual counseling [] Bereavement support [] Provided bereavement packet [] Provided Bible/devotional materials [] Provided toy/stuffed animal, coloring book to patient or family member [] Provided Communion [] Anointing/Dow [] Salvation [x] Completed spiritual assessment [] Other: Impact on Illness or Injury [] Angry [] Fearful [] Anxious [] Often cries [] Exhaustion [] Unable to work [] Unable to attend scientologist [] Unable to walk/stand [] Unable to read [] Unable to drive [] Unable to eat/drink [] Unable to sleep [] Unable to be with family [] Patient intubated [] Other: Summary Pt's was present. They have been together 41 years. From the formerly [facility] but moved to [place] many years ago because they liked the area. They have several grown children but they have moved to [facility] and [place]. Both Pt and attend yazdanism and are persons of ammy. Time spent with patient 10m
[2022-02-03 11:44] VITALS: BP 92/67; PULSE 89; RESP 12; TEMP 36.6; O2SAT 100
[2022-02-03 12:21] LABS: Eosinophil Urine No Eosinophils Seen; Urine Eosinophil Count 0 (0-0)
--- NOTE | 2022-02-03 12:26 | PC.NURSE ---
Gabapentin 400mg cap returned to the Pyxis. This nurse closed the drawer without accepting the medication in the machine. Call placed to James in the pharmacy to inquire about fixing the error. Per James, it is not a narcotic and it will be okay.
[2022-02-03] MEDS: gabapentin 100 mg Capsule 200 MG PO ×2 (13:58→21:10)
--- NOTE | 2022-02-03 14:08 | P.PN_ITS ---
Subjective Subjective: No acute events overnight. Has remained hemodynamically stable and afebrile. at bedside. Continues to remain on 2 L saturating 98%. Underwent modified barium swallow and CT abdomen pelvis today. Vitals/I&O/Wt Last Vital Signs Temp 97.9 F 02/03/22 11:44 Pulse 89 02/03/22 11:44 Resp 12 02/03/22 11:44 BP 92/67 02/03/22 11:44 Pulse Ox 100 02/03/22 11:44 02/02/22 02/03/22 02/03/22 22:59 06:59 14:59 Intake Total 120 / 120 120 / 240 Balance 120 / 120 120 / 240 Weight last 48 hrs Weight 75.024 kg Weight 79.152 kg Physical Exam Narrative: General: No acute distress, AO x3, chronically sick appearing, dehydrated HEENT: PERRLA, pupils bilaterally equal and reactive Chest: Normal vesicular breath sounds, no added sounds, equal good air entry bilaterally CVS: S1-S2 irregularly irregular, soft pansystolic murmur at apex no tachycardia, no gallops, no rubs Abdomen: Soft, nontender, no organomegaly, bowel sounds present mild distention Neuro: No focal deficits, no facial deformity, AO x3, power 5/5 in all limbs Data : 02/03/22 04:37 02/03/22 04:37 A&P Assessment and plan (1) Dehydration: Status: Acute (2) Acute kidney injury: Status: Acute (3) Anorexia: Status: Acute (4) Protein-energy malnutrition: Status: Acute (5) Paroxysmal atrial fibrillation: Status: Acute (6) Diastolic CHF: Status: Acute Qualifiers: Heart failure chronicity: chronic Qualified Code(s): I50.32 - Chronic diastolic (congestive) heart failure (7) Transaminitis: Status: Acute (8) Anasarca: Status: Acute (9) Non-small cell cancer of left lung: Status: Acute (10) 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 Could be multifactorial. Most likely cancer cachexia versus paraneoplastic syndrome. Appreciate speech evaluation and modified barium swallow study. Consistent with mild esophageal dysmotility. FEES to evaluate for structural abnormality if any. Hold off on upper GI series for now. Continue with mechanical soft diet with protein supplements. Dietitian consult for calorie count. Patient is immunocompromised secondary to multiple chemotherapy till recently. Cannot rule out mucositis. Continue with nystatin 200,000 4 times daily. Protonix 40 mg twice daily, Carafate. If all the studies comes back negative or inconclusive we will consult surgery for possible upper GI endoscopy. Severe protein energy malnutrition: Due to chronic illness, metastatic cancer on chemotherapy. Poor oral intake. Prealbumin extremely low. Dietitian consult. Calorie count awaited Acute kidney injury: Most likely secondary dehydration from poor oral intake along with diuretics at home. Urine studies appreciated. Fena-0.2%. Consistent with prerenal. Continue with IV fluids at 75 cc/h. Monitor for fluid overload. Monitor BMP daily. Medical reconciliation done for nephrotoxic drugs. Atrial fibrillation: Currently rate controlled. Continue with home dose of amiodarone. Decrease home dose of metoprolol to 50 mg twice daily. Continue with Eliquis 5 mg twice daily. Plan for kyphoplasty on 02/20. Chronic diastolic heart failure: Currently euvolemic. Continue to monitor. Shortness of breath: Combination of COPD and chronic diastolic heart failure along with pleural effusion. At baseline. Physical deconditioning. PT evaluation. Full code. Mechanical soft cardiac diet. Eliquis will suffice for DVT prophylaxis. Protonix for PUD prophylaxis Attestations Medical Necessity Statement*: Requires further hospitalization for management of anorexia, severe protein energy malnutrition, acute kidney injury due to poor oral intake, atrial fibrillation in setting of baseline non small cell lung carcinoma Time Spent in Patient Care: Greater than 35 minutes Coding Level of Care Code Acute Senior Compliance Analyst for [facility] Fwd Diagnoses Dehydration E86.0 Acute kidney injury N17.9 Anorexia R63.0 Protein-energy malnutrition E46 Paroxysmal atrial fibrillation I48.0 Diastolic CHF I50.32 Heart failure chronicity: chronic 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
[2022-02-03] MEDS: sodium chloride 0.9% 1,000 ML 75 ML IV (14:13)
[2022-02-03] MEDS: apixaban 5 mg Tablet PO ×2 (15:24→21:10)
[2022-02-03 16:00] VITALS: BP 118/80; PULSE 99; RESP 12; TEMP 36.5; O2SAT 100
[2022-02-03] MEDS: nystatin 100,000 unit/mL UDC 5 mL 200000 UNIT PO ×2 (18:20→21:10)
[2022-02-03 20:00] VITALS: BP 99/75; PULSE 92; RESP 18; TEMP 36.9; O2SAT 93
[2022-02-03] MEDS: atorvastatin 40 mg Tablet PO (21:10)
[2022-02-03 21:53] VITALS: O2SAT 95
[2022-02-03 22:13] LABS: Glucose Point of Care 171 mg/dL (70-110)
[2022-02-04] VITALS (7 sets, daily range): BP systolic 81–116; BP diastolic 59–72; PULSE 48–116; RESP 16–20; TEMP 36.4–36.6; O2SAT 92–99
--- NOTE | 2022-02-04 00:22 | PC.NURSE ---
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 Oxygen was out of patients nose. Oxygen fixed and saturation 96 percent. Then patient asked for this RN. When I went into room patient stated I feel cold and clammy . FS done and vital signs done. WNL. Patient had drink of water and fell asleep. Will continue to monitor.
[2022-02-04] MEDS: sodium chloride 0.9% 1,000 ML 75 ML IV ×2 (04:43→13:12)
--- NOTE | 2022-02-04 06:31 | PC.NURSE ---
Shift Note Frequent safety and comfort rounds continue. Orders and/or nursing care completed as indicated. Patient monitored for response to intervention and treatment(s). Education provided includes npo after midnight and reason for fluids. Patient and/or international representative verbalized understanding. Will continue to monitor.
[2022-02-04] MEDS: HYDROcodone-acetaminophen 10-325 mg Tablet 1 TAB PO (07:37)
[2022-02-04] MEDS: metoprolol tartrate 50 mg Tablet PO ×2 (07:54→18:12)
[2022-02-04 09:12] LABS: Basophils % 0.1 %; Eosinophils % 0.1 %; Hematocrit 26.7 % (42.0-52.0); Hemoglobin 8.5 g/dL (11.7-16.6); Lymphocytes # 0.6 10^3/uL (0.8-4.8); Lymphocytes % 3.6 %; Mean Corpuscular HGB Conc 31.8 g/dL (30.0-36.0); Mean Corpuscular Hemoglobin 27.5 pg (28.0-34.0); Mean Corpuscular Volume 86.4 fl (80-94); Mean Platelet Volume 12.3 fL (7.4-10.4); Monocytes % 6.1 %; Neutrophils # 14.53 10^3/uL (1.8-7.7); Neutrophils % 89.2 %; Nucleated Red Blood Cells # 0.1 /100WBC; Nucleated Red Blood Cells % 0.6 %; Platelet Count 335 10^3/cmm (130-400); Red Blood Count 3.09 10^6/uL (4.1-5.3); Red Cell Distribution Width 20.5 % (12.1-15.1); White Blood Count 16.3 10^3/uL (4.0-10.0)
[2022-02-04] MEDS: amiodarone 200 mg Tablet PO (09:19)
[2022-02-04 09:54] LABS: Alanine Aminotransferase 300 U/L (0-41); Albumin Level 3.4 g/dL (3.5-5.2); Alkaline Phosphatase 1016 IU/L (40-130); Anion Gap 21.8 (5-19); Aspartate Amino Transferase 302 U/L (0-40); Blood Urea Nitrogen 69 mg/dL (8-23); Calcium 8.3 mg/dL (8.5-10.5); Carbon Dioxide 25 mmol/L (22-29); Chloride 90 mmol/L (98-107); Glomerular Filtration Rate 33.7 mL/min (90-130); Glucose 113 mg/dL (65-115); Osmolality Calculated 297 mOsm/kg (285-295); Potassium 3.8 mmol/L (3.5-5.1); Sodium 133 mmol/L (136-145); Total Bilirubin 0.7 mg/dL (0.15-1.2); Total Protein 6.4 g/dL (6.6-8.7)
--- NOTE | 2022-02-04 10:15 | PC.CHAP ---
Pastoral Care Encounter/Spiritual Assessment Type of Contact [] Declined allergy and immunology chief visit [] Patient/Family/Request visit [] Outpatient visit [] Follow-up visit [] Physician referral [] Code/Alert [x] Routine visit [] Staff referral [] Actively dying [] Patient sleeping [] Family support [] [] Out of room [] Palliative care [] [] Receiving care in room [] Pre-surgical visit [] Trauma [] Long length of stay [] ICU visit [] Other: Relational/Emotional Strength [x] Patient feels connected with others/family/visitors/staff [] Distress [] Loneliness/isolation [] Abandonment Spirituality of Patient []x Person of Ammy [] Attends Episcopal of their Ammy [x] Believes in Prayer [] Reads Bible or Yazidism materials [] There are Spiritual issues to be addressed Die Engraving Supervisor Interventions [x] Prayer [x] Active listening [x] Non-anxious presence [] Spiritual/emotional support [] Crisis/trauma care [] Spiritual counseling [] Bereavement support [] Provided bereavement packet [] Provided Bible/devotional materials [] Provided toy/stuffed animal, coloring book to patient or family member [] Provided Communion [] Anointing/Addison [] Salvation [x] Completed spiritual assessment [] Other: Impact on Illness or Injury [] Angry [] Fearful [] Anxious [] Often cries [] Exhaustion [] Unable to work [] Unable to attend mosque [] Unable to walk/stand [] Unable to read [] Unable to drive [] Unable to eat/drink [] Unable to sleep [] Unable to be with family [] Patient intubated [] Other: Summary Time spent with patient 15 min
[2022-02-04] MEDS: ferrous sulfate EC 325 mg Tablet PO ×2 (10:22→17:03)
[2022-02-04] MEDS: gabapentin 100 mg Capsule 200 MG PO ×3 (10:22→21:02)
[2022-02-04] MEDS: pantoprazole DR 40 mg Tablet PO ×2 (10:23→17:03)
[2022-02-04] MEDS: nystatin 100,000 unit/mL UDC 5 mL 200000 UNIT PO ×4 (10:23→21:04)
[2022-02-04] MEDS: sucralfate 1 gm/10 mL Oral Liq UDC PO ×2 (10:23→17:02)
[2022-02-04] MEDS: apixaban 5 mg Tablet PO ×2 (10:25→21:03)
--- NOTE | 2022-02-04 10:25 | MR_ITS ---
WS: [id number] MRI/MRCP OF THE ABDOMEN WITHOUT GADOLINIUM ENHANCEMENT TECHNIQUE: Thin and thick slab MRCP, Axial T2, Coronal MRCP, Axial Dual Echo, and Axial 2-D Fiesta imaging was obtained. Coronal 2-D Fiesta imaging. CLINICAL INFORMATION: transaminitis, possible cholecystitis COMPARISON: CT 02/03/22 FINDINGS: Extremely limited examination due to patient inability to perform breath-hold sequences. MR CP images are nondiagnostic. Small LEFT greater than RIGHT pleural effusions. Moderate pericardial effusion. Compressive atelectas is LEFT lower lobe. Hepatomegaly. No intrahepatic biliary ductal dilatation. Gallbladder is somewhat contracted. Mild gallbladder wall thickening with fluid in the gallbladder fossa. No visualized ruslan lithiasis. No intrahepatic ductal dilatation. MRCP images are nondiagnostic due to motion and patient inability to hold breath. Common bile duct appears to be normal caliber at the pancreatic head but o therwise not well seen. Small amount of perihepatic ascites. T2 hyperintense lesion LEFT hepatic lobe measuring 2.1 cm. This is nonspecific but suspicious for metastatic disease given history. This appears new since the prior PET/CT November 15, 2021. No hydronephrosis in either kidney. Adrenal glands appear normal. MR/MR MRCP [id number] Impression: Extremely limited examination due to patient's inability to hold br eath. MRCP images are nondiagnostic. 1. Gallbladder is somewhat contracted unchanged from the prior CT. Mild gallbl adder wall thickening/edema with fluid in the gallbladder fossa. No visualized choledocholithiasis. Findings can be seen with acalculous cholecystitis as well as hepatic disease/fluid overload. Gallbladder function can be further evaluat ed with HIDA scan. Ultrasound RIGHT upper quadrant could also be performed for additional detail. 2. Common bile duct not well evaluated. Common bile duct at the pancreatic hea d appears normal caliber. 3. Small amount of perihepatic ascites. 4. Moderate pericardial effusion. 5. Small LEFT greater than RIGHT pleural effusions. 6. T2 hyperintense lesion visualized in the LEFT hepatic lobe measuring 2.1 cm suspicious for metastatic disease given history of neoplasm. This appears new since the prior PET/CT November 15, 2021.
[2022-02-04] MEDS: sodium chloride 0.9% 250 ML IV (12:30)
[2022-02-04] MEDS: dexamethasone 4 mg Tablet 2 MG PO ×3 (13:33→21:03)
--- NOTE | 2022-02-04 14:14 | P.PN_ITS ---
Subjective Subjective: Today morning on examination patient lying comfortably in bed. Slightly drowsy. States he is feeling little clammy. Some of morning's dose of amiodarone was withheld. Heart rate running in 100 110s. Blood pressure running around 90 systolics. Appropriate urine output. Denies any nausea, vom iting, headache. Patient complaining of mild pain in right upper quadrant. Vitals/I&O/Wt Last Vital Signs Temp 97.6 F 02/04/22 08:00 Pulse 106 H 02/04/22 12:06 Resp 16 02/04/22 12:06 BP 81/59 02/04/22 12:06 Pulse Ox 99 02/04/22 12:06 02/03/22 02/04/22 02/04/22 22:59 06:59 14:59 Intake Total 1160 / 1160 1260 / 2420 Output Total 650 / 1300 650 / 1950 Balance 510 / -140 610 / 470 Weight last 48 hrs Weight 80.15 kg Weight 75.024 kg Weight 79.152 kg Physical Exam Narrative: General: No acute distress, AO x3, chronically sick appearing, dehydrated HEENT: PERRLA, pupils bilaterally equal and reactive Chest: Normal vesicular breath sounds, no added sounds, equal good air entry bilaterally CVS: S1-S2 irregularly irregular, soft pansystolic murmur at apex no tachycardia, no gallops, no rubs Abdomen: Soft, nontender, no organomegaly, bowel sounds present mild distention Neuro: No focal deficits, no facial deformity, AO x3, power 5/5 in all limbs Data : 02/04/22 08:49 02/04/22 08:49 A&P Assessment and plan (1) Anorexia: Status: Acute (2) Acute kidney injury: Status: Acute (3) Hypotension: Status: Acute (4) Acalculous cholecystitis: Status: Suspected (5) Transaminitis: Status: Acute (6) Paroxysmal atrial fibrillation: Status: Acute (7) Protein-energy malnutrition: Status: Acute (8) Diastolic CHF: Status: Acute Qualifiers: Heart failure chronicity: chronic Qualified Code(s): I50.32 - Chronic diastolic (congestive) heart failure (9) Dehydration: Status: Acute (10) Anasarca: Status: Acute (11) Non-small cell cancer of left lung: Status: Acute (12) 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 Could be multifactorial. Most likely cancer cachexia versus paraneoplastic syndrome. Appreciate speech evaluation and modified barium swallow study. Consistent with mild esophageal dysmotility. FEES to evaluate for structural abnormality could not be done. Continue with mechanical soft diet with protein supplements. Dietitian consult for calorie count. Patient is immunocompromised secondary to multiple chemotherapy till recently. Cannot rule out mucositis. Continue with nystatin 200,000 units 4 times daily. Protonix 40 mg twice daily, Carafate. If all the studies comes back negative or inconclusive we will consult surgery for possible upper GI endoscopy. Severe protein energy malnutrition: Due to chronic illness, metastatic cancer on chemotherapy. Poor oral intake. Prealbumin extremely low. Dietitian consult. Hypotension: Patient's baseline blood pressure is somewhat in high 90s to 100 systolics. Currently running in low 90s systolics. Cannot rule out septic shock versus cardiogenic shock. White count mildly elevated. Check procalcitonin, blood culture. MRSA swab recently done in December [address] abdomen pelvis concerning for possible cholecystitis. Check MRCP. Consult surgery. Start patient on Zosyn. Start patient on midodrine 5 mg 3 times daily. Continue with albumin for 1 day. Cortisol level on day of admission elevated but patient is on dexamethasone on and off at home. Cannot rule out adrenal insufficiency. Start on Decadron 2 mg p.o. 4 times daily. Will wean down quickly. Transaminitis: Worsening. Appreciate CT abdomen pelvis with concern for possible acalculous cholecystitis versus secondary to generalized anasarca. Hepatitis panel, HIV?negative. Acute kidney injury: Continues to worsen. Most likely secondary dehydration from poor oral intake along with diuretics at home. Continue the IV fluids as above. Repeat urinalysis, urine lites, urine eosinophils, urine creatinine. Monitor BMP daily. Medical reconciliation done for nephrotoxic drugs. Atrial fibrillation: Currently rate controlled. Continue with home dose of amiodarone. Decrease home dose of metoprolol to 50 mg twice daily. Continue with Eliquis 5 mg twice daily. Plan for kyphoplasty on 02/20. Chronic diastolic heart failure: Currently euvolemic. Continue to monitor. Shortness of breath: Combination of COPD and chronic diastolic heart failure along with pleural effusion. At baseline. Physical deconditioning. PT evaluation. Given his low blood pressures very cut down on his pain medications. Switch to [place] 10 mg every 6 hours as needed from every 4 hours as needed. Add tramadol 50 mg every 4 hours as needed. Discussed the same with patient and his family. They are agreeable. We will try to give alternate [place] and tramadol to have stack effect. Full code. Mechanical soft cardiac diet. Eliquis will suffice for DVT prophylaxis. Protonix for PUD prophylaxis Attestations Medical Necessity Statement*: Requires further hospitalization for management of generalized anorexia, hypotension, possible acalculous cholecystitis, worsening transaminitis and kidney injury Time Spent in Patient Care: Greater than 35 minutes Coding Level of Care Code Acute Golf Ball Cover Treater for Chg Fwd History Comprehensive Exam Comprehensive Medical Decision Making High Complexity Diagnoses Dehydration E86.0 Acute kidney injury N17.9 Anorexia R63.0 Protein-energy malnutrition E46 Paroxysmal atrial fibrillation I48.0 Diastolic CHF I50.32 Heart failure chronicity: chronic Transaminitis R74.01 Anasarca R60.1 Non-small cell cancer of left lung C34.92 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
--- NOTE | 2022-02-04 16:01 | PC.NURSE ---
Pt refusing bassett catheter.
--- NOTE | 2022-02-04 16:06 | PC.SLP ---
Multiple attempts made to pass the FEES scope without success. Dr. Reveles will be notified with recommendation to contact Dr. Tam about an assessment. Dr. Tam could use the portable FEES equipment to perform his exam.
[2022-02-04] MEDS: piperacillin-tazobactam 3.375 GM in sodium chloride 0.9% (plus) 50 ML IV (17:01)
[2022-02-04] MEDS: midodrine 5 mg TABLET PO ×2 (17:02→21:02)
[2022-02-04] MEDS: atorvastatin 40 mg Tablet PO (21:03)
[2022-02-05] VITALS: BP 96/57; PULSE 75; RESP 22; TEMP 37; O2SAT 98
[2022-02-05] MEDS: piperacillin-tazobactam 3.375 GM in sodium chloride 0.9% (plus) 50 ML IV ×3 (00:53→18:13)
[2022-02-05] MEDS: gabapentin 100 mg Capsule 200 MG PO ×4 (03:43→20:57)
[2022-02-05] MEDS: sodium chloride 0.9% 1,000 ML 75 ML IV (03:43)
[2022-02-05 04:00] VITALS: BP 101/71; PULSE 73; RESP 17; TEMP 36.4; O2SAT 97
[2022-02-05 06:02] LABS: Basophils % 0.2 %; Hematocrit 27.9 % (42.0-52.0); Hemoglobin 8.5 g/dL (11.7-16.6); Lymphocytes # 0.3 10^3/uL (0.8-4.8); Lymphocytes % 2.7 %; Mean Corpuscular HGB Conc 30.5 g/dL (30.0-36.0); Mean Corpuscular Hemoglobin 27.8 pg (28.0-34.0); Mean Corpuscular Volume 91.2 fl (80-94); Mean Platelet Volume 12.6 fL (7.4-10.4); Monocytes # 0.3 10^3/uL (0.2-0.9); Monocytes % 2.4 %; Neutrophils # 11.17 10^3/uL (1.8-7.7); Neutrophils % 93.8 %; Nucleated Red Blood Cells # 0.1 /100WBC; Platelet Count 305 10^3/cmm (130-400); Red Blood Count 3.06 10^6/uL (4.1-5.3); White Blood Count 11.9 10^3/uL (4.0-10.0)
[2022-02-05] MEDS: aspirin 81 mg EC Tablet PO (06:23)
[2022-02-05] MEDS: finasteride 5 mg Tablet PO (06:23)
[2022-02-05] MEDS: amiodarone 200 mg Tablet PO (06:23)
[2022-02-05 07:02] LABS: Alanine Aminotransferase 499 U/L (0-41); Albumin Level 2.9 g/dL (3.5-5.2); Anion Gap 25.2 (5-19); Aspartate Amino Transferase 573 U/L (0-40); Calcium 7.8 mg/dL (8.5-10.5); Carbon Dioxide 19 mmol/L (22-29); Chloride 92 mmol/L (98-107); Globulin 3.7 g/dL (1.3-4.6); Glomerular Filtration Rate 31.9 mL/min (90-130); Glucose 132 mg/dL (65-115); Osmolality Calculated 301 mOsm/kg (285-295); Potassium 4.2 mmol/L (3.5-5.1); Sodium 132 mmol/L (136-145); Total Bilirubin 0.9 mg/dL (0.15-1.2); Total Protein 6.6 g/dL (6.6-8.7)
[2022-02-05 07:09] LABS: Blood Urea Nitrogen 82 mg/dL (8-23)
--- NOTE | 2022-02-05 07:17 | PC.NURSE ---
Shift Note Frequent safety and comfort rounds continue. Orders and/or nursing care completed as indicated. Patient monitored for response to intervention and treatment(s). Education provided includes npo after midnight and questions answered about procedure in am. Patient and/or hobbies and crafts sales representative verbalizes understanding.. Will continue to monitor.
--- NOTE | 2022-02-05 07:19 | PC.NURSE ---
Speech into do evaluation on patient. See report. Will monitor.
[2022-02-05 07:21] LABS: Alkaline Phosphatase 1214 IU/L (40-130)
[2022-02-05 08:00] VITALS: BP 101/71; O2SAT 97
[2022-02-05] MEDS: nystatin 100,000 unit/mL UDC 5 mL 200000 UNIT PO ×3 (10:21→20:59)
[2022-02-05] MEDS: metoprolol tartrate 50 mg Tablet PO ×2 (10:22→18:15)
[2022-02-05] MEDS: sucralfate 1 gm/10 mL Oral Liq UDC PO ×2 (10:22→18:15)
[2022-02-05] MEDS: pantoprazole DR 40 mg Tablet PO ×2 (10:22→18:15)
[2022-02-05] MEDS: ferrous sulfate EC 325 mg Tablet PO ×2 (10:22→18:15)
[2022-02-05] MEDS: dexamethasone 4 mg Tablet 2 MG PO ×4 (10:22→20:58)
[2022-02-05] MEDS: midodrine 5 mg TABLET PO (10:22)
[2022-02-05] MEDS: apixaban 5 mg Tablet PO ×2 (10:51→20:57)
--- NOTE | 2022-02-05 10:58 | P.CONIM_ITS ---
Providers/Reason For Consult Consulting Physician/Specialty*: Nephro Reason for Consult*: JOSEPH Attending Physician: Evans Reveles MD Primary Care Provider: Edwin Montoya MD History of Present Illness History of Present Illness Thank for consultation, today had the pleasure of reviewing this very pleasant 66-year-old gentleman for evaluation of acute kidney injury. 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 This was recently complicated by metastatic T2 lesion with 3 column Involvement. Last received chemotherapy in July (Keytruda). He was recently admitted between 01/09 and 01/11 with shortness of breath, found to have fluid overload in the setting of diastolic heart failure, COPD/emphysema and complicated by atrial fibrillation with RVR. He responded to combination therapy with amiodarone, Lasix. He is now scheduled for kyphoplasty. He presented to the hospital on 02/02 with profound weakness. Diuretics were held and he received gentle IV hydration. Received dexamethasone and yesterday initiated on low-dose midodrine. He is also on empirical therapy with Zosyn, as CT scan of the abdomen and pelvis demonstrated possible acalculous cholecystitis. No history of acute or chronic kidney disease, the time of discharge on 01/11 creatinine was 1 mg/dL, on admission on 02/02 creatinine 1.7 increasing to 2.1 mg/dL today. Urine output is not recorded. Of note the kidneys demonstrated no anatomical damage on the CT scan. On admission, urinalysis was benign, however, urinary sodium less than 10. Home he reports no history of acute on chronic kidney disease, is never seen a kidney specialist or required hemodialysis. Passing urine without obstruction. Very poor oral intake prior to hospitalization. All food tastes bad to him, he likes to drink water, however, his intake of meaningful solute is very low. He denies extremity edema, shortness of breath or other hypervolemic symptoms at this time. Medications/Allergies Home Medications Medication Instructions Recorded Confirmed Last Taken Type acetaminophen 500 mg tablet 500 - 1,000 mg PO Q6H PRN 02/27/21 02/02/22 08/02/21 History (Tylenol Extra Strength) oxycodone-acetaminophen 10 mg-325 1 tab PO Q6H PRN 05/03/21 03/07/22 09/06/21 21:00 History mg tablet apixaban 5 mg tablet (Eliquis) 5 mg PO BID 07/30/21 02/02/22 02/02/22 History finasteride 5 mg tablet 5 mg PO QAM 07/30/21 02/02/22 02/02/22 History gabapentin 400 mg capsule 400 mg PO Q6H 07/30/21 02/02/22 01/07/22 History ferrous sulfate 325 mg (65 mg 325 mg PO BID 07/31/21 02/02/22 02/02/22 History iron) tablet (Iron (ferrous sulfate)) guaifenesin 1,200 mg tablet, 1,200 mg PO Q12H 07/31/21 02/02/22 02/02/22 History extended release 12 hr (Mucinex) lidocaine-prilocaine 2.5 %-2.5 % 1 applic TOPICAL PRN PRN g 09/23/21 02/02/22 Unknown History topical cream nitroglycerin 0.4 mg sublingual 0.4 mg SUBLINGUAL Q5M PRN 30 Days 09/23/21 02/02/22 Unknown Rx tablet #30 tab potassium gluconate 595 mg (99 mg) 595 mg PO QAM 09/23/21 02/02/22 02/02/22 History tablet albuterol sulfate 90 mcg/actuation 1 inh INHALATION QID PRN #8.5 g 12/01/21 02/02/22 Unknown Rx aerosol inhaler prochlorperazine maleate 10 mg 10 mg PO Q4H PRN tab 12/01/21 02/02/22 Unknown History tablet ipratropium 0.5 mg-albuterol 3 mg 3 ml INHALATION Q6H PRN 30 Days 12/19/21 02/02/22 Unknown Rx (2.5 mg base)/3 mL nebulization #360 ml soln metoprolol tartrate 75 mg tablet 75 mg PO BID #60 tab 01/11/22 02/02/22 02/02/22 Rx furosemide 80 mg tablet (Lasix) 80 mg PO BID #60 tab 01/15/22 02/02/22 02/02/22 Rx atorvastatin 40 mg tablet 40 mg PO BEDTIME #30 tab 01/19/22 02/02/22 02/01/22 Rx amiodarone 200 mg tablet 200 mg PO QAM 0302/02/22 02/02/22 History aspirin 81 mg tablet,delayed 81 mg PO QAM 02/02/22 02/02/22 02/02/22 History release calcium carbonate 600 mg (1,500 1 tab PO QAM 02/02/22 02/02/22 02/02/22 History mg)-vitamin D3 200 unit tablet cholecalciferol (vitamin D3) 50 50 mcg PO QAM 02/02/22 02/02/22 02/02/22 History mcg (2,000 unit) capsule (Vitamin D3) cyanocobalamin (vitamin B-12) 5,000 mcg SUBLINGUAL QAM 02/02/22 02/02/22 02/02/22 History 5,000 mcg sublingual tablet (Vitamin B-12) dexamethasone 4 mg tablet See Rx Instructions .ROUTE .COMPLEX 02/02/22 02/02/22 Unknown History hydrocodone 10 mg-acetaminophen 1 - 2 tab PO Q4H PRN 02/02/22 02/02/22 Unknown History 325 mg tablet oxycodone 5 mg tablet 5 mg PO Q4H PRN 02/02/22 02/02/22 Unknown History pantoprazole 40 mg tablet,delayed 40 mg PO QAM 02/02/22 02/02/22 02/02/22 History release tamsulosin 0.4 mg capsule 0.4 mg PO QAM 02/02/22 02/02/22 02/02/22 History tiotropium 2.5 mcg-olodaterol 2.5 2 puff INHALATION QAM 02/02/22 02/02/22 02/02/22 History mcg/actuation mist for inhalation Allergies Allergy/AdvReac Type Severity Reaction Status Date / Time iodine Allergy ADR-Nausea Verified 02/02/22 14:36 Current Medications Generic Name Dose Route Start Last Admin Trade Name Freq PRN Reason Stop Dose Admin Amiodarone HCl 200 mg 02/03/22 06:00 02/05/22 06:23 Amiodarone 200 Mg Tablet PO 200 mg QAM MAX Administration Apixaban 5 mg 02/03/22 14:15 02/05/22 10:51 Apixaban 5 Mg Tablet PO 5 mg BID@0900,2100 MAX Administration Aspirin 81 mg 02/03/22 06:00 02/05/22 06:23 Aspirin 81 Mg Ec Tablet PO 81 mg QAM MAX Administration Atorvastatin Calcium 40 mg 02/02/22 21:00 02/04/22 21:03 Atorvastatin 40 Mg Tablet PO 40 mg BEDTIME MAX Administration Dexamethasone 2 mg 02/04/22 13:00 02/05/22 10:22 Dexamethasone 4 Mg Tablet PO 2 mg QID MAX Administration Ferrous Sulfate 325 mg 02/02/22 18:00 02/05/22 10:22 Ferrous Sulfate Ec 325 Mg Tablet PO 325 mg BID MAX Administration Finasteride 5 mg 02/03/22 06:00 02/05/22 06:23 Finasteride 5 Mg Tablet PO 5 mg QAM MAX Administration Gabapentin 200 mg 02/03/22 14:00 02/05/22 10:22 Gabapentin 100 Mg Capsule PO 200 mg Q6H MAX Administration Sodium Chloride 1,000 mls @ 75 mls/hr 02/04/22 12:15 02/05/22 03:43 Sodium Chloride 0.9% IV 75 mls/hr .[id number] MAX Administration Piperacillin Sod/Tazobactam 50 mls @ 12.5 mls/hr 02/04/22 16:30 02/05/22 10:30 Sod 3.375 gm/ Sodium Chloride IV 12.5 mls/hr Q8H MAX Administration Metoprolol Tartrate 50 mg 02/02/22 18:00 02/05/22 10:22 Metoprolol Tartrate 50 Mg Tablet PO 50 mg BID MAX Administration Midodrine 5 mg 02/04/22 16:20 02/05/22 10:22 Midodrine 5 Mg Tablet PO 5 mg TID MAX Administration Nystatin 200,000 unit 02/03/22 09:00 02/05/22 10:21 Nystatin 100,000 Unit/Ml Udc 5 Ml PO 200,000 unit QID MAX Administration Pantoprazole Sodium 40 mg 02/03/22 09:00 02/05/22 10:[address] 40 Mg Tablet PO 40 mg BID MAX Administration Sucralfate 1 gm 02/03/22 09:00 02/05/22 10:22 Sucralfate 1 Gm/10 Ml Oral Liq Udc PO 1 gm BID MAX Administration Tamsulosin HCl 0.4 mg 02/03/22 06:00 02/04/22 04:47 Tamsulosin 0.4 Mg Capsule PO Not [facility] [place] [facility] PFSH: Medical History (Updated 02/04/22 @ 16:25 by Evans Reveles MD) Acute respiratory failure with hypoxia Atherosclerosis of coronary artery Bilateral impacted cerumen Cerebrovascular accident Cervical radiculopathy 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 COPD (chronic obstructive pulmonary disease) COPD exacerbation Dyspnea on exertion Esophageal dysmotility Hx of angina pectoris Hypertension Lower respiratory infection Lower respiratory infection 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 Non-small cell lung cancer. Records currently not available. Surgical History History of ankle surgery History of bronchoscopy History of lumbar laminectomy for spinal cord decompression History of shoulder surgery S/P right rotator cuff repair Family History Sister Anesthesia complication CAD (coronary artery disease) Chronic kidney disease (CKD) Family/Other CAD (coronary artery disease) Brother Cancer Father Dementia Stroke Mother Stroke Denies family history of Diabetes Clotting disorder Suicide Bleeding disorder Lung disease Social History Smoking and tobacco status: former smoker Quit status (tobacco): has quit using tobacco Year quit tobacco: 2010 Former quit date comment: 5 PPD x 40 Years Second hand smoke exposure: No Smoking risk assessment/counseling performed?: No Alcohol intake: former Counseling given: No Counseling given: No Lives independently: Yes Household members: spouse Marital status: Current occupational status: unemployed History of recent travel: No Current gender identity: Male Vitals/I&O/Wt Last Vital Signs Temp 97.6 F 02/05/22 04:00 Pulse 73 02/05/22 04:00 Resp 17 02/05/22 04:00 BP 101/71 02/05/22 08:00 Pulse Ox 97 02/05/22 08:00 02/04/22 02/05/22 02/05/22 22:59 06:59 14:59 Intake Total 310 / 1318.75 1150 / 2468.75 Output Total 0 / 0 0 / 0 Balance 310 / 1318.75 1150 / 2468.75 Weight last 48 hrs Weight 82.871 kg Weight 80.15 kg Physical Exam Narrative: Constitutional: Awake, comfortable HEENT: Wet mucosa, no jvp, non icteric Lungs: Bilaterally diminished CVS: S1 S2, no murmurs Abdo: Soft, BS ok Ext 4: Minimal edema, peripheral perfusion with no cyanosis Neurological: Grossly non-focal Data : 02/05/22 04:55 02/05/22 04:55 Micro: Microbiology 02/04/22 17:38 Blood Culture - Preliminary Blood SPECIMEN COLLECTED 02/04/22 17:35 Blood Culture - Preliminary Blood SPECIMEN COLLECTED A&P Assessment and plan (1) Acute kidney injury: 1. Acute kidney injury Admission urine parameters demonstrate prerenal azotemia with a urine sodium that was less than 10. This to be consistent with his clinical history of high- dose twice daily diuretics with very poor oral intake. The trick here will be to rehydrate him, increase his intravascular volume without tipping the balance into symptomatic hypervolemia as result during his recent hospitalization. In his case, he is very sensitive to high intravascular volume as it will adversely impact his breathing very easily given his underlying pulmonary and cardiac comorbidities. Continue IV hydration with saline at 75 cc an hour, will add 500 mL of lactated Ringer's today, increase midodrine to 10 mg 3 times daily, add Marinol to help stimulate oral intake of meaningful solute. No further imaging is required, will check uric acid level, TSH CPK level, otherwise, diagnostic testing is now complete. Daily renal panel, strict I's and O's Dose medication for GFR less than 30. 2. Chemistry Minor noncritical aberration including low sodium, low bicarb, continue to monitor for now, 3. Hemodynamics Blood pressure on the low side, currently on midodrine. 4. T2 spinal fracture Pending kyphoplasty, currently not in too much discomfort from this. 5. Metastatic adenocarcinoma of the lung Follow-up with oncology following discharge, hopefully a candidate for Keytruda following kyphoplasty in the near future. at bedside, I answered all of her questions to her satisfaction. Thank you for consultation of this very pleasant gentleman and his family. 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
[2022-02-05 11:39] LABS: Creatine Phosphokinase 124 U/L (39-308); Uric Acid 15.3 mg/dL (3.4-7.0)
[2022-02-05 11:40] LABS: Thyroid Stimulating Hormone 0.88 uIU/mL (0.27-4.20)
--- NOTE | 2022-02-05 12:25 | PC.SOCIAL ---
Pg 2 IMM Explained to pt & Pg 2 IMM. No questions voiced. Provided pt a copy. Initialed, dated, & timed a copy & placed in chart.
[2022-02-05 12:31] LABS: Add Urine Microscopic? YES; Amorphous Sediment Urine 1+ /hpf; Bilirubin Urine Neg (Negative); Blood Urine Neg (Negative); Glucose Urine UA Norm (Normal); Ketones Urine Negative (Negative); Leukocyte Esterase Urine Negative (Negative); Nitrate Urine Negative (Negative); Protein Urine Neg (Negative); Urine Appearance Hazy (CLEAR); Urine Color Yellow (Yellow); Urobilinogen Urine Neg (Negative); pH Urine 5 (5-7)
[2022-02-05 12:32] LABS: Add Urine Culture? No
[2022-02-05 12:44] LABS: Potassium, Radom Urine 56 mmol/L; Urine Creatinine 99 mg/dL (39-259)
[2022-02-05 12:52] LABS: Eosinophil Urine No Eosinophils Seen; Urine Eosinophil Count 0 (0-0)
--- NOTE | 2022-02-05 12:54 | P.CONIM_ITS ---
Providers/Reason For Consult Consulting Physician/Specialty*: General Surgery Dr. Montanez Reason for Consult*: Elevated liver enzymes Attending Physician: Evans Reveles MD Primary Care Provider: Edwin Montoya MD History of Present Illness History of Present Illness Tramaine Galaviz is a 66 year old male who was admitted to the hospital with generalized weakness and poor oral intake. Patient has stage IV poorly differentiated metastatic squamous cell carcinoma and was on chemoradiation until about a month ago when he was noted to have involvement of his T2 spine and was scheduled for a kyphoplasty. Due to poor oral intake he underwent swallow study which showed vocal cord paralysis on the left and dysmotility but no evidence of aspiration. He had some right upper quadrant pain but denied any nausea or vomiting. He was noted to have elevated LFTs and therefore initially CT abdomen pelvis is obtained which showed a contracted gallbladder. MRCP showed no evidence of choledocholithiasis. Finally a HIDA scan was obtained which showed normal function and normal emptying Review of Systems General: Reports: 10 or more systems reviewed and unremarkable except in HPI and below Medications/Allergies Home Medications Medication Instructions Recorded Confirmed Last Taken Type acetaminophen 500 mg tablet 500 - 1,000 mg PO Q6H PRN 02/27/21 02/02/22 08/02/21 History (Tylenol Extra Strength) oxycodone-acetaminophen 10 mg-325 1 tab PO Q6H PRN 03/31/21 02/02/22 08/04/21 21:00 History mg tablet apixaban 5 mg tablet (Eliquis) 5 mg PO BID 07/30/21 02/02/22 02/02/22 History finasteride 5 mg tablet 5 mg PO QAM 07/30/21 02/02/22 02/02/22 History gabapentin 400 mg capsule 400 mg PO Q6H 07/30/21 02/02/22 01/07/22 History ferrous sulfate 325 mg (65 mg 325 mg PO BID 07/31/21 02/02/22 02/02/22 History iron) tablet (Iron (ferrous sulfate)) guaifenesin 1,200 mg tablet, 1,200 mg PO Q12H 07/31/21 02/02/22 02/02/22 History extended release 12 hr (Mucinex) lidocaine-prilocaine 2.5 %-2.5 % 1 applic TOPICAL PRN PRN g 09/23/21 02/02/22 Unknown History topical cream nitroglycerin 0.4 mg sublingual 0.4 mg SUBLINGUAL Q5M PRN 30 Days 09/23/21 02/02/22 Unknown Rx tablet #30 tab potassium gluconate 595 mg (99 mg) 595 mg PO QAM 09/23/21 02/02/22 02/02/22 History tablet albuterol sulfate 90 mcg/actuation 1 inh INHALATION QID PRN #8.5 g 12/01/21 02/02/22 Unknown Rx aerosol inhaler prochlorperazine maleate 10 mg 10 mg PO Q4H PRN tab 12/01/21 02/02/22 Unknown History tablet ipratropium 0.5 mg-albuterol 3 mg 3 ml INHALATION Q6H PRN 30 Days 12/19/21 02/02/22 Unknown Rx (2.5 mg base)/3 mL nebulization #360 ml soln metoprolol tartrate 75 mg tablet 75 mg PO BID #60 tab 01/11/22 02/02/22 02/02/22 Rx furosemide 80 mg tablet (Lasix) 80 mg PO BID #60 tab 01/15/22 02/02/22 02/02/22 Rx atorvastatin 40 mg tablet 40 mg PO BEDTIME #30 tab 01/19/22 02/02/22 02/01/22 Rx amiodarone 200 mg tablet 200 mg PO QAM 02/02/22 02/02/22 02/02/22 History aspirin 81 mg tablet,delayed 81 mg PO QAM 02/02/22 02/02/22 02/02/22 History release calcium carbonate 600 mg (1,500 1 tab PO QAM 02/02/22 02/02/22 02/02/22 History mg)-vitamin D3 200 unit tablet cholecalciferol (vitamin D3) 50 50 mcg PO QAM 02/02/22 02/02/22 02/02/22 History mcg (2,000 unit) capsule (Vitamin D3) cyanocobalamin (vitamin B-12) 5,000 mcg SUBLINGUAL QAM 02/02/22 02/02/22 02/02/22 History 5,000 mcg sublingual tablet (Vitamin B-12) dexamethasone 4 mg tablet See Rx Instructions .ROUTE .COMPLEX 02/02/22 02/02/22 Unknown History hydrocodone 10 mg-acetaminophen 1 - 2 tab PO Q4H PRN 02/02/22 02/02/22 Unknown History 325 mg tablet oxycodone 5 mg tablet 5 mg PO Q4H PRN 02/02/22 02/02/22 Unknown History pantoprazole 40 mg tablet,delayed 40 mg PO QAM 02/02/22 02/02/22 02/02/22 History release tamsulosin 0.4 mg capsule 0.4 mg PO QAM 02/02/22 02/02/22 02/02/22 History tiotropium 2.5 mcg-olodaterol 2.5 2 puff INHALATION QAM 02/02/22 02/02/22 02/02/22 History mcg/actuation mist for inhalation Allergies Allergy/AdvReac Type Severity Reaction Status Date / Time iodine Allergy ADR-Nausea Verified 02/02/22 14:36 Current Medications Generic Name Dose Route Start Last Admin Trade Name Freq PRN Reason Stop Dose Admin Amiodarone HCl 200 mg 02/03/22 06:00 02/05/22 06:23 Amiodarone 200 Mg Tablet PO 200 mg QAM MAX Administration Apixaban 5 mg 02/03/22 14:15 02/05/22 10:51 Apixaban 5 Mg Tablet PO 5 mg BID@0900,2100 MAX Administration Aspirin 81 mg 02/03/22 06:00 02/05/22 06:23 Aspirin 81 Mg Ec Tablet PO 81 mg QAM MAX Administration Atorvastatin Calcium 40 mg 02/02/22 21:00 02/04/22 21:03 Atorvastatin 40 Mg Tablet PO 40 mg BEDTIME MAX Administration Dexamethasone 2 mg 02/04/22 13:00 02/05/22 10:22 Dexamethasone 4 Mg Tablet PO 2 mg QID MAX Administration Ferrous Sulfate 325 mg 02/02/22 18:00 02/05/22 10:22 Ferrous Sulfate Ec 325 Mg Tablet PO 325 mg BID MAX Administration Finasteride 5 mg 02/03/22 06:00 02/05/22 06:23 Finasteride 5 Mg Tablet PO 5 mg QAM MAX Administration Gabapentin 200 mg 02/03/22 14:00 02/05/22 10:22 Gabapentin 100 Mg Capsule PO 200 mg Q6H MAX Administration Sodium Chloride 1,000 mls @ 75 mls/hr 02/04/22 12:15 02/05/22 03:43 Sodium Chloride 0.9% IV 75 mls/hr .[id number] MAX Administration Piperacillin Sod/Tazobactam 50 mls @ 12.5 mls/hr 02/04/22 16:30 02/05/22 10:30 Sod 3.375 gm/ Sodium Chloride IV 12.5 mls/hr Q8H MAX Administration Metoprolol Tartrate 50 mg 02/02/22 18:00 02/05/22 10:22 Metoprolol Tartrate 50 Mg Tablet PO 50 mg BID MAX Administration Nystatin 200,000 unit 02/03/22 09:00 02/05/22 10:21 Nystatin 100,000 Unit/Ml Udc 5 Ml PO 200,000 unit QID MAX Administration Pantoprazole Sodium 40 mg 02/03/22 09:00 02/05/22 10:[address] 40 Mg Tablet PO 40 mg BID MAX Administration Sucralfate 1 gm 02/03/22 09:00 02/05/22 10:22 Sucralfate 1 Gm/10 Ml Oral Liq Udc PO 1 gm BID MAX Administration Tamsulosin HCl 0.4 mg 02/03/22 06:00 02/04/22 04:47 Tamsulosin 0.4 Mg Capsule PO Not Given QAM MAX PFSH Acute PFSH: Medical History Acute respiratory failure with hypoxia Atherosclerosis of coronary artery Bilateral impacted cerumen Cerebrovascular accident Cervical radiculopathy 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 COPD (chronic obstructive pulmonary disease) COPD exacerbation Dyspnea on exertion Esophageal dysmotility Hx of angina pectoris Hypertension Lower respiratory infection Lower respiratory infection 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 Non-small cell lung cancer. Records currently not available. Surgical History History of ankle surgery History of bronchoscopy History of lumbar laminectomy for spinal cord decompression History of shoulder surgery S/P right rotator cuff repair Family History Sister Anesthesia complication CAD (coronary artery disease) Chronic kidney disease (CKD) Family/Other CAD (coronary artery disease) Brother Cancer Father Dementia Stroke Mother Stroke Denies family history of Diabetes Clotting disorder Suicide Bleeding disorder Lung disease Social History Smoking and tobacco status: former smoker Quit status (tobacco): has quit using tobacco Year quit tobacco: 2010 Former quit date comment: 5 PPD x 40 Years Second hand smoke exposure: No Smoking risk assessment/counseling performed?: No Alcohol intake: former Counseling given: No Counseling given: No Lives independently: Yes Household members: spouse Marital status: Current occupational status: unemployed History of recent travel: No Current gender identity: Male Vitals/I&O/Wt Last Vital Signs Temp 97.6 F 02/05/22 04:00 Pulse 73 02/05/22 04:00 Resp 17 02/05/22 04:00 BP 101/71 02/05/22 08:00 Pulse Ox 97 02/05/22 08:00 02/04/22 02/05/22 02/05/22 22:59 06:59 14:59 Intake Total 310 / 2468.75 1150 / 2468.75 Output Total 0 / 0 0 / 0 750 / 750 Balance 310 / 2468.75 1150 / 2468.75 -750 / -750 Weight last 48 hrs Weight 182 lb 11.2 oz Weight 176 lb 11.2 oz Physical Exam Narrative: HEENT: Normocephalic Eye: Sclera /conjunctiva normal Abdomen: Soft to palpation, mildly tender in the right upper quadrant, voluntary guarding, no rigidity Neurological: Oriented to place person and time Skin: Intact, no lesions appreciated on gross exam Data : 02/06/22 08:54 02/06/22 05:30 Micro: Microbiology 02/04/22 17:38 Blood Culture - Preliminary Blood SPECIMEN COLLECTED 02/04/22 17:35 Blood Culture - Preliminary Blood SPECIMEN COLLECTED A&P Assessment and plan (1) Transaminitis: 66 old male with poorly differentiated metastatic squamous cell cancer of the lung who was noted to have elevated LFTs and right upper quadrant pain. HIDA scan, MRCP and CT abdomen pelvis ruled out cholelithiasis, choledocholithiasis and acute cholecystitis. He is tolerating a regular diet and therefore he does not need PEG tube at this point. 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
[2022-02-05 13:30] LABS: Urine Random Chloride < 10 mmol/L; Urine Random Sodium < 10 mmol/L
[2022-02-05] MEDS: lactated ringers 500 ML 200 ML IV (14:32)
[2022-02-05] MEDS: midodrine 5 mg TABLET 10 MG PO ×2 (14:39→21:03)
[2022-02-05 15:19] VITALS: PULSE 74; O2SAT 97
[2022-02-05 15:28] VITALS: BP 92/70; PULSE 75; RESP 12; TEMP 37.1; O2SAT 99
--- NOTE | 2022-02-05 16:07 | NM_ITS ---
WS: [id number] NUCLEAR MEDICINE HIDA SCAN WITH GALLBLADDER EJECTION FRACTION HISTORY: Possible acalculous cholecystitis COMPARISON: 02/03/2022 CT and MRCP 02/04/2022 TECHNIQUE: The patient was intravenously injected with 8.2 mCi of TC99m Mebrofenin. Immediate imaging over the right upper quadrant was followed by 5 minute image and additional images for a total of 60 minutes. Normal uptake throughout the liver. The liver does appear prominent. Activity identified in the gallbladder at 15 minutes and well distended by 60 minutes. Activity in the proximal small bowel was seen by 60 minutes. Good washout of the radiotracer from the liver by 60 minutes. The patient then drank 8 ounces of Ensure Plus. Ejection fraction at 60 minutes was 58%. Normal GB ej ection fraction is 35-75%. Post fatty meal symptoms: None. NM/NM hepatobiliary w phar* [id number] IMPRESSION: 1. Normal HIDA scan. No common bile duct or cystic duct obstruction. 2. Normal gallbladder ejection fraction.
--- NOTE | 2022-02-05 16:36 | PM.PN ---
Subjective Subjective: No acute events overnight. Patient denies any nausea, vomiting, headache. Today morning on examination seen sitting at bedside. A lot more awake. at bedside. Patient scheduled for HIDA scan today. Had a long discussion with patient and patient's regarding multiple possible etiologies of complaint. Discussed in detail the result of FEES study with vocal cord paralysis, discussed in detail regarding possible causes of transaminitis and worsening JOSEPH. Vitals/I&O/Wt Last Vital Signs Temp 98.8 F 02/05/22 15:28 Pulse 75 02/05/22 15:28 Resp 12 02/05/22 15:28 BP 92/70 02/05/22 15:28 Pulse Ox 99 02/05/22 15:28 02/05/22 02/05/22 02/05/22 06:59 14:59 22:59 Intake Total 1150 / 2468.75 Output Total 0 / 0 750 / 750 Balance 1150 / 2468.75 -750 / -750 Weight last 48 hrs Weight 82.871 kg Weight 80.15 kg Physical Exam Narrative: General: No acute distress, AO x3, chronically sick appearing, dehydrated HEENT: PERRLA, pupils bilaterally equal and reactive Chest: Normal vesicular breath sounds, no added sounds, equal good air entry bilaterally CVS: S1-S2 irregularly irregular, soft pansystolic murmur at apex no tachycardia, no gallops, no rubs Abdomen: Soft, nontender, no organomegaly, bowel sounds present mild distention Neuro: No focal deficits, no facial deformity, AO x3, power 5/5 in all limbs Data : 02/05/22 04:55 02/05/22 04:55 Micro: Microbiology 02/04/22 17:38 Blood Culture - Preliminary Blood SPECIMEN COLLECTED 02/04/22 17:35 Blood Culture - Preliminary Blood SPECIMEN COLLECTED A&P Assessment and plan (1) Anorexia: Status: Acute (2) Acute kidney injury: Status: Acute (3) Hypotension: Status: Acute (4) Acalculous cholecystitis: Status: Suspected (5) Transaminitis: Status: Acute (6) Paroxysmal atrial fibrillation: Status: Acute (7) Protein-energy malnutrition: Status: Acute (8) Diastolic CHF: Status: Acute Qualifiers: Heart failure chronicity: chronic Qualified Code(s): I50.32 - Chronic diastolic (congestive) heart failure (9) Dehydration: Status: Acute (10) Anasarca: Status: Acute (11) Non-small cell cancer of left lung: Status: Acute (12) 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 Could be multifactorial. Most likely cancer cachexia versus paraneoplastic syndrome. Could be Secondary to any structural abnormality of the esophagus versus oral thrush from immunocompromise status due to chemotherapy. Appreciate speech evaluation and modified barium swallow study. Consistent with mild esophageal dysmotility. FEES study showed left vocal cord paralysis. Continue with mechanical soft diet with protein supplements. Calorie count appreciated. Patient only taking 50 to 60% of calorie count needed. Patient is immunocompromised secondary to multiple chemotherapy till recently. Cannot rule out mucositis. Continue with nystatin 200,000 units 4 times daily. We will continue to course for 7 days. Protonix 40 mg twice daily, Carafate. If all the studies comes back negative or inconclusive we will consult surgery for possible upper GI endoscopy. Severe protein energy malnutrition: Due to chronic illness, metastatic cancer on chemotherapy. Poor oral intake. Prealbumin extremely low. Dietitian consult. Hypotension: Blood pressure is better today. Patient's baseline blood pressure is somewhat in high 90s to 100 systolics. Currently running in low 90s systolics. Cannot rule out septic shock versus cardiogenic shock. White count mildly elevated. Pro-Garrick negative. MRSA swab recently done in December 31 negative HIDA scan done ruled out cholecystitis. Appreciate surgery recommendations. For now continue with Zosyn. Continue with Decadron 2 mg p.o. 4 times daily. Will wean down quickly. Transaminitis: Worsening. HIDA scan ruled out cholecystitis. Hepatitis panel, HIV negative in the past. Could be secondary to amiodarone though highly unlikely as it was started on 1 month. Patient and patient's family deny any use of any herbal products for weight gain or appetite again. Patient was on ivermectin for a short span of time in between. Continue with IV hydration. Withhold amiodarone. Acute kidney injury: Continues to worsen. Appreciate nephrology recommendations. Most likely secondary dehydration from poor oral intake along with diuretics at home. Continue the IV fluids as above. Increase midodrine to 10 mg 3 times daily. Repeat BMP daily for now. Atrial fibrillation: Currently rate controlled. Withhold amiodarone as above. Continue with metoprolol to 50 mg twice daily. Continue with Eliquis 5 mg twice daily. Plan for kyphoplasty on 02/20. Chronic diastolic heart failure: Currently euvolemic. Continue to monitor. Shortness of breath: Combination of COPD and chronic diastolic heart failure along with pleural effusion. At baseline. Physical deconditioning. PT evaluation. Given his low blood pressures very cut down on his pain medications. Switch to [place] 10 mg every 6 hours as needed from every 4 hours as needed. Add tramadol 50 mg every 4 hours as needed. Discussed the same with patient and his family. They are agreeable. We will try to give alternate [place] and tramadol to have stack effect. Full code. Mechanical soft cardiac diet. Eliquis will suffice for DVT prophylaxis. 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
[2022-02-05] MEDS: dronabinol 2.5 mg Capsule 5 MG PO (18:15)
[2022-02-05 20:00] VITALS: BP 95/62; PULSE 73; RESP 24; TEMP 36; O2SAT 98
[2022-02-05] MEDS: atorvastatin 40 mg Tablet PO (20:58)
[2022-02-05] MEDS: TRAMadol 50 mg Tablet PO (21:19)
[2022-02-06] VITALS (9 sets, daily range): BP systolic 90–101; BP diastolic 52–72; PULSE 56–71; RESP 16–28; TEMP 36–36.8; O2SAT 98–100
[2022-02-06] MEDS: piperacillin-tazobactam 3.375 GM in sodium chloride 0.9% (plus) 50 ML IV ×3 (00:09→17:26)
[2022-02-06] MEDS: gabapentin 100 mg Capsule 200 MG PO ×4 (02:14→17:27)
[2022-02-06] MEDS: sodium chloride 0.9% 1,000 ML 75 ML IV (02:15)
[2022-02-06] MEDS: finasteride 5 mg Tablet PO (06:15)
[2022-02-06] MEDS: aspirin 81 mg EC Tablet PO (06:15)
[2022-02-06] MEDS: dronabinol 2.5 mg Capsule 5 MG PO ×2 (06:16→17:27)
[2022-02-06] MEDS: TRAMadol 50 mg Tablet PO (06:21)
[2022-02-06 06:30] LABS: Alanine Aminotransferase 661 U/L (0-41); Albumin Level 3.3 g/dL (3.5-5.2); Carbon Dioxide 16 mmol/L (22-29); Chloride 89 mmol/L (98-107); Globulin 2.9 g/dL (1.3-4.6); Glomerular Filtration Rate 27.3 mL/min (90-130); Glucose 121 mg/dL (65-115); Osmolality Calculated 302 mOsm/kg (285-295); Sodium 131 mmol/L (136-145); Total Bilirubin 0.9 mg/dL (0.15-1.2); Total Protein 6.2 g/dL (6.6-8.7)
[2022-02-06 06:46] LABS: Alkaline Phosphatase 1487 IU/L (40-130); Anion Gap 30.6 (5-19); Aspartate Amino Transferase 716 U/L (0-40); Blood Urea Nitrogen 93 mg/dL (8-23); Potassium 4.6 mmol/L (3.5-5.1)
--- NOTE | 2022-02-06 06:52 | PC.NURSE ---
Mr. Galaviz has had low urine output tonight 200 mls. He is on fluids at 75mls per hour and had oral intake of 480. post void bladder scan showed 93 mls. BUN 93, Creatinine 2.4 increased from yesterdays values. Dr. Jacobson notified.
[2022-02-06 06:53] LABS: Lipase 24 U/L (13-60)
[2022-02-06 07:41] LABS: Hepatitis A Antibody IgM Non-Reactive (Nonreactive); Hepatitis B Core AB, Total Non-Reactive (Nonreactive); Hepatitis B Surface Antigen Non-Reactive (Nonreactive); Hepatitis C Virus Antibody Non-Reactive (Nonreactive)
[2022-02-06 07:45] LABS: Hepatitis B Surface AB < 3.5 (11.5-1000)
[2022-02-06] MEDS: nystatin 100,000 unit/mL UDC 5 mL 200000 UNIT PO ×4 (08:37→20:16)
[2022-02-06] MEDS: ferrous sulfate EC 325 mg Tablet PO ×2 (08:37→17:27)
[2022-02-06] MEDS: sucralfate 1 gm/10 mL Oral Liq UDC PO (08:37)
[2022-02-06] MEDS: pantoprazole DR 40 mg Tablet PO ×2 (08:38→17:27)
[2022-02-06] MEDS: midodrine 5 mg TABLET 10 MG PO ×3 (08:39→20:16)
[2022-02-06] MEDS: apixaban 5 mg Tablet PO (08:39)
[2022-02-06] MEDS: metoprolol tartrate 50 mg Tablet PO ×2 (08:39→17:27)
[2022-02-06] MEDS: dexamethasone 4 mg Tablet 2 MG PO ×4 (08:40→20:15)
[2022-02-06 09:17] LABS: Basophils % 0.1 %; Hematocrit 30.1 % (42.0-52.0); Hemoglobin 9.1 g/dL (11.7-16.6); Lymphocytes # 0.4 10^3/uL (0.8-4.8); Lymphocytes % 2.7 %; Mean Corpuscular HGB Conc 30.2 g/dL (30.0-36.0); Mean Corpuscular Hemoglobin 28.3 pg (28.0-34.0); Mean Corpuscular Volume 93.5 fl (80-94); Mean Platelet Volume 12.9 fL (7.4-10.4); Monocytes # 0.6 10^3/uL (0.2-0.9); Monocytes % 3.9 %; Neutrophils # 13.49 10^3/uL (1.8-7.7); Neutrophils % 92.2 %; Nucleated Red Blood Cells # 0.3 /100WBC; Nucleated Red Blood Cells % 1.8 %; Platelet Count 294 10^3/cmm (130-400); Red Blood Count 3.22 10^6/uL (4.1-5.3); Red Cell Distribution Width 21.2 % (12.1-15.1); White Blood Count 14.6 10^3/uL (4.0-10.0)
[2022-02-06 09:38] LABS: Prothrombin Time > 120.00 SECONDS (12.1-14.9)
[2022-02-06 10:07] LABS: INR > 20.00 (0.8-1.2)
[2022-02-06 11:30] LABS: Acetaminophen < 5.0 ug/mL (10-30); Salicylate < 0.3 mg/dL (3-10)
[2022-02-06] MEDS: phytonadione (ADULT) 10 mg/mL Ampule 1 mL 5 MG PO (12:08)
--- NOTE | 2022-02-06 12:15 | P.PN_ITS ---
Subjective Subjective: Patient is more awake today, no nausea or vomiting, tolerating a regular diet Medications: Reviewed: Yes Vitals/I&O/Wt Last Vital Signs Temp 98.2 F 02/06/22 07:41 Pulse 68 02/06/22 07:41 Resp 16 02/06/22 07:41 BP 101/72 02/06/22 07:41 Pulse Ox 99 02/06/22 07:41 02/05/22 02/06/22 02/06/22 22:59 06:59 14:59 Intake Total 1530 / 2130 550 / 2130 Output Total 200 / 950 Balance 1530 / 1180 350 / 1180 Weight last 48 hrs Weight 182 lb 11.2 oz Data : 02/06/22 08:54 02/06/22 05:30 Micro: Microbiology 02/04/22 17:38 Blood Culture - Preliminary Blood NEGATIVE TO DATE 02/04/22 17:35 Blood Culture - Preliminary Blood NEGATIVE TO DATE A&P Assessment and plan (1) Transaminitis: 66-year-old 66-year-old male with evaded LFT including AST, ALT and alk phos total bilirubin was normal. HIDA scan with ejection fraction: Normal Continue with regular diet as tolerated. Discussed with the patient's family that at this point he does not need cholecystectomy. As long as patient is tolerating a regular diet to meet his nutritional goals, we can hold off on the gastrostomy tube Status: Acute Attestations Medical Necessity Statement*: As per primary Coding Level of Care Code Acute Physician Pediatrician for [facility] Luis Carlos Diagnoses Transaminitis R74.01
--- NOTE | 2022-02-06 12:57 | P.PN_ITS ---
Subjective Subjective: Mr. Galaviz feels relatively stable, still very weak. Events of the last 24 hours noted. Hemodynamics remain somewhat labile. Some very mild left arm edema, but no other symptoms of hypervolemia. No uremic symptoms. Medications: Reviewed: Yes Vitals/I&O/Wt Last Vital Signs Temp 97.9 F 02/06/22 12:00 Pulse 69 02/06/22 12:00 Resp 16 02/06/22 12:00 BP 90/62 02/06/22 12:00 Pulse Ox 100 02/06/22 12:00 02/05/22 02/06/22 02/06/22 22:59 06:59 14:59 Intake Total 1530 / 1580 550 / 2130 50 / 50 Output Total 200 / 950 Balance 1530 / 830 350 / 1180 50 / 50 Weight last 48 hrs Weight 82.871 kg Physical Exam Narrative: Constitutional: Awake, comfortable HEENT: Wet mucosa, no jvp, non icteric Lungs: Bilaterally diminished CVS: S1 S2, no murmurs Abdo: Soft, BS ok Ext 4: Minimal edema, peripheral perfusion with no cyanosis Neurological: Grossly non-focal Data : 02/06/22 08:54 02/06/22 05:30 Micro: Microbiology 02/04/22 17:38 Blood Culture - Preliminary Blood NEGATIVE TO DATE 02/04/22 17:35 Blood Culture - Preliminary Blood NEGATIVE TO DATE A&P Assessment and plan (1) Acute kidney injury: 1. Acute kidney injury Admission urine parameters demonstrate prerenal azotemia with a urine sodium that was less than 10. This to be consistent with his clinical history of high- dose twice daily diuretics with very poor oral intake. In addition to prerenal azotemia, he does have a very elevated uric acid level, ? urate nephropathy, although he is at low risk for the full-blown picture of tumor lysis syndrome. Anticoagulant related nephropathy is also possible given the very elevated INR. We will give another 500 mL bolus of normal saline. Continue midodrine 10 mg 3 times daily, will add allopurinol 100 mg p.o. am uric acid levels Daily renal panel, strict I's and O's Dose medication for GFR less than 30. 2. Chemistry Minor noncritical aberration including low sodium, low bicarb, continue to monitor for now, 3. Hemodynamics Blood pressure on the low side, currently on midodrine, saline as above 4. T2 spinal fracture Pending kyphoplasty, currently not in too much discomfort from this. 5. Metastatic adenocarcinoma of the lung Follow-up with oncology following discharge, hopefully a candidate for Keytruda following kyphoplasty in the near future. 6. Transaminitis Input from team memers appreciated, possible transfer for liver biopsy at bedside, I answered all of her questions to her satisfaction. Thank you for consultation of this very pleasant gentleman and his family. 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
[2022-02-06] MEDS: sodium chloride 0.9% 500 ML IV (13:19)
[2022-02-06] MEDS: allopurinol 100 mg Tablet PO (13:19)
--- NOTE | 2022-02-06 14:24 | PM.TDS ---
Transfer Summary Providers Date of Admission: 02/02/22 16:13 Date of Discharge/Transfer: 02/06/22 Attending Provider at Admission: Evans Reveles MD Attending Provider at Transfer: Evans Reveles MD Primary Care Provider: Edwin Montoya MD Transfer Plans: Anticipated date of transfer: 02/06/22. Receiving Facility: [facility]. Receiving Provider: Dr. Leary. Diagnoses at Discharge Discharge Diagnosis (1) Acute kidney injury: Status: Acute (2) Paralysis of left vocal cord: Status: Acute (3) Esophageal dysmotility: Status: Acute (4) Protein-energy malnutrition: Status: Acute (5) Non-small cell cancer of left lung: Status: Acute Permanent problem details: involving glands (6) Dehydration: Status: Acute (7) Paroxysmal atrial fibrillation: Status: Acute (8) Diastolic CHF: Status: Acute Qualifiers: Heart failure chronicity: chronic Qualified Code(s): I50.32 - Chronic diastolic (congestive) heart failure (9) Acute liver failure: Status: Acute Reason for Visit Reason for Visit DIFF BREATHING Hospital Course Hospital Course Tramaine Galaviz is a 66 year old male with past medical history of stage 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 fib on chronic anticoagulation with Eliquis who was recently in hospital and discharged on January 11 when he was treated for acute hypoxic respiratory failure from congestive heart failure and A. fib with RVR.? During that hospitalization he was started on amiodarone and discharged on diuretics. In between patient was found to have metastatic disease of T2 for which he followed up with Dr. Sethi and is scheduled for kyphoplasty. Patient presented to the ER today because of worsening generalized weakness.? Patient states since the last time he was discharged he has been doing very well from a breathing standpoint.? He states he has been able to walk around the house a little bit without having any difficulty in breathing but has been getting weaker progressively.? States his oral intake has been extremely poor.? Denies any nausea, vomiting, abdominal pain, diarrhea.? He states he just does not feel hungry and even if he feels hungry food does not taste well in his mouth.? Denies having any difficulty in swallowing or choking events.? States sometimes when he is eating he feels full very soon.? Denies any fever, dysuria, diarrhea, headache, dizziness.? As per his who also bedside he thinks he has lost some weight. Patient went to the hospital further evaluation of anorexia. He was started on nystatin for possible oral thrush. Multiple evaluated studies were done which were concerning for esophageal dysmotility and left vocal cord paralysis. During hospitalization he was found to have worsening liver functions to an extent of acute liver failure with INR of more than 20, AST ALT of more than 700 with alkaline phosphatase of more than 1500. Gallbladder etiology was ruled out with a negative HIDA scan, MRCP. Patient persistently had worsening renal function leading to JOSEPH. Nephrology and surgery was consulted. On admission there was a concern for dehydration so he was continued on IV fluids. Midodrine was started for borderline blood pressures. Patient's hospitalization was otherwise unremarkable. For INR of more than 20 he received 2 units of FFP and vitamin K. Medical reconciliation was done for hepatotoxic and nephrotoxic drugs. [place] was changed to oxycodone, amiodarone, statins were withheld. Eliquis has been withheld as well given extremely high INR. Possibility of a hemorrhagic stroke or thromboembolic stroke were discussed frankly with patient and patient's family at bedside. Multiple etiologies for acute liver failure were discussed. It is possible that his liver failure is secondary to drugs including multiple [place]/acetaminophen at home, and likely from amiodarone which was started a month ago, could be secondary to Keytruda which is the chemotherapy he was getting till October. For confirmation of etiology and further work-up patient would need a designated char conveyor tender, possible liver biopsy which unfortunately is not available at our facility so transfer to a higher center was sought and he has been accepted at [facility] by Dr. Leary. Prior to transfer multiple goals of care discussions were done with the patient's and son at bedside. We discussed unfortunately all his symptoms and problems are stemming from stage IV lung cancer for which as per oncologist he needs palliative chemotherapy after possible kyphoplasty. We discussed because of anorexia, failure to thrive, severe protein energy malnutrition patient is a poor candidate for kyphoplasty as well. Family stated that if his liver failure does not improve they would consider hospice but for now want to give a trial of evaluation and possible management for liver failure. They understand that patient is not a candidate for liver transplant. Physical Exam Narrative: No acute distress, AO x3, chronically sick appearing, HEENT: PERRLA, pupils bilaterally equal and reactive Chest: Normal vesicular breath sounds, no added sounds, equal good air entry bilaterally CVS: S1-S2 irregularly irregular, soft pansystolic murmur at apex no tachycardia, no gallops, no rubs Abdomen: Soft, nontender, no organomegaly, bowel sounds present mild distention Neuro: No focal deficits, no facial deformity, AO x3, power 5/5 in all limbs TS Data Studies Completed and Pending Pending at discharge Category Date Time Status ABO/Rh Type Routine Lab 02/06/22 12:04 Results Ammonia Routine Lab 02/06/22 17:00 Ordered Blood Culture Stat Lab 02/04/22 17:38 Results Complete Blood Count w/Auto AM LABS Lab 02/07/22 04:00 Ordered Complete Crossmatch Routine Lab 02/06/22 12:04 Results Comprehensive Metabolic Panel AM LABS Lab 02/07/22 04:00 Ordered FFP [Frozen Plasma FZ <24 1st Cont] Routine Lab 02/06/22 12:04 Results Prothrombin Time INR Routine Lab 02/06/22 17:00 Ordered Labs from last 24 hours 02/06/22 02/06/22 02/06/22 12:04 08:54 08:54 WBC 14.6 H RBC 3.22 L Hgb 9.1 L Hct 30.1 L MCV 93.5 MCH 28.3 MCHC 30.2 RDW 21.2 H Plt Count 294 MPV 12.9 H Neut % (Auto) 92.2 Lymph % (Auto) 2.7 Cocke % (Auto) 3.9 Eos % (Auto) 0.0 Baso % (Auto) 0.1 Neut # (Auto) 13.49 H Lymph # (Auto) 0.4 L Cocke # (Auto) 0.6 Eos # (Auto) 0.0 Baso # (Auto) 0.0 Nucleated RBC % (auto) 1.8 Nucleated RBCs # 0.3 PT > 120.00 H INR > 20.00 H* Sodium Potassium Chloride Carbon Dioxide Anion Gap BUN Creatinine GFR Calculation Glucose Calculated Osmolality Calcium Total Bilirubin AST ALT Alkaline Phosphatase Total Protein Albumin Globulin Lipase Salicylates Acetaminophen Hepatitis A IgM Ab Hep Bs Antigen Hep Bs Antibody Hep B Core Total Ab Hepatitis C Antibody Blood Type O Positive Rho(D) Type Positive 02/06/22 02/06/22 02/06/22 05:30 05:30 05:03 WBC RBC Hgb Hct MCV MCH MCHC RDW Plt Count MPV Neut % (Auto) Lymph % (Auto) Cocke % (Auto) Eos % (Auto) Baso % (Auto) Neut # (Auto) Lymph # (Auto) Cocke # (Auto) Eos # (Auto) Baso # (Auto) Nucleated RBC % (auto) Nucleated RBCs # PT INR Sodium 131 L Potassium 4.6 Chloride 89 L Carbon Dioxide 16 L Anion Gap 30.6 H BUN 93 H* Creatinine 2.4 H GFR Calculation 27.3 L Glucose 121 H Calculated Osmolality 302 H Calcium 8.0 L Total Bilirubin 0.9 AST 716 H ALT 661 H Alkaline Phosphatase 1487 H* Total Protein 6.2 L Albumin 3.3 L Globulin 2.9 Lipase 24 Salicylates Acetaminophen Hepatitis A IgM Ab Non-reactive Hep Bs Antigen Non-reactive Hep Bs Antibody < 3.5 L Hep B Core Total Ab Non-reactive Hepatitis C Antibody Non-reactive Blood Type Rho(D) Type 02/06/22 04:37 WBC RBC Hgb Hct MCV MCH MCHC RDW Plt Count MPV Neut % (Auto) Lymph % (Auto) Cocke % (Auto) Eos % (Auto) Baso % (Auto) Neut # (Auto) Lymph # (Auto) Cocke # (Auto) Eos # (Auto) Baso # (Auto) Nucleated RBC % (auto) Nucleated RBCs # PT INR Sodium Potassium Chloride Carbon Dioxide Anion Gap BUN Creatinine GFR Calculation Glucose Calculated Osmolality Calcium Total Bilirubin AST ALT Alkaline Phosphatase Total Protein Albumin Globulin Lipase Salicylates < 0.3 L Acetaminophen < 5.0 L Hepatitis A IgM Ab Hep Bs Antigen Hep Bs Antibody Hep B Core Total Ab Hepatitis C Antibody Blood Type Rho(D) Type Completed Studies During Hospitalization Category Date Time Status CT abdomen pelvis wo con [id number] Routine Cat Scan 02/02/22 22:13 Completed [place] barium swallow modifd [id number] Routine Exams 02/03/22 08:00 Completed XR chest 1V portable [id number] Urgent Exams 02/02/22 14:50 Completed MR MRCP [id number] Routine MRI 02/04/22 10:25 Completed NM hepatobiliary w phar* [id number] Routine Nuc Med 02/05/22 16:07 Completed Laboratory Last Values WBC 14.6 10^3/uL (4.0-10.0) H 02/06/22 08:54 RBC 3.22 10^6/uL (4.1-5.3) L 02/06/22 08:54 Hgb 9.1 g/dL (11.7-16.6) L 02/06/22 08:54 Hct 30.1 % (42.0-52.0) L 02/06/22 08:54 MCV 93.5 fl (80-94) 02/06/22 08:54 MCH 28.3 pg (28.0-34.0) 02/06/22 08:54 MCHC 30.2 g/dL (30.0-36.0) 02/06/22 08:54 RDW 21.2 % (12.1-15.1) H 02/06/22 08:54 Plt Count 294 10^3/cmm (130-400) 02/06/22 08:54 MPV 12.9 fL (7.4-10.4) H 02/06/22 08:54 Neut % (Auto) 92.2 % 02/06/22 08:54 Lymph % (Auto) 2.7 % 02/06/22 08:54 Cocke % (Auto) 3.9 % 02/06/22 08:54 Eos % (Auto) 0.0 % 02/06/22 08:54 Baso % (Auto) 0.1 % 02/06/22 08:54 Neut # (Auto) 13.49 10^3/uL (1.8-7.7) H 02/06/22 08:54 Lymph # (Auto) 0.4 10^3/uL (0.8-4.8) L 02/06/22 08:54 Cocke # (Auto) 0.6 10^3/uL (0.2-0.9) 02/06/22 08:54 Eos # (Auto) 0.0 10^3/uL (0.0-0.8) 02/06/22 08:54 Baso # (Auto) 0.0 10^3/uL (0.0-0.1) 02/06/22 08:54 Nucleated RBC % (auto) 1.8 % 02/06/22 08:54 Nucleated RBCs # 0.3 /100WBC 02/06/22 08:54 PT > 120.00 SECONDS (12.1-14.9) H 02/06/22 08:54 INR > 20.00 (0.8-1.2) H* 02/06/22 08:54 Sodium 131 mmol/L (136-145) L 02/06/22 05:30 Potassium 4.6 mmol/L (3.5-5.1) 02/06/22 05:30 Chloride 89 mmol/L (98-107) L 02/06/22 05:30 Carbon Dioxide 16 mmol/L (22-29) L 02/06/22 05:30 Anion Gap 30.6 (5-19) H 02/06/22 05:30 BUN 93 mg/dL (8-23) H* 02/06/22 05:30 Creatinine 2.4 mg/dL (0.7-1.2) H 02/06/22 05:30 GFR Calculation 27.3 mL/min (90-130) L 02/06/22 05:30 Glucose 121 mg/dL (65-115) H 02/06/22 05:30 POC Glucose 171 mg/dL (70-110) H 02/03/22 22:08 Estimat Average Glucose 148 02/03/22 04:37 Hemoglobin A1c 6.8 % (4.0-6.0) H 02/03/22 04:37 Calculated Osmolality 302 mOsm/kg (285-295) H 02/06/22 05:30 Uric Acid 15.3 mg/dL (3.4-7.0) H 02/05/22 04:55 Calcium 8.0 mg/dL (8.5-10.5) L 02/06/22 05:30 Phosphorus 5.0 mg/dL (2.5-4.5) H 02/03/22 04:37 Magnesium 2.6 mg/dL (1.7-2.3) H 02/03/22 04:37 Total Bilirubin 0.9 mg/dL (0.15-1.2) 02/06/22 05:30 AST 716 U/L (0-40) H 02/06/22 05:30 ALT 661 U/L (0-41) H 02/06/22 05:30 Alkaline Phosphatase 1487 IU/L (40-130) H* 02/06/22 05:30 Creatine Kinase 124 U/L (39-308) 02/05/22 04:55 Troponin T Baseline 60 ng/L (0-15) H 02/02/22 15:00 Troponin T 120 Minute 47.06 ng/L (0-15) H 02/02/22 17:40 Delta Troponin T -12.94 ABS# (0-10) L 02/02/22 17:40 Troponin T Hi Sens 6Hr 46.16 ng/L (0-15) H 02/02/22 20:48 Troponin T Hi Sens 6Hr Delta -13.84 ng/L (0-12) L 02/02/22 20:48 NT-Pro-B Natriuret Pep 6396 pg/mL (0-125) H 02/02/22 15:00 Total Protein 6.2 g/dL (6.6-8.7) L 02/06/22 05:30 Albumin 3.3 g/dL (3.5-5.2) L 02/06/22 05:30 Globulin 2.9 g/dL (1.3-4.6) 02/06/22 05:30 Prealbumin 8.4 mg/dL (20-40) L 02/02/22 20:48 Lipase 24 U/L (13-60) 02/06/22 05:30 Procalcitonin 0.40 ng/mL (0-0.5) 02/04/22 08:49 TSH 0.88 uIU/mL (0.27-4.20) 02/05/22 04:55 Random Cortisol 36.15 ug/dL (2.47-19.5) H 02/02/22 17:40 Urine Color Yellow (Yellow) 02/04/22 11:49 Urine Appearance Hazy (CLEAR) A 02/04/22 11:49 Urine pH 5 (5-7) 02/04/22 11:49 Ur Specific Mathews 1.020 (1.005-1.030) 02/04/22 11:49 Urine Protein Neg (Negative) 02/04/22 11:49 Urine Glucose (UA) Norm (Normal) 02/04/22 11:49 Urine Ketones Negative (Negative) 02/04/22 11:49 Urine Blood Neg (Negative) 02/04/22 11:49 Urine Nitrate Negative (Negative) 02/04/22 11:49 Urine Bilirubin Neg (Negative) 02/04/22 11:49 Urine Urobilinogen Neg mg/dL (Negative) 02/04/22 11:49 Ur Leukocyte Esterase Negative (Negative) 02/04/22 11:49 Urine RBC None /hpf (0-2) 02/04/22 11:49 Urine WBC None /hpf (0-5) 02/04/22 11:49 Ur Eosinophil Smear 0 (0-0) 02/04/22 11:49 Ur Squamous Epith Cells None /hpf (0-5) 02/04/22 11:49 Amorphous Sediment 1+ /hpf 02/04/22 11:49 Urine Bacteria None /hpf (NONE) 02/04/22 11:49 Urine Eosinophils No eosinophils seen 02/04/22 11:49 Ur Random Sodium < 10 mmol/L 02/04/22 11:40 Ur Random Potassium 56 mmol/L 02/04/22 11:40 Ur Random Chloride < 10 mmol/L 02/04/22 11:40 Urine Creatinine 99 mg/dL (39-259) 02/04/22 11:40 Salicylates < 0.3 mg/dL (3-10) L 02/06/22 04:37 Acetaminophen < 5.0 ug/mL (10-30) L 02/06/22 04:37 Coronavirus 229E (PCR) Not detected (NOT DETECT) 02/02/22 21:10 Hepatitis A IgM Ab Non-reactive (Nonreactive) 02/06/22 05:03 Hep Bs Antigen Non-reactive (Nonreactive) 02/06/22 05:03 Hep Bs Antibody < 3.5 (11.5-1000) L 02/06/22 05:03 Hep B Core Total Ab Non-reactive (Nonreactive) 02/06/22 05:03 Hepatitis C Antibody Non-reactive (Nonreactive) 02/06/22 05:03 SARS-CoV-2 (PCR) Not detected (NOT DETECT) 02/02/22 21:10 Blood Type O Positive 02/06/22 12:04 Rho(D) Type Positive 02/06/22 12:04 Radiology Impressions Chest X-Ray 02/02/22 14:50 IMPRESSION: Moderate size left pleural effusion with underlying atelectasis/infiltrates slightly decreased in size. Abdomen/Pelvis CT 02/02/22 22:13 IMPRESSION: 1. Third spacing of fluid. 2. Nonspecific mild wall thickening of the gallbladder which is otherwise contracted. More likely related to the underlying fluid overload status, rather than acute cholecystitis. Modified Barium Swallow 02/03/22 08:00 IMPRESSION: 1. No evidence of callie aspiration. 2. Penetration with thin liquids. 3. Mild esophageal dysmotility with delayed emptying. No evidence of high-grade stricture or obstructing mass. Cholangiopancreatography MRI 02/04/22 10:25 Impression: Extremely limited examination due to patient's inability to hold breath. MRCP images are nondiagnostic. 1. Gallbladder is somewhat contracted unchanged from the prior CT. Mild gallbladder wall thickening/edema with fluid in the gallbladder fossa. No visualized choledocholithiasis. Findings can be seen with acalculous cholecystitis as well as hepatic disease/fluid overload. Gallbladder function can be further evaluated with HIDA scan. Ultrasound RIGHT upper quadrant could also be performed for additional detail. 2. Common bile duct not well evaluated. Common bile duct at the pancreatic head appears normal caliber. 3. Small amount of perihepatic ascites. 4. Moderate pericardial effusion. 5. Small LEFT greater than RIGHT pleural effusions. 6. T2 hyperintense lesion visualized in the LEFT hepatic lobe measuring 2.1 cm suspicious for metastatic disease given history of neoplasm. This appears new since the prior PET/CT November 15, 2021. Hepatobiliary Scan Nuclear Medicine 02/05/22 16:07 IMPRESSION: 1. Normal HIDA scan. No common bile duct or cystic duct obstruction. 2. Normal gallbladder ejection fraction. Recent Clincial Data Last Vital Signs Temp 96.8 F L 02/06/22 14:07 Pulse 69 02/06/22 14:07 Resp 17 02/06/22 14:07 BP 90/62 02/06/22 12:00 Pulse Ox 100 02/06/22 12:00 Vital Signs Temp Pulse Resp BP Pulse Ox 02/06/22 14:07 96.8 F L 69 17 02/06/22 12:00 97.9 F 69 16 90/62 100 02/06/22 07:41 98.2 F 68 16 101/72 99 02/06/22 04:42 96.8 F L 67 28 H 99 02/06/22 04:27 96/58 Intake & Output/Weight 02/04/22 02/05/22 02/06/22 02/07/22 06:59 06:59 06:59 06:59 Intake Total 2420 / 2420 2468.75 / 2468.75 2130 / 2130 50 / 50 Output Total 1950 / 1949 0 / 0 950 / 950 Balance 470 / 470 2468.75 / 2468.75 1180 / 1180 50 / 50 Weight 80.15 kg 82.871 kg Vitals Last Vital Signs Temp 96.8 F L 02/06/22 14:07 Pulse 69 02/06/22 14:07 Resp 17 02/06/22 14:07 BP 90/62 02/06/22 12:00 Pulse Ox 100 02/06/22 12:00 TS Medications Medications Allopurinol (Allopurinol 100 Mg Tablet) 100 mg PO DAILY [facility] Last Admin: 02/06/22 13:19 Dose: 100 mg Documented by: Apixaban (Apixaban 5 Mg Tablet) 5 mg PO BID@0900,2100 [facility] Last Admin: 02/06/22 08:39 Dose: 5 mg Documented by: Aspirin (Aspirin 81 Mg Ec Tablet) 81 mg PO QAM [facility] Last Admin: 02/06/22 06:15 Dose: 81 mg Documented by: Bisacodyl (Bisacodyl 5 Mg Tablet) 10 mg PO DAILY PRN; Protocol PRN Reason: Constipation (see protocol) Dexamethasone (Dexamethasone 4 Mg Tablet) 2 mg PO QID [facility] Last Admin: 02/06/22 12:08 Dose: 2 mg Documented by: Dronabinol (Dronabinol 2.5 Mg Capsule) 5 mg PO BIDAC [facility] Last Admin: 02/06/22 06:16 Dose: 5 mg Documented by: Ferrous Sulfate (Ferrous Sulfate Ec 325 Mg Tablet) 325 mg PO BID [facility] Last Admin: 02/06/22 08:37 Dose: 325 mg Documented by: Finasteride (Finasteride 5 Mg Tablet) 5 mg PO QAM [facility] Last Admin: 02/06/22 06:15 Dose: 5 mg Documented by: Gabapentin (Gabapentin 100 Mg Capsule) 200 mg PO BID [facility] Piperacillin Sod/Tazobactam (Sod 3.375 gm/ Sodium Chloride) 50 mls @ 12.5 mls/hr IV Q8H [facility] Last Infusion: 02/06/22 12:46 Dose: Infused Documented by: Magnesium Hydroxide (Magnesium Hydroxide 30 Ml Udc) 30 ml PO DAILY PRN; Protocol PRN Reason: Constipation (see protocol) Metoprolol Tartrate (Metoprolol Tartrate 50 Mg Tablet) 50 mg PO BID [facility] Last Admin: 02/06/22 08:39 Dose: 50 mg Documented by: Midodrine (Midodrine 5 Mg Tablet) 10 mg PO TID [facility] Last Admin: 02/06/22 08:39 Dose: 10 mg Documented by: Nystatin (Nystatin 100,000 Unit/Ml Udc 5 Ml) 200,000 unit PO QID [facility] Last Admin: 02/06/22 12:09 Dose: 200,000 unit Documented by: Ondansetron HCl (Ondansetron 2 Mg/Ml Sdv 2 Ml) 4 mg IVP Q8H PRN PRN Reason: vomiting, or N/V if npo Oxycodone HCl (Oxycodone 5 Mg Ir Tab/Cap) 10 mg PO Q6H PRN PRN Reason: SEVERE PAIN Pantoprazole Sodium (Pantoprazole Dr 40 Mg Tablet) 40 mg PO BID [facility] Last Admin: 02/06/22 08:38 Dose: 40 mg Documented by: Tamsulosin HCl (Tamsulosin 0.4 Mg Capsule) 0.4 mg PO QAM [facility] Last Admin: 02/04/22 04:47 Dose: Not Given Documented by: Tramadol HCl (Tramadol 50 Mg Tablet) 50 mg PO Q4H PRN PRN Reason: MODERATE PAIN Last Admin: 02/06/22 06:21 Dose: 50 mg Documented by: Discontinued Medications Acetaminophen (Acetaminophen 325 Mg Tablet) 650 mg PO Q6H PRN PRN Reason: Mild/Mod Pain Or Temp >/= 101 Hydrocodone Bitart/Acetaminophen (Hydrocodone-Acetaminophen 10-325 Mg Tablet) 1 tab PO Q6H PRN PRN Reason: Pain Hydrocodone Bitart/Acetaminophen (Hydrocodone-Acetaminophen 10-325 Mg Tablet) 1 tab PO Q4H PRN PRN Reason: Pain Last Admin: 02/04/22 07:37 Dose: 1 tab Documented by: Amiodarone HCl (Amiodarone 200 Mg Tablet) 200 mg PO ONCE ONE Stop: 02/04/22 09:13 Last Admin: 02/04/22 09:19 Dose: 200 mg Documented by: Amiodarone HCl (Amiodarone 200 Mg Tablet) 200 mg PO QAM [facility] Last Admin: 02/05/22 06:23 Dose: 200 mg Documented by: Atorvastatin Calcium (Atorvastatin 40 Mg Tablet) 40 mg PO BEDTIME [facility] Last Admin: 02/05/22 20:58 Dose: 40 mg Documented by: Furosemide (Furosemide 10 Mg/Ml Sdv 4ml) 40 mg IVP ONCE ONE Stop: 02/04/22 11:45 Last Admin: 02/04/22 14:46 Dose: Not Given Documented by: Furosemide (Furosemide 10 Mg/Ml Sdv 10ml) 60 mg IVP ONCE ONE Stop: 02/06/22 13:52 Furosemide (Furosemide 10 Mg/Ml Sdv 4ml) 40 mg IVP ONCE ONE Stop: 02/06/22 13:57 Gabapentin (Gabapentin 400 Mg Capsule) 200 mg PO Q6H [facility] Last Admin: 02/03/22 04:51 Dose: 200 mg Documented by: Gabapentin (Gabapentin 100 Mg Capsule) 200 mg PO Q6H [facility] Last Admin: 02/06/22 13:19 Dose: 200 mg Documented by: Sodium Chloride (Sodium Chloride 0.9%) 1,000 mls @ 75 mls/hr IV .[id number] [facility] Last Admin: 02/06/22 02:15 Dose: 75 mls/hr Documented by: Sodium Chloride (Sodium Chloride 0.9%) 250 mls @ 250 mls/hr IV ONCE ONE Stop: 02/04/22 13:18 Last Infusion: 02/04/22 14:46 Dose: Infused Documented by: Albumin Human (Albumin) 25 gm in 100 mls @ 60 mls/hr IV ONCE ONE Stop: 02/04/22 16:39 Last Infusion: 02/05/22 04:09 Dose: Infused Documented by: Lactated Ringer's (Lactated Ringers) 500 mls @ 200 mls/hr IV .Q2H30M ONE Stop: 02/05/22 13:29 Last Infusion: 02/05/22 18:44 Dose: Infused Documented by: Sodium Chloride (Sodium Chloride 0.9%) 500 mls @ 500 mls/hr IV ONCE ONE Stop: 02/06/22 13:59 Last Admin: 02/06/22 13:19 Dose: 500 mls/hr Documented by: Sodium Chloride (Sodium Chloride 0.9% (100 Ml)) Confirm Administered Dose 100 mls @ as directed .ROUTE .STK-MED ONE Stop: 02/06/22 14:05 Sodium Chloride (Sodium Chloride 0.9%) 1,000 mls @ 50 mls/hr IV .Q20H [facility] Stop: 02/03/22 12:59 Last Infusion: 02/03/22 18:25 Dose: Infused Documented by: Sodium Chloride (Sodium Chloride 0.9%) 1,000 mls @ 75 mls/hr IV .[id number] [facility] Last Infusion: 02/04/22 14:50 Dose: Infused Documented by: Albumin Human (Albumin) 25 gm in 100 mls @ 60 mls/hr IV Q8H [facility] Stop: 02/04/22 14:29 Last Infusion: 02/04/22 06:40 Dose: Infused Documented by: Midodrine (Midodrine 5 Mg Tablet) 5 mg PO TID [facility] Last Admin: 02/05/22 10:22 Dose: 5 mg Documented by: Morphine Sulfate (Morphine 4 Mg/Ml Sdv 1 Ml) 2 mg IVP ONCE ONE Stop: 02/02/22 16:17 Last Admin: 02/02/22 16:22 Dose: 2 mg Documented by: Pantoprazole Sodium (Pantoprazole Dr 40 Mg Tablet) 40 mg PO [facility] Phytonadione (Phytonadione (Adult) 10 Mg/Ml Ampule 1 Ml) 5 mg PO ONCE ONE Stop: 02/06/22 10:47 Last Admin: 02/06/22 12:08 Dose: 5 mg Documented by: Sucralfate (Sucralfate 1 Gm/10 Ml Oral Liq Udc) 1 gm PO BID [facility] Last Admin: 02/06/22 08:37 Dose: 1 gm Documented by: Allergies iodine Allergy (Verified 02/02/22 14:36) ADR-Nausea Home Medications acetaminophen 500 mg tablet (Tylenol Extra Strength) 500 - 1,000 mg PO Q6H PRN 02/27/21 [History Confirmed 02/02/22] oxycodone-acetaminophen 10 mg-325 mg tablet 1 tab PO Q6H PRN 03/31/21 [History Confirmed 02/02/22] apixaban 5 mg tablet (Eliquis) 5 mg PO BID 07/30/21 [History Confirmed 02/02/22] finasteride 5 mg tablet 5 mg PO QAM 07/30/21 [History Confirmed 02/02/22] gabapentin 400 mg capsule 400 mg PO Q6H 07/30/21 [History Confirmed 02/02/22] ferrous sulfate 325 mg (65 mg iron) tablet (Iron (ferrous sulfate)) 325 mg PO BID 07/31/21 [History Confirmed 02/02/22] guaifenesin 1,200 mg tablet, extended release 12 hr (Mucinex) 1,200 mg PO Q12H 07/31/21 [History Confirmed 02/02/22] lidocaine-prilocaine 2.5 %-2.5 % topical cream 1 applic TOPICAL PRN PRN g 09/23/21 [History Confirmed 02/02/22] nitroglycerin 0.4 mg sublingual tablet 0.4 mg SUBLINGUAL Q5M PRN 30 Days #30 tab 09/23/21 [Rx Confirmed 02/02/22] potassium gluconate 595 mg (99 mg) tablet 595 mg PO QAM 09/23/21 [History Confirmed 02/02/22] albuterol sulfate 90 mcg/actuation aerosol inhaler 1 inh INHALATION QID PRN #8.5 g 12/01/21 [Rx Confirmed 02/02/22] prochlorperazine maleate 10 mg tablet 10 mg PO Q4H PRN tab 12/01/21 [History Confirmed 02/02/22] ipratropium 0.5 mg-albuterol 3 mg (2.5 mg base)/3 mL nebulization soln 3 ml INHALATION Q6H PRN 30 Days #360 ml 12/19/21 [Rx Confirmed 02/02/22] metoprolol tartrate 75 mg tablet 75 mg PO BID #60 tab 01/11/22 [Rx Confirmed 02/02/22] furosemide 80 mg tablet (Lasix) 80 mg PO BID #60 tab 01/15/22 [Rx Confirmed 02/02/22] atorvastatin 40 mg tablet 40 mg PO BEDTIME #30 tab 01/19/22 [Rx Confirmed 02/02/22] amiodarone 200 mg tablet 200 mg PO QAM 02/02/22 [History Confirmed 02/02/22] aspirin 81 mg tablet,delayed release 81 mg PO QAM 02/02/22 [History Confirmed 02/02/22] calcium carbonate 600 mg (1,500 mg)-vitamin D3 200 unit tablet 1 tab PO QAM 02/02/22 [History Confirmed 02/02/22] cholecalciferol (vitamin D3) 50 mcg (2,000 unit) capsule (Vitamin D3) 50 mcg PO QAM 02/02/22 [History Confirmed 02/02/22] cyanocobalamin (vitamin B-12) 5,000 mcg sublingual tablet (Vitamin B-12) 5,000 mcg SUBLINGUAL QAM 02/02/22 [History Confirmed 02/02/22] dexamethasone 4 mg tablet See Rx Instructions .ROUTE .COMPLEX 02/02/22 [History Confirmed 02/02/22] hydrocodone 10 mg-acetaminophen 325 mg tablet 1 - 2 tab PO Q4H PRN 02/02/22 [History Confirmed 02/02/22] oxycodone 5 mg tablet 5 mg PO Q4H PRN 02/02/22 [History Confirmed 02/02/22] pantoprazole 40 mg tablet,delayed release 40 mg PO QAM 02/02/22 [History Confirmed 02/02/22] tamsulosin 0.4 mg capsule 0.4 mg PO QAM 02/02/22 [History Confirmed 02/02/22] tiotropium 2.5 mcg-olodaterol 2.5 mcg/actuation mist for inhalation 2 puff INHALATION QAM 02/02/22 [History Confirmed 02/02/22] Discharge Plan Discharge Patient Disposition: Xfer Other Condition: Stable Prescriptions: No Action prochlorperazine maleate 10 mg tablet 10 mg PO Q4H PRN (Reason: Nausea) 0RF albuterol sulfate 90 mcg/actuation HFA aerosol inhaler 1 inh inhalation QID PRN (Reason: shortness of breath or wheezing) Qty: 8.5 0RF Lasix 80 mg tablet 80 mg PO BID Qty: 60 0RF Eliquis 5 mg tablet 5 mg PO BID 0RF finasteride 5 mg tablet 5 mg PO QAM 0RF gabapentin 400 mg capsule 400 mg PO Q6H 0RF ipratropium-albuterol 0.5 mg-3 mg(2.5 mg base)/3 mL solution for nebulization 3 ml inhalation Q6H PRN (Reason: wheezing) 30 Days Qty: 360 3RF lidocaine-prilocaine 2.5-2.5 % cream 1 applic topical PRN PRN (Reason: port access) 0RF potassium gluconate 595 mg (99 mg) tablet 595 mg PO QAM 0RF nitroglycerin 0.4 mg tablet, sublingual 0.4 mg sublingual Q5M PRN (Reason: chest pain) 30 Days Qty: 30 3RF Rx Instructions: until response; do not exceed 3 doses per episode atorvastatin 40 mg tablet 40 mg PO BEDTIME Qty: 30 2RF oxycodone-acetaminophen 10-325 mg tablet 1 tab PO Q6H PRN (Reason: Pain) 0RF ferrous sulfate [Iron (ferrous sulfate)] 325 mg (65 mg iron) Tablet 325 mg PO BID 0RF Mucinex 1,200 mg Tablet Extended Release 12hr 1,200 mg PO Q12H 0RF metoprolol tartrate 75 mg tablet 75 mg PO BID Qty: 60 0RF acetaminophen [Tylenol Extra Strength] 500 mg Tablet 500 - 1,000 mg PO Q6H PRN (Reason: Pain) 0RF Calcium + D 600 mg(1,500mg) -200 unit Tablet 1 tab PO QAM 0RF [place] 10-325 mg Tablet 1 - 2 tab PO Q4H PRN (Reason: Pain) 0RF dexamethasone 4 mg Tablet See Rx Instructions .ROUTE .COMPLEX 0RF Rx Instructions: 5 tabs po 12 hours and 6 hours before chemo (not taken since april or may) oxycodone 5 mg tablet 5 mg PO Q4H PRN (Reason: Pain) 0RF Vitamin D3 50 mcg (2,000 unit) Capsule 50 mcg PO QAM 0RF Vitamin B-12 5,000 mcg Tablet, Sublingual 5,000 mcg SUBLINGUAL QAM 0RF amiodarone 200 mg tablet 200 mg PO QAM 0RF aspirin 81 mg tablet,delayed release (DR/EC) 81 mg PO QAM 0RF tamsulosin 0.4 mg capsule 0.4 mg PO QAM 0RF pantoprazole 40 mg tablet,delayed release (DR/EC) 40 mg PO QAM 0RF tiotropium-olodaterol 2.5-2.5 mcg/actuation mist 2 puff inhalation QAM 0RF Referrals: Maria Eugenia Pineda MD [Physician] - 03/05/22 10:15 am Edwin Montoya MD [Primary Care Provider] - Janeth Harrison MD [Physician] - 02/27/22 10:30 am Patient Instructions: GI Discharge Instructions, Opioid Safety Transfer Attestations Time Spent in Transfer Care: greater than 30 min Specific Discharge Activities: educating patient, educating and/or supporting family/caregiver, discussing with pcp/other providers, discussing with manager of case/social workers/dc planners, documenting/other paperwork and evaluating patient/reviewing data Status at Transfer: Cognitive status at transfer: mildly impaired cognition; Behavioral status at transfer: cooperative; Functional status at transfer: other assisted ambulation; Overall status at transfer: patient is not back to baseline Quality Metrics Clinical Quality Measures [ No reported AMI, CVA or VTE this stay] Coding Level of Care Code Acute It Field Technician for Chg Fwd History Comprehensive Exam Comprehensive Medical Decision Making High Complexity Diagnoses Acute kidney injury N17.9 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
--- NOTE | 2022-02-06 14:46 | PC.NURSE ---
Orders received to hold furosemide stop IV fluids. Pt's family at bedside and notified of patient's acceptance to [facility].
[2022-02-06 16:36] LABS: SARS Covid-2 Antigen Negative (Negative)
--- NOTE | 2022-02-06 16:55 | PC.NURSE ---
Report called to HENRRY Gallo, at [facility]. Awaiting negative covid test results for transport.
[2022-02-06 17:42] LABS: INR 3.18 (0.8-1.2)
[2022-02-06 17:46] LABS: Ammonia 30 umol/L (16-60)
--- NOTE | 2022-02-06 22:35 | PC.NURSE ---
Report called to CHERI [place] at [facility]. All questions answered. Pt transporting via ambulance. Pt updated. Pt's updated.
== END 2022-02-06 23:15 | disposition short-term general hospital (02) | DRG 682 ==
LOC: ER 16:19 → MEDSURG 19:34
PROVIDERS: Internal Medicine Nephrology; Surgery; Admitting Provider Student in an Organized Health Care Education/Training Program; Emergency Provider Emergency Medicine; PCP Family Medicine; Visit Provider Student in an Organized Health Care Education/Training Program
DX: N17.9 Acute kidney failure, unspecified (principal); E43 Unspecified severe protein-calorie malnutrition; K72.00 Acute and subacute hepatic failure without coma; C34.90 Malignant neoplasm of unspecified part of unspecified bronchus or lung; C79.51 Secondary malignant neoplasm of bone; I50.32 Chronic diastolic (congestive) heart failure; M84.58XA Pathological fracture in neoplastic disease, other specified site, initial encounter for fracture; B37.0 Candidal stomatitis; I25.10 Atherosclerotic heart disease of native coronary artery without angina pectoris; I11.0 Hypertensive heart disease with heart failure; J43.9 Emphysema, unspecified; Z86.73 Personal history of transient ischemic attack (TIA), and cerebral infarction without residual deficits; M54.12 Radiculopathy, cervical region; Z87.891 Personal history of nicotine dependence; I48.0 Paroxysmal atrial fibrillation; E86.0 Dehydration; Z68.26 Body mass index [BMI] 26.0-26.9, adult; I95.9 Hypotension, unspecified; Z79.82 Long term (current) use of aspirin; Z79.891 Long term (current) use of opiate analgesic; T50.915A Adverse effect of multiple unspecified drugs, medicaments and biological substances, initial encounter; J38.01 Paralysis of vocal cords and larynx, unilateral; Z92.3 Personal history of irradiation; Z92.21 Personal history of antineoplastic chemotherapy; K22.4 Dyskinesia of esophagus
CPT/HCPCS: 36415; 36416; 71045; 74176; 74181; 74230; 78227; 80048; 80053; 80307; 81001; 81003; 82140; 82436; 82533; 82550; 82570; 82962; 83036; 83690; 83735; 83880; 84100; 84133; 84134; 84145; 84300; 84443; 84484; 84550; 85025; 85610; 85999; 86705; 86706; 86709; 86803; 86900; 86927; 87040; 87340; 87426; 87635; 92523; 92611; 92612; 93005; 94664; 96374; 97110; 97162; 99285; A9537; J2270; J2543; J3430; J7030; J7040; J7050; J8540; P9017; P9047; Q0167